=== PATIENT | female | born 1970 | race Caucasian/White ===

== ENCOUNTER 2020-12-07 00:34 | Inpatient (IN) | payer MEDICAID, SELFPAY ==
[2020-12-07] VITALS (12 sets, daily range): BP systolic 140–211; BP diastolic 81–139; PULSE 63–92; RESP 17–20; TEMP 36.1–36.9; O2SAT 90–98; BMI 40.7
--- NOTE | 2020-12-07 00:45 | W.ED.NAVMDI ---
Documented by User: OBED Mendoza 12/07/20 04:15 HPI - Nausea/Vomiting/Diarrhea General: Chief complaint: Nausea/Vomiting/Diarrhea Stated complaint: n/v/constipation Time Seen by Provider: 12/07/20 00:41 History of Present Illness: HPI Narrative: Patient is a 50-year-old female comes to the ED with abdominal pain, nausea/vomiting and constipation. Patient has a past surgical history of total hysterectomy, appendectomy and cholecystectomy. Patient says she has not had a bowel movement in 2 weeks. She started developing centralized abdominal pain that started approximately 1 week ago. She rates her abdominal pain 9 out of 10. She started developing the nausea and vomiting within the last 48 hours. She also reports since the start of her abdominal pain last week she has had poor p.o. intake. Denies any fever, chills, chest pain, shortness of breath, dysuria or hematuria. Patient denies any headache or numbness or tingling to extremities or face. Denies any weakness to the face or extremities. She does endorse having some blurry vision that has worsened in the last 2 to 3 hours. Associated nausea: Yes Associated symtoms: Reports nausea; Denies change in vision, chest pain, dysuria, fatigue, headache(s) or palpitations Review of Systems Const: Reports: change in appetite (decreased intake); Denies: fever(s), chills or fatigue Eyes: Reports: blurry vision; Denies: change in vision or eye discomfort ENMT: Denies: throat pain, odynophagia, nasal discharge or nasal congestion Card: Denies: chest pain, palpitations, edema, swelling of feet/ankles, dyspnea on exertion or orthopnea Resp: Denies: dyspnea, productive cough or non-productive cough GI: Reports: abdominal pain, nausea, vomiting and constipation; Denies: diarrhea or hematochezia : Denies: flank pain, dysuria or hematuria Musc: Denies: neck pain, back pain or extremity swelling Skin/Breast: Denies: rash or new lesions Neuro: Denies: headache(s), numbness in extremities or weakness in extremities [facility] ED PFSH: Medical History (Updated 12/07/20 @ 04:51 by Jennifer Eller MD) Abnormal colonoscopy in 30s 3 poulyps were removed Diabetes HTN (hypertension) Surgical History (Updated 12/07/20 @ 04:51 by Jennifer Eller MD) H/O: hysterectomy History of appendectomy S/P laparoscopic cholecystectomy Family History (Updated 12/07/20 @ 04:52 by Jennifer Eller MD) Grandmother Cancer DIRECTOR INPATIENT HEADACHE PROGRAM CANCER Mother CAD (coronary artery disease) Social History (Updated 12/07/20 @ 04:53 by Jennifer Eller MD) Smoking and tobacco status: current every day smoker cigarettes [ Other cigarette details: 4-6 ciggaretts a day ] Alcohol intake: never Substance/Drug Use: never Household members: family Housing: House Physical Exam Const: COMMON NORMALS: patient oriented x3 and alert GENERAL APPEARANCE: cooperative, in distress and ill appearing HENMT: COMMON NORMALS: normocephalic HEAD & SCALP: normocephalic MOUTH: moist mucous membranes abnormal Details: parched THROAT: posterior oropharynx normal and uvula midline Eye: COMMON NORMALS: Equal, round and reactive pupils present and EOMs intact bilaterally PUPIL: Yes Equal, round and reactive pupils present Neck/C-Spine: COMMON NORMALS: supple GENERAL: Yes normal visual inspection Resp: COMMON NORMALS: normal respiratory effort, No retractions, No use of accessory muscles and clear to auscultation bilaterally AUSCULTATION: clear to auscultation bilaterally Cardio: COMMON NORMALS: regular rate, regular rhythm, S1 normal heart sound present, S2 normal heart sound present, No gallops present (Cardio), No clicks present (Cardio), No murmurs present (Cardio) and Peripheral pulses 2+ throughout RATE: regular rate RHYTHM: regular rhythm HEART SOUNDS: S1 normal heart sound present and S2 normal heart sound present PERIPHERAL PULSES: Peripheral pulses 2+ throughout GI: COMMON NORMALS: Normal to inspection, nondistended, normoactive bowel sounds present, Soft to palpation and no masses PALPATION: Yes Soft to palpation and Yes Tenderness to palpation present (GI) (Centrally located periumbilical tenderness) : COMMON NORMALS: Yes no CVA tenderness BLADDER/KIDNEY EXAM: Yes no CVA tenderness Back/Pelvis: COMMON NORMALS: no CVA tenderness Extremity: COMMON NORMALS: normal to inspection Neuro: COMMON NORMALS: patient oriented x3 and moves all extremities SENSORIUM/ORIENTATION: Yes alert Skin: GENERAL SKIN EXAM: dry skin Course Vital Signs: Vital signs: Vital Signs Temperature 96.9 F L 12/07/20 00:38 Pulse Rate 86 12/07/20 04:06 Respiratory Rate 19 H 12/07/20 04:06 Blood Pressure 186/117 12/07/20 04:06 Pulse Oximetry 97 12/07/20 04:06 MDM - Nausea/Vomiting/Diarrhea MDM Narrative: Medical decision making narrative: Patient is a 50-year-old female comes to the ED with abdominal pain, constipation, nausea and vomiting. Patient says she has had a bowel movement 2 weeks and started developing abdominal pain a week ago. Within the last 48 hours she started developing nausea and vomiting. She has extensive past surgical history and her abdomen of a cholecystectomy, appendectomy and total hysterectomy. Exam shows a patient that appears ill and in some pain. She has some central/periumbilical tenderness upon palpation. Blood pressure elevated at 205/139 but rest of vitals are stable. White blood cell count 13.1, potassium 3.0, sodium 133 and rest of CMP were unremarkable. Lactic was elevated at 2.3. CT of head showed some old chronic infarcts but radiologist did recommend an MRI of head for better evaluation. CT of abdomen pelvis showed partial large bowel obstruction with worry some focal mass concerning for primary colonic malignancy. Patient was given IV potassium, morphine and Zofran and her symptoms improved. I discussed the case with Dr. Galindo and he will be contacting the hospitalist for patient to be admitted. Lab Data: Labs: Lab Results 12/07/20 12/07/20 12/07/20 Range/Units 00:42 00:46 00:46 WBC 13.1 H (4.0-10.0) 10^3/ uL RBC 6.12 H (4.1-5.3) 10^6/u L Hgb 13.0 (11.5-15.3) g/dL Hct 44.1 (37.0-47.0) % MCV 72.1 L (81-99) fL MCH 21.2 L (28.0-34.0) pg MCHC 29.5 L (30.0-36.0) g/dL RDW 18.7 H (12.1-15.1) % Plt Count 410 H (130-400) 10^3/c mm MPV 10.1 (7.4-10.4) fL Neut % (Auto) 82.2 % Lymph % (Auto) 11.1 % Cook % (Auto) 5.8 % Eos % (Auto) 0.1 % Baso % (Auto) 0.3 % Neut # (Auto) 10.77 H (1.8-7.7) 10^3/u L Lymph # (Auto) 1.5 (0.8-4.8) 10^3/u L Cook # (Auto) 0.8 (0.2-0.9) 10^3/u L Eos # (Auto) 0.0 (0.0-0.8) 10^3/u L Baso # (Auto) 0.0 (0.0-0.1) 10^3/u L Nucleated RBC % (a uto) 0 % Nucleated RBCs # 0.0 /100WBC Sodium 133 L (136-145) mmol/L Potassium 3.0 L (3.5-5.1) mmol/L Chloride 92 L (98-107) mmol/L Carbon Dioxide 28 (22-29) mmol/L Anion Gap 16.0 (5-19) BUN 14 (6-20) mg/dL Creatinine 0.9 (0.5-0.9) mg/dL GFR Calculation 65.8 L (90-130) mL/min Glucose 226 H (65-115) mg/dL Calculated Osmolal ity 284 L (285-295) mOsm/k g Lactic Acid 2.3 H (0.5-2.2) mmol/L Calcium 9.7 (8.5-10.5) mg/dL Total Bilirubin 0.6 (0.15-1.2) mg/dL AST 13 (0-32) U/L ALT 10 (0-33) U/L Alkaline Phosphata se 98 (35-105) IU/L Total Protein 7.3 (6.6-8.7) g/dL Albumin 4.1 (3.5-5.2) g/dL Globulin 3.2 (1.3-4.6) g/dL Lipase 38 (13-60) U/L Urine Color (Yellow) Urine Appearance (CLEAR) Urine pH (5-7) Ur Specific Gravit y (1.005-1.030) Urine Protein (Negative) Urine Glucose (UA) (Normal) Urine Ketones (Negative) Urine Blood (Negative) Urine Nitrate (Negative) Urine Bilirubin (Negative) Urine Urobilinogen (Negative) mg/dL Ur Leukocyte Polly ase (Negative) Urine RBC (0-2) /hpf Urine WBC (0-5) /hpf Ur Squamous Epith Cells (0-5) /hpf Amorphous Sediment Urine Bacteria (NONE) /hpf Urine Mucus /hpf 12/07/20 Range/Units 02:10 WBC (4.0-10.0) 10^3/ uL RBC (4.1-5.3) 10^6/u L Hgb (11.5-15.3) g/dL Hct (37.0-47.0) % MCV (81-99) fL MCH (28.0-34.0) pg MCHC (30.0-36.0) g/dL RDW (12.1-15.1) % Plt Count (130-400) 10^3/c mm MPV (7.4-10.4) fL Neut % (Auto) % Lymph % (Auto) % Cook % (Auto) % Eos % (Auto) % Baso % (Auto) % Neut # (Auto) (1.8-7.7) 10^3/u L Lymph # (Auto) (0.8-4.8) 10^3/u L Cook # (Auto) (0.2-0.9) 10^3/u L Eos # (Auto) (0.0-0.8) 10^3/u L Baso # (Auto) (0.0-0.1) 10^3/u L Nucleated RBC % (a uto) % Nucleated RBCs # /100WBC Sodium (136-145) mmol/L Potassium (3.5-5.1) mmol/L Chloride (98-107) mmol/L Carbon Dioxide (22-29) mmol/L Anion Gap (5-19) BUN (6-20) mg/dL Creatinine (0.5-0.9) mg/dL GFR Calculation (90-130) mL/min Glucose (65-115) mg/dL Calculated Osmolal ity (285-295) mOsm/k g Lactic Acid (0.5-2.2) mmol/L Calcium (8.5-10.5) mg/dL Total Bilirubin (0.15-1.2) mg/dL AST (0-32) U/L ALT (0-33) U/L Alkaline Phosphata se (35-105) IU/L Total Protein (6.6-8.7) g/dL Albumin (3.5-5.2) g/dL Globulin (1.3-4.6) g/dL Lipase (13-60) U/L Urine Color Yellow (Yellow) Urine Appearance Sl hazy (CLEAR) Urine pH 6.5 (5-7) Ur Specific Gravit y 1.015 (1.005-1.030) Urine Protein 1+ H (Negative) Urine Glucose (UA) Norm (Normal) Urine Ketones 2+ H (Negative) Urine Blood Neg (Negative) Urine Nitrate Negative (Negative) Urine Bilirubin 1+ H (Negative) Urine Urobilinogen 4 H (Negative) mg/dL Ur Leukocyte Polly ase Negative (Negative) Urine RBC 0-4 H (0-2) /hpf Urine WBC 0-4 H (0-5) /hpf Ur Squamous Epith Cells 55-80 H (0-5) /hpf Amorphous Sediment Not Reportable Urine Bacteria 4+ H (NONE) /hpf Urine Mucus 1+ /hpf Imaging Data^: CT Head: Attestation: I personally reviewed and interpreted this imaging study as follows: Radiologist's impression: [address] [address] [address] Scan Report Signed Patient: Barb Easton Unit #: [id number] : 1970 Age/Sex: 50 / F ADM Date: 12/07/20 Loc: ER Room/Bed: Attending Dr: Ordering Provider/Ordering MD: Emanuel Ramon Date of Service: 12/07/20 Procedure(s): CT head wo con* [id number] Accession Number(s): [id number] Report Number: [id number] PROCEDURE INFORMATION: Exam: CT Head Without Contrast Exam date and time: 12/07/2020 1:11 AM Age: 50 years old Clinical indication: Visual disturbance; Patient HX: HTN w blurred vision; Additional info: Hypertensive urgency and blurry vision TECHNIQUE: Imaging protocol: Computed tomography of the head without contrast. Radiation optimization: All CT scans at this facility use at least one of these dose optimization techniques: automated exposure control; mA and/or kV adjustment per patient size (includes targeted exams where dose is matched to clinical indication); or iterative reconstruction. COMPARISON: No relevant prior studies available. RADIATION DOSE METRICS: Total DLP (mGy-cm): 815.18 FINDINGS: Brain: There is focal hypoattenuation and mild atrophy seen along the medial aspect of the right occipital lobe compatible with area of chronic infarction. Focal hypoattenuation seen within the subependymoma white matter of the right parietal lobe compatible with a chronic lacunar infarction. Cerebral ventricles: No ventriculomegaly. Bones/joints: Unremarkable. No acute fracture. Paranasal sinuses: Fluid and mucosal thickening is seen within the ethmoidal sinuses bilaterally. Mastoid air cells: Visualized mastoid air cells are well aerated. Soft tissues: Unremarkable. CT/CT head wo con* [id number] IMPRESSION: 1. There are no acute intracranial findings. 2. Mild hypoattenuation in atrophy seen within the medial aspect of the right occipital lobe compatible with a chronic infarction. There are no prior imaging studies available for comparison. As such, follow-up evaluation with MRI imaging including diffusion-weighted imaging is suggested. 3. Focal hypoattenuation seen adjacent to the right lateral ventricle compatible with a chronic lacunar infarction. Radiation Dose CTDIVOL = (mGy): DLP = 815.18 (mGy-cm) Dictated By: Prasanth Burnham MD Signed By: Prasanth Burnham MD Signed Date/Time: 12/07/20248 DD/ 7 CT Abd/Pel: Attestation: I personally reviewed and interpreted this imaging study as follows: Radiologist's impression: [address] [address] [address] Scan Report Signed Patient: Barb Easton Unit #: [id number] : 1970 Age/Sex: 50 / F ADM Date: 12/07/20 Loc: ER Room/Bed: Attending Dr: Ordering Provider/Ordering MD: Emanuel Ramon Date of Service: 12/07/20 Procedure(s): CT abdomen pelvis w con* [id number] Accession Number(s): [id number] Report Number: [id number] PROCEDURE INFORMATION: Exam: CT Abdomen And Pelvis With Contrast Exam date and time: 12/07/2020 1:11 AM Age: 50 years old Clinical indication: Abdominal pain; Generalized; Prior surgery; Surgery date: 6+ months; Surgery type: Gb, hyst, appy; Patient HX: C/O abd pain w constipation x 2 weeks; Additional info: Abdominal pain, constipation, n/v TECHNIQUE: Imaging protocol: Computed tomography of the abdomen and pelvis with contrast. Radiation optimization: All CT scans at this facility use at least one of these dose optimization techniques: automated exposure control; mA and/or kV adjustment per patient size (includes targeted exams where dose is matched to clinical indication); or iterative reconstruction. Contrast material: OMNI 300; Contrast volume: 95 ml; Contrast route: INTRAVENOUS (IV); COMPARISON: No relevant prior studies available. RADIATION DOSE METRICS: Total DLP (mGy-cm): 1963.69 FINDINGS: Liver: Normal. No mass. Gallbladder and bile ducts: Status post cholecystectomy. Pancreas: Normal. No ductal dilation. Spleen: Normal. No splenomegaly. Adrenal glands: Normal. No mass. Kidneys and ureters: There is a small benign appearing cystic mass seen in the upper pole of the right kidney measuring 1.2 cm. Stomach and bowel: There are dilated fluid-filled loops of small bowel present extending to the ileocecal bowel and dilated cecum and ascending colon is seen., findings suggesting a proximal colonic obstruction. There is a focal thickening of the colonic bowel wall near the level of the hepatic flexure worrisome for a obstructing colonic mass. (series 2: Image 31, series 602: Image 51 and series 601: Image 66). Status post hysterectomy. Appendix: Status post appendectomy. Intraperitoneal space: Unremarkable. No free air. No significant fluid collection. Vasculature: Unremarkable. No abdominal aortic aneurysm. Lymph nodes: Unremarkable. No enlarged lymph nodes. Urinary bladder: Unremarkable as visualized. Reproductive: See Stomach and bowel finding. Bones/joints: Unremarkable. No acute fracture. Soft tissues: There is a small umbilical hernia containing fat. CT/CT abdomen pelvis w con* [id number] IMPRESSION: 1. Dilated fluid-filled small bowel loops and fluid-filled dilated ascending colon compatible with a partial large bowel obstruction. There is a soft tissue attenuation focal mass seen near the hepatic flexure worrisome for a primary colonic malignancy. Follow-up evaluation with colonoscopy is suggested. 2. Benign right renal cyst measuring 1.2 cm. No further workup needed. COMMENTS: Consistent with the [employer]'s Incidental Findings Committee white paper (J Am Robin Radiol 2018): Any incidental renal lesion less than 1 cm or classified as too small to characterize, or any incidental cystic renal lesion characterized as simple-appearing, is likely benign. No follow-up imaging is recommended for these lesions per consensus recommendations based on imaging criteria. Radiation Dose CTDIVOL = (mGy): DLP = 1963.69 (mGy-cm) Dictated By: Prasanth Burnham MD Signed By: Prasanth Burnham MD Signed Date/Time: 12/07/20254 DD/ 2 EKG Data^: EKG 1: Attestation: I personally reviewed and interpreted this EKG as follows: EKG interpretation date: 12/07/20 Interpretation: Normal sinus rhythm, 78 bpm, no ST segment elevation or depression seen. Some flattening T waves noted. Discharge Plan Discharge Patient Disposition: Admitted As Inpatient Admit Provider: Jennifer Eller Clinical Impression: Large bowel obstruction Condition: Fair Coding Level of Care Code ED Junk Dealer for Chg Fwd Exam Comprehensive Documented by User: Robert Galindo DO 12/07/20 05:02 HPI - Nausea/Vomiting/Diarrhea General: Chief complaint: Nausea/Vomiting/Diarrhea Stated complaint: n/v/constipation Time Seen by Provider: 12/07/20 00:41 PFS ED PFSH: Medical History (Updated 12/07/20 @ 04:51 by Jennifer Eller MD) Abnormal colonoscopy in 30s 3 poulyps were removed Diabetes HTN (hypertension) Surgical History (Updated 12/07/20 @ 04:51 by Jennifer Eller MD) H/O: hysterectomy History of appendectomy S/P laparoscopic cholecystectomy Family History (Updated 12/07/20 @ 04:52 by Jennifer Eller MD) Grandmother Cancer DIRECTOR INPATIENT HEADACHE PROGRAM CANCER Mother CAD (coronary artery disease) Social History (Updated 12/07/20 @ 04:53 by Jennifer Eller MD) Smoking and tobacco status: current every day smoker cigarettes [ Other cigarette details: 4-6 ciggaretts a day ] Alcohol intake: never Substance/Drug Use: never Household members: family Housing: House Course Consultations: Consultation #1: dannie Vital Signs: Vital signs: Vital Signs Temperature 96.9 F L 12/07/20 00:38 Pulse Rate 86 12/07/20 04:06 Respiratory Rate 19 H 12/07/20 04:06 Blood Pressure 186/117 12/07/20 04:06 Pulse Oximetry 97 12/07/20 04:06 MDM - Nausea/Vomiting/Diarrhea MDM Narrative: Medical decision making narrative: 50-year-old lady seen originally by Mr. Yenny PA-C. I agree with his history, evaluation, and management. This lady is found on CT to have a large bowel obstruction at the hepatic flexure with dilated loops of small bowel. She is extremely uncomfortable and distended. NG tube placed in the ER with quite a bit of output even in the first few minutes. She will be admitted to the floor. Lab Data: Labs: Lab Results 12/07/20 12/07/20 12/07/20 Range/Units 00:42 00:46 00:46 WBC 13.1 H (4.0-10.0) 10^3/ uL RBC 6.12 H (4.1-5.3) 10^6/u L Hgb 13.0 (11.5-15.3) g/dL Hct 44.1 (37.0-47.0) % MCV 72.1 L (81-99) fL MCH 21.2 L (28.0-34.0) pg MCHC 29.5 L (30.0-36.0) g/dL RDW 18.7 H (12.1-15.1) % Plt Count 410 H (130-400) 10^3/c mm MPV 10.1 (7.4-10.4) fL Neut % (Auto) 82.2 % Lymph % (Auto) 11.1 % Cook % (Auto) 5.8 % Eos % (Auto) 0.1 % Baso % (Auto) 0.3 % Neut # (Auto) 10.77 H (1.8-7.7) 10^3/u L Lymph # (Auto) 1.5 (0.8-4.8) 10^3/u L Cook # (Auto) 0.8 (0.2-0.9) 10^3/u L Eos # (Auto) 0.0 (0.0-0.8) 10^3/u L Baso # (Auto) 0.0 (0.0-0.1) 10^3/u L Nucleated RBC % (a uto) 0 % Nucleated RBCs # 0.0 /100WBC Sodium 133 L (136-145) mmol/L Potassium 3.0 L (3.5-5.1) mmol/L Chloride 92 L (98-107) mmol/L Carbon Dioxide 28 (22-29) mmol/L Anion Gap 16.0 (5-19) BUN 14 (6-20) mg/dL Creatinine 0.9 (0.5-0.9) mg/dL GFR Calculation 65.8 L (90-130) mL/min Glucose 226 H (65-115) mg/dL Calculated Osmolal ity 284 L (285-295) mOsm/k g Lactic Acid 2.3 H (0.5-2.2) mmol/L Calcium 9.7 (8.5-10.5) mg/dL Total Bilirubin 0.6 (0.15-1.2) mg/dL AST 13 (0-32) U/L ALT 10 (0-33) U/L Alkaline Phosphata se 98 (35-105) IU/L Total Protein 7.3 (6.6-8.7) g/dL Albumin 4.1 (3.5-5.2) g/dL Globulin 3.2 (1.3-4.6) g/dL Lipase 38 (13-60) U/L Urine Color (Yellow) Urine Appearance (CLEAR) Urine pH (5-7) Ur Specific Gravit y (1.005-1.030) Urine Protein (Negative) Urine Glucose (UA) (Normal) Urine Ketones (Negative) Urine Blood (Negative) Urine Nitrate (Negative) Urine Bilirubin (Negative) Urine Urobilinogen (Negative) mg/dL Ur Leukocyte Polly ase (Negative) Urine RBC (0-2) /hpf Urine WBC (0-5) /hpf Ur Squamous Epith Cells (0-5) /hpf Amorphous Sediment Urine Bacteria (NONE) /hpf Urine Mucus /hpf 12/07/20 Range/Units 02:10 WBC (4.0-10.0) 10^3/ uL RBC (4.1-5.3) 10^6/u L Hgb (11.5-15.3) g/dL Hct (37.0-47.0) % MCV (81-99) fL MCH (28.0-34.0) pg MCHC (30.0-36.0) g/dL RDW (12.1-15.1) % Plt Count (130-400) 10^3/c mm MPV (7.4-10.4) fL Neut % (Auto) % Lymph % (Auto) % Cook % (Auto) % Eos % (Auto) % Baso % (Auto) % Neut # (Auto) (1.8-7.7) 10^3/u L Lymph # (Auto) (0.8-4.8) 10^3/u L Cook # (Auto) (0.2-0.9) 10^3/u L Eos # (Auto) (0.0-0.8) 10^3/u L Baso # (Auto) (0.0-0.1) 10^3/u L Nucleated RBC % (a uto) % Nucleated RBCs # /100WBC Sodium (136-145) mmol/L Potassium (3.5-5.1) mmol/L Chloride (98-107) mmol/L Carbon Dioxide (22-29) mmol/L Anion Gap (5-19) BUN (6-20) mg/dL Creatinine (0.5-0.9) mg/dL GFR Calculation (90-130) mL/min Glucose (65-115) mg/dL Calculated Osmolal ity (285-295) mOsm/k g Lactic Acid (0.5-2.2) mmol/L Calcium (8.5-10.5) mg/dL Total Bilirubin (0.15-1.2) mg/dL AST (0-32) U/L ALT (0-33) U/L Alkaline Phosphata se (35-105) IU/L Total Protein (6.6-8.7) g/dL Albumin (3.5-5.2) g/dL Globulin (1.3-4.6) g/dL Lipase (13-60) U/L Urine Color Yellow (Yellow) Urine Appearance Sl hazy (CLEAR) Urine pH 6.5 (5-7) Ur Specific Gravit y 1.015 (1.005-1.030) Urine Protein 1+ H (Negative) Urine Glucose (UA) Norm (Normal) Urine Ketones 2+ H (Negative) Urine Blood Neg (Negative) Urine Nitrate Negative (Negative) Urine Bilirubin 1+ H (Negative) Urine Urobilinogen 4 H (Negative) mg/dL Ur Leukocyte Polly ase Negative (Negative) Urine RBC 0-4 H (0-2) /hpf Urine WBC 0-4 H (0-5) /hpf Ur Squamous Epith Cells 55-80 H (0-5) /hpf Amorphous Sediment Not Reportable Urine Bacteria 4+ H (NONE) /hpf Urine Mucus 1+ /hpf Discharge Plan Discharge Patient Disposition: Admitted As Inpatient Admit Provider: Jennifer Eller Clinical Impression: Large bowel obstruction Condition: Fair Coding Level of Care Code ED Junk Dealer for Chg Fwd Exam Comprehensive
--- NOTE | 2020-12-07 00:53 | CTR_ITS ---
PROCEDURE INFORMATION: Exam: CT Abdomen And Pelvis With Contrast Exam date and time: 12/07/2020 1:11 AM Age: 50 years old Clinical indication: Abdominal pain; Generalized; Prior surgery; Surgery date: 6+ months; Surgery type: Gb, hyst, appy; Patient HX: C/O abd pain w constipation x 2 weeks; Additional info: Abdominal pain, constipation, n/v TECHNIQUE: Imaging protocol: Computed tomography of the abdomen and pelvis with contrast. Radiation optimization: All CT scans at this facility use at least one of these dose optimization techniques: automated exposure control; mA and/or kV adjustment per patient size (includes targeted exams where dose is matched to clinical indication); or iterative reconstruction. Contrast material: OMNI 300; Contrast volume: 95 ml; Contrast route: INTRAVENOUS (IV); COMPARISON: No relevant prior studies available. RADIATION DOSE METRICS: Total DLP (mGy-cm): 1963.69 FINDINGS: Liver: Normal. No mass. Gallbladder and bile ducts: Status post cholecystectomy. Pancreas: Normal. No ductal dilation. Spleen: Normal. No splenomegaly. Adrenal glands: Normal. No mass. Kidneys and ureters: There is a small benign appearing cystic mass seen in the upper pole of the right kidney measuring 1.2 cm. Stomach and bowel: There are dilated fluid-filled loops of small bowel present extending to the ileocecal bowel and dilated cecum and ascending colon is seen., findings suggesting a proximal colonic obstruction. There is a focal thickening of the colonic bowel wall near the level of the hepatic flexure worrisome for a obstructing colonic mass. (series 2: Image 31, series 602: Image 51 and series 601: Image 66). Status post hysterectomy. Appendix: Status post appendectomy. Intraperitoneal space: Unremarkable. No free air. No significant fluid collection. Vasculature: Unremarkable. No abdominal aortic aneurysm. Lymph nodes: Unremarkable. No enlarged lymph nodes. Urinary bladder: Unremarkable as visualized. Reproductive: See Stomach and bowel finding. Bones/joints: Unremarkable. No acute fracture. Soft tissues: There is a small umbilical hernia containing fat. CT/CT abdomen pelvis w con* [id number] IMPRESSION: 1. Dilated fluid-filled small bowel loops and fluid-filled dilated ascending colon compatible with a partial large bowel obstruction. There is a soft tissue attenuation focal mass seen near the hepatic flexure worrisome for a primary colonic malignancy. Follow-up evaluation with colonoscopy is suggested. 2. Benign right renal cyst measuring 1.2 cm. No further workup needed. COMMENTS: Consistent with the [employer]'s Incidental Findings Committee white paper (J Am Robin Radiol 2018): Any incidental renal lesion less than 1 cm or classified as too small to characterize, or any incidental cystic renal lesion characterized as simple-appearing, is likely benign. No follow-up imaging is recommended for these lesions per consensus recommendations based on imaging criteria. Radiation Dose CTDIVOL = (mGy): DLP = 1963.69 (mGy-cm)
--- NOTE | 2020-12-07 00:53 | CTR_ITS ---
PROCEDURE INFORMATION: Exam: CT Head Without Contrast Exam date and time: 12/07/2020 1:11 AM Age: 50 years old Clinical indication: Visual disturbance; Patient HX: HTN w blurred vision; Additional info: Hypertensive urgency and blurry vision TECHNIQUE: Imaging protocol: Computed tomography of the head without contrast. Radiation optimization: All CT scans at this facility use at least one of these dose optimization techniques: automated exposure control; mA and/or kV adjustment per patient size (includes targeted exams where dose is matched to clinical indication); or iterative reconstruction. COMPARISON: No relevant prior studies available. RADIATION DOSE METRICS: Total DLP (mGy-cm): 815.18 FINDINGS: Brain: There is focal hypoattenuation and mild atrophy seen along the medial aspect of the right occipital lobe compatible with area of chronic infarction. Focal hypoattenuation seen within the subependymoma white matter of the right parietal lobe compatible with a chronic lacunar infarction. Cerebral ventricles: No ventriculomegaly. Bones/joints: Unremarkable. No acute fracture. Paranasal sinuses: Fluid and mucosal thickening is seen within the ethmoidal sinuses bilaterally. Mastoid air cells: Visualized mastoid air cells are well aerated. Soft tissues: Unremarkable. CT/CT head wo con* [id number] IMPRESSION: 1. There are no acute intracranial findings. 2. Mild hypoattenuation in atrophy seen within the medial aspect of the right occipital lobe compatible with a chronic infarction. There are no prior imaging studies available for comparison. As such, follow-up evaluation with MRI imaging including diffusion-weighted imaging is suggested. 3. Focal hypoattenuation seen adjacent to the right lateral ventricle compatible with a chronic lacunar infarction. Radiation Dose CTDIVOL = (mGy): DLP = 815.18 (mGy-cm)
[2020-12-07 00:54] LABS: Basophils % 0.3 %; Eosinophils % 0.1 %; Hematocrit 44.1 % (37.0-47.0); Lymphocytes # 1.5 10^3/uL (0.8-4.8); Lymphocytes % 11.1 %; Mean Corpuscular HGB Conc 29.5 g/dL (30.0-36.0); Mean Corpuscular Hemoglobin 21.2 pg (28.0-34.0); Mean Corpuscular Volume 72.1 fL (81-99); Mean Platelet Volume 10.1 fL (7.4-10.4); Monocytes # 0.8 10^3/uL (0.2-0.9); Monocytes % 5.8 %; Neutrophils # 10.77 10^3/uL (1.8-7.7); Neutrophils % 82.2 %; Nucleated Red Blood Cells % 0 %; Platelet Count 410 10^3/cmm (130-400); Red Blood Count 6.12 10^6/uL (4.1-5.3); Red Cell Distribution Width 18.7 % (12.1-15.1); White Blood Count 13.1 10^3/uL (4.0-10.0)
[2020-12-07] MEDS: ondansetron 2 mg/ML SDV 2 mL 4 MG IVP (00:59)
[2020-12-07] MEDS: morphine 4 mg/mL SDV 1 mL IVP (01:00)
--- NOTE | 2020-12-07 01:11 | PC.NURSE ---
Patient placed on 2 liters oxygen via nasal cannula
[2020-12-07 01:34] LABS: Lactic Sepsis W/Reflex 2.3 mmol/L (0.5-2.2)
[2020-12-07 01:35] LABS: Alanine Aminotransferase 10 U/L (0-33); Albumin Level 4.1 g/dL (3.5-5.2); Alkaline Phosphatase 98 IU/L (35-105); Aspartate Amino Transferase 13 U/L (0-32); Blood Urea Nitrogen 14 mg/dL (6-20); Calcium 9.7 mg/dL (8.5-10.5); Carbon Dioxide 28 mmol/L (22-29); Chloride 92 mmol/L (98-107); Creatinine Clr Calc Pharmacy 97.1172; Globulin 3.2 g/dL (1.3-4.6); Glomerular Filtration Rate 65.8 mL/min (90-130); Glucose 226 mg/dL (65-115); Lipase 38 U/L (13-60); Osmolality Calculated 284 mOsm/kg (285-295); Sodium 133 mmol/L (136-145); Total Bilirubin 0.6 mg/dL (0.15-1.2); Total Protein 7.3 g/dL (6.6-8.7)
--- NOTE | 2020-12-07 01:42 | ECG_ITS ---
[facility] Test Date: 2020-12-07 Pat Name: Barb Easton Department: Room: Gender: Female [employer]ified [employer] Farmer: : 1970 Requested By: Emanuel Ramon Order Number: [id number] Hurtado MD: Sumi Grayson M.D. Measurements Intervals [place] Rate: 78 P: 24 [place]: 182 QRS: 19 QRSD: 101 T: 62 QT: 377 QTc: 432 Interpretive Statements SINUS RHYTHM NONSPECIFIC T-WAVE ABNORMALITY Compared to ECG 03/15/2016 00:29:56 T-wave abnormality now present Electronically Signed On 12-08-2020 1:11:18 CDT by Sumi Grayson M.D. [email or web address]/store/[id number]
[2020-12-07] MEDS: iohexol 300 mg/mL 100 mL Btl IV (02:16)
[2020-12-07] MEDS: potassium chloride premix 100 ML 50 MEQ IV (02:25)
[2020-12-07 02:28] LABS: Bilirubin Urine 1+ (Negative); Blood Urine Neg (Negative); Glucose Urine UA Norm (Normal); Ketones Urine 2+ (Negative); Leukocyte Esterase Urine Negative (Negative); Nitrate Urine Negative (Negative); Protein Urine 1+ (Negative); Specific Gravity, Urine 1.015 (1.005-1.030); Urine Appearance SL Hazy (CLEAR); Urine Color Yellow (Yellow); Urobilinogen Urine 4 mg/dL (Negative); pH Urine 6.5 (5-7)
[2020-12-07 02:33] LABS: Add Urine Culture? No; Bacteria Urine 4+ /hpf; Mucus Urine 1+ /hpf; RBC Urine 0-4 /hpf (0-2); Squamous Epithelial Cell Urine 55-80 /hpf (0-5); WBC Urine 0-4 /hpf (0-5)
--- NOTE | 2020-12-07 02:35 | PC.NURSE ---
EKG taken and given to ED provider
[2020-12-07 02:56] LABS: Reflex Lactate Order REFLEX LACTIC ORDERD
[2020-12-07] MEDS: enalaprilat 1.25 mg/mL Inj IVP (03:58)
--- NOTE | 2020-12-07 04:18 | PM.HP ---
Providers/Chief Complaint Chief Complaint: n/v/constipation History of Present Illness Barb Easton is a 50 year old female with past medical history of hypertension or diabetes however does not take any medications for these conditions presented today with chief complaint of 2 weeks of constipation. Patient stating that her last bowel movement was 2 weeks ago since then she has been experiencing abdominal bloating, recurrent episode of vomiting along with nausea. She has had multiple episode of emesis, she is denying fever, weight loss, night sweats, blood in stool, headache, severe abdominal pain. He is stating that in her 30s she underwent colonoscopy which revealed 3 polyps however she is not sure whether they were malignant or not, since her young age she has been experiencing intermittent change in bowel movements. Diagnosis in the ER revealed hypertension, she is afebrile, mild leukocytosis with stable hemoglobin, hemoconcentration, potassium 3, mild lactic acidemia due to dehydration, CT CT abdomen pelvis showed dilated fluid-filled small bowel loops dilated ascending colon with partial large bowel obstruction with a focal mass near hepatic flexure, benign renal cyst, CT head revealed mild hypoattenuation medial aspect of right occipital lobe chronic infarct Review of Systems Const: Reports: body aches, change in appetite, change in weight, fatigue and malaise; Denies: fever(s) or chills Eyes: Denies: change in vision ENMT: Denies: throat pain Card: Denies: chest pain Resp: Denies: dyspnea GI: Reports: abdominal pain, nausea, vomiting, early satiety, constipation and bloating : Denies: flank pain Musc: Denies: neck pain Skin/Breast: Denies: rash Neuro: Denies: headache(s) Psych: Denies: anxiety Endo: Denies: polyuria Osiel/Lymph: Denies: easy bruising All/Imm: Denies: urticaria Medications/Allergies Allergies Allergy/AdvReac Type Severity Reaction Status Date / Time No Known Allergies Allergy Verified 12/07/20 00:38 PFSH Acute PFSH: Medical History Abnormal colonoscopy in 30s 3 poulyps were removed Diabetes HTN (hypertension) Surgical History H/O: hysterectomy History of appendectomy S/P laparoscopic cholecystectomy Family History Grandmother Cancer CHIEF TECHNOLOGY OFFICER CANCER Mother CAD (coronary artery disease) Social History Smoking and tobacco status: current every day smoker cigarettes [ Other cigarette details: 4-6 ciggaretts a day ] Alcohol intake: never Substance/Drug Use: never Household members: family Housing: House Vitals/I&O/Wt Last Vital Signs Temp 96.9 F L 12/07/20 00:38 Pulse 86 12/07/20 04:06 Resp 19 H 12/07/20 04:06 BP 186/117 12/07/20 04:06 Pulse Ox 97 12/07/20 04:06 Weight last 48 hrs Weight 117.934 kg Physical Exam Narrative: EXAM NARRATIVE: Very pleasant female who was sitting comfortably in her room Normal hemodynamics she was saturating well on on room air at the time of my evaluation S1, S2 sinus rhythm no murmur appreciated Clinically looks slightly dehydrated Abdomen distended, bloated, mild tenderness on deep palpation, hyperactive bowel sounds Lower extremity no edema gangrene ulcer Bilateral breath sounds without adventitious rhonchi or crackles Appropriate mood and affect No joint swelling or cellulitis No neurological deficits awake alert oriented x3 GCS 15 Data : 12/07/20 00:46 12/07/20 00:46 A&P Assessment and plan (1) Large bowel obstruction: Large bowel obstruction, CT abdomen pelvis reveals mass in hepatic flexure, partial large bowel obstruction Last bowel movement 2 weeks ago No family history of GI/colon cancer In her 30s she underwent colonoscopy which revealed 3 polyps, however she is not sure about histopathological diagnosis We will keep her n.p.o., Start on D5 normal saline fluid restriction with potassium supplementation General surgery consult in the morning She will need colonoscopy for histopathological diagnosis NG tube to be placed for stomach decompression Status: Acute Additional A&P Information History of diabetes and hypertension: Patient does not take any medication at home Currently hypertensive, will add amlodipine and check A1c level, hyperglycemia noted as well which I am anticipating will improve with fluid resuscitation DVT prophylaxis SCDs avoid anticoagulation in case she would require any urgent intervention, please follow-up after general surgery recommendations N.p.o. Full code Attestations Medical Necessity Statement*: Anticipating stay in the hospital cross more than 2 midnights for histopathological diagnosis indication for hepatic flexure mass and constipation Time Spent in Patient Care: 35mins Coding Level of Care Code Acute Member Certification Manager for Chg Fwd Diagnoses Large bowel obstruction K56.609
[2020-12-07] MEDS: cetacaine Spray 5 gm Can 1 SPRAY TOPICAL (04:57)
[2020-12-07] MEDS: ketorolac 30 mg/mL INJ IVP (05:20)
--- NOTE | 2020-12-07 08:00 | XRR_ITS ---
PROCEDURE INFORMATION: Exam: XR Chest Exam date and time: 12/07/2020 8:05 AM Age: 50 years old Clinical indication: Shortness of breath; Patient HX: N/v, constipation, no chest complaints per patient TECHNIQUE: Imaging protocol: XR of the chest Views: 1 view. COMPARISON: CR Chest 1 [place] [id number] 03/15/2016 1:42 AM FINDINGS: Tubes, catheters and devices: A nasogastric tube is present with the tip projecting on the stomach. Lungs: There is mild linear atelectasis in the lung bases. No pneumonia is seen. Pleural spaces: Unremarkable. No pleural effusion. No pneumothorax. Heart/Mediastinum: Unremarkable. No cardiomegaly. Bones/joints: Unremarkable. XR/XR chest 1V portable [id number] IMPRESSION: 1. Tip of the nasogastric tube projects on the stomach. 2. Mild linear atelectasis in the lung bases.
[2020-12-07 09:17] LABS: Carcinoembryonic Antigen 2.8 ng/mL (0.0-4.7)
--- NOTE | 2020-12-07 09:26 | PM.PN ---
Subjective Subjective: Interval history: was seen and examined this morning, she has N.G tube in place and in suction.She deny any abdominal pain, has not passed any gas or stool.Deny nausea.vomiting. s/p : Fl enema with gastrografin study. Vitals/I&O/Wt Last Vital Signs Temp 97.9 F 12/07/20 08:00 Pulse 72 12/07/20 08:00 Resp 18 12/07/20 08:00 BP 152/85 12/07/20 08:00 Pulse Ox 95 12/07/20 08:00 12/06/20 12/07/20 12/07/20 22:59 06:59 14:59 Intake Total 100 / 100 Balance 100 / 100 Weight last 48 hrs Weight 117.934 kg Physical Exam Const: COMMON NORMALS: patient oriented x3 Chest: CHEST: Yes Symmetrical chest wall rise Resp: COMMON NORMALS: normal respiratory effort, No retractions, No use of accessory muscles and clear to auscultation bilaterally EFFORT & INSPECTION: Yes symmetric chest movement AUSCULTATION: clear to auscultation bilaterally Cardio: COMMON NORMALS: regular rate, regular rhythm, S1 normal heart sound present, S2 normal heart sound present, No gallops present (Cardio), No murmurs present (Cardio), No rub (Cardio) and Peripheral pulses 2+ throughout RATE: regular rate RHYTHM: regular rhythm HEART SOUNDS: S1 normal heart sound present and S2 normal heart sound present PERIPHERAL PULSES: Peripheral pulses 2+ throughout GI: AUSCULTATION: Yes normoactive bowel sounds RECTAL EXAM: deferred OTHER: Obese non distended abdomen, BS + Mild RUQ Tenderness Extremity: COMMON NORMALS: no clubbing, cyanosis or edema and no pedal edema Neuro: COMMON NORMALS: patient oriented x3 Data : 12/07/20 00:46 12/07/20 00:46 A&P Assessment and plan (1) Mass of hepatic flexure of colon: CEA is normal H/O Prior Colonscopy 20 years ago at age 28. Has h/o chronic constipation Deny any weight loss Currently Patient is NPO . s/p : Fl enema with gastrografin study. Surgery on Board.Appreciate Rec Status: Acute (2) Large bowel obstruction: Status: Acute (3) HTN (hypertension): Currently b/p well controlled. Status: Acute (4) Diabetes: LDSSI FSG Status: Acute Attestations Medical Necessity Statement*: Patient needs to be in hospital for the management of near total colonic obstruction Coding Level of Care Code Acute Cryptographic Clerk for Chg Fwd Diagnoses Mass of hepatic flexure of colon K63.89 Large bowel obstruction K56.609 HTN (hypertension) I10 Diabetes E11.9
[2020-12-07 09:30] LABS: Estmated Average Glucose 169; Hemoglobin A1C 7.5 % (4.0-6.0)
[2020-12-07 10:54] LABS: Glucose Point of Care 143 mg/dL (70-110)
[2020-12-07] MEDS: heparin 5,000 unit/mL INJ 1 mL 5000 UNIT SUBCUT (11:43)
[2020-12-07] MEDS: sodium chlor 0.9% + KCl 20 mEq 20 MEQ/1,000 ML BAG 125 MEQ IV ×2 (11:52→21:54)
--- NOTE | 2020-12-07 12:40 | FL_ITS ---
WS: [id number] INDICATION: Hepatic flexure mass. Gastrografin enema TECHNIQUE: Fluoroscopic guided Gastrografin enema FINDINGS: Correlation with recent CT December 07, 2020 Residual contrast in the bladder from recent CT. Tortuous sigmoid colon. Normal filling of the left d escending colon and splenic flexure. Very tortuous splenic flexure with delayed contrast opacificatio n. Contrast eventually traversed the splenic flexure with normal filling of the transverse colon. Abrupt cessation of contrast flow at the hepatic flexure with dense stool. Contrast did not traverse this area of stricture. This presumably corresponds to the area of suspicious narrowing on the recent CT. Patient could not tolerate further imaging. Enteric tube in place. IMPRESSION: 1. Very tortuous sigmoid colon and splenic flexure. 2. Abrupt cessation of contrast at the hepatic flexure with dense stool. This is in the area of mass /stricture seen on the recent CT. Patient could not tolerate further imaging at this point. 3. Tortuous sigmoid colon.
--- NOTE | 2020-12-07 12:42 | PM.CONSULT ---
Providers/Reason For Consult Consulting Physican/Specialty*: General Surgery Andrea Evans MD Reason for Consult*: Colonic obstruction, probable mass at hepatic flexure by CT. Attending Physician: Phillip Lewis MD History of Present Illness History of Present Illness Barb Easton is a 50 year old female who says that she has had bowel trouble all of my life, but has had more issues over the past few months. She has been having episodes where she will get abdominal cramping at her umbilical level and in the lower abdomen. This will happen for 2 or 3 days and then it will break loose and she will have diarrhea. There has not been any obvious evidence of hematochezia. She says about 2 weeks ago she started getting nausea and vomiting with her episodes. She says that she has not had a normal bowel movement in weeks but 2 weeks ago she passed a couple small pieces of hard stool. She has not had any bowel movements since. She says she is not passing flatus; the last time she was clearly aware of any flatus was perhaps 1 to 2 weeks ago. She took a laxative yesterday but it only seemed to make things worse. She came to the hospital and a CAT scan showed evidence of a colon obstruction with a possible lesion at the hepatic flexure. The patient got an NG tube and says she feels better now than she did. She tells me she had a colonoscopy when she was in her 30s to evaluate her bowel trouble, and 3 polyps were removed. She says she was told to have more frequent colonoscopies but never followed up with that. She is unaware of any family history of colon neoplasia, but admits she does not know that much of her family history. She thinks she has been losing weight at home; she actually has not been weighing herself because she does not have a scale at home, but her clothes are getting looser. Of note, the patient has a history of hypertension and diabetes but says she stopped taking her medication because I do not like going to see doctors. Review of Systems General: Reports: 10 or more systems reviewed and unremarkable except in HPI and below Const: Reports: change in weight (Weight loss, not sure how much); Denies: fever(s) GI: Reports: abdominal pain, nausea, vomiting, constipation, bloating, GI cramping and change in bowel habits; Denies: hematochezia Meds/Allergies Home Medications and Allergies Home Medications Medication Instructions Recorded Confirmed Last Taken Type No Known Home Medications 12/07/20 12/07/20 Unknown History Allergies Allergy/AdvReac Type Severity Reaction Status Date / Time No Known Allergies Allergy Verified 12/07/20 00:38 Current Medications Current Medications Generic Name Dose Route Start Last Admin Trade Name Freq PRN Reason Stop Dose Admin Heparin Sodium (Beef Lung) 5,000 unit 12/07/20 08:30 12/07/20 11:43 Heparin 5,000 Unit/Ml Inj 1 Ml SUBCUT 5,000 unit Q12H JENNIFER Administration Potassium Chloride/Sodium Chloride 20 meq in 1,000 mls @ 125 mls/hr 12/07/20 08:00 12/07/20 11:52 Sodium Chlor 0.9% + Kcl 20 Meq IV 125 mls/hr .Q8H JENNIFER Administration Insulin Aspart 0 unit 12/07/20 08:00 12/07/20 10:44 Insulin Aspart 100 Unit/1 Ml SUBCUT Not Given WM&BEDTIME JENNIFER Protocol PFSH Acute PFSH: Medical History (Updated 12/07/20 @ 12:43 by Andrea Evans MD) Abnormal colonoscopy in 30s 3 polyps were removed Colon polyps Diabetes HTN (hypertension) Surgical History (Updated 12/07/20 @ 12:57 by Andrea Evans MD) H/O: hysterectomy / BSO /incidental appendectomy History of carpal tunnel surgery History of tonsillectomy S/P laparoscopic cholecystectomy Right Family History Grandmother Cancer AIRPORT SCREENER CANCER Mother CAD (coronary artery disease) Social History (Updated 12/07/20 @ 12:58 by Andrea Evans MD) Smoking and tobacco status: current every day smoker cigarettes Years cigarettes smoked: 30 [ Other cigarette details: Recently only a few cigarettes a day, but 1 to 2 packs/day in the past ] Alcohol intake: current Alcohol use comment: Rarely Substance/Drug Use: never Household members: family Housing: House Vitals/I&O/Wt Last Vital Signs Temp 97.4 F L 12/07/20 11:08 Pulse 68 12/07/20 11:08 Resp 18 12/07/20 11:08 BP 140/81 12/07/20 11:08 Pulse Ox 90 12/07/20 11:08 12/06/20 12/07/20 12/07/20 22:59 06:59 14:59 Intake Total 100 / 100 Balance 100 / 100 Weight last 48 hrs Weight 260 lb Physical Exam Narrative: EXAM NARRATIVE: The patient was encountered in her hospital room. She does not appear to be in any acute distress. She has a nasogastric tube in place that is draining some brown watery material. The pupils seem equal. No carotid bruits are heard. The lungs are clear anteriorly. The heart is regular. The abdomen is moderately obese but is soft. She has some mild tenderness along the right side of the abdomen. No obvious masses are palpated. The extremities reveal no edema. Neurologically the patient appears to be grossly intact. Data Labs: Other Labs: Laboratory Tests 12/07/20 00:46 Carcinoembryonic A g 2.8 A&P Assessment and plan (1) Mass of hepatic flexure of colon: CT reviewed. I agree with the assessment that there is probably an obstructive lesion at the hepatic flexure. She does have some solid stool distal to this. The patient's CEA level is normal, but I made her aware that the most likely lesion in the colon that would do this would be some type of a carcinoma. She has a history of what sounds to be adenomatous colon polyps, but never followed up with another colonoscopy after the first time these were discovered. The patient has not passed flatus in at least a week; it sounds like she may be completely or nearly completely obstructed. I told her that I would like to try to give her some enemas to clear out the distal colon that so that we could consider endoscopy; surgery in her near future is also likely, and I would like to try to get her bowel prepped as much as we can. Clearing out the distal colon may also help with her being able to pass material through the area where we think the primary problem is, as well. I think the most effective way to do this is going to be with a water-soluble contrast enema so we may get some more indication of what is going on at the hepatic flexure. She is agreeable. Further recommendations/therapeutic interventions will be forthcoming. Status: Acute (2) Large bowel obstruction: As above. Status: Acute Consult Attestations Medical Necessity Statement: See admitting service's notation. Coding Level of Care Code Acute Doors Prefitter for Avisg Fwd Diagnoses Mass of hepatic flexure of colon K63.89 Large bowel obstruction K56.609
[2020-12-07] MEDS: diatrizoate meglumine 120 mL Sol PR (13:49)
--- NOTE | 2020-12-07 16:04 | PC.CHAP ---
Pastoral Care Encounter/Spiritual Assessment Type of Contact [] Declined weld inspector visit [] Patient/Family/Request visit [] Outpatient visit [x] Follow-up visit [] Physician referral [] Code/Alert [] Routine visit [] Staff referral [] Actively dying [] Patient sleeping [] Family support [] [] Out of room [] Palliative care [] [] Receiving care in room [] Pre-surgical visit [] Trauma [] Long length of stay [] ICU visit [] Other: Relational/Emotional Strength [] Patient feels connected with others/family/visitors/staff [] Distress [] Loneliness/isolation [] Abandonment Spirituality of Patient [] Person of Kyung [] Attends Hindu of their Kyung [] Believes in Prayer [] Reads Bible or Buddhism materials [] There are Spiritual issues to be addressed Rice Milling Supervisor Interventions [] Prayer [] Active listening [] Non-anxious presence [] Spiritual/emotional support [] Crisis/trauma care [] Spiritual counseling [] Bereavement support [] Provided bereavement packet [] Provided Bible/devotional materials [] Provided toy/stuffed animal, coloring book to patient or family member [] Provided Communion [] Anointing/[place] [] Salvation [] Completed spiritual assessment [] Other: Impact on Illness or Injury [] Angry [] Fearful [] Anxious [] Often cries [] Exhaustion [] Unable to work [] Unable to attend jain [] Unable to walk/stand [] Unable to read [] Unable to drive [] Unable to eat/drink [] Unable to sleep [] Unable to be with family [] Patient intubated [] Other: Summary Time spent with patient
--- NOTE | 2020-12-07 16:51 | PC.RESP ---
Smoking Cessation information sent to patient.
[2020-12-07 17:14] LABS: Glucose Point of Care 128 mg/dL (70-110)
[2020-12-07 20:45] LABS: Glucose Point of Care 131 mg/dL (70-110)
[2020-12-08] VITALS (11 sets, daily range): BP systolic 157–198; BP diastolic 68–96; PULSE 62–81; RESP 18; TEMP 36.3–37; O2SAT 90–100
[2020-12-08 05:14] LABS: Basophils % 0.5 %; Eosinophils # 0.1 10^3/uL (0.0-0.8); Eosinophils % 0.9 %; Hematocrit 41.7 % (37.0-47.0); Hemoglobin 11.7 g/dL (11.5-15.3); Lymphocytes # 2.5 10^3/uL (0.8-4.8); Lymphocytes % 28.4 %; Mean Corpuscular HGB Conc 28.1 g/dL (30.0-36.0); Mean Corpuscular Hemoglobin 21.3 pg (28.0-34.0); Mean Corpuscular Volume 75.8 fL (81-99); Mean Platelet Volume 10.4 fL (7.4-10.4); Monocytes # 0.7 10^3/uL (0.2-0.9); Neutrophils # 5.47 10^3/uL (1.8-7.7); Neutrophils % 61.7 %; Nucleated Red Blood Cells % 0 %; Platelet Count 358 10^3/cmm (130-400); Red Cell Distribution Width 18.6 % (12.1-15.1); White Blood Count 8.9 10^3/uL (4.0-10.0)
[2020-12-08 05:31] LABS: Anion Gap 10.9 (5-19); Blood Urea Nitrogen 17 mg/dL (6-20); Calcium 8.2 mg/dL (8.5-10.5); Carbon Dioxide 34 mmol/L (22-29); Chloride 96 mmol/L (98-107); Creatinine Clr Calc Pharmacy 97.1172; Glomerular Filtration Rate 65.8 mL/min (90-130); Glucose 107 mg/dL (65-115); Osmolality Calculated 288 mOsm/kg (285-295); Sodium 138 mmol/L (136-145)
[2020-12-08 05:34] LABS: Potassium 2.9 mmol/L (3.5-5.1)
--- NOTE | 2020-12-08 06:39 | P.PN_ITS ---
Subjective Subjective: Interval history: The patient says she did not pass any more stool or flatus last night. She is ready for her colonoscopy this morning. Vitals/I&O/Wt Last Vital Signs Temp 97.5 F L 12/08/20 06:35 Pulse 81 12/08/20 06:35 Resp 18 12/08/20 06:35 BP 198/93 12/08/20 06:35 Pulse Ox 100 12/08/20 06:35 12/07/20 12/07/20 12/08/20 14:59 22:59 06:59 Intake Total 1120 / 1120 Output Total 500 / 1400 900 / 1400 Balance 620 / -280 -900 / -280 Weight last 48 hrs Weight 260 lb Physical Exam Narrative: EXAM NARRATIVE: No significant change on the abdominal exam. Data : 12/08/20 04:21 12/08/20 04:21 A&P Assessment and plan (1) Mass of hepatic flexure of colon: Colonoscopy this morning. Status: Acute (2) Large bowel obstruction: As above. Status: Acute Attestations Medical Necessity Statement*: See admitting service's notation. Coding Level of Care Code Acute Prosthetic Technician for Roosevelt Reid Diagnoses Mass of hepatic flexure of colon K63.89 Large bowel obstruction K56.609
[2020-12-08 06:40] LABS: Glucose Point of Care 107 mg/dL (70-110)
--- NOTE | 2020-12-08 06:40 | ANES.PREANE2 ---
Pre-Anesthetic Assessment Pre-Anesthetic Assessment: Height/Weight: Height 1.7 m Weight 117.934 kg Temp Pulse Resp BP Pulse Ox 97.5 F L 68 18 174/96 95 12/08/20 07:10 12/08/20 07:10 12/08/20 07:10 12/08/20 07:10 12/08/20 07:10 Preop Diagnosis: obstruction Proposed Procedure: Operation Date: 12/08/20 07:00 Proposed Procedures p Colonoscopy(Not Applicable) - Andrea Evans MD Was Beta Kj taken within 24 hours: N/A Was Clonidine taken within 24 hours: N/A Last intake: 12/06/20 Social: Packs per day: 2 Pack years: 40 Exam: Pre-Anes Outpt Exam: alert, oriented x 3, clear to auscultation bilaterally and regular rate & rhythm Airway: Submandibular: WNL Cervical ROM: WNL MP: 2 Dentition: Chipped Additional comments: poor dentition Pulmonary: Pulmonary: None reported CV/HEM: CV/HEM: HTN (uncontrolled; pt noncompliant with meds) : : None reported Hepatic: Comments: mass at hepatic flexure GI: Comments: NGT present Metabolic: Metabolic: DM (uncontrolled ) Musc/skel: Musc/skel: None reported Neuropsych: Neuropsych: None reported Anesthetic Plan: ASA status: 3 Anesthesia: Anesthesia Evaluation and MAC Risk of > 500 ml blood loss (7ml/kg in children): No Meds/Allergies Current Medications: Current Medications Generic Name Dose Route Start Last Admin Trade Name Freq PRN Reason Stop Dose Admin Heparin Sodium (Be ef Lung) 5,000 unit 12/07/20 08:30 12/07/20 22:00 Heparin 5,000 Un it/Ml Inj 1 Ml SUBCUT Not Given Q12H JENNIFER Potassium Chloride /Sodium Chloride 20 meq in 1,000 m ls @ 125 mls/hr 12/07/20 08:00 12/07/20 21:54 Sodium Chlor 0.9 % + Kcl 20 Meq IV 125 mls/hr .Q8H JENNIFER Administration Sodium Chloride 1,000 mls @ 30 ml s/hr 12/08/20 06:30 12/08/20 06:44 Sodium Chloride 0.9% IV 12/09/20 06:29 30 mls/hr .Q24H JENNIFER Administration Insulin Aspart 0 unit 12/07/20 08:00 12/07/20 21:48 Insulin Aspart 1 00 Unit/1 Ml SUBCUT Not Given WM&BEDTIME JENNIFER Protocol PFSH Anesthesia PFSH: Medical History (Updated 12/07/20 @ 14:02 by Phillip Lewis MD) Abnormal colonoscopy in 30s 3 polyps were removed Colon polyps Diabetes HTN (hypertension) Surgical History (Updated 12/07/20 @ 12:57 by Andrea Evans MD) H/O: hysterectomy / BSO /incidental appendectomy History of carpal tunnel surgery History of tonsillectomy S/P laparoscopic cholecystectomy Right Family History Grandmother Cancer GEOLOGY TECHNICIAN CANCER Mother CAD (coronary artery disease) Social History (Updated 12/07/20 @ 12:58 by Andrea Evans MD) Smoking and tobacco status: current every day smoker cigarettes Years cigarettes smoked: 30 [ Other cigarette details: Recently only a few cigarettes a day, but 1 to 2 packs/day in the past ] Alcohol intake: current Alcohol use comment: Rarely Substance/Drug Use: never Household members: family Housing: House Data Anesthesia CBC & Chem 7: 12/08/20 04:21 12/08/20 04:21 Other Labs: Laboratory Results - last 48 hr 12/07/20 12/07/20 12/07/20 00:42 00:46 00:46 WBC 13.1 H RBC 6.12 H Hgb 13.0 Hct 44.1 MCV 72.1 L MCH 21.2 L MCHC 29.5 L RDW 18.7 H Plt Count 410 H MPV 10.1 Neut % (Auto) 82.2 Lymph % (Auto) 11.1 [place] % (Auto) 5.8 Eos % (Auto) 0.1 Baso % (Auto) 0.3 Neut # (Auto) 10.77 H Lymph # (Auto) 1.5 [place] # (Auto) 0.8 Eos # (Auto) 0.0 Baso # (Auto) 0.0 Nucleated RBC % (auto) 0 Nucleated RBCs # 0.0 Sodium 133 L Potassium 3.0 L Chloride 92 L Carbon Dioxide 28 Anion Gap 16.0 BUN 14 Creatinine 0.9 GFR Calculation 65.8 L Glucose 226 H POC Glucose Estimat Average Glucose Hemoglobin A1c Calculated Osmolality 284 L Lactic Acid 2.3 H Lactic Acid (Sepsis) Calcium 9.7 Total Bilirubin 0.6 AST 13 ALT 10 Alkaline Phosphatase 98 Total Protein 7.3 Albumin 4.1 Globulin 3.2 Lipase 38 Carcinoembryonic Ag Urine Color Urine Appearance Urine pH Ur Specific [place] Urine Protein Urine Glucose (UA) Urine Ketones Urine Blood Urine Nitrate Urine Bilirubin Urine Urobilinogen Ur Leukocyte Esterase Urine RBC Urine WBC Ur Squamous Epith Cells Amorphous Sediment Urine Bacteria Urine Mucus 12/07/20 12/07/20 12/07/20 00:46 00:46 02:10 WBC RBC Hgb Hct MCV MCH MCHC RDW Plt Count MPV Neut % (Auto) Lymph % (Auto) [place] % (Auto) Eos % (Auto) Baso % (Auto) Neut # (Auto) Lymph # (Auto) [place] # (Auto) Eos # (Auto) Baso # (Auto) Nucleated RBC % (auto) Nucleated RBCs # Sodium Potassium Chloride Carbon Dioxide Anion Gap BUN Creatinine GFR Calculation Glucose POC Glucose Estimat Average Glucose 169 Hemoglobin A1c 7.5 H Calculated Osmolality Lactic Acid Lactic Acid (Sepsis) Calcium Total Bilirubin AST ALT Alkaline Phosphatase Total Protein Albumin Globulin Lipase Carcinoembryonic Ag 2.8 Urine Color Yellow Urine Appearance Sl hazy Urine pH 6.5 Ur Specific [place] 1.015 Urine Protein 1+ H Urine Glucose (UA) Norm Urine Ketones 2+ H Urine Blood Neg Urine Nitrate Negative Urine Bilirubin 1+ H Urine Urobilinogen 4 H Ur Leukocyte Esterase Negative Urine RBC 0-4 H Urine WBC 0-4 H Ur Squamous Epith Cells 55-80 H Amorphous Sediment Not Reportable Urine Bacteria 4+ H Urine Mucus 1+ 12/07/20 12/07/20 12/07/20 10:32 14:50 16:49 WBC RBC Hgb Hct MCV MCH MCHC RDW Plt Count MPV Neut % (Auto) Lymph % (Auto) [place] % (Auto) Eos % (Auto) Baso % (Auto) Neut # (Auto) Lymph # (Auto) [place] # (Auto) Eos # (Auto) Baso # (Auto) Nucleated RBC % (auto) Nucleated RBCs # Sodium Potassium Chloride Carbon Dioxide Anion Gap BUN Creatinine GFR Calculation Glucose POC Glucose 143 H 128 H Estimat Average Glucose Hemoglobin A1c Calculated Osmolality Lactic Acid Lactic Acid (Sepsis) 1.0 Calcium Total Bilirubin AST ALT Alkaline Phosphatase Total Protein Albumin Globulin Lipase Carcinoembryonic Ag Urine Color Urine Appearance Urine pH Ur Specific [place] Urine Protein Urine Glucose (UA) Urine Ketones Urine Blood Urine Nitrate Urine Bilirubin Urine Urobilinogen Ur Leukocyte Esterase Urine RBC Urine WBC Ur Squamous Epith Cells Amorphous Sediment Urine Bacteria Urine Mucus 12/07/20 12/08/20 12/08/20 20:18 04:21 04:21 WBC 8.9 RBC 5.50 H Hgb 11.7 Hct 41.7 MCV 75.8 L MCH 21.3 L MCHC 28.1 L RDW 18.6 H Plt Count 358 MPV 10.4 Neut % (Auto) 61.7 Lymph % (Auto) 28.4 [place] % (Auto) 8.0 Eos % (Auto) 0.9 Baso % (Auto) 0.5 Neut # (Auto) 5.47 Lymph # (Auto) 2.5 [place] # (Auto) 0.7 Eos # (Auto) 0.1 Baso # (Auto) 0.0 Nucleated RBC % (auto) 0 Nucleated RBCs # 0.0 Sodium 138 Potassium 2.9 L Chloride 96 L Carbon Dioxide 34 H Anion Gap 10.9 BUN 17 Creatinine 0.9 GFR Calculation 65.8 L Glucose 107 POC Glucose 131 H Estimat Average Glucose Hemoglobin A1c Calculated Osmolality 288 Lactic Acid Lactic Acid (Sepsis) Calcium 8.2 L Total Bilirubin AST ALT Alkaline Phosphatase Total Protein Albumin Globulin Lipase Carcinoembryonic Ag Urine Color Urine Appearance Urine pH Ur Specific [place] Urine Protein Urine Glucose (UA) Urine Ketones Urine Blood Urine Nitrate Urine Bilirubin Urine Urobilinogen Ur Leukocyte Esterase Urine RBC Urine WBC Ur Squamous Epith Cells Amorphous Sediment Urine Bacteria Urine Mucus 12/08/20 06:17 WBC RBC Hgb Hct MCV MCH MCHC RDW Plt Count MPV Neut % (Auto) Lymph % (Auto) [place] % (Auto) Eos % (Auto) Baso % (Auto) Neut # (Auto) Lymph # (Auto) [place] # (Auto) Eos # (Auto) Baso # (Auto) Nucleated RBC % (auto) Nucleated RBCs # Sodium Potassium Chloride Carbon Dioxide Anion Gap BUN Creatinine GFR Calculation Glucose POC Glucose 107 Estimat Average Glucose Hemoglobin A1c Calculated Osmolality Lactic Acid Lactic Acid (Sepsis) Calcium Total Bilirubin AST ALT Alkaline Phosphatase Total Protein Albumin Globulin Lipase Carcinoembryonic Ag Urine Color Urine Appearance Urine pH Ur Specific [place] Urine Protein Urine Glucose (UA) Urine Ketones Urine Blood Urine Nitrate Urine Bilirubin Urine Urobilinogen Ur Leukocyte Esterase Urine RBC Urine WBC Ur Squamous Epith Cells Amorphous Sediment Urine Bacteria Urine Mucus Cardiac Studies: No Data to Display
[2020-12-08] MEDS: sodium chloride 0.9% 1,000 ML 30 ML IV (06:44)
[2020-12-08] MEDS: lidocaine 1% 5 ML in potassium chloride premix 100 ML 25 ML IV (08:18)
[2020-12-08] MEDS: sodium chlor 0.9% + KCl 20 mEq 20 MEQ/1,000 ML BAG 125 MEQ IV (08:18)
[2020-12-08] MEDS: heparin 5,000 unit/mL INJ 1 mL 5000 UNIT SUBCUT ×2 (08:19→20:44)
[2020-12-08] MEDS: potassium chloride premix 100 ML 25 MEQ IV (09:15)
[2020-12-08] MEDS: sodium chlor 0.9% + KCl 40 mEq 40 MEQ/1,000 ML BAG 125 MEQ IV ×2 (09:15→22:03)
[2020-12-08 10:54] LABS: Glucose Point of Care 96 mg/dL (70-110)
--- NOTE | 2020-12-08 11:21 | PM.PN ---
Subjective Subjective: Interval history: Patient is passing gas, but no BM.She underwent colonscopy today. Vitals/I&O/Wt Last Vital Signs Temp 98.0 F 12/08/20 11:15 Pulse 75 12/08/20 11:15 Resp 18 12/08/20 11:15 BP 172/92 12/08/20 07:25 Pulse Ox 94 12/08/20 11:15 12/07/20 12/08/20 12/08/20 22:59 06:59 14:59 Intake Total 1120 / 1120 1000 / 2120 150 / 150 Output Total 500 / 500 900 / 1400 Balance 620 / 620 100 / 720 150 / 150 Weight last 48 hrs Weight 117.934 kg Physical Exam Const: COMMON NORMALS: patient oriented x3 Chest: CHEST: Yes Symmetrical chest wall rise Resp: COMMON NORMALS: normal respiratory effort, No retractions, No use of accessory muscles and clear to auscultation bilaterally EFFORT & INSPECTION: Yes symmetric chest movement AUSCULTATION: clear to auscultation bilaterally Cardio: COMMON NORMALS: regular rate, regular rhythm, S1 normal heart sound present, S2 normal heart sound present, No gallops present (Cardio), No murmurs present (Cardio), No rub (Cardio) and Peripheral pulses 2+ throughout RATE: regular rate RHYTHM: regular rhythm HEART SOUNDS: S1 normal heart sound present and S2 normal heart sound present PERIPHERAL PULSES: Peripheral pulses 2+ throughout GI: AUSCULTATION: Yes normoactive bowel sounds RECTAL EXAM: deferred OTHER: Obese non distended abdomen, BS + Mild RUQ Tenderness Extremity: COMMON NORMALS: no clubbing, cyanosis or edema and no pedal edema Neuro: COMMON NORMALS: patient oriented x3 Data : 12/08/20 04:21 12/08/20 04:21 A&P Assessment and plan (1) Mass of hepatic flexure of colon: Large bowel obstruction CEA is normal H/O Prior Colonscopy 20 years ago at age 28. Has h/o chronic constipation Deny any weight loss Currently Patient is NPO . s/p : Fl enema with gastrografin study: Very tortuous sigmoid colon and splenic flexure: Abrupt cessation of contrast at the hepatic flexure with dense stool. s/p : Colonscopy on : too much solid stool to get to her hepatic flexure. Surgery on Board.Appreciate Rec Status: Acute (2) Large bowel obstruction: Status: Acute (3) Hypokalemia: Replace and monitor Status: Acute (4) HTN (hypertension): PRN I.V Hydralazine. Status: Acute (5) Diabetes: LDSSI FSG Status: Acute Additional A&P Information History of diabetes and hypertension: Patient does not take any medication at home Currently hypertensive, will add amlodipine and check A1c level, hyperglycemia noted as well which I am anticipating will improve with fluid resuscitation DVT prophylaxis SCDs avoid anticoagulation in case she would require any urgent intervention, please follow-up after general surgery recommendations N.p.o. Full code Attestations Medical Necessity Statement*: Patient needs to be in hospital for the management of large bowel obstruction and hypokalemia Coding Level of Care Code Acute [place] Miller for Chg Fwd Diagnoses Mass of hepatic flexure of colon K63.89 Large bowel obstruction K56.609 Hypokalemia E87.6 HTN (hypertension) I10 Diabetes E11.9
--- NOTE | 2020-12-08 12:24 | ANE.PACU2 ---
Inpatient post-anesthesia follow up: Airway intact: Yes Vital signs: Temperature 98.0 F Pulse Rate [Monito r] 92 Pulse Rate 75 Respiratory Rate 18 Blood Pressure [Ri ght Arm] 205/139 Blood Pressure 172/92 Pulse Oximetry 94 Oxygen Delivery Me thod Room Air Oxygen Flow Rate 2 Fraction of Inspir ed Oxygen Hydration adequate: Yes Nausea and vomiting: No Pain level: 2 Mental status: Baseline
[2020-12-08 16:27] LABS: Coronavirus Test Green County Not Detected
[2020-12-08 17:05] LABS: Glucose Point of Care 94 mg/dL (70-110)
--- NOTE | 2020-12-08 18:35 | PC.NURSE ---
pt had 900 out of NG tube today. pt reported no pain or nausea. pt tolerated enema well and had large loose stool out. pt tolerated cleansing enema well.
[2020-12-08 20:18] LABS: Glucose Point of Care 98 mg/dL (70-110)
[2020-12-09] VITALS (20 sets, daily range): BP systolic 123–202; BP diastolic 78–107; PULSE 70–105; RESP 16–20; TEMP 36.5–37.1; O2SAT 85–100
--- NOTE | 2020-12-09 00:39 | XRR_ITS ---
PROCEDURE INFORMATION: Exam: XR Chest Exam date and time: 12/09/2020 12:40 AM Age: 50 years old Clinical indication: Device placement; Ng tube; Patient HX: Check for ng placement TECHNIQUE: Imaging protocol: XR of the chest Views: 1 view. COMPARISON: CR XR chest 1V portable [id number] 12/07/2020 8:12 AM FINDINGS: Tubes, catheters and devices: The NG tube terminates in the distal thoracic esophagus. The distal tip is near the GE junction. The distal side hole is within thoracic esophagus. Lungs: Decreased lung volumes. No focal pulmonary consolidation. Pleural spaces: Unremarkable. No pleural effusion. No pneumothorax. Heart/Mediastinum: Unremarkable. No cardiomegaly. Bones/joints: Unremarkable. XR/XR chest 1V portable [id number] IMPRESSION: NG tube within thoracic esophagus. Recommend advancement 15 cm.
--- NOTE | 2020-12-09 00:39 | PC.NURSE ---
NG TUBE: THE PATIENT CALLED THIS NURSE TO BEDSIDE WITH C/O THROAT PAIN AND NASAL PAIN FROM TUBE. UPON INSPECTION THE TUBE WAS NO IN PROPER POSITION. THE TIP COULD BE SEEN AT THE BACK OF THE PATIENT'S THROAT. THE TUBE WAS READVANCED AND THE PLACEMENT WAS AUSCULTATED AND SOUNDED PROPER. NOW, THE PATIENT IS REPORTING A WEIRD SENSATION IN HER CHEST FROM THE TUBE . THIS NURSE CALLED THE HOSPITALIST AND REPORTED THE COMPLAINT AND REQUESTED X-RAY VIEWS TO CONFIRM PLACEMENT. HE AGREED AND IS PUTTING ORDERS TO DO SO.
[2020-12-09 05:36] LABS: Basophils % 0.3 %; Eosinophils # 0.1 10^3/uL (0.0-0.8); Eosinophils % 0.5 %; Hematocrit 39.6 % (37.0-47.0); Hemoglobin 11.1 g/dL (11.5-15.3); Lymphocytes # 1.7 10^3/uL (0.8-4.8); Lymphocytes % 14.1 %; Mean Corpuscular Hemoglobin 21.3 pg (28.0-34.0); Mean Platelet Volume 10.5 fL (7.4-10.4); Monocytes # 0.6 10^3/uL (0.2-0.9); Monocytes % 5.3 %; Neutrophils % 78.9 %; Nucleated Red Blood Cells % 0 %; Platelet Count 341 10^3/cmm (130-400); Red Blood Count 5.21 10^6/uL (4.1-5.3); Red Cell Distribution Width 18.3 % (12.1-15.1); White Blood Count 12.2 10^3/uL (4.0-10.0)
[2020-12-09 06:02] LABS: Anion Gap 11.6 (5-19); Blood Urea Nitrogen 15 mg/dL (6-20); Calcium 8.4 mg/dL (8.5-10.5); Carbon Dioxide 28 mmol/L (22-29); Chloride 101 mmol/L (98-107); Glomerular Filtration Rate 87.9 mL/min (90-130); Glucose 94 mg/dL (65-115); Osmolality Calculated 283 mOsm/kg (285-295); Potassium 4.6 mmol/L (3.5-5.1); Sodium 136 mmol/L (136-145)
[2020-12-09] MEDS: sodium chlor 0.9% + KCl 40 mEq 40 MEQ/1,000 ML BAG 125 MEQ IV (06:17)
[2020-12-09 06:32] LABS: Glucose Point of Care 89 mg/dL (70-110)
[2020-12-09] MEDS: hyDRALAzine 20 mg/mL INJ 1 mL 10 MG IVP ×2 (08:01→22:22)
[2020-12-09] MEDS: morphine 4 mg/mL SDV 1 mL IVP ×3 (08:05→20:55)
[2020-12-09] MEDS: heparin 5,000 unit/mL INJ 1 mL 5000 UNIT SUBCUT ×2 (08:25→20:44)
--- NOTE | 2020-12-09 09:11 | PM.PN ---
Subjective Subjective: Interval history: The patient is ready to have something done. She underwent multiple enemas yesterday to try to prep the colon distal to the hepatic flexure obstruction. She says she passed some stool and a little bit of flatus but her NG output continues to be high. It is starting to irritate her throat and chest. Vitals/I&O/Wt Last Vital Signs Temp 98.7 F 12/09/20 07:42 Pulse 74 12/09/20 07:42 Resp 18 12/09/20 08:05 BP 192/101 12/09/20 07:42 Pulse Ox 94 12/09/20 08:05 12/08/20 12/09/20 12/09/20 22:59 06:59 14:59 Intake Total 2265 / 3415 1000 / 3415 0 / 0 Output Total 1600 / 1600 0 / 1600 Balance 665 / 1815 1000 / 1815 0 / 0 Physical Exam Narrative: EXAM NARRATIVE: The abdomen reveals no significant tenderness. Data : 12/09/20 04:57 12/09/20 04:57 A&P Assessment and plan (1) Mass of hepatic flexure of colon: Colonoscopy yesterday was unsuccessful due to too much remaining stool in the distal colon. She underwent multiple enemas yesterday to further prep the distal colon. I told the patient that we could either reattempt colonoscopy today or just proceed to the operating room, as I am convinced the right hemicolectomy is going to be needed to relieve this ongoing obstruction. A postoperative colonoscopy will probably be needed at some point to clear the remainder of the colon, but no evidence of any other lesions were seen on water-soluble contrast enema. She says she would just prefer to move forward with surgery and get the obstruction taken care of surgically. I am going to make arrangements for an exploratory laparotomy with right hemicolectomy later today. Status: Acute (2) Large bowel obstruction: As above. Suspect colon adenocarcinoma despite the normal CEA level. Status: Acute Attestations Medical Necessity Statement*: See admitting service's notation. 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
--- NOTE | 2020-12-09 10:00 | PC.NURSE ---
Patient blood pressure was 192/101. Hydralazine 10mg given per order. Blood pressure went down to 172/105. Verbally discussed blood pressures with Dr. Lewis. Dr. Lewis stated to follow his orders for Joshua.
[2020-12-09 10:46] LABS: Glucose Point of Care 87 mg/dL (70-110)
--- NOTE | 2020-12-09 12:20 | PC.NURSE ---
Patient to surgery at this time.
--- NOTE | 2020-12-09 12:32 | P.ANESASSM_ITS ---
Pre-Anesthetic Assessment Pre-Anesthetic Assessment: Height/Weight: Height 1.7 m Weight 117.934 kg Temp Pulse Resp BP Pulse Ox 98.3 F 70 18 194/88 98 12/09/20 12:23 12/09/20 12:23 12/09/20 12:23 12/09/20 12:23 12/09/20 12:23 Preop Diagnosis: obstruction Proposed Procedure: Operation Date: 12/08/20 07:00 Proposed Procedures p Colonoscopy(Not Applicable) - Andrea Evans MD Operation Date: 12/09/20 13:15 Proposed Procedures p Exploratory Laparotomy(Not Applicable) - Andrea Evans MD s right Hemicolectomy(Not Applicable) - Andrea Evans MD Familial anesthetic complications: none Was Beta Kj taken within 24 hours: N/A Was Clonidine taken within 24 hours: N/A Last intake: NPO > 8 hrs, NG tube Social: Social History: Tobacco and No alcohol Exam: Pre-Anes Outpt Exam: alert, oriented x 3, clear to auscultation bilaterally and regular rate & rhythm Airway: Cervical ROM: WNL MP: 3 Dentition: Other (chipped and missing) CV/HEM: CV/HEM: HTN Metabolic: Metabolic: DM Anesthetic Plan: ASA status: 3 Anesthesia: General Risk of > 500 ml blood loss (7ml/kg in children): No Meds/Allergies Current Medications: Current Medications Generic Name Dose Route Start Last Admin Trade Name Freq PRN Reason Stop Dose Admin Heparin Sodium (Be ef Lung) 5,000 unit 12/07/20 08:30 12/09/20 08:25 Heparin 5,000 Un it/Ml Inj 1 Ml SUBCUT 5,000 unit Q12H JENNIFER Administration Hydralazine HCl 10 mg 12/08/20 17:05 12/09/20 08:01 Hydralazine 20 M g/Ml Inj 1 Ml IVP 10 mg Q4H PRN Administration HYPERTENSION Potassium Chloride /Sodium Chloride 40 meq in 1,000 m ls @ 125 mls/hr 12/08/20 08:15 12/09/20 06:17 Sodium Chlor 0.9 % + Kcl 40 Meq IV 125 mls/hr .Q8H JENNIFER Administration Insulin Aspart 0 unit 12/07/20 08:00 12/09/20 08:14 Insulin Aspart 1 00 Unit/1 Ml SUBCUT Not Given WM&BEDTIME JENNIFER Protocol Morphine Sulfate 4 mg 12/07/20 08:00 12/09/20 08:05 Morphine 4 Mg/Ml Sdv 1 Ml IVP 4 mg Q4H PRN Administration SEVERE PAIN PFSH Anesthesia PFSH: Medical History (Updated 12/08/20 @ 17:03 by Phillip Lewis MD) Abnormal colonoscopy in 30s 3 polyps were removed Colon polyps Diabetes HTN (hypertension) Surgical History (Updated 12/07/20 @ 12:57 by Andrea Evans MD) H/O: hysterectomy / BSO /incidental appendectomy History of carpal tunnel surgery History of tonsillectomy S/P laparoscopic cholecystectomy Right Family History Grandmother Cancer PORTFOLIO STRATEGIST CANCER Mother CAD (coronary artery disease) Social History (Updated 12/07/20 @ 12:58 by Andrea Evans MD) Smoking and tobacco status: current every day smoker cigarettes Years cigarettes smoked: 30 [ Other cigarette details: Recently only a few cigarettes a day, but 1 to 2 packs/day in the past ] Alcohol intake: current Alcohol use comment: Rarely Substance/Drug Use: never Household members: family Housing: House Data Anesthesia CBC & Chem 7: 12/09/20 04:57 12/09/20 04:57 Other Labs: Laboratory Results - last 48 hr 12/07/20 12/07/20 12/07/20 11:40 14:50 16:49 WBC RBC Hgb Hct MCV MCH MCHC RDW Plt Count MPV Neut % (Auto) Lymph % (Auto) [place] % (Auto) Eos % (Auto) Baso % (Auto) Neut # (Auto) Lymph # (Auto) [place] # (Auto) Eos # (Auto) Baso # (Auto) Nucleated RBC % (auto) Nucleated RBCs # Sodium Potassium Chloride Carbon Dioxide Anion Gap BUN Creatinine GFR Calculation Glucose POC Glucose 128 H Calculated Osmolality Lactic Acid (Sepsis) 1.0 Calcium Nasal/Oral COVID-19 PCR Not detected 12/07/20 12/08/20 12/08/20 20:18 04:21 04:21 WBC 8.9 RBC 5.50 H Hgb 11.7 Hct 41.7 MCV 75.8 L MCH 21.3 L MCHC 28.1 L RDW 18.6 H Plt Count 358 MPV 10.4 Neut % (Auto) 61.7 Lymph % (Auto) 28.4 [place] % (Auto) 8.0 Eos % (Auto) 0.9 Baso % (Auto) 0.5 Neut # (Auto) 5.47 Lymph # (Auto) 2.5 [place] # (Auto) 0.7 Eos # (Auto) 0.1 Baso # (Auto) 0.0 Nucleated RBC % (auto) 0 Nucleated RBCs # 0.0 Sodium 138 Potassium 2.9 L Chloride 96 L Carbon Dioxide 34 H Anion Gap 10.9 BUN 17 Creatinine 0.9 GFR Calculation 65.8 L Glucose 107 POC Glucose 131 H Calculated Osmolality 288 Lactic Acid (Sepsis) Calcium 8.2 L Nasal/Oral COVID-19 PCR 12/08/20 12/08/20 12/08/20 06:17 10:42 16:43 WBC RBC Hgb Hct MCV MCH MCHC RDW Plt Count MPV Neut % (Auto) Lymph % (Auto) [place] % (Auto) Eos % (Auto) Baso % (Auto) Neut # (Auto) Lymph # (Auto) [place] # (Auto) Eos # (Auto) Baso # (Auto) Nucleated RBC % (auto) Nucleated RBCs # Sodium Potassium Chloride Carbon Dioxide Anion Gap BUN Creatinine GFR Calculation Glucose POC Glucose 107 96 94 Calculated Osmolality Lactic Acid (Sepsis) Calcium Nasal/Oral COVID-19 PCR 12/08/20 12/09/20 12/09/20 19:18 04:57 04:57 WBC 12.2 H RBC 5.21 Hgb 11.1 L Hct 39.6 MCV 76.0 L MCH 21.3 L MCHC 28.0 L RDW 18.3 H Plt Count 341 MPV 10.5 H Neut % (Auto) 78.9 Lymph % (Auto) 14.1 [place] % (Auto) 5.3 Eos % (Auto) 0.5 Baso % (Auto) 0.3 Neut # (Auto) 9.60 H Lymph # (Auto) 1.7 [place] # (Auto) 0.6 Eos # (Auto) 0.1 Baso # (Auto) 0.0 Nucleated RBC % (auto) 0 Nucleated RBCs # 0.0 Sodium 136 Potassium 4.6 Chloride 101 Carbon Dioxide 28 Anion Gap 11.6 BUN 15 Creatinine 0.7 GFR Calculation 87.9 L Glucose 94 POC Glucose 98 Calculated Osmolality 283 L Lactic Acid (Sepsis) Calcium 8.4 L Nasal/Oral COVID-19 PCR 12/09/20 12/09/20 06:19 10:21 WBC RBC Hgb Hct MCV MCH MCHC RDW Plt Count MPV Neut % (Auto) Lymph % (Auto) [place] % (Auto) Eos % (Auto) Baso % (Auto) Neut # (Auto) Lymph # (Auto) [place] # (Auto) Eos # (Auto) Baso # (Auto) Nucleated RBC % (auto) Nucleated RBCs # Sodium Potassium Chloride Carbon Dioxide Anion Gap BUN Creatinine GFR Calculation Glucose POC Glucose 89 87 Calculated Osmolality Lactic Acid (Sepsis) Calcium Nasal/Oral COVID-19 PCR Cardiac Studies: No Data to Display
[2020-12-09] MEDS: sodium chloride 0.9% 1,000 ML 30 ML IV (12:43)
[2020-12-09] MEDS: metroNIDAZOLE IV 500 MG/100 ML PREMIX 100 MG IV ×2 (12:44→22:00)
--- NOTE | 2020-12-09 14:39 | PM.OP ---
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 Post-op diagnosis: same Procedure Done: Exploratory laparotomy with right hemicolectomy. Specimens removed/disposition: Right colon. Surgeon: Andrea Evans Anesthesia: General Estimated blood loss (mL): 25 Complications: None. Condition: stable Disposition: PACU Procedure: The patient was brought to the operating room and was placed in a supine position on the operating room table. General endotracheal anesthesia was induced. A Jimenez catheter was inserted. The abdomen was prepped and draped in a sterile fashion. A midline incision was carried out in the midepigastrium to a level below the umbilicus. Cautery was used to divide the subcutaneous tissue and the midline fascia and the peritoneal cavity was entered. The patient had omental adhesions along the anterior abdominal wall, particularly in the right upper quadrant from the previous suspected open cholecystectomy. These were all sequentially taken down using cautery and the Voyant energy device. It was clear that the distal small bowel and ascending colon were dilated. The transverse colon was relatively decompressed along with the more distal colon. Initially, palpation did not reveal any obvious lesion around the hepatic flexure, but the colon was very posterior at that level. The right colon was mobilized by incising the peritoneal reflection laterally up around the hepatic flexure. This allowed the colon to be moved medially. Once the colon was mobilized it became clear that there was a small but palpable circumferential lesion in the proximal transverse colon. The colon was moved further medially and the the duodenum was identified. At a suitable point in the transverse colon the colon was divided using a GALINDO 55 stapler. The terminal ileum was divided using the same. The intervening mesentery was then divided using the Voyant energy device. Larger vessels were also ligated with ties of 2-0 or 0 Vicryl. The specimen was removed. The abdomen was irrigated with saline. The ileum and transverse colon were brought side to side in preparation for the formation of a functional end to end anastomosis. The 2 limbs of bowel were held together with some stay sutures of 3-0 Vicryl. A small enterotomy was made at the end of the staple line of the small intestine using cautery. Some air was present within the lumen but minimal fluid was present. A small colotomy was made in the tenia near the staple line of the colon. A small amount of fairly liquid stool was present in the colon was suctioned out. An arm of a GALINDO 55 stapler was passed down either limb of bowel and was fired, opening the hairston between the 2 limbs of bowel. The staple lines were transposed and the common opening on the end was closed using a TA 60 stapler. Some stay sutures of 3-0 Vicryl were placed at the proximal end of the staple line to take tension off of the anastomosis at that point. The mesenteric window was closed using a running suture of 3-0 Vicryl. The anastomosis was palpably patent and the bowel was viable. The abdomen was irrigated with several liters of saline. No ongoing problems were seen. The nasogastric tube was found to be barely within the stomach; it was advanced by anesthesia until it was in good position within the gastric lumen. The remaining omentum was brought over the bowel and attention was directed towards closure. The midline fascia was closed using a running looped suture of #1 PDS. Some inverted interrupted internal retention sutures of 0 Prolene were also used throughout the closure. The subcutaneous tissue was irrigated and the skin was approximated using skin gideon. A sterile dressing was placed over the wound and the patient was taken to the recovery room in stable condition postoperatively.
[2020-12-09] MEDS: labetalol 5 mg/mL SDV 20mL 10 MG IVP (14:51)
[2020-12-09 14:57] LABS: Glucose Point of Care 113 mg/dL (70-110)
[2020-12-09] MEDS: hyDRALAzine 20 mg/mL INJ 1 mL 5 MG IVP (15:03)
--- NOTE | 2020-12-09 15:39 | PC.NURSE ---
Patient returned to the floor at this time. Patient is A&Ox3. Respirations even and non-labored on room air. Dressing is clean dry and intact.
--- NOTE | 2020-12-09 15:52 | ANE.PACU2 ---
Inpatient post-anesthesia follow up: Airway intact: Yes Vital signs: Temperature 98.4 F Pulse Rate [Monito r] 92 Pulse Rate 85 Respiratory Rate 20 Blood Pressure [Ri ght Arm] 205/139 Blood Pressure 162/94 Pulse Oximetry 94 Oxygen Delivery Me thod [ Room Air Current Rate & Del júnior] Oxygen Delivery Me thod Room Air Oxygen Flow Rate 6 Fraction of Inspir ed Oxygen Hydration adequate: Yes Nausea and vomiting: No Pain level: 3 Mental status: Baseline
[2020-12-09] MEDS: sodium chlor 0.45% +KCl 20 mEq 20 MEQ/1,000 ML BAG 100 MEQ IV (16:24)
[2020-12-09 16:42] LABS: Glucose Point of Care 132 mg/dL (70-110)
[2020-12-09] MEDS: levalbuterol 0.63 mg/3 mL Neb INHALATION ×2 (16:43→19:29)
--- NOTE | 2020-12-09 19:27 | PC.NURSE ---
Report to Jaelyn HAZEL at this time.
[2020-12-09 19:47] LABS: Glucose Point of Care 161 mg/dL (70-110)
--- NOTE | 2020-12-09 20:14 | P.PN_ITS ---
Subjective Subjective: Interval history: Patient was seen and examined this morning. NG tube to continuous suction. Currently has passed flatus, and minimal stool. Denies any abdominal pain. Vitals/I&O/Wt Last Vital Signs Temp 98.6 F 12/09/20 19:08 Pulse 99 12/09/20 19:35 Resp 17 12/09/20 19:29 BP 182/96 12/09/20 19:08 Pulse Ox 98 12/09/20 19:29 12/09/20 12/09/20 12/09/20 06:59 14:59 22:59 Intake Total 1000 / 3415 150 / 150 0 / 150 Output Total 0 / 1600 275 / 275 450 / 725 Balance 1000 / 1815 -125 / -125 -450 / -575 Physical Exam Const: COMMON NORMALS: patient oriented x3 Chest: CHEST: Yes Symmetrical chest wall rise Resp: COMMON NORMALS: normal respiratory effort, No retractions, No use of accessory muscles and clear to auscultation bilaterally EFFORT & INSPECTION: Yes symmetric chest movement AUSCULTATION: clear to auscultation bilaterally Cardio: COMMON NORMALS: regular rate, regular rhythm, S1 normal heart sound present, S2 normal heart sound present, No gallops present (Cardio), No murmurs present (Cardio), No rub (Cardio) and Peripheral pulses 2+ throughout RATE: regular rate RHYTHM: regular rhythm HEART SOUNDS: S1 normal heart sound present and S2 normal heart sound present PERIPHERAL PULSES: Peripheral pulses 2+ throughout GI: AUSCULTATION: Yes normoactive bowel sounds RECTAL EXAM: deferred OTHER: Obese non distended abdomen, BS + Mild RUQ Tenderness Extremity: COMMON NORMALS: no clubbing, cyanosis or edema and no pedal edema Neuro: COMMON NORMALS: patient oriented x3 Urinary Catheter Management^: Jimenez: Cath Placed During This Visit: yes Reason for Continuing Indwelling Catheter: Perioperative Use in Selected Surgeries Urinary Catheter Date of Insertion: 12/09/20 Urinary Catheter Time of Insertion: 12:45 Data : 12/09/20 04:57 12/09/20 04:57 A&P Assessment and plan (1) Mass of hepatic flexure of colon: Large bowel obstruction CEA is normal H/O Prior Colonscopy 20 years ago at age 28. Has h/o chronic constipation Deny any weight loss Currently Patient is NPO . s/p : Fl enema with gastrografin study: Very tortuous sigmoid colon and splenic flexure: Abrupt cessation of contrast at the hepatic flexure with dense stool. s/p : Colonscopy on : too much solid stool to get to her hepatic flexure. S/p: Exploratory laparotomy with right hemicolectomy. On metronidazole 500 mg IV every 8 hours, as well as cefazolin 1 g IV every 8 hours Surgery on Board.Appreciate Rec Status: Acute (2) Large bowel obstruction: Status: Acute (3) Hypokalemia: Replace and monitor Status: Acute (4) HTN (hypertension): PRN I.V Hydralazine. Status: Acute (5) Diabetes: LDSSI FSG Status: Acute Additional A&P Information History of diabetes and hypertension: Patient does not take any medication at home Currently hypertensive, will add amlodipine and check A1c level, hyperglycemia noted as well which I am anticipating will improve with fluid resuscitation DVT prophylaxis SCDs avoid anticoagulation in case she would require any urgent intervention, please follow-up after general surgery recommendations N.p.o. Full code Attestations Medical Necessity Statement*: Patient needs to be in hospital for management of large bowel of obstruction. Coding Level of Care Code Acute Fiction And Nonfiction Writer Prose for Chg Fwd Diagnoses Mass of hepatic flexure of colon K63.89 Large bowel obstruction K56.609 Hypokalemia E87.6 HTN (hypertension) I10 Diabetes E11.9
[2020-12-09] MEDS: famotidine 20 mg/2 mL INJ IVP (20:26)
[2020-12-09] MEDS: ceFAZolin 1,000 MG in sodium chloride 0.9% (plus) 50 ML 100 MG IV (21:04)
[2020-12-10] VITALS (18 sets, daily range): BP systolic 146–179; BP diastolic 87–102; PULSE 98–121; RESP 16–112; TEMP 36.6–37.5; O2SAT 92–96
[2020-12-10] MEDS: morphine 4 mg/mL SDV 1 mL IVP ×3 (04:28→16:43)
[2020-12-10] MEDS: sodium chlor 0.45% +KCl 20 mEq 20 MEQ/1,000 ML BAG 100 MEQ IV (04:30)
[2020-12-10] MEDS: ceFAZolin 1,000 MG in sodium chloride 0.9% (plus) 50 ML 100 MG IV ×2 (04:38→12:33)
[2020-12-10 05:02] LABS: Basophils # 0.1 10^3/uL (0.0-0.1); Basophils % 0.3 %; Hematocrit 38.3 % (37.0-47.0); Hemoglobin 10.9 g/dL (11.5-15.3); Lymphocytes # 1.2 10^3/uL (0.8-4.8); Mean Corpuscular HGB Conc 28.5 g/dL (30.0-36.0); Mean Corpuscular Hemoglobin 21.5 pg (28.0-34.0); Mean Corpuscular Volume 75.5 fL (81-99); Mean Platelet Volume 11.3 fL (7.4-10.4); Monocytes # 1.4 10^3/uL (0.2-0.9); Monocytes % 6.8 %; Neutrophils # 17.46 10^3/uL (1.8-7.7); Nucleated Red Blood Cells % 0 %; Platelet Count 315 10^3/cmm (130-400); Red Blood Count 5.07 10^6/uL (4.1-5.3); Red Cell Distribution Width 18.8 % (12.1-15.1); White Blood Count 20.3 10^3/uL (4.0-10.0)
[2020-12-10 05:16] LABS: Blood Urea Nitrogen 11 mg/dL (6-20); Calcium 8.2 mg/dL (8.5-10.5); Carbon Dioxide 20 mmol/L (22-29); Chloride 103 mmol/L (98-107); Glomerular Filtration Rate 87.9 mL/min (90-130); Glucose 150 mg/dL (65-115); Osmolality Calculated 278 mOsm/kg (285-295); Sodium 133 mmol/L (136-145)
[2020-12-10] MEDS: metroNIDAZOLE IV 500 MG/100 ML PREMIX 100 MG IV ×3 (05:21→20:32)
--- NOTE | 2020-12-10 06:34 | P.PN_ITS ---
Subjective Subjective: Interval history: The patient says she actually feels pretty well this morning. She says she is already been out of her bed and has moved around some. She is not aware of any flatus that she is passing. Vitals/I&O/Wt Last Vital Signs Temp 97.8 F 12/10/20 04:21 Pulse 100 12/10/20 04:21 Resp 19 H 12/10/20 04:28 BP 150/88 12/10/20 04:21 Pulse Ox 96 12/10/20 04:21 12/09/20 12/09/20 12/10/20 14:59 22:59 06:59 Intake Total 150 / 1350 50 / 1350 1150 / 1350 Output Total 275 / 1025 450 / 1025 300 / 1025 Balance -125 / 325 -400 / 325 850 / 325 Physical Exam Narrative: EXAM NARRATIVE: The abdomen is somewhat quiet. The dressing is intact. She has the expected amount of tenderness. Urinary Catheter Management^: Jimenez: Cath Placed During This Visit: yes Reason for Continuing Indwelling Catheter: Perioperative Use in Selected Surgeries Urinary Catheter Date of Insertion: 12/09/20 Urinary Catheter Time of Insertion: 12:45 Data : 12/10/20 04:16 12/10/20 04:16 A&P Assessment and plan (1) Mass of hepatic flexure of colon: Status post exploratory laparotomy with right hemicolectomy for an obstructing lesion in the proximal transverse colon on 12/09/2020. The patient has a reactive leukocytosis following surgery, but actually looks like she is doing quite well. She said she is willing to get up and try to walk through the halls. I will have nursing assist her with this. Status: Acute (2) Large bowel obstruction: As above. Status: Acute Attestations Medical Necessity Statement*: See admitting service's notation. Coding Level of Care Code Acute Cable Installer Repairer Helper for oRosevelt Reid Diagnoses Mass of hepatic flexure of colon K63.89 Large bowel obstruction K56.609
[2020-12-10 06:38] LABS: Glucose Point of Care 157 mg/dL (70-110)
[2020-12-10] MEDS: hyDRALAzine 20 mg/mL INJ 1 mL 10 MG IVP ×3 (07:27→21:53)
[2020-12-10] MEDS: levalbuterol 0.63 mg/3 mL Neb INHALATION ×4 (07:31→20:06)
[2020-12-10] MEDS: famotidine 20 mg/2 mL INJ IVP ×2 (08:39→20:32)
[2020-12-10] MEDS: heparin 5,000 unit/mL INJ 1 mL 5000 UNIT SUBCUT ×2 (08:39→20:32)
[2020-12-10 10:41] LABS: Glucose Point of Care 147 mg/dL (70-110)
[2020-12-10] MEDS: sodium chloride 0.9% 1,000 ML 75 ML IV (12:34)
--- NOTE | 2020-12-10 13:05 | P.PN_ITS ---
Subjective Subjective: Interval history: Patient had a NG tube in place to LIS, Minimal output, Denied flatulence or bm. no new clinical events overnight. No fever or chils. Medications: Reviewed: Yes Vitals/I&O/Wt Last Vital Signs Temp 98.2 F 12/10/20 10:57 Pulse 111 H 12/10/20 11:42 Resp 18 12/10/20 11:37 BP 177/102 12/10/20 10:57 Pulse Ox 92 12/10/20 11:37 12/09/20 12/10/20 12/10/20 22:59 06:59 14:59 Intake Total 50 / 200 1250 / 1450 0 / 0 Output Total 450 / 725 300 / 1025 Balance -400 / -525 950 / 425 0 / 0 Physical Exam Const: COMMON NORMALS: patient oriented x3 Chest: CHEST: Yes Symmetrical chest wall rise Resp: COMMON NORMALS: normal respiratory effort, No retractions, No use of accessory muscles and clear to auscultation bilaterally EFFORT & INSPECTION: Yes symmetric chest movement AUSCULTATION: clear to auscultation bilaterally Cardio: COMMON NORMALS: regular rate, regular rhythm, S1 normal heart sound present, S2 normal heart sound present, No gallops present (Cardio), No murmurs present (Cardio), No rub (Cardio) and Peripheral pulses 2+ throughout RATE: regular rate RHYTHM: regular rhythm HEART SOUNDS: S1 normal heart sound present and S2 normal heart sound present PERIPHERAL PULSES: Peripheral pulses 2+ throughout GI: AUSCULTATION: Yes normoactive bowel sounds RECTAL EXAM: deferred OTHER: Obese non distended abdomen, BS + however hypoactive Mild RUQ Tenderness Extremity: COMMON NORMALS: no clubbing, cyanosis or edema and no pedal edema Neuro: COMMON NORMALS: patient oriented x3 Urinary Catheter Management^: Jimenez: Cath Placed During This Visit: yes Reason for Continuing Indwelling Catheter: Perioperative Use in Selected Surgeries Urinary Catheter Date of Insertion: 12/09/20 Urinary Catheter Time of Insertion: 12:45 Data : 12/10/20 04:16 12/10/20 04:16 A&P Assessment and plan (1) Mass of hepatic flexure of colon: Large bowel obstruction CEA is normal H/O Prior Colonscopy 20 years ago at age 28. Has h/o chronic constipation Deny any weight loss Currently Patient is NPO . s/p : Fl enema with gastrografin study: Very tortuous sigmoid colon and splenic flexure: Abrupt cessation of contrast at the hepatic flexure with dense stool. s/p : Colonscopy on : too much solid stool to get to her hepatic flexure. S/p: Exploratory laparotomy with right hemicolectomy. - Surgery on board and managing. - NG to LIS - NPO - Continue antibiotics including cefazolin 1g IV q8hr, Flagyl 500mg IV q8hr - Repeat labs in am - Pain control Status: Acute (2) Large bowel obstruction: Status: Acute (3) Hypokalemia: - Currently K has improved - D/C IV potassium replacment - Continue NS only at 75cc/hr Status: Acute (4) HTN (hypertension): PRN I.V Hydralazine. Status: Acute (5) Diabetes: LDSSI FSG Status: Acute Additional A&P Information DVT prophylaxis SCDs avoid anticoagulation ( until ok with surgery Attestations Medical Necessity Statement*: Patient will require additional hospitalization for management of post op care and electrylyte monitoring Time Spent in Patient Care: Greater than 35 minutes (>than 50% of time spent in counselling and/or direct pt care on unit) . Coding Level of Care Code Acute Blacktop Paver Operator for Chg Fwd Diagnoses Mass of hepatic flexure of colon K63.89 Large bowel obstruction K56.609 Hypokalemia E87.6 HTN (hypertension) I10 Diabetes E11.9
--- NOTE | 2020-12-10 15:33 | PC.NURSE ---
Patient is up walking in the hallway at this time.
[2020-12-10 16:41] LABS: Glucose Point of Care 135 mg/dL (70-110)
--- NOTE | 2020-12-10 19:31 | PC.NURSE ---
Report to Latoya JENKINS at this time.
[2020-12-10 22:02] LABS: Glucose Point of Care 125 mg/dL (70-110)
[2020-12-11] VITALS (18 sets, daily range): BP systolic 142–163; BP diastolic 75–90; PULSE 89–111; RESP 18–19; TEMP 36.4–37.4; O2SAT 92–97
[2020-12-11] MEDS: ketorolac 30 mg/mL INJ IVP ×2 (00:41→21:21)
[2020-12-11] MEDS: metroNIDAZOLE IV 500 MG/100 ML PREMIX 100 MG IV (05:46)
[2020-12-11 06:23] LABS: Basophils % 0.2 %; Eosinophils % 0.3 %; Hematocrit 33.1 % (37.0-47.0); Hemoglobin 9.6 g/dL (11.5-15.3); Lymphocytes # 1.5 10^3/uL (0.8-4.8); Lymphocytes % 11.2 %; Mean Corpuscular Hemoglobin 21.5 pg (28.0-34.0); Mean Platelet Volume 10.9 fL (7.4-10.4); Monocytes % 7.3 %; Neutrophils # 10.62 10^3/uL (1.8-7.7); Neutrophils % 80.2 %; Nucleated Red Blood Cells % 0 %; Platelet Count 258 10^3/cmm (130-400); Red Blood Count 4.47 10^6/uL (4.1-5.3); Red Cell Distribution Width 18.9 % (12.1-15.1); White Blood Count 13.2 10^3/uL (4.0-10.0)
[2020-12-11 06:44] LABS: Blood Urea Nitrogen 10 mg/dL (6-20); Calcium 7.9 mg/dL (8.5-10.5); Carbon Dioxide 24 mmol/L (22-29); Chloride 104 mmol/L (98-107); Glomerular Filtration Rate 87.9 mL/min (90-130); Glucose 113 mg/dL (65-115); Osmolality Calculated 280 mOsm/kg (285-295); Sodium 135 mmol/L (136-145)
[2020-12-11 06:49] LABS: Glucose Point of Care 101 mg/dL (70-110)
[2020-12-11] MEDS: levalbuterol 0.63 mg/3 mL Neb INHALATION ×4 (08:27→20:30)
[2020-12-11] MEDS: famotidine 20 mg/2 mL INJ IVP ×2 (08:48→21:14)
[2020-12-11] MEDS: hyDRALAzine 20 mg/mL INJ 1 mL 10 MG IVP ×2 (08:56→22:32)
[2020-12-11] MEDS: heparin 5,000 unit/mL INJ 1 mL 5000 UNIT SUBCUT ×2 (09:08→21:16)
--- NOTE | 2020-12-11 09:41 | P.PN_ITS ---
Subjective Subjective: Interval history: The patient says she is doing well but is somewhat frustrated that she has not been passing any flatus yet. She feels her abdomen rumbling at times. She would like her Jimenez catheter removed. She has been up ambulating in the hallways. Vitals/I&O/Wt Last Vital Signs Temp 98.5 F 12/11/20 07:07 Pulse 104 H 12/11/20 08:33 Resp 18 12/11/20 08:27 BP 148/78 12/11/20 08:46 Pulse Ox 94 12/11/20 08:27 12/10/20 12/11/20 12/11/20 22:59 06:59 14:59 Intake Total 1368.333 / 1588.333 100 / 100 Output Total 1800 / 2350 550 / 2350 Balance -431.667 / -761.667 -550 / -761.667 100 / 100 Physical Exam Narrative: EXAM NARRATIVE: Bowel sounds are present but remain hypoactive. The abdominal dressing was removed and the incision looks good. Urinary Catheter Management^: Jimenez: Cath Placed During This Visit: yes Reason for Continuing Indwelling Catheter: Other Urinary Catheter Date of Insertion: 12/09/20 Urinary Catheter Time of Insertion: 12:45 Data : 12/11/20 05:36 12/11/20 05:36 A&P Assessment and plan (1) Mass of hepatic flexure of colon: Status post exploratory laparotomy with right hemicolectomy for an obstructing lesion in the proximal transverse colon on 12/09/2020. White blood cell count is defervescing. Patient is now off of antibiotics. Discontinue Jimenez catheter. Continue nasogastric tube until patient is passing flatus. Continue ambulation. Status: Acute (2) Large bowel obstruction: As above. Awaiting return of bowel function. Status: Acute Attestations Medical Necessity Statement*: See admitting service's notation. Coding Level of Care Code Acute Electrical Project Engineer for Roosevelt Reid Diagnoses Mass of hepatic flexure of colon K63.89 Large bowel obstruction K56.609
[2020-12-11 11:11] LABS: Glucose Point of Care 111 mg/dL (70-110)
[2020-12-11] MEDS: sodium chloride 0.9% 1,000 ML 50 ML IV (11:26)
--- NOTE | 2020-12-11 12:17 | P.PN_ITS ---
Subjective Subjective: Interval history: No flatulence or BP overnight Bp uncontrolled On IV Hydralazine prn Medications: Reviewed: Yes Vitals/I&O/Wt Last Vital Signs Temp 98.2 F 12/11/20 11:21 Pulse 94 12/11/20 11:21 Resp 18 12/11/20 11:21 BP 162/82 12/11/20 11:21 Pulse Ox 92 12/11/20 11:21 12/10/20 12/11/20 12/11/20 22:59 06:59 14:59 Intake Total 1368.333 / 1588.333 761.667 / 761.667 Output Total 1800 / 1800 550 / 2350 100 / 100 Balance -431.667 / -211.667 -550 / -761.667 661.667 / 661.667 Physical Exam Const: COMMON NORMALS: patient oriented x3 Chest: CHEST: Yes Symmetrical chest wall rise Resp: COMMON NORMALS: normal respiratory effort, No retractions, No use of accessory muscles and clear to auscultation bilaterally EFFORT & INSPECTION: Yes symmetric chest movement AUSCULTATION: clear to auscultation bilaterally Cardio: COMMON NORMALS: regular rate, regular rhythm, S1 normal heart sound present, S2 normal heart sound present, No gallops present (Cardio), No murmurs present (Cardio), No rub (Cardio) and Peripheral pulses 2+ throughout RATE: regular rate RHYTHM: regular rhythm HEART SOUNDS: S1 normal heart sound present and S2 normal heart sound present PERIPHERAL PULSES: Peripheral pulses 2+ throughout GI: AUSCULTATION: Yes normoactive bowel sounds RECTAL EXAM: deferred OTHER: Obese non distended abdomen, BS + however hypoactive Mild RUQ Tenderness Extremity: COMMON NORMALS: no clubbing, cyanosis or edema and no pedal edema Neuro: COMMON NORMALS: patient oriented x3 Urinary Catheter Management^: Jimenez: Cath Placed During This Visit: yes, but has since been removed by the nurse Reason for Continuing Indwelling Catheter: Decision to DC Catheter Urinary Catheter Date of Insertion: 12/09/20 Urinary Catheter Time of Insertion: 12:45 Date Urinary Catheter Removed: 12/11/20 Time Urinary Catheter Discontinued: 10:30 Data : 12/11/20 05:36 12/11/20 05:36 A&P Assessment and plan (1) Mass of hepatic flexure of colon: Large bowel obstruction CEA is normal H/O Prior Colonscopy 20 years ago at age 28. Has h/o chronic constipation Deny any weight loss Currently Patient is NPO . s/p : Fl enema with gastrografin study: Very tortuous sigmoid colon and splenic flexure: Abrupt cessation of contrast at the hepatic flexure with dense stool. s/p : Colonscopy on : too much solid stool to get to her hepatic flexure. S/p: Exploratory laparotomy with right hemicolectomy. - Surgery on board and managing. - NG to LIS - 200cc ourput overnight - to remain in place until passing gas - NPO for now - Continue antibiotics including cefazolin 1g IV q8hr, Flagyl 500mg IV q8hr - Repeat labs in am - Pain control - Ambulate as tolerated. Status: Acute (2) Large bowel obstruction: As above. Status: Acute (3) Hypokalemia: - Currently K has improved - D/C IV potassium replacment - Decrease IVF to 50 cc/hr Status: Acute (4) HTN (hypertension): PRN I.V Hydralazine. For SBP > 160 or DBP > 90 Status: Acute (5) Diabetes: LDSSI FSG Status: Acute Additional A&P Information DVT prophylaxis SCDs plus heparin Attestations Medical Necessity Statement*: Will require further hospital until able to tolerate PO intake, NG removed and return of bowel function Time Spent in Patient Care: Greater than 35 minutes (>than 50% of time spent in counselling and/or direct pt care on unit) . Coding Level of Care Code Acute Chemist Enzymes for Chg Fwd Diagnoses Mass of hepatic flexure of colon K63.89 Large bowel obstruction K56.609 Hypokalemia E87.6 HTN (hypertension) I10 Diabetes E11.9
[2020-12-11 17:01] LABS: Glucose Point of Care 110 mg/dL (70-110)
[2020-12-11 20:28] LABS: Glucose Point of Care 99 mg/dL (70-110)
[2020-12-12] VITALS (16 sets, daily range): BP systolic 148–204; BP diastolic 78–110; PULSE 75–88; RESP 16–20; TEMP 36.5–37.1; O2SAT 95–99
[2020-12-12 06:37] LABS: Glucose Point of Care 93 mg/dL (70-110)
--- NOTE | 2020-12-12 06:59 | PM.PN ---
Subjective Subjective: Interval history: The patient says she is doing okay but has not passed flatus yet. She feels rumbling in her lower abdomen but she has not actually passed any air as yet. She is not taking much pain medication. Vitals/I&O/Wt Last Vital Signs Temp 98.1 F 12/12/20 04:00 Pulse 75 12/12/20 04:00 Resp 18 12/12/20 04:00 BP 148/78 12/12/20 04:00 Pulse Ox 95 12/12/20 04:00 12/11/20 12/11/20 12/12/20 14:59 22:59 06:59 Intake Total 761.667 / 761.667 0 / 761.667 Output Total 100 / 935 635 / 935 200 / 935 Balance 661.667 / -173.333 -635 / -173.333 -200 / -173.333 Physical Exam Narrative: EXAM NARRATIVE: Bowel sounds remain hypoactive. The abdomen has the expected amount of tenderness. Urinary Catheter Management^: Jimenez: Cath Placed During This Visit: yes, but has since been removed by the nurse Reason for Continuing Indwelling Catheter: Decision to DC Catheter Urinary Catheter Date of Insertion: 12/09/20 Urinary Catheter Time of Insertion: 12:45 Date Urinary Catheter Removed: 12/11/20 Time Urinary Catheter Discontinued: 10:30 Data : 12/11/20 05:36 12/11/20 05:36 A&P Assessment and plan (1) Mass of hepatic flexure of colon: Status post exploratory laparotomy with right hemicolectomy for an obstructing lesion in the proximal transverse colon on 12/09/2020. Labs above are from yesterday. Continue nasogastric tube until patient is passing flatus. Continue ambulation. Status: Acute (2) Large bowel obstruction: As above. Awaiting return of bowel function. Status: Acute Attestations Medical Necessity Statement*: See admitting service's notation. Coding Level of Care Code Acute Presser All Around for Roosevelt Reid Diagnoses Mass of hepatic flexure of colon K63.89 Large bowel obstruction K56.609
[2020-12-12] MEDS: sodium chloride 0.9% 1,000 ML 50 ML IV (07:00)
[2020-12-12 07:45] LABS: Basophils % 0.4 %; Eosinophils # 0.2 10^3/uL (0.0-0.8); Eosinophils % 2.3 %; Lymphocytes # 1.3 10^3/uL (0.8-4.8); Lymphocytes % 14.3 %; Mean Corpuscular Hemoglobin 21.7 pg (28.0-34.0); Mean Corpuscular Volume 74.9 fL (81-99); Mean Platelet Volume 11.4 fL (7.4-10.4); Monocytes # 0.7 10^3/uL (0.2-0.9); Monocytes % 7.3 %; Neutrophils % 74.5 %; Nucleated Red Blood Cells % 0 %; Platelet Count 250 10^3/cmm (130-400); Red Blood Count 4.14 10^6/uL (4.1-5.3); Red Cell Distribution Width 19.2 % (12.1-15.1); White Blood Count 9.3 10^3/uL (4.0-10.0)
[2020-12-12] MEDS: heparin 5,000 unit/mL INJ 1 mL 5000 UNIT SUBCUT ×2 (07:50→20:32)
[2020-12-12] MEDS: levalbuterol 0.63 mg/3 mL Neb INHALATION ×3 (08:20→15:00)
[2020-12-12 08:22] LABS: Anion Gap 13.8 (5-19); Blood Urea Nitrogen 13 mg/dL (6-20); Calcium 7.6 mg/dL (8.5-10.5); Carbon Dioxide 23 mmol/L (22-29); Chloride 105 mmol/L (98-107); Creatinine Clr Calc Pharmacy 145.6758; Glucose 74 mg/dL (65-115); Osmolality Calculated 285 mOsm/kg (285-295); Potassium 3.8 mmol/L (3.5-5.1); Sodium 138 mmol/L (136-145)
[2020-12-12] MEDS: famotidine 20 mg/2 mL INJ IVP ×2 (09:35→20:32)
[2020-12-12 11:04] LABS: Glucose Point of Care 88 mg/dL (70-110)
--- NOTE | 2020-12-12 14:22 | PM.PN ---
Subjective Subjective: Interval history: No flatulence or bm Bp uncontrolled On IV Hydralazine prn Ambulating No fever or chills. Medications: Reviewed: Yes Vitals/I&O/Wt Last Vital Signs Temp 97.7 F 12/12/20 12:00 Pulse 83 12/12/20 12:00 Resp 18 12/12/20 12:00 BP 163/87 12/12/20 12:00 Pulse Ox 99 12/12/20 12:00 12/11/20 12/12/20 12/12/20 22:59 06:59 14:59 Intake Total 0 / 559.495 3502.333 / 1008.333 Output Total 635 / 735 200 / 935 Balance -635 / 26.667 -200 / -419.705 9947.333 / 1008.333 Physical Exam Const: COMMON NORMALS: patient oriented x3 Chest: CHEST: Yes Symmetrical chest wall rise Resp: COMMON NORMALS: normal respiratory effort, No retractions, No use of accessory muscles and clear to auscultation bilaterally EFFORT & INSPECTION: Yes symmetric chest movement AUSCULTATION: clear to auscultation bilaterally Cardio: COMMON NORMALS: regular rate, regular rhythm, S1 normal heart sound present, S2 normal heart sound present, No gallops present (Cardio), No murmurs present (Cardio), No rub (Cardio) and Peripheral pulses 2+ throughout RATE: regular rate RHYTHM: regular rhythm HEART SOUNDS: S1 normal heart sound present and S2 normal heart sound present PERIPHERAL PULSES: Peripheral pulses 2+ throughout GI: AUSCULTATION: Yes normoactive bowel sounds RECTAL EXAM: deferred OTHER: Obese non distended abdomen, BS + however hypoactive Mild RUQ Tenderness Extremity: COMMON NORMALS: no clubbing, cyanosis or edema and no pedal edema Neuro: COMMON NORMALS: patient oriented x3 Urinary Catheter Management^: Jimenez: Cath Placed During This Visit: yes, but has since been removed by the nurse Reason for Continuing Indwelling Catheter: Decision to DC Catheter Urinary Catheter Date of Insertion: 12/09/20 Urinary Catheter Time of Insertion: 12:45 Date Urinary Catheter Removed: 12/11/20 Time Urinary Catheter Discontinued: 10:30 Data : 12/12/20 05:31 12/12/20 05:31 A&P Assessment and plan (1) Mass of hepatic flexure of colon: Large bowel obstruction CEA is normal H/O Prior Colonscopy 20 years ago at age 28. Has h/o chronic constipation Deny any weight loss Currently Patient is NPO . s/p : Fl enema with gastrografin study: Very tortuous sigmoid colon and splenic flexure: Abrupt cessation of contrast at the hepatic flexure with dense stool. s/p : Colonscopy on : too much solid stool to get to her hepatic flexure. S/p: Exploratory laparotomy with right hemicolectomy. - Surgery on board and managing. - NG to LIS - to remain in place until passing gas - NPO for now - Continue antibiotics including cefazolin 1g IV q8hr, Flagyl 500mg IV q8hr - Repeat labs in am - Pain control - Ambulate as tolerated. - No change in management - Continue PPI Status: Acute (2) Large bowel obstruction: As above. Status: Acute (3) Hypokalemia: - Currently K has improved - D/C IV potassium replacment - Continue IVF to 50 cc/hr -however change to d5 0.45ns Status: Acute (4) HTN (hypertension): PRN I.V Hydralazine. For SBP > 160 or DBP > 90 Status: Acute (5) Diabetes: LDSSI FSG Status: Acute Additional A&P Information DVT prophylaxis SCDs plus heparin Attestations Medical Necessity Statement*: Continue hospital stay for post op care Time Spent in Patient Care: Greater than 35 minutes (>than 50% of time spent in counselling and/or direct pt care on unit). Coding Level of Care Code Acute Circuit Recorder for Chg Fwd Diagnoses Mass of hepatic flexure of colon K63.89 Large bowel obstruction K56.609 Hypokalemia E87.6 HTN (hypertension) I10 Diabetes E11.9
[2020-12-12 16:57] LABS: Glucose Point of Care 134 mg/dL (70-110)
[2020-12-12] MEDS: hyDRALAzine 20 mg/mL INJ 1 mL 10 MG IVP ×2 (19:31→23:40)
[2020-12-12 20:26] LABS: Glucose Point of Care 123 mg/dL (70-110)
[2020-12-13] VITALS (7 sets, daily range): BP systolic 128–192; BP diastolic 61–100; PULSE 77–97; RESP 17–22; TEMP 36.4–37.2; O2SAT 92–96
[2020-12-13] MEDS: labetalol 5 mg/mL SDV 20mL 10 MG IVP (01:06)
[2020-12-13] MEDS: sodium chloride 0.9% 1,000 ML 50 ML IV (03:27)
[2020-12-13] MEDS: hyDRALAzine 20 mg/mL INJ 1 mL 10 MG IVP ×2 (04:46→22:13)
--- NOTE | 2020-12-13 04:48 | PC.NURSE ---
Patient had large liquid stool.
[2020-12-13 06:29] LABS: Glucose Point of Care 122 mg/dL (70-110)
[2020-12-13 06:31] LABS: Basophils % 0.5 %; Eosinophils # 0.2 10^3/uL (0.0-0.8); Eosinophils % 2.9 %; Hematocrit 32.2 % (37.0-47.0); Hemoglobin 9.5 g/dL (11.5-15.3); Lymphocytes # 1.1 10^3/uL (0.8-4.8); Lymphocytes % 12.7 %; Mean Corpuscular HGB Conc 29.5 g/dL (30.0-36.0); Mean Corpuscular Hemoglobin 21.9 pg (28.0-34.0); Mean Corpuscular Volume 74.4 fL (81-99); Mean Platelet Volume 10.3 fL (7.4-10.4); Monocytes # 0.8 10^3/uL (0.2-0.9); Neutrophils # 6.12 10^3/uL (1.8-7.7); Neutrophils % 73.6 %; Nucleated Red Blood Cells % 0 %; Platelet Count 257 10^3/cmm (130-400); Red Blood Count 4.33 10^6/uL (4.1-5.3); Red Cell Distribution Width 19.6 % (12.1-15.1); White Blood Count 8.3 10^3/uL (4.0-10.0)
[2020-12-13 06:52] LABS: Anion Gap 15.2 (5-19); Blood Urea Nitrogen 10 mg/dL (6-20); Calcium 7.6 mg/dL (8.5-10.5); Carbon Dioxide 22 mmol/L (22-29); Chloride 104 mmol/L (98-107); Creatinine Clr Calc Pharmacy 145.6758; Glucose 117 mg/dL (65-115); Osmolality Calculated 286 mOsm/kg (285-295); Potassium 3.2 mmol/L (3.5-5.1); Sodium 138 mmol/L (136-145)
[2020-12-13] MEDS: heparin 5,000 unit/mL INJ 1 mL 5000 UNIT SUBCUT ×2 (07:42→21:39)
--- NOTE | 2020-12-13 07:57 | PM.PN ---
Subjective Subjective: Interval history: The patient began passing stool yesterday. Her nasogastric tube was removed and she was started on a clear liquid diet which she says she has tolerated well. Vitals/I&O/Wt Last Vital Signs Temp 98.5 F 12/13/20 07:14 Pulse 82 12/13/20 07:14 Resp 18 12/13/20 07:14 BP 128/61 12/13/20 07:14 Pulse Ox 92 12/13/20 07:14 12/12/20 12/13/20 12/13/20 22:59 06:59 14:59 Intake Total 1360 / 2368.333 Output Total 1450 / 1850 400 / 1850 Balance -1450 / 518.333 960 / 518.333 Physical Exam Narrative: EXAM NARRATIVE: Bowel sounds are present. The incision looks good. Urinary Catheter Management^: Jimenez: Cath Placed During This Visit: yes, but has since been removed by the nurse Reason for Continuing Indwelling Catheter: Decision to DC Catheter Urinary Catheter Date of Insertion: 12/09/20 Urinary Catheter Time of Insertion: 12:45 Date Urinary Catheter Removed: 12/11/20 Time Urinary Catheter Discontinued: 10:30 Data : 12/13/20 06:15 12/13/20 06:15 A&P Assessment and plan (1) Mass of hepatic flexure of colon: Status post exploratory laparotomy with right hemicolectomy for an obstructing lesion in the proximal transverse colon on 12/09/2020. Pathology pending. Soft mechanical diet. Replace potassium. I anticipate the patient can be discharged tomorrow morning if okay with the hospitalist service. Status: Acute (2) Large bowel obstruction: As above. Awaiting return of bowel function. Status: Acute Attestations Medical Necessity Statement*: See admitting service's notation. Coding Level of Care Code Acute Driver Education Road Instructor for Roosevelt Reid Diagnoses Mass of hepatic flexure of colon K63.89 Large bowel obstruction K56.609
[2020-12-13] MEDS: famotidine 20 mg/2 mL INJ IVP ×2 (09:33→22:06)
[2020-12-13] MEDS: lidocaine 1% 5 ML in potassium chloride premix 100 ML 25 ML IV (09:34)
[2020-12-13 11:04] LABS: Glucose Point of Care 154 mg/dL (70-110)
--- NOTE | 2020-12-13 16:06 | P.PN_ITS ---
Subjective Subjective: Interval history: Patient was feeling better today. Noted to have a bowel movement yesterday after which NG tube was removed. No nausea or vomiting. Abdominal pain under control. Medications: Reviewed: Yes Vitals/I&O/Wt Last Vital Signs Temp 97.5 F L 12/13/20 15:29 Pulse 81 12/13/20 15:29 Resp 18 12/13/20 15:29 BP 170/76 12/13/20 15:29 Pulse Ox 95 12/13/20 15:29 12/13/20 12/13/20 12/13/20 06:59 14:59 22:59 Intake Total 1360 / 2368.333 360 / 360 Output Total 400 / 1850 Balance 960 / 518.333 360 / 360 Physical Exam Const: COMMON NORMALS: patient oriented x3 Chest: CHEST: Yes Symmetrical chest wall rise Resp: COMMON NORMALS: normal respiratory effort, No retractions, No use of accessory muscles and clear to auscultation bilaterally EFFORT & INSPECTION: Yes symmetric chest movement AUSCULTATION: clear to auscultation bilaterally Cardio: COMMON NORMALS: regular rate, regular rhythm, S1 normal heart sound present, S2 normal heart sound present, No gallops present (Cardio), No murmurs present (Cardio), No rub (Cardio) and Peripheral pulses 2+ throughout RATE: regular rate RHYTHM: regular rhythm HEART SOUNDS: S1 normal heart sound present and S2 normal heart sound present PERIPHERAL PULSES: Peripheral pulses 2+ throughout GI: AUSCULTATION: Yes normoactive bowel sounds RECTAL EXAM: deferred OTHER: Obese non distended abdomen, BS + however hypoactive Mild RUQ Tenderness Extremity: COMMON NORMALS: no clubbing, cyanosis or edema and no pedal edema Neuro: COMMON NORMALS: patient oriented x3 Urinary Catheter Management^: Jimenez: Cath Placed During This Visit: yes, but has since been removed by the nurse Reason for Continuing Indwelling Catheter: Decision to DC Catheter Urinary Catheter Date of Insertion: 12/09/20 Urinary Catheter Time of Insertion: 12:45 Date Urinary Catheter Removed: 12/11/20 Time Urinary Catheter Discontinued: 10:30 Data : 12/13/20 06:15 12/13/20 06:15 A&P Assessment and plan (1) Mass of hepatic flexure of colon: Large bowel obstruction CEA is normal H/O Prior Colonscopy 20 years ago at age 28. Has h/o chronic constipation Deny any weight loss Currently Patient is NPO . s/p : Fl enema with gastrografin study: Very tortuous sigmoid colon and splenic flexure: Abrupt cessation of contrast at the hepatic flexure with dense stool. s/p : Colonscopy on : too much solid stool to get to her hepatic flexure. S/p: Exploratory laparotomy with right hemicolectomy. - Surgery on board and managing. - Noted to have return of bowel function - NG removed - ABx per surgery - Started on CLD - F/u on pathology results Status: Acute (2) Large bowel obstruction: As above. Status: Acute (3) Hypokalemia: - Currently K has improved - Replace as needed Status: Acute (4) HTN (hypertension): PRN I.V Hydralazine. For SBP > 160 or DBP > 90 Will resume home antihypertensive meds. Status: Acute (5) Diabetes: LDSSI FSG Status: Acute Additional A&P Information DVT prophylaxis SCDs plus heparin Attestations Medical Necessity Statement*: Require further hospitalization for postop management as per General surgery and blood pressure control Time Spent in Patient Care: Greater than 35 minutes (>than 50% of time spent in counselling and/or direct pt care on unit) . Coding Level of Care Code Acute Crusher Foreman for Chg Fwd Diagnoses Mass of hepatic flexure of colon K63.89 Large bowel obstruction K56.609 Hypokalemia E87.6 HTN (hypertension) I10 Diabetes E11.9
[2020-12-13 17:21] LABS: Glucose Point of Care 98 mg/dL (70-110)
[2020-12-13 21:32] LABS: Glucose Point of Care 150 mg/dL (70-110)
[2020-12-14] VITALS: BP 171/83; PULSE 89; RESP 17; TEMP 37.2; O2SAT 94
[2020-12-14 04:00] VITALS: BP 168/84; PULSE 84; RESP 17; TEMP 37.1; O2SAT 92
[2020-12-14 06:56] LABS: Glucose Point of Care 111 mg/dL (70-110)
[2020-12-14 07:22] LABS: Anion Gap 13.3 (5-19); Blood Urea Nitrogen 7 mg/dL (6-20); Calcium 8.1 mg/dL (8.5-10.5); Carbon Dioxide 25 mmol/L (22-29); Chloride 105 mmol/L (98-107); Glomerular Filtration Rate 129.6 mL/min (90-130); Glucose 99 mg/dL (65-115); Osmolality Calculated 288 mOsm/kg (285-295); Potassium 3.3 mmol/L (3.5-5.1); Sodium 140 mmol/L (136-145)
[2020-12-14 07:50] VITALS: PULSE 83; RESP 18; O2SAT 94
[2020-12-14 08:00] VITALS: BP 167/73; PULSE 86; RESP 18; TEMP 37; O2SAT 93
[2020-12-14] MEDS: heparin 5,000 unit/mL INJ 1 mL 5000 UNIT SUBCUT (08:05)
[2020-12-14] MEDS: famotidine 20 mg/2 mL INJ IVP (08:12)
--- NOTE | 2020-12-14 10:17 | PM.PN ---
Subjective Subjective: Interval history: The patient feels well. She is tolerating a soft diet and continues to pass stool/flatus. She says she is ready to go home. Vitals/I&O/Wt Last Vital Signs Temp 98.6 F 12/14/20 08:00 Pulse 86 12/14/20 08:00 Resp 18 12/14/20 08:00 BP 167/73 12/14/20 08:00 Pulse Ox 93 12/14/20 08:00 12/13/20 12/14/20 12/14/20 22:59 06:59 14:59 Intake Total 465 / 825 220 / 220 Output Total 1000 / 1000 225 / 225 Balance 465 / -175 -1000 / -175 -5 / -5 Physical Exam Narrative: EXAM NARRATIVE: The incision looks good. Approximately two thirds of her skin gideon were removed this morning. I will remove the remainder of these next week. Urinary Catheter Management^: Jimenez: Cath Placed During This Visit: yes, but has since been removed by the nurse Reason for Continuing Indwelling Catheter: Decision to DC Catheter Urinary Catheter Date of Insertion: 12/09/20 Urinary Catheter Time of Insertion: 12:45 Date Urinary Catheter Removed: 12/11/20 Time Urinary Catheter Discontinued: 10:30 Data : 12/13/20 06:15 12/14/20 05:45 A&P Assessment and plan (1) Mass of hepatic flexure of colon: Status post exploratory laparotomy with right hemicolectomy for an obstructing lesion in the proximal transverse colon on 12/09/2020. Pathology is still pending. The patient appears to be doing well from a surgical perspective. I am okay with her being discharged and will make arrangements for her to follow-up in my office as an outpatient early next week. Status: Acute (2) Large bowel obstruction: Resolved. Status: Acute Attestations Medical Necessity Statement*: See admitting service's notation. Coding Level of Care Code Acute Customer Service Sales Consultant for Roosevelt Reid Diagnoses Mass of hepatic flexure of colon K63.89 Large bowel obstruction K56.609
[2020-12-14 11:08] LABS: Glucose Point of Care 174 mg/dL (70-110)
--- NOTE | 2020-12-14 11:25 | P.DS_ITS ---
Discharge Providers Date of Admission: 12/07/20 04:28 Date of Discharge: December 14, 2020 Attending Provider at Admission: Jennifer Eller MD Attending Provider at Discharge: Hira Fox Diagnoses at Discharge Discharge Diagnosis (1) Mass of hepatic flexure of colon: Status: Acute (2) Large bowel obstruction: Status: Acute (3) HTN (hypertension): Status: Acute (4) Diabetes: Status: Acute (5) Hypokalemia: Status: Acute Reason for Visit Reason for Visit: n/v/constipation Hospital Course Hospital Course Pleasant 50-year-old lady with HTN, diabetes, was admitted for assessment management due to nausea, vomiting, no bowel movement for about 2 weeks. She was found to have a hepatic flexure mass on CT. Was assessed by surgery and aft er unsuccessful attempts at colonoscopy underwent exploratory laparotomy and right hemicolectomy. Pathology not back so far. Will need to be followed up at next visit with referral to oncology as appropriate. Due to noted hypertension in the hospital she is started on losartan. Please follow-up renal function, potassium. Required replacement of hypokalemia. She is started on Metformin. Please follow-up diabetes control at next visit. She states also has been quitting smoking, has not smoked in several weeks. Please assist her in maintaining abstinence. Physical Exam Const: COMMON NORMALS: no acute distress, patient oriented x3 and alert GENERAL APPEARANCE: cooperative and comfortable ORIENTATION/CONSCIOUSNESS: Yes awake OTHER: Pleasant, conversant. Denies any discomfort. No trouble eating. No trouble with bowel movements. Feels ready to return home with outpatient follow-up. HENMT: COMMON NORMALS: oropharynx normal Neck/C-Spine: COMMON NORMALS: no JVD Resp: COMMON NORMALS: normal respiratory effort and clear to auscultation bilaterally AUSCULTATION: clear to auscultation bilaterally Cardio: COMMON NORMALS: no JVD, regular rhythm, S1 normal heart sound present, S2 normal heart sound present and No murmurs present (Cardio) RHYTHM: regular rhythm HEART SOUNDS: S1 normal heart sound present and S2 normal heart sound present GI: COMMON NORMALS: Normal to inspection, nondistended, normoactive bowel sounds present, Soft to palpation and non-tender PALPATION: Yes Soft to palpation Extremity: COMMON NORMALS: no joint enlargement and no pedal edema Neuro: COMMON NORMALS: patient oriented x3 and moves all extremities SENSORIUM/ORIENTATION: Yes alert Skin: COMMON NORMALS: no rashes or lesions noted GENERAL SKIN EXAM: no rashes or lesions noted Urinary Catheter Management^: Jimenez: Cath Placed During This Visit: yes, but has since been removed by the nurse Reason for Continuing Indwelling Catheter: Decision to DC Catheter Urinary Catheter Date of Insertion: 12/09/20 Urinary Catheter Time of Insertion: 12:45 Date Urinary Catheter Removed: 12/11/20 Time Urinary Catheter Discontinued: 10:30 Discharge Data Data Completed and Pending: Completed Studies During Hospitalization Category Date Time Status CT abdomen pelvis w con* [id number] Urge nt Cat Scan 12/07/20 00:[address] head wo con* 7 0450 Urgent Cat Scan 12/07/20 00:53 Completed FL enema w gastro grafin [id number] Routi ne Exams 12/07/20 12:40 Completed XR chest 1V iman ble [id number] Routine Exams 12/07/20 08:00 Completed XR chest 1V iman ble [id number] Stat Exams 12/09/20 00:39 Completed Pending at discharge Category Date Time Status Basic Metabolic P tarik AM LABS Lab 12/15/20 04:00 Ordered Pathology: Surgic al [PTH] Routine Pth 12/09/20 13:54 Received Labs from last 24 hours 12/14/20 12/14/20 12/14/20 10:42 06:45 05:45 Sodium 140 Potassium 3.3 L Chloride 105 Carbon Dioxide 25 Anion Gap 13.3 BUN 7 Creatinine 0.5 GFR Calculation 129.6 Glucose 99 POC Glucose 174 H 111 H Calculated Osmolal ity 288 Calcium 8.1 L 12/13/20 12/13/20 21:22 17:14 Sodium Potassium Chloride Carbon Dioxide Anion Gap BUN Creatinine GFR Calculation Glucose POC Glucose 150 H 98 Calculated Osmolal ity Calcium Vitals: Last Vital Signs Temp 98.6 F 12/14/20 08:00 Pulse 86 12/14/20 08:00 Resp 18 12/14/20 08:00 BP 167/73 12/14/20 08:00 Pulse Ox 93 12/14/20 08:00 Discharge Plan Discharge Patient Disposition: Home Condition: Stable Prescriptions: New acetaminophen 325 mg capsule 325 mg PO Q6H PRN (Reason: pain) Qty: 30 RF: 0 losartan 25 mg tablet 25 mg PO DAILY Qty: 30 RF: 0 metformin 500 mg tablet 500 mg PO DAILY Qty: 30 RF: 0 No Action No Known Home Medications RF: 0 Discharge Orders: Discharge Order (Routine); Ordered 12/14/20 Ordered By: Hira Fox Referrals: Andrea Evans MD [Physician] - 7-10 days (Nursing: Please call Dr. Evans's office ([phone]) and make an appointment for the patient to be seen next week.) Barb Clark FNP [Nurse Practitioner] - (You will have a new patient/hospital follow up with Barb Clark on December 23, 2020 at 10:00 am. If you need to cancel or reschedule please call them at [phone].) Discharge Diet: Advance as tolerated, Cardiac and Diabetic Discharge Activity: Limit activity as instructed Patient Instructions: Losartan (By mouth), Metformin (By mouth), Diabetes Mellitus Type 2 in Adults (GEN), Hypertension (GEN), GI Discharge Instructions Activity Restrictions/Additional Instructions: 1. Discharge to home today if okay with hospitalist team. 2. Appointment to see Dr. Evans in 7-10 days as above. 3. Okay to shower at home as discussed. No lifting over 20 pounds, no repetitive bending or twisting, no strenuous pushing / pulling or other heavy activity. Ambulate regularly. May go up and down steps if needed. Please have your primary care doctor follow-up regarding pathology results with regards to colon mass. Please continue to monitor blood pressure at home 3 times daily, write down values to bring to your appointment. Please continue to monitor blood glucose at home. Please work with your primary care doctor to optimize control of both hypertension and diabetes. Please have your primary care doctor recheck your potassium level and renal function in office. Please continue abstinence from smoking. Discharge Attestations Time Spent in Discharge Care*: greater than 30 min Quality Metrics Clinical Quality Measures During this hospital stay, did patient experience: None Coding Level of Care Code Acute Chg FW [place] note Diagnoses Mass of hepatic flexure of colon K63.89 Large bowel obstruction K56.609 HTN (hypertension) I10 Diabetes E11.9 Hypokalemia E87.6
--- NOTE | 2020-12-14 11:39 | PC.CHAP ---
Pastoral Care Encounter/Spiritual Assessment Type of Contact [] Declined ring conductor visit [] Patient/Family/Request visit [] Outpatient visit [] Follow-up visit [] Physician referral [] Code/Alert [x] Routine visit [] Staff referral [] Actively dying [] Patient sleeping [] Family support [] [] Out of room [] Palliative care [] [] Receiving care in room [] Pre-surgical visit [] Trauma [] Long length of stay [] ICU visit [] Other: Relational/Emotional Strength [x] Patient feels connected with others/faxmily/visitors/staff [] Distress [] Loneliness/isolation [] Abandonment Spirituality of Patient [x] Person of Kyung [] Attends Mosque of their Kyung [x] Believes in Prayer [] Reads Bible or Moravian materials [] There are Spiritual issues to be addressed Urogynecology Physician Interventions [x] Prayer [] Active listening [] Non-anxious presence [] Spiritual/emotional support [] Crisis/trauma care [] Spiritual counseling [] Bereavement support [] Provided bereavement packet [] Provided Bible/devotional materials [] Provided toy/stuffed animal, coloring book to patient or family member [] Provided Communion [] Anointing/[place] [] Salvation [] Completed spiritual assessment [] Other: Impact on Illness or Injury [] Angry [] Fearful [] Anxious [] Often cries [] Exhaustion [] Unable to work [x] Unable to attend methodist [x] Unable to walk/stand [] Unable to read [x] Unable to drive [] Unable to eat/drink [] Unable to sleep [] Unable to be with family [] Patient intubated [] Other: patient has demintua Summary Time spent with patient 40 min spent time with daughter
[2020-12-14 12:00] VITALS: BP 171/92; PULSE 81; RESP 18; TEMP 36.8; O2SAT 93
--- NOTE | 2020-12-14 13:01 | PC.NURSE ---
reviewed discharge and post op instructions with the patient in room and daughter via video call. both verbalized understanding of instruction. IV was removed tip intact, bleeding controlled with 2x2 and coban, patient tolerated well. patient was taken by SENIOR ADMINISTRATIVE ASSOCIATE in wheelchair accompanied by son to private vehicle
[2020-12-14 13:26] VITALS: BP 171/92; PULSE 81; RESP 18; TEMP 36.8; O2SAT 93
[2020-12-25 09:52] LABS: Miscellaneous Test See Scanned Lab Rpt
== END 2020-12-14 12:45 | disposition home or self-care (01) | DRG 330 ==
LOC: ER 04:45 → MEDSURG 04:46
PROVIDERS: Hospitalist; Internal Medicine; Physician Assistant; Surgery; Admitting Provider Internal Medicine; Emergency Provider Emergency Medicine; Visit Provider Internal Medicine
PROC: 0DJD8ZZ Inspection of Lower Intestinal Tract, Via Natural or Artificial Opening Endoscopic (ICD-10-PCS; CPT 45330; principal; 2020-12-08 07:00)
PROC: 0DTF0ZZ Resection of Right Large Intestine, Open Approach (ICD-10-PCS; CPT 49000; principal; 2020-12-09 13:15)
PROC: 0DTF0ZZ Resection of Right Large Intestine, Open Approach (ICD-10-PCS; 2020-12-09 13:15)
DX: K56.690 Other partial intestinal obstruction (principal); E87.2 Acidosis; Q61.01 Congenital single renal cyst; K63.89 Other specified diseases of intestine; I10 Essential (primary) hypertension; E11.9 Type 2 diabetes mellitus without complications; K59.09 Other constipation; E86.0 Dehydration; Z87.891 Personal history of nicotine dependence; E87.6 Hypokalemia
CPT/HCPCS: 12345; 36415; 36416; 45330; 51702; 70450; 71045; 74177; 74270; 80048; 80053; 81001; 82378; 82962; 83036; 83605; 83690; 85025; 87635; 88309; 88360; 93005; 94640; 96365; 96366; 96372; 96375; 99285; C9290; J0330; J0360; J0690; J1644; J1815; J1885; J2250; J2270; J2405; J2704; J2710; J3010; J3480; J3490; J7030; J7614; Q9963; Q9967; S0030

== ENCOUNTER → 2020-12-23 11:39 | Outpatient (BNVA) | payer MEDICAID, SELFPAY | PROVIDERS: Visit Provider Nurse Practitioner Family | DX: E11.9 Type 2 diabetes mellitus without complications (principal); K63.89 Other specified diseases of intestine; I10 Essential (primary) hypertension; F17.200 Nicotine dependence, unspecified, uncomplicated; Z68.35 Body mass index [BMI] 35.0-35.9, adult; F17.210 Nicotine dependence, cigarettes, uncomplicated | CPT/HCPCS: 80053; 85025 ==

== ENCOUNTER 2021-01-05 10:00 | Outpatient (CLI) | payer MEDICAID, SELFPAY ==
--- NOTE | 2021-01-05 17:10 | ONC CON_ITS ---
Dr. Briscoe New Patient Note Patient: Barb Easton Unit #: [id number]: 1970 Dicatated By: Heron Briscoe M.D.Date of Visit: January 05, 2021 Onc MED New Patient/Consult Referring Physician: Dr. Andrea Evans M.D. History of Present Illness: Mrs. Barb Easton, is a 50-year-old female with a history of off and on diarrhea alternating with constipation now with progressive abdominal pain and cramping came [place] [facility] and underwent CT scan of abdomen pelvis on December 07, 2020 which showed dilated fluid filled small bowel loops and fluid-filled dilated ascending colon compatible with partial large bowel obstruction. There is a soft tissue attenuation focal mass seen near the hepatic flexure worrisome for primary colon malignancy. Liver was normal no other abnormality seen except benign right renal cyst measuring 1.2 cm, patient underwent water-soluble contrast enema on December 07, 2020 which shows very tortuous sigmoid colon and splenic flexure. Abrupt cessation of contrast at hepatic flexure with dense stool this is in the area of mass/stricture seen on CT scan. Patient was treated with NG tube/conservatively her symptoms improve and eventually underwent exploratory laparotomy with right hemicolectomy on December 09, 2020 final pathology report showed 3.5 cm mass in hepatic flexure, no tumor perforation, moderately differentiated, tumor invades muscularis propria, clear surgical margins, with a positive lymphovascular invasion seen, 12 out of 18 lymph node positive for metastatic disease MSI/MMR was intact, pT2 pN2 B Patient denies any weight loss, denies any history of jaundice, denies any history of melena or hematochezia, denies any history of hemoptysis or hematemesis,. Patient tolerated surgery well now healing well Past Medical History: Ms. Easton's medical history consists of colon polyps, hypertension, and type II diabetes. Past Surgical History: Ms. Sosas surgical/procedural history consists of appendectomy, carpal tunnel release, hysterectomy/bilateral salpingectomy-oophorectomy in 1999, and cholecystectomy in 1989. Medications: Losartan Potassium 1 Tablet (of 50 mg) Oral daily, metFORMIN HCl 1 Tablet (of 500 mg) Oral daily Allergies: No Known Allergies. Social History: Ms. Easton is . She is an occasional smoker who has smoked 1.0 pack/day for 31 years. She drinks occasionally. She has indicated exposure to the following products: cigarettes. Family History: Ms. Easton's mother at age 63: coronary artery disease. Review Of Symptoms: Review of Systems is not available for this patient. Vital Signs: Performed on January 05, 2021 11:11: 0, 0, 35.15 (HIGH), 2.12 sq.m, 67 in, 98 %, 77 /min, 18 /min, 146/88 mm(hg) (HIGH), 98.5 F, and 224.4 lbs (HIGH). Performance Status: 0 - Fully active, able to carry on all predisease activities without restrictions. (ECOG) Physical Examination: ENMT - No mouth sores, no thrush, no jaundice, Respiratory - Lungs are clear to auscultation, Cardiovascular - Regular rate and rhythm of heart, Abdomen - Soft, bowel sounds present, well-healed midline surgical scar, Extremities - No visible edema or rash. Lab/Imaging: Most recent lab results are not available for this patient. 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 Plan: Discussed with patient regarding her disease status and pathology report which showed 12 out of 18 lymph node positive pN2b which will make her stage IIIb, with clear surgical margins and tumor did invade muscularis propria e.g. T2 As per NCCN guidelines,, Being stage IIIb, patient is a candidate for adjuvant chemotherapy with FOLFOX or CAPOX, patient opted for FOLFOX all the side effect possible benefits associated with 5-FU/oxaliplatin were discussed in detail including but not limited to bone marrow suppression, nausea vomiting, mouth sores, peripheral neuropathy, intolerance to cold especially with oxaliplatin, diarrhea, cardiac toxicity especially with 5-FU was mentioned,, further teaching will done by chemotherapy nurse, patient expressed full understanding, will obtain approval from her insurance prior to her treatment so patient will obtain FOLFOX every 2 weeks x12. I will request Dr. Evans to place Port-A-Cath to facilitate adjuvant chemotherapy. Patient will return to clinic 1 week after adjuvant chemotherapy is initiated with CBC CMP Signed By: Heron Briscoe M.D. <<Signature on File>>
== END 2021-01-05 10:01 | disposition home or self-care (01) ==
LOC: ONCMED 10:03
PROVIDERS: Visit Provider Internal Medicine Hematology & Oncology
DX: C18.3 Malignant neoplasm of hepatic flexure (principal); C77.8 Secondary and unspecified malignant neoplasm of lymph nodes of multiple regions; I10 Essential (primary) hypertension; E11.9 Type 2 diabetes mellitus without complications; G56.01 Carpal tunnel syndrome, right upper limb; Z79.899 Other long term (current) drug therapy; Z92.21 Personal history of antineoplastic chemotherapy
CPT/HCPCS: 99205

== ENCOUNTER → 2021-01-29 11:51 | Outpatient (BNVA) | payer MEDICAID, OTHER, SELFPAY | PROVIDERS: PCP Nurse Practitioner Family; Visit Provider Surgery | DX: Z01.812 Encounter for preprocedural laboratory examination (principal); Z20.822 Contact with and (suspected) exposure to COVID-19 | CPT/HCPCS: 87635 ==

== ENCOUNTER 2021-02-04 05:59 | Day surgery (SDC) | payer MEDICAID, SELFPAY ==
[2021-02-03 13:05] VITALS: BMI 35.2
--- NOTE | 2021-02-04 | SCC_ITS ---
Procedure Done: Port-A-Cath placement into the right internal jugular vein with intraoperative fluoroscopy interpretation, utilizing intraoperative ultrasound. 2.1 seconds of fluoroscopic guidance, for a cumulative dose of 0.36 mGy, was provided to Dr. Evans by the radiology department. C-arm images of the chest were saved for the patient's permanent record. GOPAL
[2021-02-04 06:15] VITALS: BP 191/133; PULSE 76; RESP 18; TEMP 36.2; O2SAT 98
--- NOTE | 2021-02-04 06:30 | W.PM.OPSUD ---
Surgery/Procedure H&P Update DATE OF PROCEDURE: February 04, 2021 DATE H&P PERFORMED: 01/26/21 H&P UPDATE INFORMATION: No changes to prior documentation PREOP DIAGNOSIS: Node positive colon cancer. PLANNED PROCEDURE: Operation Date: 02/04/21 07:00 Proposed Procedures p Portacath Placement 57155 C18.9(Not Applicable) - Andrea Evans MD
--- NOTE | 2021-02-04 06:41 | SC_ITS ---
WS: [id number] C-arm fluoroscopy for Port-A-Cath insertion, 02/04/2021 Clinical Data: surgery Comparison: Portable chest, 12/09/2020. Findings: The right Port-A-Cath has been inserted via the right internal jugular vein and is within the superio r vena cava. SC/C-arm FL for CVA [id number] Impression: Satisfactory insertion of right Port-A-Cath.
[2021-02-04] MEDS: sodium chloride 0.9% 1,000 ML 30 ML IV (06:45)
--- NOTE | 2021-02-04 07:01 | ANES.PREANE2 ---
Pre-Anesthetic Assessment Pre-Anesthetic Assessment: Height/Weight: Height 1.7 m Weight 102.058 kg Temp Pulse Resp BP Pulse Ox 97.2 F L 76 18 191/133 98 02/04/21 06:15 02/04/21 06:15 02/04/21 06:15 02/04/21 06:15 02/04/21 06:15 Preop Diagnosis: Node positive colon cancer. Proposed Procedure: Operation Date: 02/04/21 07:00 Proposed Procedures p Portacath Placement 07430 C18.9(Not Applicable) - Andrea Evans MD Was Beta Kj taken within 24 hours: N/A Was Clonidine taken within 24 hours: N/A Last intake: Intake Last Liquid Date 02/03/21 Last Liquid Time 23:50 Last Solid Date 02/03/21 Last Solid Time 22:00 Social: Social History: Tobacco and No alcohol Exam: Pre-Anes Outpt Exam: alert, oriented x 3 and regular rate & rhythm Airway: Submandibular: WNL Cervical ROM: WNL MP: 2 Dentition: Chipped and Loose Additional comments: Poor dentition Pulmonary: Pulmonary: COPD CV/HEM: CV/HEM: HTN Metabolic: Metabolic: DM and Morbid obesity Anesthetic Plan: ASA status: 3 Anesthesia: MAC Risk of > 500 ml blood loss (7ml/kg in children): No Meds/Allergies Current Medications: Current Medications Generic Name Dose Route Start Last Admin Trade Name Freq PRN Reason Stop Dose Admin Sodium Chloride 1,000 mls @ 30 ml s/hr 02/04/21 06:15 02/04/21 06:45 Sodium Chloride 0.9% IV 02/05/21 06:14 30 mls/hr .Q24H JENNIFER Administration PFSH Anesthesia PFSH: Medical History Abnormal colonoscopy in 30s 3 polyps were removed Colon polyps Diabetes HTN (hypertension) Surgical History H/O: hysterectomy / BSO /incidental appendectomy History of carpal tunnel surgery Right History of tonsillectomy S/P laparoscopic cholecystectomy Family History Grandmother Cancer [employer] CANCER Mother CAD (coronary artery disease) Social History Smoking and tobacco status: current every day smoker cigarettes Years cigarettes smoked: 30 [ Other cigarette details: Recently only a few cigarettes a day, but 1 to 2 packs/day in the past ] Second hand smoke exposure: Yes Alcohol intake: never Lives independently: Yes Household members: family Housing: House History of recent travel: No Current gender identity: Female Data Anesthesia Cardiac Studies: No Data to Display
--- NOTE | 2021-02-04 07:31 | XR_ITS ---
WS: [id number] Portable AP upright chest, 02/04/2021 Clinical Data: PORT PLACEMENT Comparison: Portable chest, 12/09/2020. Findings: No nodules, masses or effusions are seen. The heart is normal. The pulmonary vascularity is not increased. No pneumonia or pneumothorax is seen. The right internal jugular venous catheter ends in the superior vena cava. XR/XR chest 1V portable [id number] Impression: Negative chest.
[2021-02-04] MEDS: heparin,porcine 1,000 unit/mL INJ 1 mL 2000 UNIT IRRIGATION (07:32)
--- NOTE | 2021-02-04 07:40 | P.OP_ITS ---
Operative Report Date of procedure: February 04, 2021 Pre-op Diagnosis: Node positive colon cancer. Post-op diagnosis: same Procedure Done: Port-A-Cath placement into the right internal jugular vein with intraoperative fluoroscopy interpretation, utilizing intraoperative ultrasound. Pathology: none sent Surgeon: Andrea Evans Anesthesia: MAC Estimated blood loss (mL): 15 Complications: None. Condition: stable Disposition: PACU Procedure: The patient was brought to the Operating Room and was placed in a supine position on the operating room table. A monitored anesthetic was induced. The shoulders were extended by means of a posterior shoulder roll. The anterior surface of the chest and neck were prepped and draped in a sterile fashion. 1% lidocaine was used to anesthetize a small area underneath the right clavicle. The subclavian vein was accessed with a needle and syringe as evidenced by the return of dark nonpulsatile blood. The J-wire was passed down the needle but the wire met resistance and was pulled back. The needle was repositioned several times, trying to remain within the vein, but despite multiple attempts the past the J-wire resistance was met every time. I went to the left side and anesthetize a small area underneath the left clavicle. After a couple passes and no blood was obtained, the decision was made to approach the internal jugular vein on the right side. Once again, local anesthesia was introduced at the base of the neck and intraoperative ultrasound was used to identify the right internal jugular vein as evidenced by its size and compressibility. The right in ternal jugular vein was accessed with a needle and syringe. The J-wire was passed down the needle and the needle was removed. The C-arm was positioned and showed the wire extending down the vena cava. A site inferiorly on the right chest wall was anesthetized using a combination of 1% lidocaine and 0.5% bupivacaine with 1:200,000 parts of epinephrine. A transverse incision was made and an inferior pocket was created in the subcutaneous layer using cautery in preparation for port placement. The Port-A-Cath tubing was passed from the incision through the subcutaneous layer to the exit point of the J-wire at the base of the neck on the right side. The tubing was attached to the port and was cut to an appropriate length. The introducer and sheath were passed over the J- wire, and the introducer and J-wire were removed. The Port-A-Cath tubing was passed down the sheath, which was torn away. The C-arm was positioned and showed good placement of the Port-A-Cath tubing tip in the superior vena cava/right atrium. The port aspirated easily and flushed well with hep flush solution. The port was sewn in place with some interrupted sutures of 3-0 PDS. The transverse incision was closed at the dermis using a single inverted suture of 3-0 Vicryl and the skin was approximated using a running subcuticular suture of 4-0 Vicryl. The small incision at the base of the neck at the previous insertion site of the J wire was closed using a single inverted suture of 4-0 Vicryl. Benzoin and Steri-Strips were placed over the incisions and a sterile bandage followed. The patient was taken to the recovery area in stable condition postoperatively. INTRAOPERATIVE FLUOROSCOPY FINDINGS: Intraoperative fluoroscopic images of a Port-A-Cath placement were reviewed. An initial image reveals a J-wire entering the right internal jugular vein and extending down the vena cava. Subsequent images reveal a Port-A-Cath on that side of the chest with its tubing tip in good location in the superior vena cava/right atrium. No obvious pneumothorax is identified.
[2021-02-04 07:45] VITALS: BP 190/95; PULSE 95; RESP 18; TEMP 36.4; O2SAT 95
[2021-02-04 07:50] VITALS: BP 191/105; PULSE 96; RESP 17; O2SAT 93
[2021-02-04 08:08] VITALS: BP 186/94; PULSE 82; RESP 18; TEMP 36.3; O2SAT 95
--- NOTE | 2021-02-04 08:49 | ANE.PACU2 ---
Inpatient post-anesthesia follow up: Airway intact: Yes Vital signs: Temperature 97.3 F Pulse Rate 82 Respiratory Rate 18 Blood Pressure 186/94 Pulse Oximetry 95 Oxygen Delivery Me thod Room Air Oxygen Flow Rate Fraction of Inspir ed Oxygen Hydration adequate: Yes Nausea and vomiting: No Pain level: 2 Mental status: Baseline
== END 2021-02-04 08:39 | disposition home or self-care (01) ==
PROVIDERS: Visit Provider Surgery
PROC: (CPT 36561; principal; 2021-02-04 07:00)
DX: C18.9 Malignant neoplasm of colon, unspecified (principal); J44.9 Chronic obstructive pulmonary disease, unspecified; I10 Essential (primary) hypertension; E11.9 Type 2 diabetes mellitus without complications; E66.01 Morbid (severe) obesity due to excess calories; Z68.35 Body mass index [BMI] 35.0-35.9, adult; F17.210 Nicotine dependence, cigarettes, uncomplicated
CPT/HCPCS: 36561; 71045; 76000; 77001; C1788; J0690; J1644; J2704; J3010; J3490; J7030

== ENCOUNTER 2021-02-08 14:45 | Outpatient (CLI) | payer MEDICAID, SELFPAY ==
[2021-02-08 15:52] LABS: Basophils % 0.4 %; Eosinophils # 0.4 10^3/uL (0.0-0.8); Eosinophils % 4.7 %; Hematocrit 34.1 % (37.0-47.0); Lymphocytes # 2.5 10^3/uL (0.8-4.8); Lymphocytes % 27.6 %; Mean Corpuscular HGB Conc 29.3 g/dL (30.0-36.0); Mean Corpuscular Hemoglobin 22.6 pg (28.0-34.0); Mean Corpuscular Volume 77.1 fL (81-99); Mean Platelet Volume 10.6 fL (7.4-10.4); Monocytes # 0.6 10^3/uL (0.2-0.9); Monocytes % 6.4 %; Neutrophils # 5.41 10^3/uL (1.8-7.7); Neutrophils % 60.5 %; Nucleated Red Blood Cells % 0 %; Platelet Count 289 10^3/cmm (130-400); Red Blood Count 4.42 10^6/uL (4.1-5.3); Red Cell Distribution Width 19.7 % (12.1-15.1)
[2021-02-08 16:05] LABS: Alanine Aminotransferase < 5 U/L (0-33); Albumin Level 3.9 g/dL (3.5-5.2); Alkaline Phosphatase 100 IU/L (35-105); Anion Gap 14.3 (5-19); Aspartate Amino Transferase 7 U/L (0-32); Blood Urea Nitrogen 9 mg/dL (6-20); Calcium 8.2 mg/dL (8.5-10.5); Carbon Dioxide 25 mmol/L (22-29); Chloride 103 mmol/L (98-107); Globulin 2.6 g/dL (1.3-4.6); Glomerular Filtration Rate 75.3 mL/min (90-130); Glucose 149 mg/dL (65-115); Osmolality Calculated 289 mOsm/kg (285-295); Potassium 3.3 mmol/L (3.5-5.1); Sodium 139 mmol/L (136-145); Total Bilirubin 0.3 mg/dL (0.15-1.2); Total Protein 6.5 g/dL (6.6-8.7)
== END 2021-02-08 14:46 | disposition home or self-care (01) ==
PROVIDERS: PCP Nurse Practitioner Family; Visit Provider Internal Medicine Hematology & Oncology
DX: C18.3 Malignant neoplasm of hepatic flexure (principal); C77.8 Secondary and unspecified malignant neoplasm of lymph nodes of multiple regions; I10 Essential (primary) hypertension; E11.9 Type 2 diabetes mellitus without complications; Z90.49 Acquired absence of other specified parts of digestive tract; Z79.899 Other long term (current) drug therapy
CPT/HCPCS: 36415; 80053; 85025

== ENCOUNTER → 2021-02-23 12:20 | Outpatient (BNVA) | payer MEDICAID, SELFPAY | PROVIDERS: PCP Nurse Practitioner Family; Visit Provider Internal Medicine Hematology & Oncology | DX: K63.89 Other specified diseases of intestine (principal) | CPT/HCPCS: 80053; 82728; 83550; 85025 ==

== ENCOUNTER 2021-02-26 05:49 | Outpatient (RCR) | payer MEDICAID, SELFPAY ==
[2021-02-10] MEDS: famotidine 20 mg/2 mL INJ IVP (09:48)
[2021-02-10] MEDS: palonosetron 0.25 mg/5 mL SDV IVP (09:50)
[2021-02-10] MEDS: dextrose 5% 250 ML 75 ML IV (09:50)
[2021-02-10 10:14] LABS: Magnesium 2.1 mg/dL (1.7-2.3)
[2021-02-17 13:12] LABS: Basophils % 0.3 %; Eosinophils # 0.2 10^3/uL (0.0-0.8); Eosinophils % 3.8 %; Hematocrit 32.9 % (37.0-47.0); Hemoglobin 9.8 g/dL (11.5-15.3); Lymphocytes # 2.1 10^3/uL (0.8-4.8); Mean Corpuscular HGB Conc 29.8 g/dL (30.0-36.0); Mean Corpuscular Hemoglobin 23.3 pg (28.0-34.0); Mean Corpuscular Volume 78.1 fL (81-99); Mean Platelet Volume 10.3 fL (7.4-10.4); Monocytes # 0.3 10^3/uL (0.2-0.9); Monocytes % 5.2 %; Neutrophils # 3.73 10^3/uL (1.8-7.7); Neutrophils % 58.2 %; Nucleated Red Blood Cells % 0 %; Platelet Count 249 10^3/cmm (130-400); Red Blood Count 4.21 10^6/uL (4.1-5.3); Red Cell Distribution Width 19.1 % (12.1-15.1); White Blood Count 6.4 10^3/uL (4.0-10.0)
[2021-02-17 14:08] LABS: Alanine Aminotransferase 6 U/L (0-33); Albumin Level 3.5 g/dL (3.5-5.2); Alkaline Phosphatase 83 IU/L (35-105); Anion Gap 14.4 (5-19); Aspartate Amino Transferase 8 U/L (0-32); Blood Urea Nitrogen 9 mg/dL (6-20); Calcium 8.3 mg/dL (8.5-10.5); Carbon Dioxide 24 mmol/L (22-29); Chloride 104 mmol/L (98-107); Globulin 2.7 g/dL (1.3-4.6); Glomerular Filtration Rate 75.3 mL/min (90-130); Glucose 147 mg/dL (65-115); Osmolality Calculated 289 mOsm/kg (285-295); Potassium 3.4 mmol/L (3.5-5.1); Sodium 139 mmol/L (136-145); Total Bilirubin 0.2 mg/dL (0.15-1.2); Total Protein 6.2 g/dL (6.6-8.7)
[2021-02-24] MEDS: dextrose 5% 250 ML 75 ML IV (09:45)
[2021-02-24] MEDS: famotidine 20 mg/2 mL INJ IVP (09:45)
[2021-02-24] MEDS: palonosetron 0.25 mg/5 mL SDV IVP (09:47)
--- NOTE | 2021-02-27 13:09 | ONC FU_ITS ---
[facility] Patient Note Patient: Barb Easton Unit #: [id number]: [id number] Dictated By: Sadie ZhaoDate of Visit: Feb 10, 2021 Onc MED Follow-Up/Prog Note Chief Complaint: Colon cancer History of Present Illness: Ms. Easton is a 50-year-old female with recently diagnosed colon cancer. Her tumor was in the hepatic flexure with invasion into the muscularis propria but with clear surgical margins and a positive lymphovascular invasion with 12 out of 18 lymph nodes positive for metastatic disease. She states that she has always had bowel problems . But it had gotten significantly worse over the last few months. She states she had been having episodes where she would get abdominal cramping at her bellybutton and lower abdomen which would last 2 to 3 days. She states that her bowels would move and she would have diarrhea. She states she had not had any blood in the stools. However in early December 2020 she presented to the emergency room with significantly worsening abdominal pain with nausea vomiting and at that time stated she had not had a normal bowel movement in about 2 weeks. She had not been passing any flatus. She states they had been several days since she even passed any flatus. She did take a laxative but that seemed to make things worse. She did have a CT in the ER and was found to have a colon obstruction with possible lesion at the hepatic flexure. She did have an NG tube placed and felt better overall. She was referred to Dr. Evans for further evaluation. She reported to him that she had a colonoscopy when she was in her 30s to evaluate her bowel problems . She had removal of 3 polyps at that time. She was in encouraged to have frequent colonoscopies but never followed up with that. She denies any family history of colon cancer. But states that she really does not know much about her family history either. She states that she thinks she might of been losing some weight at home but she does not been weighing herself as she had no scale at home but felt that her clothing was looser overall. Past medical history: she has a history of hypertension and diabetes but has not been taking her medication regularly. She does not have insurance coverage. She has a history of the abnormal colonoscopy approximately 20 years ago with removal of colon polyps. Mrs. Jones underwent right hemicolectomy on 12/09/2020. There was noted tumor at hepatic flexure with 3.5 cm in greatest diameter. Histological type was identified as adenocarcinoma with grade 2 moderately differentiated. There was tumor invasion into the muscularis propria but all margins are uninvolved by invasive carcinoma. There was 1218 lymph nodes involved. Her MLH1, MSH2, MSH6 and PMS2 reported intact nuclear expression. pTNM staging: [id number] per path report. Mrs. Jones was first seen Dr. Briscoe on January 05, 2021 for recommendations of plan of care. She was felt to be a candidate for adjuvant chemotherapy with FOLFOX or [place] ox but she chose to try FOLFOX. She had a Port-A-Cath placed into the right internal jugular vein on February 04, [address] Evans. She is now ready to proceed with her first cycle of FOLFOX. Mrs. Easton is here today for follow-up. She is due for her first cycle of FOLFOX. She has no new concerns today. She denies any new pain. She has had some nausea and queasiness but states is not been dramatic at all. She denies any diarrhea or constipation. She denies any appetite changes. She states she just is not eating like she normally does but that is not relatively new for her has been going on for several months . She denies any fever or chills. She said no mouth sores, sore throat or difficulty swallowing. She denies any skin rashes or lesions. She states that her teeth do bother her off and on but they seem to be okay for now. She states that she has had poor dental health for years. She denies any skin rashes or lesions. Has had no signs of peripheral neuropathy. Her ECOG is 1. She tries remain very active but tires easily. She states she does keep her 3-month-old granddaughter frequently and needs to feel good to be able to do this . Past Medical History: Colon polyps Hypertension Type II diabetes Past Surgical History: Appendectomy Carpal tunnel release Hysterectomy/bilateral salpingectomy-oophorectomy in 1999 Cholecystectomy in 1989 Allergies: No Known Allergies. Medications: Farxiga 1 Tablet (of 10 mg) Oral daily Losartan Potassium 1 Tablet (of 50 mg) Oral daily Family History: Ms. Easton's mother at age 63: coronary artery disease. Social History: Ms. Easton is legally . She is an occasional smoker who has smoked 1.0 pack/day for 31 years. She drinks occasionally. She has indicated exposure to the following products: cigarettes. Review Of Symptoms: <See Above> Vital Signs: Performed on Feb 10, 2021 08:18 Height - 67.00 in Weight - 230.8 lbs (HIGH) BSA - 2.15 sq.m BMI - 36.15 (HIGH) Temperature - 97.6 F (LOW) Pulse - 71 /min Respiration - 18 /min BP - 156/89 mm(hg) (HIGH) O2 Sat - 99 % Pain - 0,1 - No physically strenuous activity, but ambulatory and able to carry out light or sedentary work (e.g. office work, light house work). (ECOG) Physical Examination: Constitutional Alert, oriented, no acute distress. Skin pink, warm and dry. Head Normocephalic; atraumatic. Eyes Conjunctivae and sclerae are clear and without icterus. Pupils are reactive and equal. ENMT No oral exudates, ulcers, masses, thrush or mucositis. Oropharynx clear. Poor dentation noted. Multiple broken teeth but no active signs of infection. Hematologic/Lymphatic No petechiae or purpura. No tender or palpable lymph nodes in the cervical or supraclavicular areas. Respiratory Lungs are clear to auscultation without rhonchi or wheezing. Cardiovascular Regular rate and rhythm of heart without murmurs,clicks, gallops or rubs. Chest Right chest wall venous access device placement site is unremarkable. It has healed well. Abdomen Non-tender, non-distended, no masses or ascites. Good bowel sounds noted in all quads. No guarding or rebound tenderness. No pulsatile masses. Back/Spine Non-tender to palpation. Extremities No visible deformities, no cyanosis, clubbing or edema. Musculoskeletal No tenderness or swelling, normal range of motion without obvious weakness. Integumentary No rashes or lesions. Neurologic No sensory or motor deficits, normal cerebellar function, normal gait. Psychiatric Alert and oriented times three. Coherent speech. Verbalizes understanding of our discussions today. Laboratory: Test performed on Feb 08, 2021 15:05 Magnesium 2.1 mg/dL Impression: 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 Plan/Problems Addressed at this Visit: 1. Moderately differentiated adenocarcinoma involving hepatic flexure with tumor invades into the muscularis propria and lymphovascular involvement in 12/18 nodes. Her confirmed tumor size was 3.5 cm. She did have a right hemicolectomy on December 09, 2020 and is here today to start adjuvant chemotherapy with FOLFOX regimen. A. Proceed with cycle 1 day 1 of FOLFOX. B. We will have antiemetics called to [facility] pharmacy to be placed on the emergency find for the center. This would include Compazine, Ativan, vitamin and EMLA cream. Her appetite is still slow to recover. C. Labs from February 08, 2021 reviewed in detail and discussed with Mrs. Easton and a copy was given to her. WBC 9.0, hemoglobin is 10.0, platelets 2 99,000, ANC is 5410. Potassium 3.3 creatinine 0.8 LFTs are normal. D. She is inquired about diet as her appetite is declined. Advised there is no diet restrictions at this time. If she needs appetite stimulant will need to help her with that. She has no insurance coverage at this time. E. We will add a magnesium to the blood in the lab. 2. Chemotherapy treatment plan teaching A. The patient was informed of chemotherapy plan and specific drugs were discussed. We also discussed how chemotherapy works and identified common side effects including alopecia; myelosuppression-including neutropenia, anemia, thrombocytopenia; peripheral neuropathy; fatigue; nausea; diarrhea; constipation; bleeding or bruising; skin changes; mouth sores; drug hypersensitivity/allergic reactions or anaphylaxis and extravasation. They have also been informed how to contact the clinic with side effects or symptoms, including but not limited to fever greater than 100.4???, chills, sore throat, bleeding or bruising that is not explained or mouth sores, cough, nasal discharge, diarrhea, constipation, nausea and/or vomiting not relieved with medications on hand at home, as well as any other concern or question they may have. Our hours are 8:00 a.m. to 4:30 p.m. on Monday through and 8-12:00 on Monday. However, someone is rn care transition 24 hours per day and they have been advised to contact the [facility] at if it is after hours. We have also discussed potential long-term side effects of chemotherapy including secondary cancers, infertility, pulmonary complications, cardiac complications, and again peripheral neuropathy. We have discussed that they certainly need to let us know before taking any antioxidants or herbal or further dietary supplements, as we are unsure of how these agents react with chemotherapy and we request that they avoid these products for now. They were informed that it is okay to take multivitamins at normal doses. They verbally state that they understand to take all medications as directed by their healthcare provider unless otherwise indicated. They also verbalized understanding to leave the pressure dressing on the intravenous administration site for at least two hours after treatment. Instructions for oral care with baking soda and salt water rinses as well as a guide for use of [id number] medication were provided with the treatment plan. They have been given a written patient treatment plan, of which a copy is in the chart, as well as specific drug information. They have no questions and verbalized understanding and are willing to proceed with chemotherapy at this time. 3. Follow-up plan A. We will plan to see her back in 1 week for day 8 follow-up. B. She will be due for CBC CMP at that visit. She will need port a cath maintanence with port access. C. Ms. Jones was instructed to contact us in interim should questions or problems arise. Total time spent with Ms. Easton care today and review of diagnosis and answering questions, treatment plan review, discussion and treatment plan for identification of side effects and management of potential side effects. The total care also included post visit documentation and all of those activities together equaled 60 minutes. Signed By: Sadie Zhao-, [facility] Heron Briscoe MD <<Signature on File>>
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
--- NOTE | 2021-03-08 15:54 | ONC FU_ITS ---
[facility] Patient Note Patient: Barb Easton Unit #: [id number]: 1970 Dictated By: Sadie ZhaoDate of Visit: Feb 24, 2021 Onc MED Follow-Up/Prog Note Chief Complaint: Colon cancer History of Present Illness: Ms. Easton is a 50-year-old female with recently diagnosed colon cancer. Her tumor was in the hepatic flexure with invasion into the muscularis propria but with clear surgical margins and a positive lymphovascular invasion with 12 out of 18 lymph nodes positive for metastatic disease. She states that she has always had bowel problems . But it had gotten significantly worse over the last few months. She states she had been having episodes where she would get abdominal cramping at her bellybutton and lower abdomen which would last 2 to 3 days. She states that her bowels would move and she would have diarrhea. She states she had not had any blood in the stools. However in early December 2020 she presented to the emergency room with significantly worsening abdominal pain with nausea vomiting and at that time stated she had not had a normal bowel movement in about 2 weeks. She had not been passing any flatus. She states they had been several days since she even passed any flatus. She did take a laxative but that seemed to make things worse. She did have a CT in the ER and was found to have a colon obstruction with possible lesion at the hepatic flexure. She did have an NG tube placed and felt better overall. She was referred to Dr. Evans for further evaluation. She reported to him that she had a colonoscopy when she was in her 30s to evaluate her bowel problems . She had removal of 3 polyps at that time. She was in encouraged to have frequent colonoscopies but never followed up with that. She denies any family history of colon cancer. But states that she really does not know much about her family history either. She states that she thinks she might of been losing some weight at home but she does not been weighing herself as she had no scale at home but felt that her clothing was looser overall. Past medical history: she has a history of hypertension and diabetes but has not been taking her medication regularly. She does not have insurance coverage. She has a history of the abnormal colonoscopy approximately 20 years ago with removal of colon polyps. Ms. Jones underwent right hemicolectomy on 12/09/[address] Evans at [facility]. There was noted tumor at hepatic flexure with 3.5 cm in greatest diameter. Histological type was identified as adenocarcinoma with grade 2 moderately differentiated. There was tumor invasion into the muscularis propria but all margins are uninvolved by invasive carcinoma. There was 1218 lymph nodes involved. Her MLH1, MSH2, MSH6 and PMS2 reported intact nuclear expression. pTNM staging: [id number] per path report. Ms. Jones was first seen Dr. Briscoe on January 05, 2021 for recommendations of plan of care. She was felt to be a candidate for adjuvant chemotherapy with FOLFOX or [place] ox but she chose to try FOLFOX. She had a Port-A-Cath placed into the right internal jugular vein on February 04, [address] Evans. She began her first cycle of FOLFOX on February 10, 2021. Ms. Jones is here today for day 1 of cycle 2 FOLFOX chemotherapy. She states she is feeling ok . She denies any fever or chills. She denies any mouth sores, sore throat or difficulty swallowing. She is eating some better overall as she has not been restricting her diet. She has not experienced taste changes from the chemotherapy as of yet. She has chronic poor dentition and eating is sometimes difficult. She has not noted any type of sores in her mouth or problems from the poor dentition at this point. She denies any nausea or vomiting. She has had no abdominal pain or cramping. She states her bowels are moving good overall. She did have slight cold-induced neuropathy with cycle 1 oxaliplatin but that resolved by day 8. She denies any residual effects. She denies any skin changes. She has had no skin peeling or fissures. She denies any skin rashes. She remains active helping care for her 3-month-old granddaughter. She states she is having some right hip pain that kind of comes and goes. She did not have PET/CT staging as she has no insurance coverage at this time. She did have the original CT of the abdomen pelvis with contrast on 12/07/2020. There was no indication of any abnormal bone findings at that point. She states that the pain is more of an achy and sharp discomfort at times. She states there is no rhyme or reason sometimes it bothers her with activity and sometimes bothers her at rest. It does not wake her up at night at this time. Her ECOG is 1. Past Medical History: Colon polyps Hypertension Type II diabetes Past Surgical History: Appendectomy Carpal tunnel release Right internal jugular Port-A-Cath per Dr. Evans at [facility] in 2020 Exploratory laparotomy right hemicolectomy per Dr. Evans at [facility] in 2020 Hysterectomy/bilateral salpingectomy-oophorectomy in 1999 Cholecystectomy in 1989 Allergies: No Known Allergies. Medications: Farxiga 1 Tablet (of 10 mg) Oral daily Losartan Potassium 1 Tablet (of 50 mg) Oral daily Family History: Ms. Easton's mother at age 63: coronary artery disease. Social History: Ms. Easton is legally . She is an occasional smoker who has smoked 1.0 pack/day for 31 years. She drinks occasionally. She has indicated exposure to the following products: cigarettes. Review Of Symptoms: <See Above> Vital Signs: Performed on Feb 24, 2021 08:20 Height - 67.00 in Weight - 228.4 lbs (HIGH) BSA - 2.14 sq.m BMI - 35.77 (HIGH) Temperature - 97.8 F (LOW) Pulse - 65 /min Respiration - 18 /min BP - 190/100 mm(hg) (HIGH) O2 Sat - 97 % Pain - 0 Fatigue - 0,1 - No physically strenuous activity, but ambulatory and able to carry out light or sedentary work (e.g. office work, light house work). (ECOG) Physical Examination: Constitutional Alert, oriented, no acute distress. Skin pink, warm and dry. Head Normocephalic; atraumatic. Eyes Conjunctivae and sclerae are clear and without icterus. Pupils are reactive and equal. ENMT No oral exudates, ulcers, masses, thrush or mucositis. Oropharynx clear. Poor dentation noted. Multiple broken teeth but no active signs of infection. Hematologic/Lymphatic No petechiae or purpura. No tender or palpable lymph nodes in the cervical or supraclavicular areas. Respiratory Lungs are clear to auscultation without rhonchi or wheezing. Cardiovascular Regular rate and rhythm of heart without murmurs,clicks, gallops or rubs. Chest Right chest wall venous access device placement site is unremarkable. Abdomen Non-tender, non-distended, no masses or ascites. Good bowel sounds noted in all quads. No guarding or rebound tenderness. No pulsatile masses. Back/Spine Non-tender to palpation. Extremities No visible deformities, no cyanosis, clubbing or edema. Musculoskeletal No tenderness or swelling, normal range of motion without obvious weakness. Integumentary No rashes or lesions. Neurologic No sensory or motor deficits, normal cerebellar function, normal gait. Psychiatric Alert and oriented times three. Coherent speech. Verbalizes understanding of our discussions today. Laboratory:Test performed on Feb 23, 2021 12:20 Ferritin 24 ng/mL % Iron Saturation 5.3 % Glucose 142 mg/dL BUN 12 mg/dL Iron, Total 21 mcg/dL Creatinine 0.7 mg/dL TIBC 393 mcg/dL Cr Clearance (Est) 151.07 mL/min Sodium 139 mmol/L Potassium 4.0 mmol/L Chloride 105 mmol/L CO2 26 mmol/L Calcium 8.4 mg/dL Protein, Total 5.9 g/dL Albumin 3.7 g/dL Globulin 2.2 g/dL Bilirubin, Total 0.2 mg/dL Alkaline Phosphatase 100 IU/L AST (SGOT) 8 IU/L ALT (SGPT) 5 IU/L WBC 5.6 10^9/L RBC 4.35 10^12/L HGB 10.2 g/dL HCT 32.2 % MCV 73.9 fl MCH 23.5 pg MCHC 31.8 g/dL RDW 20.7 % Platelet Count 223 10^9/L MPV 8.0 fL Neutrophils (Gran) 3.4 10^9/L Lymphocytes 1.8 10^9/L Monocytes 0.5 10^9/L Manual Lymphocytes 31.4 % Manual Monocytes 8.3 % Impression: 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 Plan/Problems Addressed at this Visit: 1. Moderately differentiated adenocarcinoma involving hepatic flexure with tumor invades into the muscularis propria and lymphovascular involvement in 12/18 nodes. Her confirmed tumor size was 3.5 cm. She did have a right hemicolectomy on December 09, 2020 and port placement on 02/04/2021. She began adjuvant chemotherapy with FOLFOX on February 10, 2021. A. Proceed with cycle 2 day 1 of FOLFOX. She will remain at full dosing at this time. B. She will continue her current antiemetic premeds as they are working well. She also has received the antiemetics to have on hand at home. C. Labs from February 24, 2021 reviewed in detail and discussed with Mrs. Easton and a copy was given to her. WBC 5.6, hemoglobin 10.2, platelets 223,000 ANC is 3400. In 139, potassium 4.0, random glucose 142, creatinine 0.7 and LFTs are normal. Her iron saturation is noted to be 5.3% ferritin is 24 and iron level is 21. Her TIBC is 393. D. It is noted that she is iron deficient in review of her labs today. We will have her start with oral iron 1 daily and titrate up to 3 times daily as tolerated. If she has intolerance to the oral iron, she would benefit from parenteral iron replacement. Her hemoglobin is some better today at 10.2 without starting oral iron yet. E. I have also recommended that she continue the omeprazole 20 mg twice daily. She does have this on hand now. F. I have also recommended that she have Augmentin on hand in the event that she has dental infection due to chemotherapy induced neutropenia in the future. She states she does have this on hand now. 2. Right hip pain of unknown etiology A. She states she will just monitor it for now. B. If she has persistent problems she will need x-ray of right hip and possibly her low thoracic and lumbar spine. 3. Port-A-Cath placement per Dr. Evans right internal jugular February 04, 2021. A. She require port maintenance/flushing with each access for lab draw/treatment or other intervention requiring port access. 4. Follow-up plan A. We will plan to see her back in 2 week for day 1 of cycle 3 FOLFOX. I did not order interim labs due to transportation concerns and her labs remained stable after cycle 1. She is aware that if any questions or problems arise she is to call us and we could obtain labs at that time. B. She will be due for CBC CMP at her cycle 3 followup visit. C. Ms. Jones was instructed to contact us in interim should questions or problems arise. D. She does not have insurance coverage at present and is attempting to work on her Medicaid application but states she is being required to provide income information from 6 years ago that she does not have readily available. I have referred her to our patient navigator, Jamila for further assistance. Signed By: Sadie Zhao-, AOCNP Heron Briscoe MD <<Signature on File>>
== END 2021-03-03 23:59 | disposition home or self-care (01) ==
LOC: ONCMED 05:49
PROVIDERS: Nurse Practitioner; PCP Nurse Practitioner Family; Visit Provider Internal Medicine Hematology & Oncology
DX: Z51.11 Encounter for antineoplastic chemotherapy (principal); C18.3 Malignant neoplasm of hepatic flexure; C77.8 Secondary and unspecified malignant neoplasm of lymph nodes of multiple regions; E11.9 Type 2 diabetes mellitus without complications; I10 Essential (primary) hypertension; G56.03 Carpal tunnel syndrome, bilateral upper limbs; Z86.010 Personal history of colon polyps; Z79.899 Other long term (current) drug therapy
CPT/HCPCS: 36591; 80053; 83735; 85025; 96367; 96368; 96375; 96411; 96413; 96415; 96416; 96523; 99214; 99215; J0640; J1100; J2469; J3490; J9190; J9263

== ENCOUNTER → 2021-03-09 09:09 | Outpatient (BNVA) | payer MEDICAID, SELFPAY | PROVIDERS: PCP Nurse Practitioner Family; Visit Provider Internal Medicine Hematology & Oncology | DX: K63.89 Other specified diseases of intestine (principal) | CPT/HCPCS: 80053; 85025 ==

== ENCOUNTER → 2021-03-23 09:34 | Outpatient (BNVA) | payer MEDICAID, SELFPAY | PROVIDERS: PCP Nurse Practitioner Family; Visit Provider Internal Medicine Hematology & Oncology | DX: E11.9 Type 2 diabetes mellitus without complications (principal); I10 Essential (primary) hypertension; K63.89 Other specified diseases of intestine | CPT/HCPCS: 80053; 80061; 83036; 85025 ==

== ENCOUNTER → 2021-03-30 12:02 | Outpatient (BNVA) | payer MEDICAID, SELFPAY | PROVIDERS: PCP Nurse Practitioner Family; Visit Provider Internal Medicine Hematology & Oncology | DX: K63.89 Other specified diseases of intestine (principal) | CPT/HCPCS: 80053; 85025 ==

== ENCOUNTER 2021-03-31 05:39 | Outpatient (RCR) | payer MEDICAID, SELFPAY ==
[2021-03-10] MEDS: famotidine 20 mg/2 mL INJ IVP (10:04)
[2021-03-10] MEDS: dextrose 5% 250 ML 75 ML IV (10:04)
[2021-03-10] MEDS: palonosetron 0.25 mg/5 mL SDV IVP (10:06)
--- NOTE | 2021-03-10 17:29 | ONC FU_ITS ---
Dr. Briscoe follow up note Patient: Barb Easton Unit #: [id number]: 1970 Dicatated By: Heron Briscoe M.D.Date of Visit:Mar 10, 2021 Onc Med Follow-up/Prog Note History of Present Illness: Ms. Easton is a 50-year-old female with recently diagnosed colon cancer. Her tumor was in the hepatic flexure with invasion into the muscularis propria but with clear surgical margins and a positive lymphovascular invasion with 12 out of 18 lymph nodes positive for metastatic disease. She states that she has always had bowel problems . But it had gotten significantly worse over the last few months. She states she had been having episodes where she would get abdominal cramping at her bellybutton and lower abdomen which would last 2 to 3 days. She states that her bowels would move and she would have diarrhea. She states she had not had any blood in the stools. However in early December 2020 she presented to the emergency room with significantly worsening abdominal pain with nausea vomiting and at that time stated she had not had a normal bowel movement in about 2 weeks. She had not been passing any flatus. She states they had been several days since she even passed any flatus. She did take a laxative but that seemed to make things worse. She did have a CT in the ER and was found to have a colon obstruction with possible lesion at the hepatic flexure. She did have an NG tube placed and felt better overall. She was referred to Dr. Evans for further evaluation. She reported to him that she had a colonoscopy when she was in her 30s to evaluate her bowel problems . She had removal of 3 polyps at that time. She was in encouraged to have frequent colonoscopies but never followed up with that. She denies any family history of colon cancer. But states that she really does not know much about her family history either. She states that she thinks she might of been losing some weight at home but she does not been weighing herself as she had no scale at home but felt that her clothing was looser overall. Past medical history: she has a history of hypertension and diabetes but has not been taking her medication regularly. She does not have insurance coverage. She has a history of the abnormal colonoscopy approximately 20 years ago with removal of colon polyps. Ms. Jones underwent right hemicolectomy on 12/09/[address] Evans at [facility]. There was noted tumor at hepatic flexure with 3.5 cm in greatest diameter. Histological type was identified as adenocarcinoma with grade 2 moderately differentiated. There was tumor invasion into the muscularis propria but all margins are uninvolved by invasive carcinoma. There was 1218 lymph nodes involved. Her MLH1, MSH2, MSH6 and PMS2 reported intact nuclear expression. pTNM staging: [id number] per path report. Ms. Jones was first seen on January 05, 2021 for recommendations of plan of care. She was felt to be a candidate for adjuvant chemotherapy with FOLFOX or Cape ox but she chose to try FOLFOX. She had a Port-A-Cath placed into the right internal jugular vein on February 04, [address] Evans. She began her first cycle of FOLFOX on February 10, 2021. Came for follow-up, denies any specific complaint except intolerance to cold for 1 week after each chemo cycle but no fever chills, no nausea or vomiting, no diarrhea or constipation, no mouth sores, no hand-foot skin rash, patient has history of carpal tunnel involving right hand for which she underwent surgery in the past now complaining of numbness in the fingertips involving left hand but no issues with the feet., Otherwise tolerating adjuvant therapy with FOLFOX well Medications: Farxiga 1 Tablet (of 10 mg) Oral daily, Losartan Potassium 1 Tablet (of 50 mg) Oral daily Allergies: No Known Allergies. Review of Systems: Review of Systems is not available for this patient. Vital Signs: Performed on Mar 10, 2021 08:30 Height - 67.00 in Weight - 228.8 lbs (HIGH) BSA - 2.14 sq.m BMI - 35.84 (HIGH) Temperature - 97.8 F (LOW) Pulse - 88 /min Respiration - 18 /min BP - 171/92 mm(hg) (HIGH) O2 Sat - 98 % Pain - 0 Fatigue - 3 Performance Status: 0 - Fully active, able to carry on all predisease activities without restrictions. (ECOG) Physical Examination: ENMT - No mouth sores, no thrush, no jaundice, Respiratory - Lungs are clear to auscultation, Cardiovascular - Regular rate and rhythm of heart, Abdomen - Soft, bowel sounds present, Extremities - No visible edema or rash. Lab/Imaging: Test performed on Mar 09, 2021 09:09 Sodium 143 mmol/L Potassium 3.5 mmol/L Chloride 105 mmol/L CO2 25 mmol/L Anion Gap 16.5 BUN 8 mg/dL Creatinine 0.8 mg/dL Cr Clearance (Est) 132.18 mL/min eGFR 75.3 mL/min Glucose 168 mg/dL Osmolality - Calculated 298 mOsm/kg Calcium 8.4 mg/dL Protein, Total 5.9 g/dL Albumin 3.6 g/dL Globulin 2.3 g/dL Bilirubin, Total 0.3 mg/dL ALT (SGPT) 7 Units/L AST (SGOT) 10 Units/L Alkaline Phosphatase 121 IU/L WBC 5.5 10^3/uL RBC 4.42 10^6/uL HGB 10.2 g/dL HCT 35.7 % MCV 80.8 fl MCH 23.1 pg MCHC 28.6 g/dL RDW 19.7 % Platelet Count 179 10^3/uL MPV 10.7 fl Neutrophils 3.06 10^3/uL Lymphocytes 1.7 10^3/uL Monocytes 0.5 10^3/uL Eosinophils 0.2 10^3/uL Basophils 0.0 10^3/uL Neutrophil % 55.3 % Lymphocyte % 30.5 % Monocyte % 9.7 % Eosinophil % 3.8 % Basophils % 0.5 % NRBC 0.0 /100 WBC NRBC % 0 % Test performed on Feb 23, 2021 12:20 Ferritin 24 ng/mL % Iron Saturation 5.3 % Iron, Total 21 mcg/dL TIBC 393 mcg/dL Manual Lymphocytes 31.4 % Manual Monocytes 8.3 % Test performed on Feb 08, 2021 15:05 Magnesium 2.1 mg/dL Impression: Moderately differentiated adenocarcinoma involving hepatic flexure, status post right hemicolectomy done on December 09, 2020, final pathology report confirmed moderately differentiated adenocarcinoma 3.5 cm in size with clear surgical margin, tumor invades muscularis propria, lymphovascular invasion seen,pT2, 12 out of 18 lymph node positive for metastatic disease, pN2b Started on adjuvant chemotherapy with FOLFOX on February 10, 2021 Hypertension, Diabetes Left hand lateral and ring finger numbness probably due to carpal tunnel as she has history of carpal tunnel surgery on her right hand in the past. Plan: Discussed with patient regarding her labs white blood count 5.5 hemoglobin 10.2 hematocrit 35.7 platelets 179,000 CMP within normal limit Clinically, patient doing well with no new signs symptoms, tolerating adjuvant chemotherapy with FOLFOX well but with expected side effect e.g. intolerance to cold icy beverages for 1 week after each cycle, patient was advised to avoid icy beverages. And the in the meantime we will proceed with cycle #3/12 with FOLFOX and then she will return to clinic in 2 weeks with CBC CMP As present iron deficiency anemia is concerned, patient was advised to take oral iron, which she tried but could not continue because of GI intolerance, we will consider parenteral iron Injectafer 750 mg weekly x2, will obtain approval from her insurance. As far as left hand fingertips numbness is concerned probably due to carpal tunnel as patient has no issues with her feet and right hand., If there is a worsening, will consider further investigation. Signed By: Heron Briscoe M.D. <<Signature on File>>
--- NOTE | 2021-04-01 17:05 | ONC FU_ITS ---
Dr. Briscoe follow up note Patient: Barb Easton Unit #: [id number]: 1970 Dicatated By: Heron Briscoe M.D.Date of Visit:Mar 31, 2021 Onc Med Follow-up/Prog Note History of Present Illness: Ms. Easton is a 50-year-old female with recently diagnosed colon cancer. Her tumor was in the hepatic flexure with invasion into the muscularis propria but with clear surgical margins and a positive lymphovascular invasion with 12 out of 18 lymph nodes positive for metastatic disease. She states that she has always had bowel problems . But it had gotten significantly worse over the last few months. She states she had been having episodes where she would get abdominal cramping at her bellybutton and lower abdomen which would last 2 to 3 days. She states that her bowels would move and she would have diarrhea. She states she had not had any blood in the stools. However in early December 2020 she presented to the emergency room with significantly worsening abdominal pain with nausea vomiting and at that time stated she had not had a normal bowel movement in about 2 weeks. She had not been passing any flatus. She states they had been several days since she even passed any flatus. She did take a laxative but that seemed to make things worse. She did have a CT in the ER and was found to have a colon obstruction with possible lesion at the hepatic flexure. She did have an NG tube placed and felt better overall. She was referred to Dr. Evans for further evaluation. She reported to him that she had a colonoscopy when she was in her 30s to evaluate her bowel problems . She had removal of 3 polyps at that time. She was in encouraged to have frequent colonoscopies but never followed up with that. She denies any family history of colon cancer. But states that she really does not know much about her family history either. She states that she thinks she might of been losing some weight at home but she does not been weighing herself as she had no scale at home but felt that her clothing was looser overall. Past medical history: she has a history of hypertension and diabetes but has not been taking her medication regularly. She does not have insurance coverage. She has a history of the abnormal colonoscopy approximately 20 years ago with removal of colon polyps. Ms. Jones underwent right hemicolectomy on 12/09/[address] Evans at [facility]. There was noted tumor at hepatic flexure with 3.5 cm in greatest diameter. Histological type was identified as adenocarcinoma with grade 2 moderately differentiated. There was tumor invasion into the muscularis propria but all margins are uninvolved by invasive carcinoma. There was 1218 lymph nodes involved. Her MLH1, MSH2, MSH6 and PMS2 reported intact nuclear expression. pTNM staging: [id number] per path report. Ms. Jones was first seen on January 05, 2021 for recommendations of plan of care. She was felt to be a candidate for adjuvant chemotherapy with FOLFOX or Cape ox but she chose to try FOLFOX. She had a Port-A-Cath placed into the right internal jugular vein on February 04, [address] Evans. She began her first cycle of FOLFOX on February 10, 2021. Came for follow-up, complaining of cough due to throat irritation, as per patient last week she developed cough and congestion and took Mucinex and ampicillin with that her symptoms improved but still having some cough and throat irritation but is improving. Patient missed her scheduled chemotherapy visit last week due to above-mentioned symptoms. Denies any fever or chills denies any nausea or vomiting denies any diarrhea constipation denies any melena hematochezia denies any peripheral numbness except left hand fingertips numbness which could be due to carpal tunnel. Patient said every time after oxaliplatin infusion she feels her throat is more sensitive and sometimes give her choking sensation especially with cold beverages. Otherwise tolerating FOLFOX well Medications: Farxiga 1 Tablet (of 10 mg) Oral daily, Losartan Potassium 1 Tablet (of 100 mg) Oral daily Allergies: No Known Allergies. Review of Systems: Review of Systems is not available for this patient. Vital Signs: Performed on Mar 31, 2021 08:23 Height - 67.00 in Weight - 227 lbs (LOW) BSA - 2.13 sq.m BMI - 35.55 (HIGH) Temperature - 98.1 F (LOW) Pulse - 69 /min Respiration - 18 /min BP - 179/99 mm(hg) (HIGH) O2 Sat - 97 % Pain - 0 Performance Status: 0 - Fully active, able to carry on all predisease activities without restrictions. (ECOG) Physical Examination: ENMT - No mouth sores, no thrush but mild pharyngeal erythema no cervical lymphadenopathy, Respiratory - Lungs are clear to auscultation, Cardiovascular - Regular rate and rhythm of heart, Abdomen - Soft, bowel sounds present, Extremities - No visible edema. Lab/Imaging: Test performed on Mar 31, 2021 10:16 Sodium 141 mmol/L Potassium 3.7 mmol/L Chloride 101 mmol/L CO2 30 mmol/L Anion Gap 13.7 BUN 5 mg/dL Creatinine 0.7 mg/dL Cr Clearance (Est) 151.07 mL/min eGFR 87.9 mL/min Glucose 123 mg/dL Osmolality - Calculated 291 mOsm/kg Calcium 8.4 mg/dL Protein, Total 6.1 g/dL Albumin 3.6 g/dL Globulin 2.5 g/dL Bilirubin, Total 0.3 mg/dL ALT (SGPT) 7 Units/L AST (SGOT) 11 Units/L Alkaline Phosphatase 101 IU/L WBC 5.3 10^3/uL RBC 4.52 10^6/uL HGB 10.9 g/dL HCT 37.1 % MCV 82.1 fl MCH 24.1 pg MCHC 29.4 g/dL RDW 20.9 % Platelet Count 229 10^3/uL MPV 10.5 fl Neutrophils 2.03 10^3/uL Lymphocytes 2.3 10^3/uL Monocytes 0.6 10^3/uL Eosinophils 0.2 10^3/uL Basophils 0.1 10^3/uL Neutrophil % 38.2 % Lymphocyte % 44.2 % Monocyte % 10.8 % Eosinophil % 3.4 % Basophils % 1.3 % Test performed on Mar 09, 2021 09:09 NRBC 0.0 /100 WBC NRBC % 0 % Test performed on Feb 23, 2021 12:20 Ferritin 24 ng/mL % Iron Saturation 5.3 % Iron, Total 21 mcg/dL TIBC 393 mcg/dL Manual Lymphocytes 31.4 % Manual Monocytes 8.3 % Test performed on Feb 08, 2021 15:05 Magnesium 2.1 mg/dL Impression: Moderately differentiated adenocarcinoma involving hepatic flexure, status post right hemicolectomy done on December 09, 2020, final pathology report confirmed moderately differentiated adenocarcinoma 3.5 cm in size with clear surgical margin, tumor invades muscularis propria, lymphovascular invasion seen,pT2, 12 out of 18 lymph node positive for metastatic disease, pN2b Started on adjuvant chemotherapy with FOLFOX on February 10, 2021 Hypertension, Diabetes Left hand lateral and ring finger numbness probably due to carpal tunnel as she has history of carpal tunnel surgery on her right hand in the past. Plan: Discussed with patient regarding her labs white blood count 5.3 hemoglobin 10.9 hematocrit 37.1 platelets 229,000 CMP within normal limits except glucose 291 Clinically, patient is doing reasonably well, now recovering from flulike symptoms but still having cough with throat itching, patient is somewhat reluctant to take her next cycle of chemotherapy as oxaliplatin sometime make her throat more sensitive, in that case we will wait for another week and she will return to clinic on Monday to resume her next cycle of chemotherapy with FOLFOX. Patient was advised to use nasal irrigation, gargles and Claritin, with that hopefully her symptoms will improve. Patient was also advised to avoid cold beverages on the day of chemotherapy with FOLFOX. Signed By: Heron Briscoe M.D. <<Signature on File>>
== END 2021-04-03 23:59 | disposition home or self-care (01) ==
LOC: ONCMED 05:39
PROVIDERS: PCP Nurse Practitioner Family; Visit Provider Internal Medicine Hematology & Oncology
DX: Z51.11 Encounter for antineoplastic chemotherapy (principal); C18.3 Malignant neoplasm of hepatic flexure; C77.8 Secondary and unspecified malignant neoplasm of lymph nodes of multiple regions; I10 Essential (primary) hypertension; E11.9 Type 2 diabetes mellitus without complications; G56.03 Carpal tunnel syndrome, bilateral upper limbs; Z79.899 Other long term (current) drug therapy
CPT/HCPCS: 96367; 96368; 96375; 96411; 96413; 96415; 96416; 96523; 99214; 99215; J0640; J1100; J2469; J3490; J9190; J9263

== ENCOUNTER 2021-05-03 05:28 | Outpatient (RCR) | payer MEDICAID, SELFPAY ==
[2021-04-05] MEDS: alteplase 1 mg/mL SDV 2 mL 2 MG IV (10:00)
[2021-04-05] MEDS: famotidine 20 mg/2 mL INJ IVP (10:31)
[2021-04-05] MEDS: dextrose 5% 250 ML 75 ML IV (10:31)
[2021-04-05] MEDS: palonosetron 0.25 mg/5 mL SDV IVP (10:33)
[2021-04-19 08:36] LABS: Basophils % 0.2 %; Eosinophils # 0.3 10^3/uL (0.0-0.8); Eosinophils % 5.5 %; Hematocrit 35.3 % (37.0-47.0); Hemoglobin 10.4 g/dL (11.5-15.3); Lymphocytes # 1.7 10^3/uL (0.8-4.8); Lymphocytes % 35.9 %; Mean Corpuscular HGB Conc 29.5 g/dL (30.0-36.0); Mean Corpuscular Hemoglobin 24.6 pg (28.0-34.0); Mean Corpuscular Volume 83.6 fl (81-99); Mean Platelet Volume 11.4 fL (7.4-10.4); Monocytes # 0.4 10^3/uL (0.2-0.9); Monocytes % 7.9 %; Neutrophils # 2.37 10^3/uL (1.8-7.7); Neutrophils % 50.3 %; Nucleated Red Blood Cells % 0 %; Platelet Count 108 10^3/cmm (130-400); Red Blood Count 4.22 10^6/uL (4.1-5.3); Red Cell Distribution Width 20.5 % (12.1-15.1); White Blood Count 4.7 10^3/uL (4.0-10.0)
[2021-04-19 09:04] LABS: Alanine Aminotransferase 7 U/L (0-33); Albumin Level 3.5 g/dL (3.5-5.2); Alkaline Phosphatase 110 IU/L (35-105); Anion Gap 13.6 (5-19); Aspartate Amino Transferase 9 U/L (0-32); Blood Urea Nitrogen 13 mg/dL (6-20); Calcium 8.1 mg/dL (8.5-10.5); Carbon Dioxide 22 mmol/L (22-29); Chloride 106 mmol/L (98-107); Globulin 2.5 g/dL (1.3-4.6); Glomerular Filtration Rate 87.9 mL/min (90-130); Glucose 180 mg/dL (65-115); Osmolality Calculated 291 mOsm/kg (285-295); Potassium 3.6 mmol/L (3.5-5.1); Sodium 138 mmol/L (136-145); Total Bilirubin 0.2 mg/dL (0.15-1.2)
[2021-04-19 09:05] LABS: Slide Review Slide Review Perform
[2021-04-19] MEDS: dextrose 5% 250 ML 75 ML IV (10:33)
[2021-04-19] MEDS: famotidine 20 mg/2 mL INJ IVP (10:33)
[2021-04-19] MEDS: palonosetron 0.25 mg/5 mL SDV IVP (10:35)
[2021-05-03 08:25] LABS: Basophils % 0.2 %; Eosinophils # 0.1 10^3/uL (0.0-0.8); Eosinophils % 2.3 %; Hemoglobin 10.7 g/dL (11.5-15.3); Lymphocytes # 1.8 10^3/uL (0.8-4.8); Lymphocytes % 37.2 %; Mean Corpuscular HGB Conc 30.6 g/dL (30.0-36.0); Mean Corpuscular Hemoglobin 25.4 pg (28.0-34.0); Mean Corpuscular Volume 83.1 fl (81-99); Mean Platelet Volume 10.4 fL (7.4-10.4); Monocytes # 0.5 10^3/uL (0.2-0.9); Monocytes % 10.9 %; Neutrophils # 2.38 10^3/uL (1.8-7.7); Nucleated Red Blood Cells % 0 %; Platelet Count 118 10^3/cmm (130-400); Red Blood Count 4.21 10^6/uL (4.1-5.3); White Blood Count 4.9 10^3/uL (4.0-10.0)
[2021-05-03 08:53] LABS: Alanine Aminotransferase 9 U/L (0-33); Albumin Level 3.5 g/dL (3.5-5.2); Alkaline Phosphatase 94 IU/L (35-105); Anion Gap 12.5 (5-19); Aspartate Amino Transferase 11 U/L (0-32); Blood Urea Nitrogen 10 mg/dL (6-20); Calcium 8.4 mg/dL (8.5-10.5); Carbon Dioxide 25 mmol/L (22-29); Chloride 106 mmol/L (98-107); Globulin 2.8 g/dL (1.3-4.6); Glomerular Filtration Rate 87.9 mL/min (90-130); Glucose 123 mg/dL (65-115); Osmolality Calculated 290 mOsm/kg (285-295); Potassium 3.5 mmol/L (3.5-5.1); Sodium 140 mmol/L (136-145); Total Bilirubin 0.2 mg/dL (0.15-1.2); Total Protein 6.3 g/dL (6.6-8.7)
[2021-05-03] MEDS: dextrose 5% 250 ML 75 ML IV (10:10)
[2021-05-03] MEDS: famotidine 20 mg/2 mL INJ IVP (10:10)
[2021-05-03] MEDS: palonosetron 0.25 mg/5 mL SDV IV (10:12)
--- NOTE | 2021-05-03 15:34 | ONC FU_ITS ---
Dr. Briscoe follow up note Patient: Barb Easton Unit #: [id number]: 1970 Dicatated By: Heron Briscoe M.D.Date of Visit:May 03, 2021 Onc Med Follow-up/Prog Note History of Present Illness: Ms. Easton is a 50-year-old female with recently diagnosed colon cancer. Her tumor was in the hepatic flexure with invasion into the muscularis propria but with clear surgical margins and a positive lymphovascular invasion with 12 out of 18 lymph nodes positive for metastatic disease. She states that she has always had bowel problems . But it had gotten significantly worse over the last few months. She states she had been having episodes where she would get abdominal cramping at her bellybutton and lower abdomen which would last 2 to 3 days. She states that her bowels would move and she would have diarrhea. She states she had not had any blood in the stools. However in early December 2020 she presented to the emergency room with significantly worsening abdominal pain with nausea vomiting and at that time stated she had not had a normal bowel movement in about 2 weeks. She had not been passing any flatus. She states they had been several days since she even passed any flatus. She did take a laxative but that seemed to make things worse. She did have a CT in the ER and was found to have a colon obstruction with possible lesion at the hepatic flexure. She did have an NG tube placed and felt better overall. She was referred to Dr. Evans for further evaluation. She reported to him that she had a colonoscopy when she was in her 30s to evaluate her bowel problems . She had removal of 3 polyps at that time. She was in encouraged to have frequent colonoscopies but never followed up with that. She denies any family history of colon cancer. But states that she really does not know much about her family history either. She states that she thinks she might of been losing some weight at home but she does not been weighing herself as she had no scale at home but felt that her clothing was looser overall. Past medical history: she has a history of hypertension and diabetes but has not been taking her medication regularly. She does not have insurance coverage. She has a history of the abnormal colonoscopy approximately 20 years ago with removal of colon polyps. Ms. Jones underwent right hemicolectomy on 12/09/[address] Evans at [facility]. There was noted tumor at hepatic flexure with 3.5 cm in greatest diameter. Histological type was identified as adenocarcinoma with grade 2 moderately differentiated. There was tumor invasion into the muscularis propria but all margins are uninvolved by invasive carcinoma. There was 1218 lymph nodes involved. Her MLH1, MSH2, MSH6 and PMS2 reported intact nuclear expression. pTNM staging: [id number] per path report. Ms. Jones was first seen on January 05, 2021 for recommendations of plan of care. She was felt to be a candidate for adjuvant chemotherapy with FOLFOX or Cape ox but she chose to try FOLFOX. She had a Port-A-Cath placed into the right internal jugular vein on February 04, [address] Evans. She began her first cycle of FOLFOX on February 10, 2021. Came for follow-up, denies any specific complaint except intolerance to cold and mild peripheral numbness involving fingertips and toes. No mouth sores, no diarrhea, no jaundice, no abdominal pain, tolerating adjuvant therapy with FOLFOX well otherwise Medications: Farxiga 1 Tablet (of 10 mg) Oral daily, Losartan Potassium 1 Tablet (of 100 mg) Oral daily Allergies: No Known Allergies. Review of Systems: Review of Systems is not available for this patient. Vital Signs: Performed on May 03, 2021 08:34 Height - 67.00 in Weight - 225.5 lbs (LOW) BSA - 2.13 sq.m BMI - 35.32 (HIGH) Temperature - 98.2 F (LOW) Pulse - 74 /min Respiration - 18 /min BP - 131/95 mm(hg) O2 Sat - 98 % Pain - 1 Fatigue - 3 Performance Status: 0 - Fully active, able to carry on all predisease activities without restrictions. (ECOG) Physical Examination: ENMT - No mouth sores, no thrush, no jaundice, Respiratory - Lungs are clear to auscultation, Cardiovascular - Regular rate and rhythm of heart, Abdomen - Soft, bowel sounds present, Extremities - No visible edema. Lab/Imaging: Test performed on Mar 31, 2021 10:16 Sodium 141 mmol/L Potassium 3.7 mmol/L Chloride 101 mmol/L CO2 30 mmol/L Anion Gap 13.7 BUN 5 mg/dL Creatinine 0.7 mg/dL Cr Clearance (Est) 151.07 mL/min eGFR 87.9 mL/min Glucose 123 mg/dL Osmolality - Calculated 291 mOsm/kg Calcium 8.4 mg/dL Protein, Total 6.1 g/dL Albumin 3.6 g/dL Globulin 2.5 g/dL Bilirubin, Total 0.3 mg/dL ALT (SGPT) 7 Units/L AST (SGOT) 11 Units/L Alkaline Phosphatase 101 IU/L WBC 5.3 10^3/uL RBC 4.52 10^6/uL HGB 10.9 g/dL HCT 37.1 % MCV 82.1 fl MCH 24.1 pg MCHC 29.4 g/dL RDW 20.9 % Platelet Count 229 10^3/uL MPV 10.5 fl Neutrophils 2.03 10^3/uL Lymphocytes 2.3 10^3/uL Monocytes 0.6 10^3/uL Eosinophils 0.2 10^3/uL Basophils 0.1 10^3/uL Neutrophil % 38.2 % Lymphocyte % 44.2 % Monocyte % 10.8 % Eosinophil % 3.4 % Basophils % 1.3 % Test performed on Mar 09, 2021 09:09 NRBC 0.0 /100 WBC NRBC % 0 % Test performed on Feb 23, 2021 12:20 Ferritin 24 ng/mL % Iron Saturation 5.3 % Iron, Total 21 mcg/dL TIBC 393 mcg/dL Manual Lymphocytes 31.4 % Manual Monocytes 8.3 % Test performed on Feb 08, 2021 15:05 Magnesium 2.1 mg/dL Impression: Moderately differentiated adenocarcinoma involving hepatic flexure, status post right hemicolectomy done on December 09, 2020, final pathology report confirmed moderately differentiated adenocarcinoma 3.5 cm in size with clear surgical margin, tumor invades muscularis propria, lymphovascular invasion seen,pT2, 12 out of 18 lymph node positive for metastatic disease, pN2b Started on adjuvant chemotherapy with FOLFOX on February 10, 2021 Iron deficiency anemia, intolerance to oral iron Hypertension, Diabetes Left hand lateral and ring finger numbness probably due to carpal tunnel as she has history of carpal tunnel surgery on her right hand in the past. Plan: NormalDiscussed with patient regarding her labs white blood count 4.9 hemoglobin 10.7 hematocrit 35 platelets 118,000 CMP limits Clinically, patient doing well, tolerating adjuvant therapy with FOLFOX well we will proceed with cycle #6/12 today and then she will return to clinic in 2 weeks with CBC CMP As far as her iron deficiency anemia is concerned, patient tried oral iron but now stopped taking it because of GI intolerance, will consider parenteral iron Injectafer 750 mg IV weekly x2 and follow her hemoglobin and iron studies. Return to clinic in 2 weeks with CBC CMP Signed By: Heron Briscoe M.D. <<Signature on File>>
== END 2021-05-04 23:59 | disposition home or self-care (01) ==
LOC: ONCMED 05:28
PROVIDERS: PCP Nurse Practitioner Family; Visit Provider Internal Medicine Hematology & Oncology
DX: Z51.11 Encounter for antineoplastic chemotherapy (principal); C18.3 Malignant neoplasm of hepatic flexure; C77.8 Secondary and unspecified malignant neoplasm of lymph nodes of multiple regions; D50.9 Iron deficiency anemia, unspecified; I10 Essential (primary) hypertension; E11.9 Type 2 diabetes mellitus without complications; G56.03 Carpal tunnel syndrome, bilateral upper limbs; Z79.899 Other long term (current) drug therapy
CPT/HCPCS: 36415; 36593; 80053; 85025; 96367; 96368; 96375; 96411; 96413; 96415; 96416; 96523; 99215; J0640; J1100; J2469; J2997; J3490; J9190; J9263

== ENCOUNTER 2021-05-05 06:33 | Outpatient (RCR) | payer MEDICAID, SELFPAY | END 2021-05-11 11:50 | disposition home or self-care (01) | LOC: ONCMED 06:33 | PROVIDERS: PCP Nurse Practitioner Family; Visit Provider Internal Medicine Hematology & Oncology | DX: Z45.2 Encounter for adjustment and management of vascular access device (principal) | CPT/HCPCS: 96523 ==

== ENCOUNTER 2021-05-11 11:54 | Emergency (ER) | payer MEDICAID, SELFPAY ==
--- NOTE | 2021-05-11 | USCV_ITS ---
Barb Easton Age: 50 Gender: F : 1970 Exam Date: 05/11/2021 14:42 Ordering Phys: Moni Haji Technologist: Yessy Woods [place] [facility] [place]: claudication Risk Factors: Previous Vascular Surgery: RIGHT LEFT BP: 145.0 / BP: / 0 Waveform Velocity (cm/s) Velocity (cm/s) Waveform Triphasic 70.3 Iliac Prox Triphasic 82.3 Iliac Mid Triphasic 72.0 Iliac Distal Biphasic SHAKE SAWYER 55.7 Biphasic 30.6 SFA Prox Monophasic 38.9 SFA Mid Monophasic 38.9 SFA Dist Monophasic 32.0 POP Monophasic 33.2 TETRYL DISSOLVER OPERATOR Monophasic 13.4 DPA 0.8 BENNETT FINDINGS ???Art clot with flow around edge? please see all images of mid and distal sfa Hypoechoic area with no Doppler flow signals in the mid and distal superficial femoral artery and popliteal artery on the right side. TETRYL DISSOLVER OPERATOR 110 BENNETT .75 PT IS DM AND SMOKES ON CHEMO AT THIS TIME. CONCLUSIONS 1. Abnormal resting BENNETT of 0.8 on the right side. 2. Possible homogeneous plaque versus thrombus in the mid to distal superficial femoral and popliteal artery on the right side causing partial occlusion. 3. Wale Becerra was informed about this finding. Dr Sumi Grayson MD [facility] (Electronically Signed) Final Date: 11 May 2021 17:19 S
[2021-05-11 12:19] VITALS: BP 161/98; PULSE 105; RESP 17; TEMP 36.9; O2SAT 95; BMI 35.4
--- NOTE | 2021-05-11 14:11 | USCV_ITS ---
Barb Easton Age: 50 Gender: F : 1970 Exam Date: 05/11/2021 14:28 Ordering Phys: Moni Haji Technologist: Yessy Woods Exam Location: [facility] [place] Indication: PAIN AND ROPEY VEINS RT LEG HISTORY: PT has pain and a large ropey superficial vessel ant upper PROCEDURES: Venous duplex imaging was performed in only the right lower extremity. The following venous structures were evaluated: common femoral vein, profunda vein, proximal portion of the greater saphenous vein, superficial femoral vein, and the popliteal vein. In addition, the posterior tibial and peroneal trunk were evaluated. Serial compression, augmentation maneuvers, and spectral Doppler flow evaluation were performed. FINDINGS: No DVT seen in any deep vein examined. RT GSV is compressable. The ropey vessel anterior thigh is clotted with no flow. This is a superficial thrombus. CONCLUSIONS Superifical thrombus in varicosity anterior thigh No evidence of right lower extremity DVT. David Pan MD (Electronically Signed) Final Date: 11 May 2021 17:45 S
[2021-05-11 17:39] LABS: Basophils % 0.5 %; Eosinophils # 0.2 10^3/uL (0.0-0.8); Eosinophils % 2.9 %; Hematocrit 37.8 % (37.0-47.0); Hemoglobin 11.4 g/dL (11.5-15.3); Lymphocytes # 2.7 10^3/uL (0.8-4.8); Mean Corpuscular HGB Conc 30.2 g/dL (30.0-36.0); Mean Corpuscular Hemoglobin 25.6 pg (28.0-34.0); Mean Corpuscular Volume 84.8 fl (81-99); Mean Platelet Volume 10.8 fL (7.4-10.4); Monocytes # 0.4 10^3/uL (0.2-0.9); Monocytes % 6.3 %; Nucleated Red Blood Cells % 0 %; Platelet Count 145 10^3/cmm (130-400); Red Blood Count 4.46 10^6/uL (4.1-5.3); Red Cell Distribution Width 20.7 % (12.1-15.1); White Blood Count 6.3 10^3/uL (4.0-10.0)
[2021-05-11 17:53] LABS: INR 0.99 (0.8-1.2)
[2021-05-11 17:54] LABS: Partial Thromboplastin Time 24.9 SECONDS (23.9-36.7)
[2021-05-11 18:58] LABS: Alanine Aminotransferase 9 U/L (0-33); Albumin Level 3.8 g/dL (3.5-5.2); Alkaline Phosphatase 96 IU/L (35-105); Anion Gap 16.3 (5-19); Aspartate Amino Transferase 13 U/L (0-32); Blood Urea Nitrogen 16 mg/dL (6-20); C Reactive Protein 4.4 mg/L (0.0-4.9); Calcium 8.5 mg/dL (8.5-10.5); Carbon Dioxide 23 mmol/L (22-29); Chloride 104 mmol/L (98-107); Globulin 2.8 g/dL (1.3-4.6); Glomerular Filtration Rate 87.9 mL/min (90-130); Glucose 112 mg/dL (65-115); Osmolality Calculated 290 mOsm/kg (285-295); Potassium 4.3 mmol/L (3.5-5.1); Sodium 139 mmol/L (136-145); Total Bilirubin 0.2 mg/dL (0.15-1.2); Total Protein 6.6 g/dL (6.6-8.7)
--- NOTE | 2021-05-11 19:51 | PC.NURSE ---
care assumed at 194
[2021-05-11 19:52] VITALS: BP 193/89; PULSE 69; PULSE 73; RESP 18; TEMP 36.6; O2SAT 100
--- NOTE | 2021-05-11 20:08 | W.ED.EXTPRO ---
HPI - Extremity Problem General: Chief complaint: Extremity Problem,Nontraumatic Stated complaint: SENT BY PCP:RLE VEIN PROB/HOT,RED,SORE,INC IN AREA Time Seen by Provider: 05/11/21 19:47 History of Present Illness: HPI Narrative: 50 yo f with colon cancer s/p partial colectomy and chemotherapy who reports about 4 days ago she noticed a swelling of one of her right anterior thigh varicose veins. She has been a smoker for about 35 years. She has noted pain in the RLE with ambulation that has been present for months. No diagnosed history of PAD. Associated symptoms: Deny chest pain, fever(s) or rash Review of Systems General: Reports: 10 or more systems reviewed and unremarkable except in HPI and below Const: Denies: fever(s), chills or body aches Eyes: Denies: change in vision ENMT: Denies: throat pain Card: Reports: leg pain with exertion (right); Denies: chest pain, edema or syncope Resp: Denies: dyspnea or productive cough GI: Reports: abdominal pain; Denies: nausea, vomiting, diarrhea, change in bowel habits, rectal pain, change in stool character or hematochezia Musc: Reports: extremity swelling and other (see hpi about clotted variceal vein); Denies: neck pain, back pain or extremity pain Skin/Breast: Reports: other (local erythema around the noted dilated superficial right thigh varicosity); Denies: rash or erythema Neuro: Denies: headache(s), numbness in extremities, weakness in extremities, lack of coordination or difficulty walking [facility] ED PFSH: Medical History Abnormal colonoscopy in 30s 3 polyps were removed Colon polyps Diabetes HTN (hypertension) Surgical History H/O: hysterectomy / BSO /incidental appendectomy History of carpal tunnel surgery Right History of tonsillectomy S/P laparoscopic cholecystectomy Family History Grandmother Cancer [employer] CANC[employer] Mother CAD (coronary artery disease) Social History Smoking and tobacco status: current every day smoker cigarettes Years cigarettes smoked: 30 [ Other cigarette details: Recently only a few cigarettes a day, but 1 to 2 packs/day in the past ] Second hand smoke exposure: Yes Alcohol intake: never Lives independently: Yes Household members: family Housing: House History of recent travel: No Current gender identity: Female Special irvin needs: No Agree to transfusion: Yes Physical Exam Const: COMMON NORMALS: no limitations, alert and well nourished EXAM LIMITATIONS: no altered mental status GENERAL APPEARANCE: cooperative and well developed ORIENTATION/CONSCIOUSNESS: Yes awake; not confused HENMT: COMMON NORMALS: normocephalic, atraumatic, external ears normal and Normal external nose present HEAD & SCALP: normal to inspection, normocephalic and atraumatic FACE & SINUS: face symmetric NOSE: Normal external nose present EXTERNAL EAR: Yes external ears normal MOUTH: lip normal; no muffled voice Eye: COMMON NORMALS: EOMs intact bilaterally and conjunctivae normal GENERAL EYE: appearance normal, both eyes and all related structures CONJUNCTIVA: Yes conjunctivae normal Neck/C-Spine: COMMON NORMALS: no JVD GENERAL: Yes normal visual inspection and Yes trachea midline Resp: COMMON NORMALS: normal respiratory effort, No use of accessory muscles and clear to auscultation bilaterally EFFORT & INSPECTION: Yes able to speak in complete sentences and Yes symmetric chest movement AUSCULTATION: clear to auscultation bilaterally Cardio: COMMON NORMALS: no JVD and regular rhythm RHYTHM: regular rhythm PERIPHERAL PULSES: radial pulses present OTHER: RLE: DP pulse is faint. PT not palpable. Right and left foot both warm. No asymmetric pallor, venous congestion, mottling. I did RLE BENNETT and was 0.89. There is a firm clotted right anterior thigh supervicial clot of a varicose vein with mild tenderness and surrounding erythema. GI: COMMON NORMALS: Soft to palpation INSPECTION: Yes normal to inspection PALPATION: Yes Soft to palpation, No Tenderness to palpation present (GI) and No Guarding due to palpation present (GI) Back/Pelvis: COMMON NORMALS: thoraco-lumbar ROM normal Extremity: COMMON NORMALS: normal to inspection GENERAL: Yes normal exam except as noted Neuro: COMMON NORMALS: moves all extremities, no focal motor deficits and no sensory deficits noted SENSORIUM/ORIENTATION: Yes alert Psych: COMMON NORMALS: mental status grossly normal, Normal thought process present, cooperative, normal affect and speech normal SPEECH: Yes normal speech THOUGHT PROCESS: Normal thought process present Skin: COMMON NORMALS: no rashes or lesions noted, turgor normal and no jaundice GENERAL SKIN EXAM: no rashes or lesions noted and turgor normal Course Vital Signs: Vital signs: Vital Signs Temperature 97.8 F 05/11/21 20:45 Pulse Rate 78 05/11/21 20:45 Respiratory Rate 18 05/11/21 20:45 Blood Pressure 132/98 05/11/21 20:45 Pulse Oximetry 95 05/11/21 20:45 MDM - Extremity (Nontraumatic) MDM Narrative: Medical decision making narrative: 1. Superficial thromboebmolism: patient given option of anticoagulation vs ASA bc of her ongoing RFs (cancer). SHe has chosen aspirin at this time. WIll have her do warm compresses and follow closely with ASA 325mg po bid. 2. Stable RLE claudication--subacute, discussed with Dr Atkins, he has referred to Dr Duran for CTA and intervention. This is not her acute complaint. 3. Smoking--patient is going to stop on her birthday this weekend. Lab Data: Labs: Lab Results 05/11/21 05/11/21 05/11/21 Range/Units 17:30 17:30 17:30 WBC 6.3 (4.0-10.0) 10^3/ uL RBC 4.46 (4.1-5.3) 10^6/u L Hgb 11.4 L (11.5-15.3) g/dL Hct 37.8 (37.0-47.0) % MCV 84.8 (81-99) fl MCH 25.6 L (28.0-34.0) pg MCHC 30.2 (30.0-36.0) g/dL RDW 20.7 H (12.1-15.1) % Plt Count 145 (130-400) 10^3/c mm MPV 10.8 H (7.4-10.4) fL Neut % (Auto) 46.0 % Lymph % (Auto) 43.0 % [place] % (Auto) 6.3 % Eos % (Auto) 2.9 % Baso % (Auto) 0.5 % Neut # (Auto) 2.90 (1.8-7.7) 10^3/u L Lymph # (Auto) 2.7 (0.8-4.8) 10^3/u L [place] # (Auto) 0.4 (0.2-0.9) 10^3/u L Eos # (Auto) 0.2 (0.0-0.8) 10^3/u L Baso # (Auto) 0.0 (0.0-0.1) 10^3/u L Nucleated RBC % (a uto) 0 % Nucleated RBCs # 0.0 /100WBC PT 13.40 (12.1-14.9) SECO NDS INR 0.99 (0.8-1.2) APTT 24.9 (23.9-36.7) SECO NDS Sodium 139 (136-145) mmol/L Potassium 4.3 (3.5-5.1) mmol/L Chloride 104 (98-107) mmol/L Carbon Dioxide 23 (22-29) mmol/L Anion Gap 16.3 (5-19) BUN 16 (6-20) mg/dL Creatinine 0.7 (0.5-0.9) mg/dL GFR Calculation 87.9 L (90-130) mL/min Glucose 112 (65-115) mg/dL Calculated Osmolal ity 290 (285-295) mOsm/k g Calcium 8.5 (8.5-10.5) mg/dL Total Bilirubin 0.2 (0.15-1.2) mg/dL AST 13 (0-32) U/L ALT 9 (0-33) U/L Alkaline Phosphata se 96 (35-105) IU/L C-Reactive Protein 4.4 (0.0-4.9) mg/L Total Protein 6.6 (6.6-8.7) g/dL Albumin 3.8 (3.5-5.2) g/dL Globulin 2.8 (1.3-4.6) g/dL Imaging Data^: US Vascular: Radiologist's impression: RLE Venous: no DVT, + superficial clot RLE ARterial: plaque vs partially occlusive clot mid superficial femoral and popliteal Discharge Plan Discharge Patient Disposition: Home Clinical Impression: Acute superficial venous thrombosis of right lower extremity, Claudication of right lower extremity, Cigarette smoker motivated to quit Condition: Stable Prescriptions: New aspirin 325 mg tablet,delayed release (DR/EC) 325 mg PO BID 30 Days Qty: 60 RF: 0 No Action losartan 100 mg tablet 100 mg PO DAILY Qty: 90 RF: 0 Farxiga 10 mg tablet 10 mg PO QAM Qty: 30 RF: 2 acetaminophen 325 mg capsule 325 mg PO Q6H PRN (Reason: pain) Qty: 30 RF: 0 Hold Instructions: Resume on 02/08/21. Do not take extra acetaminophen with pain medication that was prescribed today. hydrocodone-acetaminophen 5-325 mg tablet 1 - 2 tab PO Q5H PRN (Reason: pain) Qty: 20 RF: 0 Discharge Orders: Discharge ED (Routine); Ordered 05/11/21 Ordered By: Don Palacio Referrals: Kalpesh Duran M.D [Physician] - 4-7 days (PAD with claudication RLE) Barb Clark FNP [Primary Care Provider] - Discharge Diet: Advance as tolerated Discharge Activity: Resume usual activity Patient Instructions: How to Stop Smoking (ED), Peripheral Vascular Disorders (ED), Opioid Safety Activity Restrictions/Additional Instructions: 1. Take aspiring 325mg by mouth twice daily with food. 2. Wear compression stockings that are THIGH HIGH. 3. Apply warm compresses and pressure to your right thigh clot 5x per day for 20 minutes at a time. 4. Return to the ER if you have discoloration of your leg/foot, increased pain, trouble breathing, more clot, or worsening condition. 5. Follow-up with Dr Duran for treatment of femoral artery partial occlusion. Coding Level of Care Code ED Assurance Sourcing Manager for [facility]
[2021-05-11 20:45] VITALS: BP 132/98; PULSE 78; RESP 18; TEMP 36.6; O2SAT 95
== END 2021-05-11 20:47 | disposition home or self-care (01) ==
PROVIDERS: Physician Assistant; Absent Provider Internal Medicine Hematology & Oncology; Emergency Provider Emergency Medicine; PCP Nurse Practitioner Family
DX: I82.811 Embolism and thrombosis of superficial veins of right lower extremity (principal); I87.8 Other specified disorders of veins; F17.210 Nicotine dependence, cigarettes, uncomplicated; E11.9 Type 2 diabetes mellitus without complications; I10 Essential (primary) hypertension
CPT/HCPCS: 80053; 85025; 85610; 85730; 86140; 93926; 93971; 99283

== ENCOUNTER 2021-05-31 06:26 | Outpatient (RCR) | payer MEDICAID, SELFPAY ==
[2021-05-17 08:48] LABS: Basophils % 0.4 %; Eosinophils # 0.1 10^3/uL (0.0-0.8); Eosinophils % 2.8 %; Hematocrit 34.9 % (37.0-47.0); Hemoglobin 10.5 g/dL (11.5-15.3); Lymphocytes # 1.9 10^3/uL (0.8-4.8); Lymphocytes % 40.5 %; Mean Corpuscular HGB Conc 30.1 g/dL (30.0-36.0); Mean Corpuscular Hemoglobin 25.7 pg (28.0-34.0); Mean Corpuscular Volume 85.5 fl (81-99); Mean Platelet Volume 10.9 fL (7.4-10.4); Monocytes # 0.5 10^3/uL (0.2-0.9); Monocytes % 11.3 %; Neutrophils # 2.07 10^3/uL (1.8-7.7); Neutrophils % 44.8 %; Nucleated Red Blood Cells % 0 %; Platelet Count 109 10^3/cmm (130-400); Red Blood Count 4.08 10^6/uL (4.1-5.3); Red Cell Distribution Width 21.9 % (12.1-15.1); White Blood Count 4.6 10^3/uL (4.0-10.0)
[2021-05-17 09:18] LABS: Alanine Aminotransferase 13 U/L (0-33); Albumin Level 3.4 g/dL (3.5-5.2); Alkaline Phosphatase 105 IU/L (35-105); Anion Gap 12.4 (5-19); Aspartate Amino Transferase 14 U/L (0-32); Blood Urea Nitrogen 8 mg/dL (6-20); Calcium 8.2 mg/dL (8.5-10.5); Carbon Dioxide 25 mmol/L (22-29); Chloride 106 mmol/L (98-107); Globulin 2.8 g/dL (1.3-4.6); Glomerular Filtration Rate 87.5 mL/min (90-130); Glucose 145 mg/dL (65-115); Osmolality Calculated 291 mOsm/kg (285-295); Potassium 3.4 mmol/L (3.5-5.1); Sodium 140 mmol/L (136-145); Total Bilirubin 0.2 mg/dL (0.15-1.2); Total Protein 6.2 g/dL (6.6-8.7)
[2021-05-17] MEDS: dextrose 5% 250 ML 35 ML IV (10:55)
[2021-05-17] MEDS: famotidine 20 mg/2 mL INJ IVP (10:56)
[2021-05-17] MEDS: palonosetron 0.25 mg/5 mL SDV IVP (10:58)
--- NOTE | 2021-05-17 14:24 | ONC FU_ITS ---
Dr. Briscoe follow up note Patient: Barb Easton Unit #: [id number]: [id number] Dicatated By: Heron Briscoe M.D.Date of Visit:May 17, 2021 Onc Med Follow-up/Prog Note History of Present Illness: Ms. Easton is a 50-year-old female with recently diagnosed colon cancer. Her tumor was in the hepatic flexure with invasion into the muscularis propria but with clear surgical margins and a positive lymphovascular invasion with 12 out of 18 lymph nodes positive for metastatic disease. She states that she has always had bowel problems . But it had gotten significantly worse over the last few months. She states she had been having episodes where she would get abdominal cramping at her bellybutton and lower abdomen which would last 2 to 3 days. She states that her bowels would move and she would have diarrhea. She states she had not had any blood in the stools. However in early December 2020 she presented to the emergency room with significantly worsening abdominal pain with nausea vomiting and at that time stated she had not had a normal bowel movement in about 2 weeks. She had not been passing any flatus. She states they had been several days since she even passed any flatus. She did take a laxative but that seemed to make things worse. She did have a CT in the ER and was found to have a colon obstruction with possible lesion at the hepatic flexure. She did have an NG tube placed and felt better overall. She was referred to Dr. Evans for further evaluation. She reported to him that she had a colonoscopy when she was in her 30s to evaluate her bowel problems . She had removal of 3 polyps at that time. She was in encouraged to have frequent colonoscopies but never followed up with that. She denies any family history of colon cancer. But states that she really does not know much about her family history either. She states that she thinks she might of been losing some weight at home but she does not been weighing herself as she had no scale at home but felt that her clothing was looser overall. Past medical history: she has a history of hypertension and diabetes but has not been taking her medication regularly. She does not have insurance coverage. She has a history of the abnormal colonoscopy approximately 20 years ago with removal of colon polyps. Ms. Jones underwent right hemicolectomy on 12/09/[address] Evans at [facility]. There was noted tumor at hepatic flexure with 3.5 cm in greatest diameter. Histological type was identified as adenocarcinoma with grade 2 moderately differentiated. There was tumor invasion into the muscularis propria but all margins are uninvolved by invasive carcinoma. There was 1218 lymph nodes involved. Her MLH1, MSH2, MSH6 and PMS2 reported intact nuclear expression. pTNM staging: [id number] per path report. Ms. Jones was first seen on January 05, 2021 for recommendations of plan of care. She was felt to be a candidate for adjuvant chemotherapy with FOLFOX or [place] ox but she chose to try FOLFOX. She had a Port-A-Cath placed into the right internal jugular vein on February 04, [address] Evans. She began her first cycle of FOLFOX on February 10, 2021. Patient went to [facility] on May 11, 2021 with progressive pain and discomfort in right anterior thigh, as per patient she could see a prominent vein under her skin, denies any trauma to her anterior thigh, patient underwent venous Doppler study of right leg which shows no evidence of lower extremity DVT but superficial thrombus in the varicosity right anterior thigh, patient was given aspirin a day, with referral to cardiology for evaluation for peripheral vascular disease Came for follow-up, denies any specific complaints, except numbness and bilateral fingers but not in the toes. Patient has history of carpal tunnel involving both hand and surgery on the right side in the past. And recently went to [facility] with right anterior thigh discomfort and was diagnosed with superficial vein thrombus/phlebitis, no evidence of right leg DVT, full dose aspirin was prescribed, and patient was referred to cardiology for evaluation for peripheral vascular disease. No mouth sores, no thrush, no jaundice, no skin rash, no abdominal pain, no diarrhea, as per patient she had some loose stools for few days but then improved on its own., Tolerating adjuvant therapy with FOLFOX well otherwise Medications: Adult Aspirin EC Low Strength 1 Tablet (of 81 mg) Tablet, enteric coated Oral daily, Farxiga 1 Tablet (of 10 mg) Oral daily, Losartan Potassium 1 Tablet (of 100 mg) Oral daily Allergies: No Known Allergies. Review of Systems: Review of Systems is not available for this patient. Vital Signs: Performed on May 17, 2021 10:27 Height - 67.00 in Weight - 227.8 lbs (HIGH) BSA - 2.14 sq.m BMI - 35.68 (HIGH) Temperature - 97.8 F (LOW) Pulse - 88 /min Respiration - 18 /min BP - 190/98 mm(hg) (HIGH) O2 Sat - 100 % Pain - 4 Fatigue - 6 Performance Status: 0 - Fully active, able to carry on all predisease activities without restrictions. (ECOG) Physical Examination: ENMT - No mouth sores, no thrush, no jaundice, Respiratory - Lungs are clear to auscultation, Cardiovascular - Regular rate and rhythm of heart, Abdomen - Soft, bowel sounds present, Extremities - No visible edema. Lab/Imaging: Test performed on Mar 31, 2021 10:16 Sodium 141 mmol/L Potassium 3.7 mmol/L Chloride 101 mmol/L CO2 30 mmol/L Anion Gap 13.7 BUN 5 mg/dL Creatinine 0.7 mg/dL Cr Clearance (Est) 151.07 mL/min eGFR 87.9 mL/min Glucose 123 mg/dL Osmolality - Calculated 291 mOsm/kg Calcium 8.4 mg/dL Protein, Total 6.1 g/dL Albumin 3.6 g/dL Globulin 2.5 g/dL Bilirubin, Total 0.3 mg/dL ALT (SGPT) 7 Units/L AST (SGOT) 11 Units/L Alkaline Phosphatase 101 IU/L WBC 5.3 10^3/uL RBC 4.52 10^6/uL HGB 10.9 g/dL HCT 37.1 % MCV 82.1 fl MCH 24.1 pg MCHC 29.4 g/dL RDW 20.9 % Platelet Count 229 10^3/uL MPV 10.5 fl Neutrophils 2.03 10^3/uL Lymphocytes 2.3 10^3/uL Monocytes 0.6 10^3/uL Eosinophils 0.2 10^3/uL Basophils 0.1 10^3/uL Neutrophil % 38.2 % Lymphocyte % 44.2 % Monocyte % 10.8 % Eosinophil % 3.4 % Basophils % 1.3 % Test performed on Mar 09, 2021 09:09 NRBC 0.0 /100 WBC NRBC % 0 % Test performed on Feb 23, 2021 12:20 Ferritin 24 ng/mL % Iron Saturation 5.3 % Iron, Total 21 mcg/dL TIBC 393 mcg/dL Manual Lymphocytes 31.4 % Manual Monocytes 8.3 % Test performed on Feb 08, 2021 15:05 Magnesium 2.1 mg/dL Impression: Moderately differentiated adenocarcinoma involving hepatic flexure, status post right hemicolectomy done on December 09, 2020, final pathology report confirmed moderately differentiated adenocarcinoma 3.5 cm in size with clear surgical margin, tumor invades muscularis propria, lymphovascular invasion seen,pT2, 12 out of 18 lymph node positive for metastatic disease, pN2b Started on adjuvant chemotherapy with FOLFOX on February 10, 2021 Iron deficiency anemia, intolerance to oral iron Hypertension, Diabetes Left hand lateral and ring finger numbness probably due to carpal tunnel as she has history of carpal tunnel surgery on her right hand in the past. Right anterior thigh superficial vein thrombophlebitis diagnosed on May 11, 2021 started on aspirin By [facility] physician Plan: Discussed with patient regarding her labs white blood count 4.6 hemoglobin 10.5 hematocrit 34.9 platelets 109,000 CMP within normal limit except potassium 3.4 and glucose 145 Clinically, patient is doing well with no new signs symptom suggestive of recurrence of disease or disease progression, tolerating adjuvant therapy with FOLFOX well but with expected side effect e.g. progressive peripheral neuropathy especially fingers but very mild in the toes, could be multifactorial as patient has history of bilateral carpal tunnel and surgery on the right side. At this point we will proceed with cycle #7/12 with FOLFOX today and then she will return to clinic 2 weeks with CBC CMP As far as progressive bilateral fingers numbness is concerned, will refer her to neurology for evaluation, as patient may have progressive carpal tunnel syndrome involving both hands no exacerbated by oxaliplatin.,, If his bilateral finger numbness is due to oxaliplatin alone then we may consider discontinue oxaliplatin to prevent further peripheral neuropathy on the other hand if bilateral carpal tunnel is causing worsening of peripheral neuropathy especially in the finger, we will refer her to surgery for possible intervention to minimize peripheral neuropathy related symptoms. As far as iron deficiency anemia is concerned, patient was supposed to receive parenteral iron last week but patient went to [facility] for right anterior thigh pain/discomfort where she was diagnosed with superficial thrombophlebitis which was treated with aspirin. As there was no evidence of right leg DVT., Patient is awaiting cardiology evaluation for peripheral vascular disease. As for the mild hypokalemia is concerned, will consider potassium supplement and patient return to clinic in 2 weeks with CBC CMP Signed By: Heron Briscoe M.D. <<Signature on File>>
[2021-05-24] MEDS: ferric carboxy (IVPB) 750 MG in sodium chloride 0.9% (100 ml) 100 ML 460 MG IV (15:04)
[2021-05-31 09:37] LABS: Basophils % 0.6 %; Eosinophils # 0.2 10^3/uL (0.0-0.8); Eosinophils % 3.2 %; Hematocrit 37.1 % (37.0-47.0); Hemoglobin 11.4 g/dL (11.5-15.3); Lymphocytes # 1.7 10^3/uL (0.8-4.8); Lymphocytes % 33.5 %; Mean Corpuscular HGB Conc 30.7 g/dL (30.0-36.0); Mean Corpuscular Hemoglobin 27.7 pg (28.0-34.0); Mean Corpuscular Volume 90.3 fl (81-99); Mean Platelet Volume 10.7 fL (7.4-10.4); Monocytes # 0.7 10^3/uL (0.2-0.9); Monocytes % 13.8 %; Neutrophils # 2.37 10^3/uL (1.8-7.7); Neutrophils % 48.1 %; Nucleated Red Blood Cells % 0 %; Platelet Count 77 10^3/cmm (130-400); Red Blood Count 4.11 10^6/uL (4.1-5.3); Red Cell Distribution Width 24.5 % (12.1-15.1); White Blood Count 4.9 10^3/uL (4.0-10.0)
[2021-05-31 10:10] LABS: Alanine Aminotransferase 13 U/L (0-33); Albumin Level 3.6 g/dL (3.5-5.2); Alkaline Phosphatase 117 IU/L (35-105); Anion Gap 13.5 (5-19); Aspartate Amino Transferase 15 U/L (0-32); Blood Urea Nitrogen 12 mg/dL (6-20); Calcium 8.5 mg/dL (8.5-10.5); Carbon Dioxide 24 mmol/L (22-29); Chloride 103 mmol/L (98-107); Globulin 2.9 g/dL (1.3-4.6); Glomerular Filtration Rate 87.5 mL/min (90-130); Glucose 124 mg/dL (65-115); Osmolality Calculated 285 mOsm/kg (285-295); Potassium 3.5 mmol/L (3.5-5.1); Sodium 137 mmol/L (136-145); Total Bilirubin 0.4 mg/dL (0.15-1.2); Total Protein 6.5 g/dL (6.6-8.7)
--- NOTE | 2021-05-31 10:28 | ONC FU_ITS ---
Dr. Briscoe follow up note Patient: Barb Easton Unit #: [id number]: 1970 Dicatated By: Heron Briscoe M.D.Date of Visit:May 31, 2021 Onc Med Follow-up/Prog Note History of Present Illness: Ms. Easton is a 51-year-old female with recently diagnosed colon cancer. Her tumor was in the hepatic flexure with invasion into the muscularis propria but with clear surgical margins and a positive lymphovascular invasion with 12 out of 18 lymph nodes positive for metastatic disease. She states that she has always had bowel problems . But it had gotten significantly worse over the last few months. She states she had been having episodes where she would get abdominal cramping at her bellybutton and lower abdomen which would last 2 to 3 days. She states that her bowels would move and she would have diarrhea. She states she had not had any blood in the stools. However in early December 2020 she presented to the emergency room with significantly worsening abdominal pain with nausea vomiting and at that time stated she had not had a normal bowel movement in about 2 weeks. She had not been passing any flatus. She states they had been several days since she even passed any flatus. She did take a laxative but that seemed to make things worse. She did have a CT in the ER and was found to have a colon obstruction with possible lesion at the hepatic flexure. She did have an NG tube placed and felt better overall. She was referred to Dr. Evans for further evaluation. She reported to him that she had a colonoscopy when she was in her 30s to evaluate her bowel problems . She had removal of 3 polyps at that time. She was in encouraged to have frequent colonoscopies but never followed up with that. She denies any family history of colon cancer. But states that she really does not know much about her family history either. She states that she thinks she might of been losing some weight at home but she does not been weighing herself as she had no scale at home but felt that her clothing was looser overall. Past medical history: she has a history of hypertension and diabetes but has not been taking her medication regularly. She does not have insurance coverage. She has a history of the abnormal colonoscopy approximately 20 years ago with removal of colon polyps. Ms. Jones underwent right hemicolectomy on 12/09/[address] Evans at [facility]. There was noted tumor at hepatic flexure with 3.5 cm in greatest diameter. Histological type was identified as adenocarcinoma with grade 2 moderately differentiated. There was tumor invasion into the muscularis propria but all margins are uninvolved by invasive carcinoma. There was 1218 lymph nodes involved. Her MLH1, MSH2, MSH6 and PMS2 reported intact nuclear expression. pTNM staging: [id number] per path report. Ms. Jones was first seen on January 05, 2021 for recommendations of plan of care. She was felt to be a candidate for adjuvant chemotherapy with FOLFOX or Cape ox but she chose to try FOLFOX. She had a Port-A-Cath placed into the right internal jugular vein on February 04, [address] Evans. She began her first cycle of FOLFOX on February 10, 2021. Patient went to [facility] on May 11, 2021 with progressive pain and discomfort in right anterior thigh, as per patient she could see a prominent vein under her skin, denies any trauma to her anterior thigh, patient underwent venous Doppler study of right leg which shows no evidence of lower extremity DVT but superficial thrombus in the varicosity right anterior thigh, patient was given aspirin a day, with referral to cardiology for evaluation for peripheral vascular disease Came for follow-up, denies any specific complaints, no fever chills, no nausea or vomiting, no diarrhea, except for 1 day, which was self-limiting or constipation, no jaundice, no abdominal pain, no melena hematochezia, no peripheral numbness but intolerance to icy beverages for 3 to 4 days after the chemotherapy with FOLFOX. Medications: Adult Aspirin EC Low Strength 1 Tablet (of 81 mg) Tablet, enteric coated Oral daily, Farxiga 1 Tablet (of 10 mg) Oral daily, Losartan Potassium 1 Tablet (of 100 mg) Oral daily Allergies: No Known Allergies. Review of Systems: Review of Systems is not available for this patient. Vital Signs: Vitals are not available for this patient. Performance Status: 0 - Fully active, able to carry on all predisease activities without restrictions. (ECOG) Physical Examination: ENMT - No mouth sores, no thrush, no jaundice, Respiratory - Lungs are clear to auscultation, Cardiovascular - Regular rate and rhythm of heart, Abdomen - Soft, bowel sounds present, Extremities - No visible edema. Lab/Imaging: Test performed on Mar 31, 2021 10:16 Sodium 141 mmol/L Potassium 3.7 mmol/L Chloride 101 mmol/L CO2 30 mmol/L Anion Gap 13.7 BUN 5 mg/dL Creatinine 0.7 mg/dL Cr Clearance (Est) 151.07 mL/min eGFR 87.9 mL/min Glucose 123 mg/dL Osmolality - Calculated 291 mOsm/kg Calcium 8.4 mg/dL Protein, Total 6.1 g/dL Albumin 3.6 g/dL Globulin 2.5 g/dL Bilirubin, Total 0.3 mg/dL ALT (SGPT) 7 Units/L AST (SGOT) 11 Units/L Alkaline Phosphatase 101 IU/L WBC 5.3 10^3/uL RBC 4.52 10^6/uL HGB 10.9 g/dL HCT 37.1 % MCV 82.1 fl MCH 24.1 pg MCHC 29.4 g/dL RDW 20.9 % Platelet Count 229 10^3/uL MPV 10.5 fl Neutrophils 2.03 10^3/uL Lymphocytes 2.3 10^3/uL Monocytes 0.6 10^3/uL Eosinophils 0.2 10^3/uL Basophils 0.1 10^3/uL Neutrophil % 38.2 % Lymphocyte % 44.2 % Monocyte % 10.8 % Eosinophil % 3.4 % Basophils % 1.3 % Test performed on Mar 09, 2021 09:09 NRBC 0.0 /100 WBC NRBC % 0 % Test performed on Feb 23, 2021 12:20 Ferritin 24 ng/mL % Iron Saturation 5.3 % Iron, Total 21 mcg/dL TIBC 393 mcg/dL Manual Lymphocytes 31.4 % Manual Monocytes 8.3 % Test performed on Feb 08, 2021 15:05 Magnesium 2.1 mg/dL Impression: Moderately differentiated adenocarcinoma involving hepatic flexure, status post right hemicolectomy done on December 09, 2020, final pathology report confirmed moderately differentiated adenocarcinoma 3.5 cm in size with clear surgical margin, tumor invades muscularis propria, lymphovascular invasion seen,pT2, 12 out of 18 lymph node positive for metastatic disease, pN2b Started on adjuvant chemotherapy with FOLFOX on February 10, 2021 Iron deficiency anemia, intolerance to oral iron Hypertension, Diabetes Left hand lateral and ring finger numbness probably due to carpal tunnel as she has history of carpal tunnel surgery on her right hand in the past. Right anterior thigh superficial vein thrombophlebitis diagnosed on May 11, 2021 started on aspirin By [facility] physician Plan: Discussed with patient regarding her labs white blood count 4.9 hemoglobin 11.4 g compared to 10.5 g prior to Injectafer, platelet count 77,000 compared to 109,000 previously CMP within normal limits Clinically, patient doing well with no new signs symptoms just to have disease progression, tolerating systemic therapy well except now with progressive thrombocytopenia, will hold her chemotherapy for 1 week and then she will return to clinic in a week with CBC if there is resolution of or improvement in mild/moderate thrombocytopenia will consider next cycle of chemotherapy. Patient is refusing Covid vaccine, she was encouraged to consider Covid vaccine. Signed By: Heron Briscoe M.D. <<Signature on File>>
== END 2021-06-03 23:59 | disposition home or self-care (01) ==
LOC: ONCMED 06:26
PROVIDERS: PCP Nurse Practitioner Family; Visit Provider Internal Medicine Hematology & Oncology
DX: Z51.11 Encounter for antineoplastic chemotherapy (principal); C18.3 Malignant neoplasm of hepatic flexure; C77.8 Secondary and unspecified malignant neoplasm of lymph nodes of multiple regions; D50.9 Iron deficiency anemia, unspecified; I10 Essential (primary) hypertension; E11.9 Type 2 diabetes mellitus without complications; G56.01 Carpal tunnel syndrome, right upper limb; I80.291 Phlebitis and thrombophlebitis of other deep vessels of right lower extremity; Z79.82 Long term (current) use of aspirin; Z79.899 Other long term (current) drug therapy
CPT/HCPCS: 80053; 85025; 96365; 96367; 96368; 96375; 96411; 96413; 96415; 96416; 96523; 99214; 99215; J0640; J1100; J1439; J2469; J3490; J9190; J9263

== ENCOUNTER 2021-06-24 06:24 | Outpatient (RCR) | payer MEDICAID, SELFPAY ==
[2021-06-07 09:13] LABS: Basophils # 0.1 10^3/uL (0.0-0.1); Basophils % 1.2 %; Eosinophils # 0.2 10^3/uL (0.0-0.8); Eosinophils % 3.4 %; Hematocrit 40.1 % (37.0-47.0); Hemoglobin 12.3 g/dL (11.5-15.3); Lymphocytes # 2.4 10^3/uL (0.8-4.8); Lymphocytes % 40.2 %; Mean Corpuscular HGB Conc 30.7 g/dL (30.0-36.0); Mean Corpuscular Hemoglobin 28.9 pg (28.0-34.0); Mean Corpuscular Volume 94.4 fl (81-99); Mean Platelet Volume 10.7 fL (7.4-10.4); Monocytes # 0.6 10^3/uL (0.2-0.9); Neutrophils # 2.38 10^3/uL (1.8-7.7); Neutrophils % 40.8 %; Nucleated Red Blood Cells % 0 %; Platelet Count 182 10^3/cmm (130-400); Red Blood Count 4.25 10^6/uL (4.1-5.3); Red Cell Distribution Width 25.7 % (12.1-15.1); White Blood Count 5.8 10^3/uL (4.0-10.0)
[2021-06-07] MEDS: famotidine 20 mg/2 mL INJ IVP (11:12)
[2021-06-07] MEDS: dextrose 5% 250 ML 75 ML IV (11:12)
[2021-06-07] MEDS: palonosetron 0.25 mg/5 mL SDV IV (11:15)
--- NOTE | 2021-06-11 12:52 | ONC FU_ITS ---
Dr. Briscoe follow up note Patient: Barb Easton Unit #: [id number]: [id number] Dicatated By: Heron Briscoe M.D.Date of Visit:Jun 07, 2021 Onc Med Follow-up/Prog Note History of Present Illness: Ms. Easton is a 51-year-old female with recently diagnosed colon cancer. Her tumor was in the hepatic flexure with invasion into the muscularis propria but with clear surgical margins and a positive lymphovascular invasion with 12 out of 18 lymph nodes positive for metastatic disease. She states that she has always had bowel problems . But it had gotten significantly worse over the last few months. She states she had been having episodes where she would get abdominal cramping at her bellybutton and lower abdomen which would last 2 to 3 days. She states that her bowels would move and she would have diarrhea. She states she had not had any blood in the stools. However in early December 2020 she presented to the emergency room with significantly worsening abdominal pain with nausea vomiting and at that time stated she had not had a normal bowel movement in about 2 weeks. She had not been passing any flatus. She states they had been several days since she even passed any flatus. She did take a laxative but that seemed to make things worse. She did have a CT in the ER and was found to have a colon obstruction with possible lesion at the hepatic flexure. She did have an NG tube placed and felt better overall. She was referred to Dr. Evans for further evaluation. She reported to him that she had a colonoscopy when she was in her 30s to evaluate her bowel problems . She had removal of 3 polyps at that time. She was in encouraged to have frequent colonoscopies but never followed up with that. She denies any family history of colon cancer. But states that she really does not know much about her family history either. She states that she thinks she might of been losing some weight at home but she does not been weighing herself as she had no scale at home but felt that her clothing was looser overall. Past medical history: she has a history of hypertension and diabetes but has not been taking her medication regularly. She does not have insurance coverage. She has a history of the abnormal colonoscopy approximately 20 years ago with removal of colon polyps. Ms. Jones underwent right hemicolectomy on 12/09/[address] Evans at [facility]. There was noted tumor at hepatic flexure with 3.5 cm in greatest diameter. Histological type was identified as adenocarcinoma with grade 2 moderately differentiated. There was tumor invasion into the muscularis propria but all margins are uninvolved by invasive carcinoma. There was 1218 lymph nodes involved. Her MLH1, MSH2, MSH6 and PMS2 reported intact nuclear expression. pTNM staging: [id number] per path report. Ms. Jones was first seen on January 05, 2021 for recommendations of plan of care. She was felt to be a candidate for adjuvant chemotherapy with FOLFOX or Cape ox but she chose to try FOLFOX. She had a Port-A-Cath placed into the right internal jugular vein on February 04, [address] Evans. She began her first cycle of FOLFOX on February 10, 2021. Patient went to [facility] on May 11, 2021 with progressive pain and discomfort in right anterior thigh, as per patient she could see a prominent vein under her skin, denies any trauma to her anterior thigh, patient underwent venous Doppler study of right leg which shows no evidence of lower extremity DVT but superficial thrombus in the varicosity right anterior thigh, patient was given aspirin a day, with referral to cardiology for evaluation for peripheral vascular disease Came for follow-up, denies any specific complaints, no fever chills, no nausea or vomiting, no diarrhea constipation, no mouth sores, no jaundice, mild peripheral neuropathy but stable, tolerating FOLFOX well otherwise Medications: Adult Aspirin EC Low Strength 1 Tablet (of 81 mg) Tablet, enteric coated Oral daily, Farxiga 1 Tablet (of 10 mg) Oral daily, Losartan Potassium 1 Tablet (of 100 mg) Oral daily Allergies: No Known Allergies. Review of Systems: Review of Systems is not available for this patient. Vital Signs: Performed on Jun 07, 2021 10:09 Height - 67.00 in Weight - 222.4 lbs (LOW) BSA - 2.12 sq.m BMI - 34.83 (HIGH) Temperature - 97.7 F (LOW) Pulse - 64 /min Respiration - 18 /min BP - 147/87 mm(hg) (HIGH) O2 Sat - 96 % Pain - 0 Fatigue - 0 Performance Status: 0 - Fully active, able to carry on all predisease activities without restrictions. (ECOG) Physical Examination: ENMT - No mouth sores, no thrush, no jaundice, Respiratory - Lungs are clear to auscultation, Cardiovascular - Regular rate and rhythm of heart, Abdomen - Soft, bowel sounds present, Extremities - No visible edema. Lab/Imaging: Test performed on Mar 31, 2021 10:16 Sodium 141 mmol/L Potassium 3.7 mmol/L Chloride 101 mmol/L CO2 30 mmol/L Anion Gap 13.7 BUN 5 mg/dL Creatinine 0.7 mg/dL Cr Clearance (Est) 151.07 mL/min eGFR 87.9 mL/min Glucose 123 mg/dL Osmolality - Calculated 291 mOsm/kg Calcium 8.4 mg/dL Protein, Total 6.1 g/dL Albumin 3.6 g/dL Globulin 2.5 g/dL Bilirubin, Total 0.3 mg/dL ALT (SGPT) 7 Units/L AST (SGOT) 11 Units/L Alkaline Phosphatase 101 IU/L WBC 5.3 10^3/uL RBC 4.52 10^6/uL HGB 10.9 g/dL HCT 37.1 % MCV 82.1 fl MCH 24.1 pg MCHC 29.4 g/dL RDW 20.9 % Platelet Count 229 10^3/uL MPV 10.5 fl Neutrophils 2.03 10^3/uL Lymphocytes 2.3 10^3/uL Monocytes 0.6 10^3/uL Eosinophils 0.2 10^3/uL Basophils 0.1 10^3/uL Neutrophil % 38.2 % Lymphocyte % 44.2 % Monocyte % 10.8 % Eosinophil % 3.4 % Basophils % 1.3 % Test performed on Mar 09, 2021 09:09 NRBC 0.0 /100 WBC NRBC % 0 % Test performed on Feb 23, 2021 12:20 Ferritin 24 ng/mL % Iron Saturation 5.3 % Iron, Total 21 mcg/dL TIBC 393 mcg/dL Manual Lymphocytes 31.4 % Manual Monocytes 8.3 % Test performed on Feb 08, 2021 15:05 Magnesium 2.1 mg/dL Impression: Moderately differentiated adenocarcinoma involving hepatic flexure, status post right hemicolectomy done on December 09, 2020, final pathology report confirmed moderately differentiated adenocarcinoma 3.5 cm in size with clear surgical margin, tumor invades muscularis propria, lymphovascular invasion seen,pT2, 12 out of 18 lymph node positive for metastatic disease, pN2b Started on adjuvant chemotherapy with FOLFOX on February 10, 2021 Iron deficiency anemia, intolerance to oral iron Hypertension, Diabetes Left hand lateral and ring finger numbness probably due to carpal tunnel as she has history of carpal tunnel surgery on her right hand in the past. Right anterior thigh superficial vein thrombophlebitis diagnosed on May 11, 2021 started on aspirin By [facility] physician Plan: Discussed with patient regarding her labs white blood count 5.8 hemoglobin 12.3 hematocrit 40.1 platelets 182,000 compared to 77,000 previously Clinically, patient doing well with no new signs symptom, will proceed with next cycle #8/12 with FOLFOX and then she will return to clinic in 2 weeks with CBC CMP if blood counts reasonable for next cycle of chemotherapy with FOLFOX Signed By: Heron Briscoe M.D. <<Signature on File>>
[2021-06-22 09:15] LABS: Basophils % 0.5 %; Eosinophils # 0.2 10^3/uL (0.0-0.8); Eosinophils % 3.7 %; Hematocrit 39.7 % (37.0-47.0); Hemoglobin 12.5 g/dL (11.5-15.3); Lymphocytes # 1.7 10^3/uL (0.8-4.8); Lymphocytes % 41.6 %; Mean Corpuscular HGB Conc 31.5 g/dL (30.0-36.0); Mean Corpuscular Hemoglobin 30.4 pg (28.0-34.0); Mean Corpuscular Volume 96.6 fl (81-99); Mean Platelet Volume 10.6 fL (7.4-10.4); Monocytes # 0.5 10^3/uL (0.2-0.9); Monocytes % 11.9 %; Neutrophils % 42.1 %; Nucleated Red Blood Cells % 0 %; Platelet Count 125 10^3/cmm (130-400); Red Blood Count 4.11 10^6/uL (4.1-5.3); Red Cell Distribution Width 23.4 % (12.1-15.1)
[2021-06-22 09:52] LABS: Alanine Aminotransferase 11 U/L (0-33); Albumin Level 3.6 g/dL (3.5-5.2); Alkaline Phosphatase 106 IU/L (35-105); Anion Gap 12.9 (5-19); Aspartate Amino Transferase 13 U/L (0-32); Blood Urea Nitrogen 6 mg/dL (6-20); Calcium 8.9 mg/dL (8.5-10.5); Carbon Dioxide 25 mmol/L (22-29); Chloride 107 mmol/L (98-107); Globulin 2.9 g/dL (1.3-4.6); Glucose 121 mg/dL (65-115); Osmolality Calculated 291 mOsm/kg (285-295); Potassium 3.9 mmol/L (3.5-5.1); Sodium 141 mmol/L (136-145); Total Bilirubin 0.3 mg/dL (0.15-1.2); Total Protein 6.5 g/dL (6.6-8.7)
[2021-06-22] MEDS: famotidine 20 mg/2 mL INJ IVP (10:47)
[2021-06-22] MEDS: dextrose 5% 250 ML 75 ML IV (10:47)
[2021-06-22] MEDS: palonosetron 0.25 mg/5 mL SDV IVP (10:48)
--- NOTE | 2021-06-30 01:30 | ONC FU_ITS ---
[facility] Patient Note Patient: Barb Easton Unit #: [id number]: 1970 Dictated By: Sadie ZhaoDate of Visit: Jun 22, 2021 Onc MED Follow-Up/Prog Note Chief Complaint: Colon cancer History of Present Illness: Ms. Easton is a 51-year-old female with recently diagnosed colon cancer. Her tumor was in the hepatic flexure with invasion into the muscularis propria but with clear surgical margins and a positive lymphovascular invasion with 12 out of 18 lymph nodes positive for metastatic disease. She states that she has always had bowel problems . But it had gotten significantly worse over the last few months. She states she had been having episodes where she would get abdominal cramping at her bellybutton and lower abdomen which would last 2 to 3 days. She states that her bowels would move and she would have diarrhea. She states she had not had any blood in the stools. However in early December 2020 she presented to the emergency room with significantly worsening abdominal pain with nausea vomiting and at that time stated she had not had a normal bowel movement in about 2 weeks. She had not been passing any flatus. She states they had been several days since she even passed any flatus. She did take a laxative but that seemed to make things worse. She did have a CT in the ER and was found to have a colon obstruction with possible lesion at the hepatic flexure. She did have an NG tube placed and felt better overall. She was referred to Dr. Evans for further evaluation. She reported to him that she had a colonoscopy when she was in her 30s to evaluate her bowel problems . She had removal of 3 polyps at that time. She was in encouraged to have frequent colonoscopies but never followed up with that. She denies any family history of colon cancer. But states that she really does not know much about her family history either. She states that she thinks she might of been losing some weight at home but she does not been weighing herself as she had no scale at home but felt that her clothing was looser overall. Past medical history: she has a history of hypertension and diabetes but has not been taking her medication regularly. She had not have insurance coverage. She has a history of the abnormal colonoscopy approximately 20 years ago with removal of colon polyps. Ms. Jones underwent right hemicolectomy on 12/09/[address] Evans at [facility]. There was noted tumor at hepatic flexure with 3.5 cm in greatest diameter. Histological type was identified as adenocarcinoma with grade 2 moderately differentiated. There was tumor invasion into the muscularis propria but all margins are uninvolved by invasive carcinoma. There was 1218 lymph nodes involved. Her MLH1, MSH2, MSH6 and PMS2 reported intact nuclear expression. pTNM staging: [id number] per path report. Ms. Jones was first seen on January 05, 2021 for recommendations of plan of care. She was felt to be a candidate for adjuvant chemotherapy with FOLFOX or Cape ox but she chose to try FOLFOX. She had a Port-A-Cath placed into the right internal jugular vein on February 04, [address] Evans. She began her first cycle of FOLFOX on February 10, 2021. She went to [facility] on May 11, 2021 with progressive pain and discomfort in right anterior thigh. As per patient she could see a prominent vein under her skin, denies any trauma to her anterior thigh, patient underwent venous Doppler study of right leg which shows no evidence of lower extremity DVT but superficial thrombus in the varicosity right anterior thigh, patient was given aspirin a day, with referral to cardiology for evaluation for peripheral vascular disease. She has completed 8 cycles of modified FOLFOX with her last cycle on 06/07/2021. Ms. Jones is here today for follow-up and consideration of cycle 9 modified FOLFOX. She states overall she is doing good. However it is noted that she is having worsening of neuropathy. She states that she is having a hard time buttoning buttons and has had neuropathy in her feet. She states typically it kind of goes away after treatment but this time is still there. She states is not as bad as it was but she is still having slight numbness and tingling in her fingertips and toes. She states that she has been caring for her granddaughter and having to button baby buttons and she is finds very difficult to do even snapping them sometimes is a problem. She denies any mouth sores, sore throat or difficulty swallowing. She denies any skin rashes or lesions. She states she has fatigue but she stays busy and does what she needs to anyway. She is sleeping okay at night. She states her appetite is good her taste are off but no worse than what they have been since she started chemotherapy. She denies any trouble swallowing. She states she has occasional diarrhea but that is controlled with [id number] antidiarrheal when she takes them. She states her bladder is normal for her. She is had no lower extremity edema she said no recurrent pain in her thigh. Her ECOG is 0. Past Medical History: Colon polyps Hypertension Type II diabetes Past Surgical History: Appendectomy Carpal tunnel release Right internal jugular Port-A-Cath per Dr. Evans at [facility] in 2020 Exploratory laparotomy right hemicolectomy per Dr. Evans at [facility] in 2020 Hysterectomy/bilateral salpingectomy-oophorectomy in 1999 Cholecystectomy in 1989 Allergies: No Known Allergies. Medications: Adult Aspirin EC Low Strength 1 Tablet (of 81 mg) Tablet, enteric coated Oral daily Farxiga 1 Tablet (of 10 mg) Oral daily Losartan Potassium 1 Tablet (of 100 mg) Oral daily Potassium Chloride Sarah ER 1 Tablet (of 20 meq) Tablet, controlled release Oral daily Family History: Ms. Easton's mother at age 63: coronary artery disease. Social History: Ms. Easton is legally . She is an occasional smoker who has smoked 1.0 pack/day for 31 years. She drinks occasionally. She has indicated exposure to the following products: cigarettes. Review Of Symptoms: <See Above> Vital Signs: Performed on Jun 22, 2021 09:20 Height - 67.00 in Weight - 220.6 lbs (LOW) BSA - 2.11 sq.m BMI - 34.55 (HIGH) Temperature - 96.7 F (LOW) Pulse - 64 /min Respiration - 18 /min BP - 144/82 mm(hg) (HIGH) O2 Sat - 97 % Pain - 3 Fatigue - 2,1 - No physically strenuous activity, but ambulatory and able to carry out light or sedentary work (e.g. office work, light house work). (ECOG) Physical Examination: Constitutional Alert, oriented, no acute distress. Skin pink, warm and dry. Head Normocephalic; atraumatic. Eyes Conjunctivae and sclerae are clear and without icterus. Pupils are reactive and equal. ENMT No oral exudates, ulcers, masses, thrush or mucositis. Oropharynx clear. Poor dentation noted. Multiple broken teeth but no active signs of infection. Hematologic/Lymphatic No petechiae or purpura. No tender or palpable lymph nodes in the cervical or supraclavicular areas. Respiratory Lungs are clear to auscultation without rhonchi or wheezing. Cardiovascular Regular rate and rhythm of heart without murmurs,clicks, gallops or rubs. Chest Right chest wall venous access device placement site is unremarkable. Abdomen Non-tender, non-distended, no masses or ascites. Good bowel sounds noted in all quads. No guarding or rebound tenderness. No pulsatile masses. Back/Spine Non-tender to palpation. Extremities No visible deformities, no cyanosis, clubbing or edema. Musculoskeletal No tenderness or swelling, normal range of motion without obvious weakness. Integumentary No rashes or lesions. Neurologic No sensory or motor deficits, normal cerebellar function, normal gait. Psychiatric Alert and oriented times three. Coherent speech. Verbalizes understanding of our discussions today. Laboratory:Test performed on Jun 22, 2021 08:43 Sodium 141 mmol/L Potassium 3.9 mmol/L Chloride 107 mmol/L CO2 25 mmol/L Anion Gap 12.9 BUN 6 mg/dL Creatinine 0.8 mg/dL Cr Clearance (Est) 130.6800 mL/min eGFR 75.0 mL/min Glucose 121 mg/dL Osmolality - Calculated 291 mOsm/kg Calcium 8.9 mg/dL Protein, Total 6.5 g/dL Albumin 3.6 g/dL Globulin 2.9 g/dL Bilirubin, Total 0.3 mg/dL ALT (SGPT) 11 U/L AST (SGOT) 13 U/L Alkaline Phosphatase 106 IU/L WBC 4.0 10 3/uL RBC 4.11 10 6/uL HGB 12.5 g/dL HCT 39.7 % MCV 96.6 fl MCH 30.4 pg MCHC 31.5 g/dL RDW 23.4 % Platelet Count 125 10 3/cmm MPV 10.6 fL Neutrophils 1.70 10 3/uL Lymphocytes 1.7 10 3/uL Monocytes 0.5 10 3/uL Eosinophils 0.2 10 3/uL Basophils 0.0 10 3/uL Neutrophil % 42.1 % Lymphocyte % 41.6 % Monocyte % 11.9 % Eosinophil % 3.7 % Basophils % 0.5 % NRBC % 0 % Test performed on Mar 09, 2021 09:09 NRBC 0.0 /100 WBC Test performed on Feb 23, 2021 12:20 Ferritin 24 ng/mL % Iron Saturation 5.3 % Iron, Total 21 mcg/dL TIBC 393 mcg/dL Manual Lymphocytes 31.4 % Manual Monocytes 8.3 % Test performed on Feb 08, 2021 15:05 Magnesium 2.1 mg/dL Impression: 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 Plan/Problems Addressed at this Visit: 1. Moderately differentiated adenocarcinoma involving hepatic flexure with tumor invades into the muscularis propria and lymphovascular involvement in 12/18 nodes. Her confirmed tumor size was 3.5 cm. She did have a right hemicolectomy on December 09, 2020 and port placement on 02/04/2021. She began adjuvant chemotherapy with FOLFOX on February 10, 2021. A. Proceed with cycle 9 day 1 of FOLFOX. She will have dose reduction of the oxaliplatin to 65 mg/m2 today due to persistent and worsening peripheral neuropathy. I also held her 5FU bolus due to ANC of 1700 and platelet count of 125,000. B. She will continue her current antiemetic premeds as they are working well. She also has antiemetics on hand at home. C. Today's labs reviewed in detail and discussed with Ms. Easton and a copy was given to her. WBC 4.0, hemoglobin 12.5, platelets 125,000, ANC is 1700. Potassium 3.9 random glucose 121 creatinine 0.8 LFTs are normal alk phos is improved at 106. D. We will plan to see her back in 2 weeks with CBC CMP which time she will be due for cycle 10 of modified FOLFOX. We will reevaluate her neuropathy to see if she needs to remain at the lower dosing of the oxaliplatin and to see if we could resume her 5-FU push if needed. It was limited today due to her neutropenia at 1700 and her platelet count of 125,000. It was 182,000 on day 1 with her last cycle. E. Ms. Jones was instructed to contact us in interim should questions or problems arise. Signed By: Sadie Zhao-, [facility] Heron Briscoe MD <<Signature on File>>
== END 2021-07-04 23:59 | disposition home or self-care (01) ==
LOC: ONCMED 06:24
PROVIDERS: Nurse Practitioner; PCP Nurse Practitioner Family; Visit Provider Internal Medicine Hematology & Oncology
DX: Z51.11 Encounter for antineoplastic chemotherapy (principal); C18.3 Malignant neoplasm of hepatic flexure; C77.8 Secondary and unspecified malignant neoplasm of lymph nodes of multiple regions; I10 Essential (primary) hypertension; E11.9 Type 2 diabetes mellitus without complications; G56.02 Carpal tunnel syndrome, left upper limb; Z79.899 Other long term (current) drug therapy
CPT/HCPCS: 80053; 85025; 96367; 96368; 96372; 96375; 96411; 96413; 96415; 96416; 96523; 99215; J0640; J1100; J2469; J2505; J3490; J9190; J9263

== ENCOUNTER → 2021-07-09 10:29 | Outpatient (BNVA) | payer MEDICAID, SELFPAY | PROVIDERS: PCP Nurse Practitioner Family; Visit Provider Nurse Practitioner Family | DX: E11.65 Type 2 diabetes mellitus with hyperglycemia (principal); C18.9 Malignant neoplasm of colon, unspecified; I10 Essential (primary) hypertension | CPT/HCPCS: 80061; 82043; 83036; 87071; 87880 ==

== ENCOUNTER 2021-08-02 06:32 | Outpatient (RCR) | payer MEDICAID, SELFPAY ==
[2021-07-05 09:04] LABS: Basophils % 0.3 %; Eosinophils # 0.1 10^3/uL (0.0-0.8); Eosinophils % 0.9 %; Hemoglobin 12.6 g/dL (11.5-15.3); Lymphocytes # 2.1 10^3/uL (0.8-4.8); Lymphocytes % 18.3 %; Mean Corpuscular HGB Conc 31.5 g/dL (30.0-36.0); Mean Corpuscular Volume 98.5 fl (81-99); Monocytes # 0.9 10^3/uL (0.2-0.9); Monocytes % 8.1 %; Neutrophils # 7.22 10^3/uL (1.8-7.7); Neutrophils % 62.2 %; Nucleated Red Blood Cells % 0.2 %; Platelet Count 83 10^3/cmm (130-400); Red Blood Count 4.06 10^6/uL (4.1-5.3); Red Cell Distribution Width 21.7 % (12.1-15.1); White Blood Count 11.6 10^3/uL (4.0-10.0)
[2021-07-05 09:29] LABS: Alanine Aminotransferase 9 U/L (0-33); Albumin Level 3.4 g/dL (3.5-5.2); Alkaline Phosphatase 184 IU/L (35-105); Anion Gap 12.5 (5-19); Aspartate Amino Transferase 13 U/L (0-32); Blood Urea Nitrogen 10 mg/dL (6-20); Calcium 8.4 mg/dL (8.5-10.5); Carbon Dioxide 28 mmol/L (22-29); Chloride 104 mmol/L (98-107); Globulin 3.1 g/dL (1.3-4.6); Glucose 120 mg/dL (65-115); Osmolality Calculated 292 mOsm/kg (285-295); Potassium 3.5 mmol/L (3.5-5.1); Sodium 141 mmol/L (136-145); Total Bilirubin 0.3 mg/dL (0.15-1.2); Total Protein 6.5 g/dL (6.6-8.7)
[2021-07-05 09:53] LABS: Slide Review Slide Review Perform
[2021-07-05] MEDS: famotidine 20 mg/2 mL INJ IVP (10:20)
[2021-07-05] MEDS: dextrose 5% 250 ML 75 ML IV (10:25)
[2021-07-05] MEDS: palonosetron 0.25 mg/5 mL SDV IV (10:25)
[2021-07-19 08:53] LABS: Basophils % 0.6 %; Eosinophils # 0.1 10^3/uL (0.0-0.8); Eosinophils % 1.7 %; Hemoglobin 12.2 g/dL (11.5-15.3); Lymphocytes # 1.5 10^3/uL (0.8-4.8); Lymphocytes % 20.8 %; Mean Corpuscular HGB Conc 32.1 g/dL (30.0-36.0); Mean Corpuscular Hemoglobin 32.1 pg (28.0-34.0); Mean Platelet Volume 11.6 fL (7.4-10.4); Monocytes # 0.6 10^3/uL (0.2-0.9); Monocytes % 8.6 %; Neutrophils # 4.59 10^3/uL (1.8-7.7); Neutrophils % 64.9 %; Nucleated Red Blood Cells % 0 %; Platelet Count 162 10^3/cmm (130-400); White Blood Count 7.1 10^3/uL (4.0-10.0)
[2021-07-19 09:13] LABS: Alanine Aminotransferase < 5 U/L (0-33); Albumin Level 3.1 g/dL (3.5-5.2); Alkaline Phosphatase 136 IU/L (35-105); Anion Gap 12.3 (5-19); Aspartate Amino Transferase 8 U/L (0-32); Blood Urea Nitrogen 9 mg/dL (6-20); Calcium 8.2 mg/dL (8.5-10.5); Carbon Dioxide 28 mmol/L (22-29); Chloride 101 mmol/L (98-107); Globulin 3.8 g/dL (1.3-4.6); Glucose 152 mg/dL (65-115); Osmolality Calculated 288 mOsm/kg (285-295); Potassium 3.3 mmol/L (3.5-5.1); Sodium 138 mmol/L (136-145); Total Bilirubin 0.2 mg/dL (0.15-1.2); Total Protein 6.9 g/dL (6.6-8.7)
--- NOTE | 2021-07-19 10:01 | ONC FU_ITS ---
Dr. Briscoe follow up note Patient: Barb Easton Unit #: [id number]: [id number] Dicatated By: Heron Briscoe M.D.Date of Visit:Jul 19, 2021 Onc Med Follow-up/Prog Note History of Present Illness: Ms. Easton is a 51-year-old female with recently diagnosed colon cancer. Her tumor was in the hepatic flexure with invasion into the muscularis propria but with clear surgical margins and a positive lymphovascular invasion with 12 out of 18 lymph nodes positive for metastatic disease. She states that she has always had bowel problems . But it had gotten significantly worse over the last few months. She states she had been having episodes where she would get abdominal cramping at her bellybutton and lower abdomen which would last 2 to 3 days. She states that her bowels would move and she would have diarrhea. She states she had not had any blood in the stools. However in early December 2020 she presented to the emergency room with significantly worsening abdominal pain with nausea vomiting and at that time stated she had not had a normal bowel movement in about 2 weeks. She had not been passing any flatus. She states they had been several days since she even passed any flatus. She did take a laxative but that seemed to make things worse. She did have a CT in the ER and was found to have a colon obstruction with possible lesion at the hepatic flexure. She did have an NG tube placed and felt better overall. She was referred to Dr. Evans for further evaluation. She reported to him that she had a colonoscopy when she was in her 30s to evaluate her bowel problems . She had removal of 3 polyps at that time. She was in encouraged to have frequent colonoscopies but never followed up with that. She denies any family history of colon cancer. But states that she really does not know much about her family history either. She states that she thinks she might of been losing some weight at home but she does not been weighing herself as she had no scale at home but felt that her clothing was looser overall. Past medical history: she has a history of hypertension and diabetes but has not been taking her medication regularly. She had not have insurance coverage. She has a history of the abnormal colonoscopy approximately 20 years ago with removal of colon polyps. Ms. Jones underwent right hemicolectomy on 12/09/[address] Evans at [facility]. There was noted tumor at hepatic flexure with 3.5 cm in greatest diameter. Histological type was identified as adenocarcinoma with grade 2 moderately differentiated. There was tumor invasion into the muscularis propria but all margins are uninvolved by invasive carcinoma. There was 1218 lymph nodes involved. Her MLH1, MSH2, MSH6 and PMS2 reported intact nuclear expression. pTNM staging: [id number] per path report. Ms. Jones was first seen on January 05, 2021 for recommendations of plan of care. She was felt to be a candidate for adjuvant chemotherapy with FOLFOX or Cape ox but she chose to try FOLFOX. She had a Port-A-Cath placed into the right internal jugular vein on February 04, [address] Evans. She began her first cycle of FOLFOX on February 10, 2021. She went to [facility] on May 11, 2021 with progressive pain and discomfort in right anterior thigh. As per patient she could see a prominent vein under her skin, denies any trauma to her anterior thigh, patient underwent venous Doppler study of right leg which shows no evidence of lower extremity DVT but superficial thrombus in the varicosity right anterior thigh, patient was given aspirin a day, with referral to cardiology for evaluation for peripheral vascular disease. Came for follow-up, denies any specific complaints, no fever chills, no nausea or vomiting, no diarrhea constipation, no mouth sores, no jaundice, no abdominal pain, no skin rash. Patient is complaining of numbness in her fingertips more with hands use, no significant numbness in toes. Tolerating adjuvant therapy with FOLFOX well otherwise Medications: Adult Aspirin EC Low Strength 1 Tablet (of 81 mg) Tablet, enteric coated Oral daily, Farxiga 1 Tablet (of 10 mg) Oral daily, Losartan Potassium 1 Tablet (of 100 mg) Oral daily, Potassium Chloride Sarah ER 1 Tablet (of 20 meq) Tablet, controlled release Oral daily Allergies: No Known Allergies. Review of Systems: Review of Systems is not available for this patient. Vital Signs: Vitals are not available for this patient. Performance Status: 0 - Fully active, able to carry on all predisease activities without restrictions. (ECOG) Physical Examination: ENMT - No mouth sores, no thrush, no jaundice, Respiratory - Lungs are clear to auscultation, Cardiovascular - Regular rate and rhythm of heart, Abdomen - Soft, bowel sounds present, Extremities - No visible edema. Lab/Imaging: Test performed on Jun 22, 2021 08:43 Sodium 141 mmol/L Potassium 3.9 mmol/L Chloride 107 mmol/L CO2 25 mmol/L Anion Gap 12.9 BUN 6 mg/dL Creatinine 0.8 mg/dL Cr Clearance (Est) 130.6800 mL/min eGFR 75.0 mL/min Glucose 121 mg/dL Osmolality - Calculated 291 mOsm/kg Calcium 8.9 mg/dL Protein, Total 6.5 g/dL Albumin 3.6 g/dL Globulin 2.9 g/dL Bilirubin, Total 0.3 mg/dL ALT (SGPT) 11 U/L AST (SGOT) 13 U/L Alkaline Phosphatase 106 IU/L WBC 4.0 10 3/uL RBC 4.11 10 6/uL HGB 12.5 g/dL HCT 39.7 % MCV 96.6 fl MCH 30.4 pg MCHC 31.5 g/dL RDW 23.4 % Platelet Count 125 10 3/cmm MPV 10.6 fL Neutrophils 1.70 10 3/uL Lymphocytes 1.7 10 3/uL Monocytes 0.5 10 3/uL Eosinophils 0.2 10 3/uL Basophils 0.0 10 3/uL Neutrophil % 42.1 % Lymphocyte % 41.6 % Monocyte % 11.9 % Eosinophil % 3.7 % Basophils % 0.5 % NRBC % 0 % Test performed on Mar 09, 2021 09:09 NRBC 0.0 /100 WBC Test performed on Feb 23, 2021 12:20 Ferritin 24 ng/mL % Iron Saturation 5.3 % Iron, Total 21 mcg/dL TIBC 393 mcg/dL Manual Lymphocytes 31.4 % Manual Monocytes 8.3 % Test performed on Feb 08, 2021 15:05 Magnesium 2.1 mg/dL Impression: 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 Plan: Discussed with patient regarding her labs white blood count 7.1 hemoglobin 12.2 hematocrit 38 platelets 162,000 CMP within normal limits except potassium 3.3 Clinically, patient is doing well with no new signs symptom suggestive of recurrence of disease, tolerating adjuvant therapy with FOLFOX well, will proceed with cycle #11/12 today and then she will return to clinic in 2 weeks with CBC CMP if reasonable for the final dose of FOLFOX. As far as mild hypokalemia is concerned, will consider supplement and follow Signed By: Heron Briscoe M.D. <<Signature on File>>
[2021-07-19] MEDS: dextrose 5% 250 ML 75 ML IV (10:37)
[2021-07-19] MEDS: famotidine 20 mg/2 mL INJ IVP (10:37)
[2021-07-19] MEDS: potassium chloride ER 10 mEq Tablet 20 MEQ PO (10:39)
[2021-07-19] MEDS: palonosetron 0.25 mg/5 mL SDV IV (10:39)
[2021-07-21] MEDS: pegfilgrastim-bmez 6 mg/0.6 mL SYR SUBCUT (14:10)
[2021-08-02 08:57] LABS: Basophils # 0.1 10^3/uL (0.0-0.1); Basophils % 0.8 %; Eosinophils # 0.2 10^3/uL (0.0-0.8); Eosinophils % 2.3 %; Hematocrit 37.2 % (37.0-47.0); Hemoglobin 12.3 g/dL (11.5-15.3); Lymphocytes # 1.9 10^3/uL (0.8-4.8); Lymphocytes % 29.7 %; Mean Corpuscular HGB Conc 33.1 g/dL (30.0-36.0); Mean Corpuscular Hemoglobin 32.3 pg (28.0-34.0); Mean Corpuscular Volume 97.6 fl (81-99); Mean Platelet Volume 11.7 fL (7.4-10.4); Monocytes # 0.5 10^3/uL (0.2-0.9); Monocytes % 8.4 %; Neutrophils # 3.66 10^3/uL (1.8-7.7); Neutrophils % 56.8 %; Nucleated Red Blood Cells % 0 %; Platelet Count 137 10^3/cmm (130-400); Red Blood Count 3.81 10^6/uL (4.1-5.3); Red Cell Distribution Width 17.8 % (12.1-15.1); White Blood Count 6.4 10^3/uL (4.0-10.0)
[2021-08-02 09:28] LABS: Alanine Aminotransferase 9 U/L (0-33); Albumin Level 3.2 g/dL (3.5-5.2); Alkaline Phosphatase 147 IU/L (35-105); Anion Gap 13.6 (5-19); Aspartate Amino Transferase 12 U/L (0-32); Blood Urea Nitrogen 10 mg/dL (6-20); Calcium 8.4 mg/dL (8.5-10.5); Carbon Dioxide 25 mmol/L (22-29); Chloride 104 mmol/L (98-107); Globulin 3.3 g/dL (1.3-4.6); Glomerular Filtration Rate 65.5 mL/min (90-130); Glucose 173 mg/dL (65-115); Osmolality Calculated 291 mOsm/kg (285-295); Potassium 3.6 mmol/L (3.5-5.1); Sodium 139 mmol/L (136-145); Total Bilirubin 0.2 mg/dL (0.15-1.2); Total Protein 6.5 g/dL (6.6-8.7)
[2021-08-02] MEDS: dextrose 5% 250 ML 75 ML IV (10:00)
[2021-08-02] MEDS: famotidine 20 mg/2 mL INJ IVP (10:00)
[2021-08-02] MEDS: palonosetron 0.25 mg/5 mL SDV IV (10:05)
== END 2021-08-03 23:59 | disposition home or self-care (01) ==
LOC: ONCMED 06:32
PROVIDERS: PCP Nurse Practitioner Family; Visit Provider Internal Medicine Hematology & Oncology
DX: Z51.12 Encounter for antineoplastic immunotherapy (principal); Z51.11 Encounter for antineoplastic chemotherapy; C18.3 Malignant neoplasm of hepatic flexure; C77.8 Secondary and unspecified malignant neoplasm of lymph nodes of multiple regions; I10 Essential (primary) hypertension; E11.9 Type 2 diabetes mellitus without complications; G56.01 Carpal tunnel syndrome, right upper limb; E87.6 Hypokalemia; Z79.899 Other long term (current) drug therapy
CPT/HCPCS: 80053; 85025; 96367; 96368; 96372; 96375; 96413; 96415; 96416; 96523; 99215; J0640; J1100; J2469; J2505; J3490; J9190; J9263; Q5120

== ENCOUNTER → 2021-08-18 12:22 | Outpatient (BNVA) | payer MEDICAID, SELFPAY | PROVIDERS: PCP Nurse Practitioner Family; Referring Provider Internal Medicine Hematology & Oncology; Visit Provider Specialist | DX: G62.9 Polyneuropathy, unspecified (principal); C18.9 Malignant neoplasm of colon, unspecified; F17.210 Nicotine dependence, cigarettes, uncomplicated; Z92.21 Personal history of antineoplastic chemotherapy | CPT/HCPCS: 99204 ==

== ENCOUNTER 2021-08-19 06:17 | Outpatient (RCR) | payer MEDICAID, SELFPAY ==
[2021-08-04] MEDS: pegfilgrastim-bmez 6 mg/0.6 mL SYR SUBCUT (14:09)
[2021-08-19 15:39] LABS: Basophils # 0.1 10^3/uL (0.0-0.1); Basophils % 0.8 %; Eosinophils # 0.2 10^3/uL (0.0-0.8); Eosinophils % 2.4 %; Hematocrit 39.4 % (37.0-47.0); Hemoglobin 12.7 g/dL (11.5-15.3); Lymphocytes % 26.4 %; Mean Corpuscular HGB Conc 32.2 g/dL (30.0-36.0); Mean Corpuscular Hemoglobin 32.2 pg (28.0-34.0); Mean Corpuscular Volume 99.7 fl (81-99); Mean Platelet Volume 10.6 fL (7.4-10.4); Monocytes # 0.7 10^3/uL (0.2-0.9); Monocytes % 8.7 %; Neutrophils % 59.6 %; Nucleated Red Blood Cells % 0 %; Platelet Count 158 10^3/cmm (130-400); Red Blood Count 3.95 10^6/uL (4.1-5.3); Red Cell Distribution Width 15.8 % (12.1-15.1); White Blood Count 7.6 10^3/uL (4.0-10.0)
[2021-08-19 15:43] LABS: Erythrocyte Sedimentation Rate 24 mm/hr (0-15)
[2021-08-19 16:05] LABS: Alanine Aminotransferase 6 U/L (0-33); Albumin Level 3.3 g/dL (3.5-5.2); Alkaline Phosphatase 114 IU/L (35-105); Anion Gap 15.9 (5-19); Aspartate Amino Transferase 10 U/L (0-32); Blood Urea Nitrogen 7 mg/dL (6-20); Calcium 8.1 mg/dL (8.5-10.5); Carbon Dioxide 24 mmol/L (22-29); Chloride 104 mmol/L (98-107); Globulin 3.2 g/dL (1.3-4.6); Glucose 105 mg/dL (65-115); Osmolality Calculated 288 mOsm/kg (285-295); Potassium 3.9 mmol/L (3.5-5.1); Sodium 140 mmol/L (136-145); Total Bilirubin 0.3 mg/dL (0.15-1.2); Total Protein 6.5 g/dL (6.6-8.7)
[2021-08-19 16:11] LABS: Thyroid Stimulating Hormone 1.85 uIU/mL (0.27-4.20); Vitamin B12 1858 pg/mL (232-1245)
[2021-08-19 16:57] LABS: Folate Level 18.6 ng/mL (4.8-37.3)
[2021-08-19 17:14] LABS: C Reactive Protein 4.1 mg/L (0.0-4.9)
--- NOTE | 2021-08-19 17:36 | ONC FU_ITS ---
Dr. Briscoe follow up note Patient: Barb Easton Unit #: [id number]: 1970 Dicatated By: Heron Briscoe M.D.Date of Visit:Aug 19, 2021 Onc Med Follow-up/Prog Note History of Present Illness: Ms. Easton is a 51-year-old female with recently diagnosed colon cancer. Her tumor was in the hepatic flexure with invasion into the muscularis propria but with clear surgical margins and a positive lymphovascular invasion with 12 out of 18 lymph nodes positive for metastatic disease. She states that she has always had bowel problems . But it had gotten significantly worse over the last few months. She states she had been having episodes where she would get abdominal cramping at her bellybutton and lower abdomen which would last 2 to 3 days. She states that her bowels would move and she would have diarrhea. She states she had not had any blood in the stools. However in early December 2020 she presented to the emergency room with significantly worsening abdominal pain with nausea vomiting and at that time stated she had not had a normal bowel movement in about 2 weeks. She had not been passing any flatus. She states they had been several days since she even passed any flatus. She did take a laxative but that seemed to make things worse. She did have a CT in the ER and was found to have a colon obstruction with possible lesion at the hepatic flexure. She did have an NG tube placed and felt better overall. She was referred to Dr. Evans for further evaluation. She reported to him that she had a colonoscopy when she was in her 30s to evaluate her bowel problems . She had removal of 3 polyps at that time. She was in encouraged to have frequent colonoscopies but never followed up with that. She denies any family history of colon cancer. But states that she really does not know much about her family history either. She states that she thinks she might of been losing some weight at home but she does not been weighing herself as she had no scale at home but felt that her clothing was looser overall. Past medical history: she has a history of hypertension and diabetes but has not been taking her medication regularly. She had not have insurance coverage. She has a history of the abnormal colonoscopy approximately 20 years ago with removal of colon polyps. Ms. Jones underwent right hemicolectomy on 12/09/[address] Evans at [facility]. There was noted tumor at hepatic flexure with 3.5 cm in greatest diameter. Histological type was identified as adenocarcinoma with grade 2 moderately differentiated. There was tumor invasion into the muscularis propria but all margins are uninvolved by invasive carcinoma. There was 1218 lymph nodes involved. Her MLH1, MSH2, MSH6 and PMS2 reported intact nuclear expression. pTNM staging: [id number] per path report. Ms. Jones was first seen on January 05, 2021 for recommendations of plan of care. She was felt to be a candidate for adjuvant chemotherapy with FOLFOX or Cape ox but she chose to try FOLFOX. She had a Port-A-Cath placed into the right internal jugular vein on February 04, [address] Evans. She began her first cycle of FOLFOX on February 10, 2021.And completed adjuvant chemotherapy With FOLFOX x12 on August 02, 2021 She went to [facility] on May 11, 2021 with progressive pain and discomfort in right anterior thigh. As per patient she could see a prominent vein under her skin, denies any trauma to her anterior thigh, patient underwent venous Doppler study of right leg which shows no evidence of lower extremity DVT but superficial thrombus in the varicosity right anterior thigh, patient was given aspirin a day, with referral to cardiology for evaluation for peripheral vascular disease. Came for follow-up, denies any specific complaints, no fever chills, no nausea or vomiting, no diarrhea constipation, no abdominal pain, no jaundice, no peripheral numbness Medications: Adult Aspirin EC Low Strength 1 Tablet (of 81 mg) Tablet, enteric coated Oral daily, Farxiga 1 Tablet (of 10 mg) Oral daily, Losartan Potassium 1 Tablet (of 100 mg) Oral daily Allergies: No Known Allergies. Review of Systems: Review of Systems is not available for this patient. Vital Signs: Performed on Aug 19, 2021 16:46 Height - 67.00 in Weight - 218.6 lbs (LOW) BSA - 2.10 sq.m BMI - 34.24 (HIGH) Temperature - 97.0 F (LOW) Pulse - 66 /min Respiration - 18 /min BP - 164/106 mm(hg) (HIGH) O2 Sat - 99 % Pain - 3 Fatigue - 3 Performance Status: 0 - Fully active, able to carry on all predisease activities without restrictions. (ECOG) Physical Examination: Physical Exam-Comments is not available for this patient. Lab/Imaging: Test performed on Jun 22, 2021 08:43 Sodium 141 mmol/L Potassium 3.9 mmol/L Chloride 107 mmol/L CO2 25 mmol/L Anion Gap 12.9 BUN 6 mg/dL Creatinine 0.8 mg/dL Cr Clearance (Est) 130.6800 mL/min eGFR 75.0 mL/min Glucose 121 mg/dL Osmolality - Calculated 291 mOsm/kg Calcium 8.9 mg/dL Protein, Total 6.5 g/dL Albumin 3.6 g/dL Globulin 2.9 g/dL Bilirubin, Total 0.3 mg/dL ALT (SGPT) 11 U/L AST (SGOT) 13 U/L Alkaline Phosphatase 106 IU/L WBC 4.0 10 3/uL RBC 4.11 10 6/uL HGB 12.5 g/dL HCT 39.7 % MCV 96.6 fl MCH 30.4 pg MCHC 31.5 g/dL RDW 23.4 % Platelet Count 125 10 3/cmm MPV 10.6 fL Neutrophils 1.70 10 3/uL Lymphocytes 1.7 10 3/uL Monocytes 0.5 10 3/uL Eosinophils 0.2 10 3/uL Basophils 0.0 10 3/uL Neutrophil % 42.1 % Lymphocyte % 41.6 % Monocyte % 11.9 % Eosinophil % 3.7 % Basophils % 0.5 % NRBC % 0 % Test performed on Mar 09, 2021 09:09 NRBC 0.0 /100 WBC Test performed on Feb 23, 2021 12:20 Ferritin 24 ng/mL % Iron Saturation 5.3 % Iron, Total 21 mcg/dL TIBC 393 mcg/dL Manual Lymphocytes 31.4 % Manual Monocytes 8.3 % Impression: Moderately differentiated adenocarcinoma involving hepatic flexure, status post right hemicolectomy done on December 09, 2020, final pathology report confirmed moderately differentiated adenocarcinoma 3.5 cm in size with clear surgical margin, tumor invades muscularis propria, lymphovascular invasion seen,pT2, 12 out of 18 lymph node positive for metastatic disease, pN2b Status post adjuvant chemotherapy with FOLFOX completed on August 02, 2021 Hypertension, Diabetes Left hand lateral and ring finger numbness probably due to carpal tunnel as she has history of carpal tunnel surgery on her right hand in the past. Plan: Discussed with patient regarding her labs white blood count 7.6 hemoglobin 12.7 hematocrit 39.4 platelets 158,000 CMP within normal limits Clinically, patient doing well with no new signs symptom, she has completed recommended adjuvant chemotherapy with FOLFOX, now recovering well and her follow-up lab work-up is within normal range, so we will see her back in 3 months with CBC CMP and CEA, at that time we will refer her to Dr. Evans for follow-up yearly colonoscopy which is due in December 2020. In the meantime she will continue monthly port maintenance Signed By: Heron Briscoe M.D. <<Signature on File>>
[2021-08-25 19:57] LABS: Methylmalonic Acid 348 nmol/L (87-318)
== END 2021-09-03 23:59 | disposition home or self-care (01) ==
LOC: ONCMED 06:17
PROVIDERS: Specialist; PCP Nurse Practitioner Family; Visit Provider Internal Medicine Hematology & Oncology
DX: Z08 Encounter for follow-up examination after completed treatment for malignant neoplasm (principal); Z85.038 Personal history of other malignant neoplasm of large intestine; I10 Essential (primary) hypertension; E11.9 Type 2 diabetes mellitus without complications; R20.0 Anesthesia of skin; Z87.39 Personal history of other diseases of the musculoskeletal system and connective tissue; Z92.21 Personal history of antineoplastic chemotherapy; Z79.899 Other long term (current) drug therapy
CPT/HCPCS: 36591; 80053; 82607; 82746; 83921; 84443; 85025; 85651; 86140; 86334; 86431; 96372; 96523; 99214; Q5120

== ENCOUNTER 2021-09-20 14:23 | Outpatient (RCR) | payer MEDICAID, SELFPAY | END 2021-10-04 23:59 | disposition home or self-care (01) | LOC: ONCMED 14:23 | PROVIDERS: PCP Nurse Practitioner Family; Visit Provider Internal Medicine Hematology & Oncology | DX: Z45.2 Encounter for adjustment and management of vascular access device (principal) | CPT/HCPCS: 96523 ==

== ENCOUNTER → 2021-10-18 12:39 | Outpatient (BNVA) | payer MEDICAID, SELFPAY | PROVIDERS: PCP Nurse Practitioner Family; Visit Provider Specialist | DX: G56.03 Carpal tunnel syndrome, bilateral upper limbs (principal); G56.23 Lesion of ulnar nerve, bilateral upper limbs; G62.89 Other specified polyneuropathies; F17.210 Nicotine dependence, cigarettes, uncomplicated | CPT/HCPCS: 95913 ==

== ENCOUNTER 2021-10-21 13:08 | Outpatient (RCR) | payer MEDICAID, SELFPAY | END 2021-11-01 23:59 | disposition home or self-care (01) | LOC: ONCMED 13:08 | PROVIDERS: PCP Nurse Practitioner Family; Visit Provider Internal Medicine Hematology & Oncology | DX: Z45.2 Encounter for adjustment and management of vascular access device (principal) | CPT/HCPCS: 96523 ==

== ENCOUNTER 2021-11-17 11:54 | Outpatient (RCR) | payer MEDICAID, SELFPAY ==
[2021-11-17 12:29] LABS: Basophils % 0.7 %; Eosinophils # 0.2 10^3/uL (0.0-0.8); Hematocrit 41.4 % (37.0-47.0); Hemoglobin 13.4 g/dL (11.5-15.3); Lymphocytes # 1.9 10^3/uL (0.8-4.8); Lymphocytes % 32.4 %; Mean Corpuscular HGB Conc 32.4 g/dL (30.0-36.0); Mean Corpuscular Hemoglobin 31.1 pg (28.0-34.0); Mean Corpuscular Volume 96.1 fl (81-99); Mean Platelet Volume 10.2 fL (7.4-10.4); Monocytes # 0.4 10^3/uL (0.2-0.9); Monocytes % 6.2 %; Neutrophils # 3.42 10^3/uL (1.8-7.7); Nucleated Red Blood Cells % 0 %; Platelet Count 187 10^3/cmm (130-400); Red Blood Count 4.31 10^6/uL (4.1-5.3); Red Cell Distribution Width 12.5 % (12.1-15.1)
[2021-11-17 12:59] LABS: Carcinoembryonic Antigen 4.4 ng/mL (0.0-4.7)
[2021-11-17 13:10] LABS: Alanine Aminotransferase 8 U/L (0-33); Albumin Level 3.9 g/dL (3.5-5.2); Alkaline Phosphatase 88 IU/L (35-105); Anion Gap 12.6 (5-19); Aspartate Amino Transferase 10 U/L (0-32); Blood Urea Nitrogen 9 mg/dL (6-20); Carbon Dioxide 26 mmol/L (22-29); Chloride 102 mmol/L (98-107); Globulin 2.7 g/dL (1.3-4.6); Glucose 185 mg/dL (65-115); Osmolality Calculated 287 mOsm/kg (285-295); Potassium 3.6 mmol/L (3.5-5.1); Sodium 137 mmol/L (136-145); Total Bilirubin 0.3 mg/dL (0.15-1.2); Total Protein 6.6 g/dL (6.6-8.7)
--- NOTE | 2021-11-17 17:05 | ONC FU_ITS ---
Dr. Briscoe follow up note Patient: Barb Easton Unit #: [id number]: 1970 Dicatated By: Heron Briscoe M.D.Date of Visit:Nov 17, 2021 Onc Med Follow-up/Prog Note History of Present Illness: Ms. Easton is a 51-year-old female with recently diagnosed colon cancer. Her tumor was in the hepatic flexure with invasion into the muscularis propria but with clear surgical margins and a positive lymphovascular invasion with 12 out of 18 lymph nodes positive for metastatic disease. She states that she has always had bowel problems . But it had gotten significantly worse over the last few months. She states she had been having episodes where she would get abdominal cramping at her bellybutton and lower abdomen which would last 2 to 3 days. She states that her bowels would move and she would have diarrhea. She states she had not had any blood in the stools. However in early December 2020 she presented to the emergency room with significantly worsening abdominal pain with nausea vomiting and at that time stated she had not had a normal bowel movement in about 2 weeks. She had not been passing any flatus. She states they had been several days since she even passed any flatus. She did take a laxative but that seemed to make things worse. She did have a CT in the ER and was found to have a colon obstruction with possible lesion at the hepatic flexure. She did have an NG tube placed and felt better overall. She was referred to Dr. Evans for further evaluation. She reported to him that she had a colonoscopy when she was in her 30s to evaluate her bowel problems . She had removal of 3 polyps at that time. She was in encouraged to have frequent colonoscopies but never followed up with that. She denies any family history of colon cancer. But states that she really does not know much about her family history either. She states that she thinks she might of been losing some weight at home but she does not been weighing herself as she had no scale at home but felt that her clothing was looser overall. Past medical history: she has a history of hypertension and diabetes but has not been taking her medication regularly. She had not have insurance coverage. She has a history of the abnormal colonoscopy approximately 20 years ago with removal of colon polyps. Ms. Jones underwent right hemicolectomy on 12/09/[address] Evans at [facility]. There was noted tumor at hepatic flexure with 3.5 cm in greatest diameter. Histological type was identified as adenocarcinoma with grade 2 moderately differentiated. There was tumor invasion into the muscularis propria but all margins are uninvolved by invasive carcinoma. There was 1218 lymph nodes involved. Her MLH1, MSH2, MSH6 and PMS2 reported intact nuclear expression. pTNM staging: [id number] per path report. Ms. Jones was first seen on January 05, 2021 for recommendations of plan of care. She was felt to be a candidate for adjuvant chemotherapy with FOLFOX or Cape ox but she chose to try FOLFOX. She had a Port-A-Cath placed into the right internal jugular vein on February 04, [address] Evans. She began her first cycle of FOLFOX on February 10, 2021.And completed adjuvant chemotherapy With FOLFOX x12 on August 02, 2021 She went to [facility] on May 11, 2021 with progressive pain and discomfort in right anterior thigh. As per patient she could see a prominent vein under her skin, denies any trauma to her anterior thigh, patient underwent venous Doppler study of right leg which shows no evidence of lower extremity DVT but superficial thrombus in the varicosity right anterior thigh, patient was given aspirin a day, with referral to cardiology for evaluation for peripheral vascular disease. Came for follow-up, denies any specific complaints, no fever chills, no nausea or vomiting, no diarrhea or constipation, patient has persistent peripheral numbness but can Unbutton or button her shirt As per patient she has seen Dr. Wyman and recently underwent nerve conduction study for peripheral neuropathy and awaiting the results. Also has history of chronic back pain which is being managed by PMD. Denies any melena or hematochezia denies any hemoptysis or hematemesis denies any jaundice, Medications: Adult Aspirin EC Low Strength 1 Tablet (of 81 mg) Tablet, enteric coated Oral daily, Farxiga 1 Tablet (of 10 mg) Oral daily, Losartan Potassium 1 Tablet (of 100 mg) Oral daily, Organic CBD Hemp 1 Tablet daily Allergies: No Known Allergies. Review of Systems: Review of Systems is not available for this patient. Vital Signs: Performed on Nov 17, 2021 14:03 Height - 67.00 in BP - 174/105 mm(hg) (HIGH) Performed on Nov 17, 2021 14:02 Height - 67.00 in Weight - 232.0 lbs (HIGH) BSA - 2.15 sq.m BMI - 36.34 (HIGH) Temperature - 98.1 F (LOW) Pulse - 76 /min Respiration - 16 /min BP - 191/109 mm(hg) (HIGH) O2 Sat - 98 % Pain - 4 Fatigue - 4 Performance Status: 0 - Fully active, able to carry on all predisease activities without restrictions. (ECOG) Physical Examination: ENMT - No mouth sores, no thrush, no jaundice, Respiratory - Lungs are clear to auscultation, Cardiovascular - Regular rate and rhythm of heart, Abdomen - Soft, bowel sounds present, Extremities - No visible edema. Lab/Imaging: Test performed on Jun 22, 2021 08:43 Sodium 141 mmol/L Potassium 3.9 mmol/L Chloride 107 mmol/L CO2 25 mmol/L Anion Gap 12.9 BUN 6 mg/dL Creatinine 0.8 mg/dL Cr Clearance (Est) 130.6800 mL/min eGFR 75.0 mL/min Glucose 121 mg/dL Osmolality - Calculated 291 mOsm/kg Calcium 8.9 mg/dL Protein, Total 6.5 g/dL Albumin 3.6 g/dL Globulin 2.9 g/dL Bilirubin, Total 0.3 mg/dL ALT (SGPT) 11 U/L AST (SGOT) 13 U/L Alkaline Phosphatase 106 IU/L WBC 4.0 10 3/uL RBC 4.11 10 6/uL HGB 12.5 g/dL HCT 39.7 % MCV 96.6 fl MCH 30.4 pg MCHC 31.5 g/dL RDW 23.4 % Platelet Count 125 10 3/cmm MPV 10.6 fL Neutrophils 1.70 10 3/uL Lymphocytes 1.7 10 3/uL Monocytes 0.5 10 3/uL Eosinophils 0.2 10 3/uL Basophils 0.0 10 3/uL Neutrophil % 42.1 % Lymphocyte % 41.6 % Monocyte % 11.9 % Eosinophil % 3.7 % Basophils % 0.5 % NRBC % 0 % Impression: Moderately differentiated adenocarcinoma involving hepatic flexure, status post right hemicolectomy done on December 09, 2020, final pathology report confirmed moderately differentiated adenocarcinoma 3.5 cm in size with clear surgical margin, tumor invades muscularis propria, lymphovascular invasion seen,pT2, 12 out of 18 lymph node positive for metastatic disease, pN2b Status post adjuvant chemotherapy with FOLFOX completed on August 02, 2021 Hypertension, Diabetes Left hand lateral and ring finger numbness probably due to carpal tunnel as she has history of carpal tunnel surgery on her right hand in the past. Plan: Discussed with patient regarding her labs white blood count 6 hemoglobin 13.4 hematocrit 41.4 platelets 287,000 CMP within normal limit except glucose 135 CEA is 4.4 Clinically, patient doing well with no new signs suggestive of recurrence of disease her lab work-up including tumor marker CEA is within normal range. We will request Dr. Evans to consider yearly follow-up colonoscopy As far as, peripheral neuropathy is concerned, patient being followed by Dr. Wyman and she is scheduled to see her on November 30, 2021 Return to clinic in 3 months with CBC CMP and CEA and patient wants port removal, she will discuss with Dr. Evans. Signed By: Heron Briscoe M.D. <<Signature on File>>
== END 2021-12-02 23:59 | disposition home or self-care (01) ==
LOC: ONCMED 11:54
PROVIDERS: PCP Nurse Practitioner Family; Visit Provider Internal Medicine Hematology & Oncology
DX: C18.3 Malignant neoplasm of hepatic flexure (principal); C77.8 Secondary and unspecified malignant neoplasm of lymph nodes of multiple regions; I10 Essential (primary) hypertension; E11.9 Type 2 diabetes mellitus without complications; G56.03 Carpal tunnel syndrome, bilateral upper limbs; Z79.899 Other long term (current) drug therapy; Z92.21 Personal history of antineoplastic chemotherapy
CPT/HCPCS: 36591; 80053; 82378; 85025; 99215

== ENCOUNTER → 2021-11-30 11:55 | Outpatient (BNVA) | payer MEDICAID, SELFPAY | PROVIDERS: PCP Nurse Practitioner Family; Visit Provider Specialist | DX: E11.42 Type 2 diabetes mellitus with diabetic polyneuropathy (principal); G56.20 Lesion of ulnar nerve, unspecified upper limb; G56.03 Carpal tunnel syndrome, bilateral upper limbs; G43.711 Chronic migraine without aura, intractable, with status migrainosus; J41.0 Simple chronic bronchitis; F17.210 Nicotine dependence, cigarettes, uncomplicated | CPT/HCPCS: 36415; 83036; 99214; 99215 ==

== ENCOUNTER → 2022-01-24 15:00 | Outpatient (BNVA) | payer MEDICAID, SELFPAY | PROVIDERS: PCP Nurse Practitioner Family; Referring Provider Specialist; Visit Provider Specialist | DX: G56.03 Carpal tunnel syndrome, bilateral upper limbs (principal); Q74.0 Other congenital malformations of upper limb(s), including shoulder girdle | CPT/HCPCS: 73110; 99204 ==

== ENCOUNTER 2022-03-02 13:58 | Outpatient (CLI) | payer MEDICAID, SELFPAY ==
--- NOTE | 2022-03-02 14:30 | MR_ITS ---
WS: [id number] MR OF THE RIGHT HAND WITHOUT AND WITH GADOLINIUM ENHANCEMENT. INDICATION: TECHNIQUE: Axial T1, coronal T1, coronal STIR, sagittal T2, coronal FSPGR, axial T2, axial T1, james l T1, sagittal T1 postgadolinium imaging with fat saturation technique FINDINGS: Marker in the area of palpable concern. T1 hyperintense lobulated soft tissue mass deep to the area of palpable concern along the thenar eminence measuring 6.3 x 3.7 x 2.1 cm no abnormal gadol inium enhancement. This demonstrates signal dropout on the fat saturation images compatible with soft tissue lipoma. Lipoma extends distally and invaginates between the 2nd 3rd metatarsal heads extendin g to the level of the proximal 2nd and 3rd phalanges. Associated localized mass effect. Normal scapho id and lunate. Normal scapholunate interval. Francy subchondral cystic change involving the proximal a nd distal carpal row. MR/MR hand RT wo/w con [id number] IMPRESSION: 1. Deep to the area of palpable concern is a lobulated fat signal lipoma with no significant gadolinium enhancement. This measures approximately 6.3 x 3.7 x 2.1 cm AP by transverse by craniocaudal and invaginates distally to the level o f the 2nd and 3rd MTP joints and proximal 2nd and 3rd phalanges. 2. No other significant findings.
[2022-03-02] MEDS: gadobenate dimeglumine 5 mL vial IV (15:13)
== END 2022-03-02 13:59 | disposition home or self-care (01) ==
LOC: RAD 14:00
PROVIDERS: PCP Nurse Practitioner Family; Visit Provider Specialist
DX: G56.03 Carpal tunnel syndrome, bilateral upper limbs (principal); D17.79 Benign lipomatous neoplasm of other sites
CPT/HCPCS: 73220

== ENCOUNTER → 2022-03-30 10:31 | Outpatient (BNVA) | payer MEDICAID, SELFPAY | PROVIDERS: PCP Nurse Practitioner Family; Visit Provider Specialist | DX: D17.21 Benign lipomatous neoplasm of skin and subcutaneous tissue of right arm (principal); D17.9 Benign lipomatous neoplasm, unspecified | CPT/HCPCS: 99213 ==

== ENCOUNTER 2022-05-03 12:08 | Oncology outpatient (recurring) (ONCR) | payer MEDICAID, SELFPAY ==
[2022-05-03 12:32] LABS: Basophils # 0.1 10^3/uL (0.0-0.1); Basophils % 0.7 %; Eosinophils # 0.3 10^3/uL (0.0-0.8); Eosinophils % 3.6 %; Hematocrit 44.2 % (37.0-47.0); Hemoglobin 14.3 g/dL (11.5-15.3); Lymphocytes # 2.3 10^3/uL (0.8-4.8); Lymphocytes % 30.4 %; Mean Corpuscular HGB Conc 32.4 g/dL (30.0-36.0); Mean Corpuscular Hemoglobin 30.1 pg (28.0-34.0); Mean Corpuscular Volume 93.1 fl (81-99); Mean Platelet Volume 10.3 fL (7.4-10.4); Monocytes # 0.4 10^3/uL (0.2-0.9); Monocytes % 5.2 %; Neutrophils # 4.48 10^3/uL (1.8-7.7); Neutrophils % 59.3 %; Nucleated Red Blood Cells % 0 %; Platelet Count 220 10^3/cmm (130-400); Red Blood Count 4.75 10^6/uL (4.1-5.3); Red Cell Distribution Width 13.3 % (12.1-15.1); White Blood Count 7.5 10^3/uL (4.0-10.0)
[2022-05-03 12:57] LABS: Carcinoembryonic Antigen 5.3 ng/mL (0.0-4.7)
[2022-05-03 13:13] LABS: Alanine Aminotransferase 7 U/L (0-33); Albumin Level 3.5 g/dL (3.5-5.2); Alkaline Phosphatase 88 U/L (35-105); Anion Gap 13.4 (5-19); Aspartate Amino Transferase 9 U/L (0-32); Blood Urea Nitrogen 9 mg/dL (6-20); Calcium 8.9 mg/dL (8.5-10.5); Carbon Dioxide 28 mmol/L (22-29); Chloride 100 mmol/L (98-107); Globulin 2.9 g/dL (1.3-4.6); Glomerular Filtration Rate 65.5 mL/min (90-130); Glucose 222 mg/dL (65-115); Osmolality Calculated 292 mOsm/kg (285-295); Potassium 3.4 mmol/L (3.5-5.1); Sodium 138 mmol/L (136-145); Total Bilirubin 0.3 mg/dL (0.15-1.2); Total Protein 6.4 g/dL (6.6-8.7)
== END 2022-05-04 23:59 | disposition home or self-care (01) ==
PROVIDERS: Nurse Practitioner; PCP Nurse Practitioner Family; Visit Provider Internal Medicine Hematology & Oncology
DX: C18.3 Malignant neoplasm of hepatic flexure (principal); E87.6 Hypokalemia; Z79.899 Other long term (current) drug therapy; F17.210 Nicotine dependence, cigarettes, uncomplicated; Z92.21 Personal history of antineoplastic chemotherapy
CPT/HCPCS: 36415; 80053; 82378; 85025; 99214

== ENCOUNTER 2023-01-03 11:11 | Oncology outpatient (recurring) (ONCR) | payer MEDICAID, SELFPAY ==
[2023-01-03 11:50] LABS: Basophils # 0.1 10^3/uL (0.0-0.1); Basophils % 0.6 %; Eosinophils # 0.3 10^3/uL (0.0-0.8); Eosinophils % 2.8 %; Hematocrit 46.6 % (37.0-47.0); Hemoglobin 15.1 g/dL (11.5-15.3); Lymphocytes # 2.5 10^3/uL (0.8-4.8); Lymphocytes % 25.7 %; Mean Corpuscular HGB Conc 32.4 g/dL (30.0-36.0); Mean Corpuscular Hemoglobin 29.4 pg (28.0-34.0); Mean Corpuscular Volume 90.7 fl (81-99); Mean Platelet Volume 10.3 fL (7.4-10.4); Monocytes # 0.5 10^3/uL (0.2-0.9); Monocytes % 5.2 %; Neutrophils # 6.18 10^3/uL (1.8-7.7); Neutrophils % 64.9 %; Nucleated Red Blood Cells % 0 %; Platelet Count 237 10^3/cmm (130-400); Red Blood Count 5.14 10^6/uL (4.1-5.3); Red Cell Distribution Width 13.6 % (12.1-15.1); White Blood Count 9.5 10^3/uL (4.0-10.0)
[2023-01-03 12:21] LABS: Carcinoembryonic Antigen 4.5 ng/mL (0.0-4.7)
[2023-01-03 12:42] LABS: Alanine Aminotransferase 7 U/L (0-33); Albumin Level 3.8 g/dL (3.5-5.2); Alkaline Phosphatase 123 U/L (35-105); Anion Gap 14.7 (5-19); Aspartate Amino Transferase 9 U/L (0-32); Blood Urea Nitrogen 8 mg/dL (6-20); Calcium 9.2 mg/dL (8.5-10.5); Carbon Dioxide 29 mmol/L (22-29); Chloride 97 mmol/L (98-107); Globulin 3.3 g/dL (1.3-4.6); Glomerular Filtration Rate 74.7 mL/min (90-130); Glucose 196 mg/dL (65-115); Osmolality Calculated 288 mOsm/kg (285-295); Potassium 3.7 mmol/L (3.5-5.1); Sodium 137 mmol/L (136-145); Total Bilirubin 0.3 mg/dL (0.15-1.2); Total Protein 7.1 g/dL (6.6-8.7)
== END 2023-02-01 23:59 | disposition home or self-care (01) ==
PROVIDERS: PCP Nurse Practitioner Family; Visit Provider Internal Medicine Hematology & Oncology
DX: Z08 Encounter for follow-up examination after completed treatment for malignant neoplasm (principal); Z85.038 Personal history of other malignant neoplasm of large intestine; E87.6 Hypokalemia; I10 Essential (primary) hypertension; R32 Unspecified urinary incontinence; Z79.899 Other long term (current) drug therapy; F32.9 Major depressive disorder, single episode, unspecified; Z90.49 Acquired absence of other specified parts of digestive tract; Z92.21 Personal history of antineoplastic chemotherapy; F17.210 Nicotine dependence, cigarettes, uncomplicated
CPT/HCPCS: 36415; 80053; 82378; 85025; 99214

== ENCOUNTER → 2023-01-11 10:01 | Outpatient (BNVA) | payer MEDICAID, SELFPAY | PROVIDERS: PCP Nurse Practitioner Family; Visit Provider Nurse Practitioner Family | DX: E11.65 Type 2 diabetes mellitus with hyperglycemia (principal); D17.20 Benign lipomatous neoplasm of skin and subcutaneous tissue of unspecified limb; I83.93 Asymptomatic varicose veins of bilateral lower extremities | CPT/HCPCS: 80061; 83036; 84443 ==

== ENCOUNTER 2023-01-27 13:04 | Outpatient (CLI) | payer MEDICAID, SELFPAY ==
--- NOTE | 2023-06-19 09:43 | XRR_ITS ---
PROCEDURE INFORMATION: Exam: XR Lumbosacral Spine Exam date and time: 06/19/2023 9:46 AM Age: 53 years old Clinical indication: Injury or trauma; Fall; Blunt trauma (contusions or hematomas); Injury date: 6 months ago; Injury details: Patient fell 6 months and is having lower back pain and left hip pain; Patient HX: HX of colon cancer; Additional info: Vertebrogenic low back pain TECHNIQUE: Imaging protocol: Radiologic exam of the lumbosacral spine. Views: 2 or 3 views. COMPARISON: CT abdomen pelvis w con* [id number] 12/07/2020 2:28 AM FINDINGS: Bones/joints: Lateral neutral, flexion and extension views show no evidence of acute fracture or malalignment. Mild intervertebral disc space narrowing and osteophyte formation at L5-S1. Remaining intervertebral disc spaces are preserved with mild osteophyte formation. Soft tissues: Unremarkable. Vasculature: Aortoiliac atherosclerotic calcification. XR/XR lumbar spine f/e only [id number] IMPRESSION: 1. No acute findings. 2. Mild multilevel lumbar spine degenerative changes greatest at L5-S1. No abnormal translation.
== END 2023-06-19 09:37 | disposition home or self-care (01) ==
LOC: ER 13:14 → LAB 06-19 09:37
PROVIDERS: Emergency Provider Family Medicine; PCP Nurse Practitioner Family; Visit Provider Nurse Practitioner Family
DX: M54.51 Vertebrogenic low back pain (principal); M47.817 Spondylosis without myelopathy or radiculopathy, lumbosacral region
CPT/HCPCS: 72120

== ENCOUNTER → 2023-01-31 09:12 | Outpatient (BNVA) | payer MEDICAID, SELFPAY | PROVIDERS: PCP Nurse Practitioner Family; Visit Provider Nurse Practitioner Family | DX: M25.552 Pain in left hip (principal) | CPT/HCPCS: 73502 ==

== ENCOUNTER 2023-01-31 11:08 | Outpatient (CLI) | payer MEDICAID, SELFPAY ==
--- NOTE | 2023-01-31 11:40 | XR_ITS ---
WS: [id number] Exam: XR ribs BI 3V* [id number] Date/Time of Exam: 01/31/2023 11:56 AM Reason For Exam: M54.9 - Dorsalgia, unspecified No acute rib fracture noted. The lungs are clear and fully inflated. Normal cardiomediastinal silhoue tte. No pleural effusions. XR/XR ribs BI 3V* [id number] IMPRESSION: 1. No sign of acute rib fracture or pneumothorax. No acute cardiopulmonary find ing.
--- NOTE | 2023-01-31 11:40 | XR_ITS ---
WS: [id number] Exam: XR thoracic spine 3V* [id number] Date/Time of Exam: 01/31/2023 11:56 AM Reason For Exam: M54.9 - Dorsalgia, unspecified No acute fracture or dislocation. There is spondylosis. Paraspinal soft tissues are unremarkable. XR/XR thoracic spine 3V* [id number] IMPRESSION: 1. Spondylosis and degenerative changes. No fracture or malalignment.
== END 2023-01-31 11:09 | disposition home or self-care (01) ==
PROVIDERS: PCP Nurse Practitioner Family; Visit Provider Nurse Practitioner Family
DX: M54.9 Dorsalgia, unspecified (principal); M47.814 Spondylosis without myelopathy or radiculopathy, thoracic region
CPT/HCPCS: 71110; 72072

== ENCOUNTER → 2023-02-02 12:49 | Outpatient (BNVA) | payer MEDICAID, SELFPAY | PROVIDERS: PCP Nurse Practitioner Family; Visit Provider Thoracic Surgery (Cardiothoracic Vascular Surgery) | DX: I73.9 Peripheral vascular disease, unspecified (principal); I83.813 Varicose veins of bilateral lower extremities with pain; F17.210 Nicotine dependence, cigarettes, uncomplicated | CPT/HCPCS: 99203 ==

== ENCOUNTER 2023-02-20 09:14 | Outpatient (CLI) | payer MEDICAID, SELFPAY ==
--- NOTE | 2023-02-20 09:30 | USCV_ITS ---
Barb Easton Age: 52 Gender: F : 1970 Exam Date: 02/20/2023 09:52 Ordering Phys: Chuck Pagan MD (Andy) ([email or web address]) Technologist: Pillo Dela Cruz Exam Location: [facility] [place] Indication: HISTORY: PROCEDURES: Bilateral duplex Venous Insufficiency study of the Deep and Superficial systems was carried out according to normal protocol with the patient in supine positon for deep system and dependent position for the superficial system. FINDINGS: All deep veins demonstrated compressibility without evidence of intraluminal thrombus or increased echogenicity. Spectral analysis of Doppler signals demonstrates normal response to compression maneuvers indicating patency without obstruction. Reflux determinations were made with the patient in the dependent position, the weight being on the contralateral leg. Vein measurements and reflux times are listed below were applicable. No notable reflux was seen at this time. CONCLUSIONS No evidence of DVT in the above-mentioned identifiable veins. No significant venous reflux noted either in the deep or superficial veins bilaterally Dr Sumi Grayson MD [facility] (Electronically Signed) Final Date: 02 March 2023 17:18 S
== END 2023-02-20 09:15 | disposition home or self-care (01) ==
PROVIDERS: PCP Nurse Practitioner Family; Visit Provider Thoracic Surgery (Cardiothoracic Vascular Surgery)
DX: I83.813 Varicose veins of bilateral lower extremities with pain (principal)
CPT/HCPCS: 93970

== ENCOUNTER 2023-02-27 08:57 | Outpatient (CLI) | payer MEDICAID, SELFPAY ==
--- NOTE | 2023-02-27 09:15 | USCV_ITS ---
Barb Easton Age: 52 Gender: F : 1970 Exam Date: 02/27/2023 09:24 Ordering Phys: Chuck Pagan MD (Andy) ([email or web address] Technologist: CT Exam Location: [facility] [place] Indication: claudication Risk Factors: Previous Vascular Surgery: RIGHT LEFT BP: 165.0 / 80.00 BP: 166.0/ 78.00 0 0 Waveform Velocity (cm/s) Velocity (cm/s) Waveform Triphasic 80.4 Iliac Prox 89.9 Triphasic Triphasic 74.1 Iliac Mid 74.2 Triphasic Triphasic 67.8 Iliac Distal 83.9 Triphasic Triphasic 72.4 CATTLE BROKER 76.6 Triphasic Biphasic 61.2 SFA Prox 90.8 Triphasic N/A 0.0 SFA Mid 88.0 Triphasic Monophasic 36.6 SFA Dist 101.3 Triphasic Monophasic 30.2 POP 59.5 Triphasic Monophasic 25.4 TOP DYEING M[employer]ER 64.8 Triphasic Monophasic 17.5 DPA 55.4 Triphasic 0.7 BENNETT 1.0 FINDINGS Mild to moderate diffuse plaque in the iliac and femoral artery on the right side No Doppler flow signals in the mid SFA on the right side Low velocity monophasic waveforms in the distal SFA, popliteal and infrapopliteal vessels on the right side Normal Doppler waveforms and velocities on the left side. Resting BENNETT of 0.7 on the right and 1.0 on the left. CONCLUSIONS 1. Possible total occlusion of the mid superficial femoral artery on the right side with an abnormal resting BENNETT of 0.7. Patent popliteal and infrapopliteal vessels 2. Normal resting BENNETT on the left side within normal Doppler flow velocities and waveforms, suggesting no significant arterial obstruction. Compared to the study from 05/11/2021, currently the mid superficial femoral artery appears to be totally occluded. Dr Sumi Grayson MD [facility] (Electronically Signed) Final Date: 03 March 2023 08:59 S
== END 2023-02-27 08:58 | disposition home or self-care (01) ==
PROVIDERS: PCP Nurse Practitioner Family; Visit Provider Thoracic Surgery (Cardiothoracic Vascular Surgery)
DX: I77.1 Stricture of artery (principal); M79.606 Pain in leg, unspecified
CPT/HCPCS: 93925

== ENCOUNTER → 2023-03-01 14:09 | Outpatient (BNVA) | payer MEDICAID, SELFPAY | PROVIDERS: PCP Nurse Practitioner Family; Visit Provider Internal Medicine | DX: R07.9 Chest pain, unspecified (principal); E11.65 Type 2 diabetes mellitus with hyperglycemia; I10 Essential (primary) hypertension; F17.210 Nicotine dependence, cigarettes, uncomplicated; R94.31 Abnormal electrocardiogram [ECG] [EKG] | CPT/HCPCS: 93005; 99204 ==

== ENCOUNTER 2023-03-27 09:36 | Outpatient (CLI) | payer MEDICAID, SELFPAY ==
--- NOTE | 2023-03-27 10:00 | USCV_ITS ---
Barb Easton Age: 52 Gender: F : 1970 Exam Date: 03/27/2023 10:06 Ordering Phys: Kalpesh Duran M.D ([email or web address]) Technologist: Cam Landers Exam Location: [facility] [place] Indication: chest pain BP: 164 / 82 HR: 63 Rhythm: Sinus Technical Quality: Adequate MEASUREMENTS (Male / Female) Normal Values 2D ECHO LVOT Diameter 2.0 cm LV Ejection Fraction MOD 2C 63.0 % LV Ejection Fraction 2C AL 62.9 % LA Diameter 3.2 cm LA Width 3.9 cm LA Height 4.5 cm RA Width 3.0 cm RA Height 4.4 cm Aorta at Sinotubular Diameter 2.1 cm IVC Diameter 1.9 cm M-MODE Aortic Annulus Diameter 2.3 cm LA Ao Ratio MM 1.5 MV E Point Septal Separation 0.7 cm DOPPLER AV Peak Velocity 175.7 cm/s LVOT Peak Velocity 115.0 cm/s AV Area Cont Eq vti 2.4 cm squared AV Area Cont Eq pk 2.1 cm squared MV Peak Velocity 94.0 cm/s MV Area PHT 4.1 cm squared Mitral E to A Ratio 0.9 MV E' Velocity 40.5 cm/s Mitral E to MV E' Ratio 10.7 Mitral E to LV E' Lateral Ratio 10.4 Mitral E to LV E' Septal Ratio 11.0 TR Peak Velocity 474.8 cm/s TR Peak Gradient 90.2 mmHg TR Mean Velocity 420.9 cm/s TR Mean Gradient 69.8 mmHg TR Velocity Time Integral 135.1 cm Right Atrial Pressure 3.0 mmHg Pulmonary Artery Systolic Pressu 93.2 mmHg PV Peak Velocity 116.7 cm/s RV Acceleration Time 0.1 s RV Ejection Time 0.3 s RV AcT/ET 0.3 FINDINGS Left Ventricle Left ventricle is normal in size. LV systolic function is normal with EF of 60 to 65%. No regional wall motion abnormalities are seen. Grade 1 diastolic dysfunction Right Ventricle Normal in size and function Right Atrium Normal in size Left Atrium Normal in size Mitral Valve Structurally normal mitral valve. Trace mitral regurgitation. Aortic Valve Structurally normal aortic valve. No significant stenosis or regurgitation seen.. Trace aortic regurgitation Tricuspid Valve Mild tricuspid regurgitation. Insufficient TR jet to calculate RVSP Pulmonic Valve Not well-visualized Pericardium Normal Aorta Normal in size IVC Appears to be normal CONCLUSIONS LV systolic function is normal with EF of 60 to 65%. Grade 1 diastolic dysfunction. Trace mitral regurgitation. Trace aortic regurgitation Mild tricuspid regurgitation. No comparison studies are available. Kalpesh Duran MD (Electronically Signed) Final Date: 08 April 2023 11:57 S
== END 2023-03-27 09:37 | disposition home or self-care (01) ==
PROVIDERS: PCP Nurse Practitioner Family; Visit Provider Internal Medicine
DX: R07.9 Chest pain, unspecified (principal); I07.1 Rheumatic tricuspid insufficiency
CPT/HCPCS: 93306

== ENCOUNTER 2023-04-05 07:39 | Outpatient (CLI) | payer MEDICAID, SELFPAY ==
--- NOTE | 2023-04-05 08:00 | CTR_ITS ---
PROCEDURE INFORMATION: Exam: CTA Abdominal Aorta and Bilateral Lower Extremities (Run-off) With Contrast Exam date and time: 04/05/2023 8:05 AM Age: 52 years old Clinical indication: Condition or disease; Peripheral vascular disease; Prior surgery; Surgery date: 6+ months; Surgery type: Colon, hyst, gb, appy; Patient HX: HX of colon cancer; Additional info: Pvd TECHNIQUE: Imaging protocol: Computed tomographic angiography of the of the abdominal aorta, pelvis and bilateral lower extremities with contrast. 3D rendering (Not supervised by radiologist): MIP and/or 3D reconstructed images were created by the technologist. Radiation optimization: All CT scans at this facility use at least one of these dose optimization techniques: automated exposure control; mA and/or kV adjustment per patient size (includes targeted exams where dose is matched to clinical indication); or iterative reconstruction. Contrast material: OMNI 350; Contrast volume: 100 ml; Contrast route: INTRAVENOUS (IV); REPORTING DATA: Count of CT and Cardiac NM exams in prior 12 months: This patient has received 0 known CTs and 0 known cardiac nuclear medicine studies in the 12 months prior to the current study. COMPARISON: CT abdomen pelvis w con* [id number] 12/07/2020 2:28 AM RADIATION DOSE METRICS: Total DLP (mGy-cm): 1454.52 FINDINGS: Aorta: No aortic aneurysm. No aortic dissection. Celiac trunk and mesenteric arteries: No occlusion or significant stenosis. Renal arteries: No occlusion or significant stenosis. Right iliac arteries: No occlusion or significant stenosis. Right femoral/popliteal arteries: Severe multifocal stenosis of right distal femoral and popliteal artery. Right infrapopliteal arteries: No occlusion or significant stenosis. Left iliac arteries: No occlusion or significant stenosis. Left femoral/popliteal arteries: Mild multifocal stenosis of left femoral and popliteal artery. Left infrapopliteal arteries: No occlusion or significant stenosis. Other arteries: Mild to moderate multifocal stenosis of right below knee arteries. One-vessel runoff. Mild to moderate multifocal stenosis of left below knee arteries. One-vessel runoff. Liver: No mass. Gallbladder and bile ducts: Unremarkable. No calcified stones. No ductal dilation. Pancreas: Unremarkable. No mass. No ductal dilation. Spleen: Normal. No splenomegaly. Adrenal glands: Normal. No mass. Kidneys and ureters: Normal. No mass. Stomach and bowel: Unremarkable. No obstruction. No mucosal thickening. Appendix: No evidence of appendicitis. Urinary bladder: Unremarkable. No mass. Reproductive: Unremarkable as visualized. Intraperitoneal space: Unremarkable. No free air. No significant fluid collection. Lymph nodes: No lymphadenopathy. Bones/joints: No acute fracture. No dislocation. Soft tissues: Evidence of small paraumbilical hernia containing loop of small bowel. No evidence for obstruction. CT/CT angio abd aorta runof [id number] IMPRESSION: 1. Right: Severe multifocal stenosis of distal right femoral and popliteal artery. Mild to moderate multifocal stenosis of below knee arteries with one-vessel runoff. 2. Left: Mild multifocal stenosis of left femoral and popliteal artery. Mild to moderate multifocal stenosis of left below knee arteries with one-vessel runoff.
[2023-04-05] MEDS: iohexol 350 mg/mL 500 mL Btl (per mL) IV (08:13)
== END 2023-04-05 07:40 | disposition home or self-care (01) ==
PROVIDERS: PCP Nurse Practitioner Family; Visit Provider Thoracic Surgery (Cardiothoracic Vascular Surgery)
DX: I70.203 Unspecified atherosclerosis of native arteries of extremities, bilateral legs (principal)
CPT/HCPCS: 75635; Q9967

== ENCOUNTER 2023-04-07 08:46 | Outpatient (CLI) | payer MEDICAID, SELFPAY ==
[2023-04-07 09:06] VITALS: BMI 38.0
--- NOTE | 2023-04-07 09:22 | ECG_ITS ---
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 Interpretive Statements NAME OF STUDY: LEXISCAN SESTAMIBI STRESS TEST INDICATION: [Chest Pain, ] Procedure: At the baseline, the blood pressure was 124/84 mmHg with a heart rate of 57 bpm. The electrocardiogram showed sinus bradycardia, normal axis with normal ST and T's. The Lexiscan was infused over a period of 20 seconds. A total of 0.4 mg of Lexiscan was infused. The stress phase was continued for a total of 5 minutes. Heart rate was at the end of stress phase was 76 bpm and a blood pressure of 153/88 mmHg. The EKG at the peak infusion revealed normal sinus rhythm with no significant ST-T wave changes. Sestamibi was injected 20 seconds after the Lexiscan infusion. Blood pressure at the end of recovery phase was 138/92 mmHg with a heart rate of 73 bpm. Conclusion: 1. Normal EKG response to Lexiscan infusion 2. No Lexiscan induced chest pain or cardiac arrhythmia. 3. Normal blood pressure and heart rate response. 4. Sestamibi/sestamibi perfusion scan pending; see separate report. Electronically Signed On 04-25-2023 11:04:35 CDT by Kalpesh Duran M.D. [id number]
--- NOTE | 2023-04-07 09:30 | NMCV_ITS ---
NM tien perf SPECT r/s* [id number] Barb Easton Age: 52 Gender: F : 1970 Exam Date: 04/07/2023 09:58 Ordering Phys: Kalpesh Duran M.D ([email or web address]) Technologist: HUSSAIN Iqbal Exam Location: [facility] Indications: CHEST PAIN STRESS TEST Please [facility] IMAGE PROTOCOL Rest/Stress 1 Lexiscan Day Radiopharmaceutical Dose (mCi) Administration Site Administered by Rest: Tc-99m 10.7 IV HUSSAIN Iqbal Sestamibi Stress:Tc-99m 32.7 IV HUSSAIN Coelho Sestamibi Rest: 07-Apr-2023 60 Discovery 630 Stress: 07-Apr-2023 30 Discovery 630 0.4mg Lexiscan. Images obtained in supine and prone position. SPECT RESULTS Technical Quality: Excellent Raw Data Analysis: Normal Image Corrections: No attenuation or motion correction applied Summed Stress Score: 3 Summed Rest Score: 0 Summed Difference Score: 3 PERFUSION FINDINGS There is a small in size mostly reversible perfusion defect seen in lateral wall. This is consistent with small sized prior infarct with giancarlo-infarct ischemia in the left circumflex artery territory. FUNCTIONAL RESULTS (calculated via Gated SPECT) Stress Image LV EF (%): 66 Stress EDV (mL):107 TID: 1.09 Stress ESV (mL):36 FUNCTIONAL FINDINGS: There is normal left ventricular systolic function. IMPRESSIONS 1. Small sized prior infarct with giancarlo-infarct ischemia seen in left circumflex artery territory. 2. LV systolic function is normal. Kalpesh Duran MD (Electronically Signed) Final Date: 09 April 2023 11:50 S
[2023-04-07] MEDS: regadenoson 0.4 Mg/5 ml Syringe IVP (10:33)
[2023-04-07 10:45] VITALS: BP 138/92; PULSE 73
== END 2023-04-07 08:47 | disposition home or self-care (01) ==
LOC: CDL 08:46
PROVIDERS: PCP Nurse Practitioner Family; Visit Provider Internal Medicine
DX: R07.9 Chest pain, unspecified (principal); I25.2 Old myocardial infarction
CPT/HCPCS: 36415; 78452; 93017; 96375; A9500; J2785

== ENCOUNTER 2023-04-24 14:00 | Oncology outpatient (recurring) (ONCR) | payer MEDICAID, SELFPAY ==
[2023-04-06 11:32] VITALS: BP 130/86; PULSE 74; TEMP 36.4; O2SAT 97
[2023-04-06 11:43] LABS: Basophils % 0.5 %; Eosinophils # 0.3 10^3/uL (0.0-0.8); Eosinophils % 3.1 %; Hematocrit 44.9 % (37.0-47.0); Hemoglobin 14.5 g/dL (11.5-15.3); Lymphocytes # 2.5 10^3/uL (0.8-4.8); Lymphocytes % 29.4 %; Mean Corpuscular HGB Conc 32.3 g/dL (30.0-36.0); Mean Corpuscular Hemoglobin 29.9 pg (28.0-34.0); Mean Corpuscular Volume 92.6 fl (81-99); Mean Platelet Volume 10.3 fL (7.4-10.4); Monocytes # 0.5 10^3/uL (0.2-0.9); Monocytes % 6.2 %; Neutrophils # 5.15 10^3/uL (1.8-7.7); Nucleated Red Blood Cells % 0 %; Platelet Count 247 10^3/cmm (130-400); Red Blood Count 4.85 10^6/uL (4.1-5.3); White Blood Count 8.6 10^3/uL (4.0-10.0)
[2023-04-06 12:15] LABS: Carcinoembryonic Antigen 4.1 ng/mL (0.0-4.7)
[2023-04-06 12:26] LABS: Alanine Aminotransferase 8 U/L (0-33); Albumin Level 3.7 g/dL (3.5-5.2); Alkaline Phosphatase 86 U/L (35-105); Anion Gap 13.9 (5-19); Aspartate Amino Transferase 13 U/L (0-32); Blood Urea Nitrogen 10 mg/dL (6-20); Calcium 8.6 mg/dL (8.5-10.5); Carbon Dioxide 25 mmol/L (22-29); Chloride 103 mmol/L (98-107); Globulin 3.1 g/dL (1.3-4.6); Glomerular Filtration Rate 57.8 mL/min (90-130); Glucose 145 mg/dL (65-115); Osmolality Calculated 288 mOsm/kg (285-295); Potassium 3.9 mmol/L (3.5-5.1); Sodium 138 mmol/L (136-145); Total Bilirubin 0.3 mg/dL (0.15-1.2); Total Protein 6.8 g/dL (6.6-8.7)
== END 2023-05-04 23:59 | disposition home or self-care (01) ==
PROVIDERS: Nurse Practitioner Family; PCP Nurse Practitioner Family; Visit Provider Internal Medicine Hematology & Oncology
DX: Z53.9 Procedure and treatment not carried out, unspecified reason (principal)
CPT/HCPCS: 36415; 80053; 82378; 85025; 99214

== ENCOUNTER → 2023-04-26 08:54 | Outpatient (BNVA) | payer MEDICAID, SELFPAY | PROVIDERS: PCP Nurse Practitioner Family; Visit Provider Nurse Practitioner Family | DX: I10 Essential (primary) hypertension (principal); E11.65 Type 2 diabetes mellitus with hyperglycemia | CPT/HCPCS: 80048; 80061; 83036 ==

== ENCOUNTER → 2023-06-08 12:40 | Outpatient (BNVA) | payer MEDICAID, SELFPAY | PROVIDERS: PCP Nurse Practitioner Family; Visit Provider Internal Medicine | DX: E11.51 Type 2 diabetes mellitus with diabetic peripheral angiopathy without gangrene (principal); E11.65 Type 2 diabetes mellitus with hyperglycemia; I10 Essential (primary) hypertension; F17.210 Nicotine dependence, cigarettes, uncomplicated; Z79.84 Long term (current) use of oral hypoglycemic drugs | CPT/HCPCS: 99214 ==

== ENCOUNTER 2023-07-06 11:46 | Oncology outpatient (recurring) (ONCR) | payer MEDICAID, SELFPAY ==
[2023-07-06 12:26] VITALS: BP 139/90; PULSE 75; O2SAT 98
[2023-07-06 12:31] LABS: Basophils % 0.6 %; Eosinophils # 0.3 10^3/uL (0.0-0.8); Eosinophils % 5.3 %; Hematocrit 43.5 % (36-47); Lymphocytes # 1.3 10^3/uL (0.8-4.8); Lymphocytes % 28.1 %; Mean Corpuscular HGB Conc 31.7 g/dL (30-55); Mean Corpuscular Hemoglobin 30.5 pg (27-33); Mean Corpuscular Volume 96.2 fl (85-98); Mean Platelet Volume 9.4 fL (7.4-10.4); Monocytes # 0.5 10^3/uL (0.2-0.9); Neutrophils # 2.58 10^3/uL (1.8-7.7); Neutrophils % 54.4 %; Nucleated Red Blood Cells % 0 %; Platelet Count 219 10^3/cmm (157-399); Red Blood Count 4.52 10^6/uL (3.85-5.65); Red Cell Distribution Width 14.6 % (12.1-15.1); White Blood Count 4.74 10^3/uL (3.29-11.43)
[2023-07-06 12:58] LABS: Estmated Average Glucose 143; Hemoglobin A1C 6.6 % (4.0-6.0)
[2023-07-06 13:04] LABS: Carcinoembryonic Antigen 4.9 ng/mL (0.0-4.7); Thyroid Stimulating Hormone 1.48 uIU/mL (0.27-4.20)
[2023-07-06 13:15] LABS: Alanine Aminotransferase 7 U/L (0-33); Albumin Level 3.7 g/dL (3.5-5.2); Alkaline Phosphatase 88 U/L (35-105); Anion Gap 11.5 (5-19); Aspartate Amino Transferase 9 U/L (0-32); Blood Urea Nitrogen 9 mg/dL (6-20); Calcium 9.2 mg/dL (8.5-10.5); Carbon Dioxide 27 mmol/L (22-29); Chloride 102 mmol/L (98-107); Chol HDL Ratio 4.59 mg/dL (0.0-4.40); Cholesterol 170 mg/dL (0-200); Glomerular Filtration Rate 51.6 mL/min (90-130); Glucose 101 mg/dL (65-115); HDL Cholesterol 37 mg/dL (60-100); LDL Cholesterol Calculated 109 mg/dL (50-129); LDL HDL Ratio 2.95 RATIO (0.00-3.22); Osmolality Calculated 283 mOsm/kg (285-295); Potassium 3.5 mmol/L (3.5-5.1); Sodium 137 mmol/L (136-145); Total Bilirubin 0.2 mg/dL (0.15-1.2); Total Protein 6.7 g/dL (6.6-8.7); Triglycerides 119 mg/dL (0-150)
== END 2023-08-03 23:59 | disposition home or self-care (01) ==
PROVIDERS: Nurse Practitioner Family; PCP Nurse Practitioner Family; Visit Provider Internal Medicine Medical Oncology
DX: Z08 Encounter for follow-up examination after completed treatment for malignant neoplasm (principal); Z85.038 Personal history of other malignant neoplasm of large intestine; E87.6 Hypokalemia; F17.210 Nicotine dependence, cigarettes, uncomplicated; Z79.899 Other long term (current) drug therapy; Z90.49 Acquired absence of other specified parts of digestive tract; Z92.21 Personal history of antineoplastic chemotherapy; I83.813 Varicose veins of bilateral lower extremities with pain; I70.203 Unspecified atherosclerosis of native arteries of extremities, bilateral legs; K06.8 Other specified disorders of gingiva and edentulous alveolar ridge
CPT/HCPCS: 36415; 80053; 80061; 82378; 83036; 84443; 85025; 99214

== ENCOUNTER 2023-08-02 07:51 | Outpatient (CLI) | payer MEDICAID, SELFPAY ==
--- NOTE | 2023-08-02 07:56 | CT_ITS ---
WS: [id number] CT LUMBAR SPINE TECHNIQUE: Noncontrast CT of the lumbar spine with coronal and sagittal reformatted images. CLINICAL INFORMATION: VERTEBROGENIC LOW BACK PAIN COMPARISON: None. DLP: 879.[address] scans at [facility] use at least one of these dose optimization techniques: automated e xposure control; mA and/or kV adjustment per patient size (includes targeted exams where dose is matc hed to clinical indication); or iterative reconstruction. FINDINGS: Mild lumbar curve. No acute compression. No high-grade central canal stenosis. No evidence of bony me tastatic disease. Adrenal glands are normal. L1-L2: Normal. L2-L3: Mild facet arthropathy. Mild annular bulging. Spinal canal and foramen are patent. L3-L4: Mild annular bulging. Moderate facet arthropathy. Spine canal and foramen are patent. L4-L5: Mild annular bulging with slight effacement of the ventral thecal sac. Narrowing of the subart icular recess bilaterally. Mild central canal stenosis. Moderate facet arthropathy. Mild RIGHT forami nal narrowing. L5-S1: Minimal annular bulging. Moderate facet arthropathy worse on the LEFT. Spinal canal and forame n are patent. Visualized pelvic bony structures: Normal. Paravertebral soft tissues: Normal. IMPRESSION: 1. Mild lumbar curve. No acute compression. No high-grade central canal stenosis. 2. Mild central canal stenosis L4-5 with narrowing of the subarticular recess bilaterally. 3. Mild RIGHT L4-5 foraminal narrowing. 4. Moderate facet arthropathy L3-L5.
[2023-08-02] MEDS: iohexol 350 mg/mL 500 mL Btl (per mL) PO (09:27)
[2023-08-02] MEDS: iohexol 350 mg/mL 500 mL Btl (per mL) IV (09:27)
--- NOTE | 2023-08-02 09:30 | CT_ITS ---
WS: [id number] CT CHEST, ABDOMEN, AND PELVIS TECHNIQUE: Contrast-enhanced CT of the chest, abdomen, and pelvis with coronal and sagittal reformatt ed images. CLINICAL INFORMATION: surveillance COMPARISON: CT abdomen pelvis 12/07/2020 and CTA 04/05/2023 DLP: 1402.[address] scans at [facility] use at least one of these dose optimization techniques: automated e xposure control; mA and/or kV adjustment per patient size (includes targeted exams where dose is matc hed to clinical indication); or iterative reconstruction. CT CHEST: Lungs are well aerated. No acute pulmonary infiltrates. No focal pneumonia or pleural fluid. No evide nce of metastatic disease in the chest. No mediastinal or hilar lymphadenopathy. No axillary lymphade nopathy. Normal caliber thoracic aorta. CT ABDOMEN AND PELVIS: Mild hepatomegaly. Diffuse fatty infiltration liver. Normal spleen. Normal GE junction. Normal pancre atic parenchymal enhancement. Normal caliber abdominal aorta. Aortic calcification. Adrenal glands ar e normal. Tiny RIGHT renal cyst. No hydronephrosis in either kidney. Normal caliber abdominal aorta. Small fat-containing umbilical hernia. No abdominal or pelvic lymphad enopathy. No inguinal lymphadenopathy. Normal sigmoid colon. Prior postoperative changes hepatic flexure for colonic mass resection. No evid ence of recurrent mass or lesion visualized. No evidence of small or large bowel obstruction. Prior hysterectomy. IMPRESSION: 1. No evidence of metastatic disease in the chest abdomen or pelvis. 2. Prior postoperative changes hepatic flexure for colonic resection. No evidence of recurrent mass or lesion. 3. Mild hepatomegaly with diffuse fatty infiltration of the liver. 4. No other acute findings.
== END 2023-08-02 07:52 | disposition home or self-care (01) ==
LOC: RAD 07:51
PROVIDERS: PCP Nurse Practitioner Family; Visit Provider Nurse Practitioner
DX: C18.3 Malignant neoplasm of hepatic flexure (principal); M54.51 Vertebrogenic low back pain; M48.061 Spinal stenosis, lumbar region without neurogenic claudication; M47.816 Spondylosis without myelopathy or radiculopathy, lumbar region; Z90.49 Acquired absence of other specified parts of digestive tract; K76.0 Fatty (change of) liver, not elsewhere classified; R16.0 Hepatomegaly, not elsewhere classified
CPT/HCPCS: 71260; 72131; 74177; Q9967

== ENCOUNTER 2023-09-22 07:49 | Outpatient (CLI) | payer MEDICAID, SELFPAY ==
--- NOTE | 2023-09-22 08:02 | US_ITS ---
WS: [id number] RENAL ULTRASOUND HISTORY: STAGE 3A CHRONIC KIDNEY DZ COMPARISON: None available. TECHNIQUE: 2-D and color Doppler imaging of the kidney submitted. Right kidney: 10.7 cm x 4.0 cm x 5.5 cm. Cortex: 1.4 cm Normal echogenicity with no hydronephrosis or mass. Left kidney: 11.8 cm x 5.0 cm x 4.7 cm. Cortex: 1.1 cm Normal echogenicity with no hydronephrosis or mass. Aorta: Normal. Urinary Bladder: Normal distention. IMPRESSION: Normal renal ultrasound.
== END 2023-09-22 07:50 | disposition home or self-care (01) ==
LOC: RAD 07:49
PROVIDERS: PCP Nurse Practitioner Family; Visit Provider Internal Medicine Nephrology
DX: E11.22 Type 2 diabetes mellitus with diabetic chronic kidney disease (principal); I12.9 Hypertensive chronic kidney disease with stage 1 through stage 4 chronic kidney disease, or unspecified chronic kidney disease; N18.31 Chronic kidney disease, stage 3a; F17.200 Nicotine dependence, unspecified, uncomplicated; Z79.84 Long term (current) use of oral hypoglycemic drugs
CPT/HCPCS: 76770

== ENCOUNTER → 2023-10-04 14:41 | Outpatient (BNVA) | payer MEDICAID, SELFPAY | PROVIDERS: PCP Nurse Practitioner Family; Visit Provider Internal Medicine | DX: E11.65 Type 2 diabetes mellitus with hyperglycemia (principal); I10 Essential (primary) hypertension; E11.51 Type 2 diabetes mellitus with diabetic peripheral angiopathy without gangrene; F17.210 Nicotine dependence, cigarettes, uncomplicated; Z79.84 Long term (current) use of oral hypoglycemic drugs | CPT/HCPCS: 99214 ==

== ENCOUNTER 2023-10-05 13:08 | Oncology outpatient (recurring) (ONCR) | payer MEDICAID, SELFPAY ==
[2023-10-05 13:38] LABS: Basophils % 0.3 %; Eosinophils # 0.3 10^3/uL (0.0-0.8); Eosinophils % 3.8 %; Hematocrit 43.7 % (36-47); Lymphocytes # 2.3 10^3/uL (0.8-4.8); Mean Corpuscular HGB Conc 32.7 g/dL (30-55); Mean Corpuscular Volume 94.6 fl (85-98); Mean Platelet Volume 9.8 fL (7.4-10.4); Monocytes # 0.6 10^3/uL (0.2-0.9); Monocytes % 6.4 %; Neutrophils # 5.46 10^3/uL (1.8-7.7); Nucleated Red Blood Cells % 0 %; Platelet Count 202 10^3/cmm (157-399); Red Blood Count 4.62 10^6/uL (3.85-5.65); Red Cell Distribution Width 14.6 % (12.1-15.1); White Blood Count 8.66 10^3/uL (3.29-11.43)
[2023-10-05 14:05] LABS: Carcinoembryonic Antigen 5.6 ng/mL (0.0-4.7)
[2023-10-05 14:20] LABS: Alanine Aminotransferase 10 U/L (0-33); Albumin Level 3.7 g/dL (3.5-5.2); Alkaline Phosphatase 103 U/L (35-105); Anion Gap 13.4 (5-19); Aspartate Amino Transferase 12 U/L (0-32); Blood Urea Nitrogen 7 mg/dL (6-20); Carbon Dioxide 28 mmol/L (22-29); Chloride 102 mmol/L (98-107); Globulin 3.1 g/dL (1.3-4.6); Glomerular Filtration Rate 57.6 mL/min (90-130); Glucose 191 mg/dL (65-115); Osmolality Calculated 293 mOsm/kg (285-295); Potassium 3.4 mmol/L (3.5-5.1); Sodium 140 mmol/L (136-145); Total Bilirubin 0.4 mg/dL (0.15-1.2); Total Protein 6.8 g/dL (6.6-8.7)
== END 2023-11-02 23:59 | disposition home or self-care (01) ==
PROVIDERS: Nurse Practitioner Family; PCP Nurse Practitioner Family; Visit Provider Internal Medicine Medical Oncology
DX: Z08 Encounter for follow-up examination after completed treatment for malignant neoplasm (principal); Z85.038 Personal history of other malignant neoplasm of large intestine; F17.210 Nicotine dependence, cigarettes, uncomplicated; Z79.899 Other long term (current) drug therapy; Z90.49 Acquired absence of other specified parts of digestive tract; Z92.21 Personal history of antineoplastic chemotherapy
CPT/HCPCS: 36415; 80053; 82378; 85025; 99214

== ENCOUNTER 2023-12-21 07:47 | Oncology outpatient (recurring) (ONCR) | payer MEDICAID, SELFPAY ==
--- NOTE | 2023-12-21 09:00 | CT_ITS ---
WS: [id number] CT CHEST, ABDOMEN AND PELVIS WITH CONTRAST HISTORY: Follow-up colon cancer. TECHNIQUE: Contiguous 5 mm axial imaging performed through the chest, abdomen and pelvis with IV cont rast, oral contrast has been provided. Coronal and sagittal reformats chest. Coronal and sagittal ref ormats through the abdomen and pelvis. All CT scans at [facility] use at least one of these d ose optimization techniques: automated exposure control; mA and/or kV adjustment per patient size (in cludes targeted exams where dose is matched to clinical indication); or iterative reconstruction. CONTRAST: Omnipaque 350; 100 mL IV. DLP: 1395.26 mGy.cm COMPARISON: 08/02/[address]: No pulmonary mass or nodule. No pneumonia. Heart is normal size. No pericardial or pleural effusions. No mediastinal or hilar adenopathy. Mild atherosclerosis aorta. There is incomplete fillin g defect in the inferior LEFT pulmonary vein which is typically of no consequence. No pulmonary arter y embolus. Abdomen CT: Mild enlargement of the liver. Normal spleen. No metastatic disease. Normal portal vein. Prior cholecystectomy. No adrenal mass. Normal pancreas. Normal kidneys. No obstruction. Moderate ath erosclerosis aorta. Small amount of calcification extends into the mesenteric arteries. No GI tract obstruction. Surgical anastomotic site at the hepatic flexure is intact. No recurrent mas s. Ventral abdominal wall hernia contains a loop of nondilated small bowel. There is an additional supra umbilical midline hernia containing a very small amount of colon. No adenopathy or ascites. Pelvic CT: No adenopathy or ascites. Prior hysterectomy. Urinary bladder is not distended. No destructive bone lesions. IMPRESSION: 1. No evidence for metastatic disease in the chest, abdomen or pelvis. 2. Stable anastomotic site near the hepatic flexure. No obstructing lesion or recurrent mass. 3. No ascites. 4. Ventral/umbilical abdominal wall hernia contains a nondilated loop of small bowel. There is an ad ditional supraumbilical hernia in the midline containing a very small amount of colon. Nonobstructing .
[2023-12-21] MEDS: iohexol 350 mg/mL 500 mL Btl (per mL) PO (09:12)
[2023-12-21] MEDS: iohexol 350 mg/mL 500 mL Btl (per mL) IV (09:27)
== END 2024-01-02 23:59 | disposition home or self-care (01) ==
LOC: RAD 07:47 → ONCMED 12-29 08:17
PROVIDERS: PCP Nurse Practitioner Family; Visit Provider Internal Medicine Medical Oncology
DX: Z08 Encounter for follow-up examination after completed treatment for malignant neoplasm (principal); Z85.038 Personal history of other malignant neoplasm of large intestine; F17.210 Nicotine dependence, cigarettes, uncomplicated; Z79.899 Other long term (current) drug therapy; Z90.49 Acquired absence of other specified parts of digestive tract; Z92.21 Personal history of antineoplastic chemotherapy; C18.3 Malignant neoplasm of hepatic flexure
CPT/HCPCS: 71260; 74177; Q9967

== ENCOUNTER → 2023-12-27 09:19 | Outpatient (BNVA) | payer MEDICAID, SELFPAY | PROVIDERS: PCP Nurse Practitioner Family; Visit Provider Nurse Practitioner Family | DX: E11.65 Type 2 diabetes mellitus with hyperglycemia (principal); K46.9 Unspecified abdominal hernia without obstruction or gangrene; I10 Essential (primary) hypertension; B35.1 Tinea unguium | CPT/HCPCS: 80053; 80061; 82043; 83036; 85025 ==

== ENCOUNTER 2024-01-23 14:21 | Emergency (ER) | payer MEDICAID, SELFPAY ==
[2024-01-23] VITALS (27 sets, daily range): BP systolic 122–184; BP diastolic 77–96; PULSE 58–70; RESP 14; TEMP 36.6; O2SAT 87–97
--- NOTE | 2024-01-23 14:40 | PC.NURSE ---
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
--- NOTE | 2024-01-23 14:43 | XRR_ITS ---
PROCEDURE INFORMATION: Exam: XR Chest Exam date and time: 01/23/2024 3:08 PM Age: 53 years old Clinical indication: Cough; Patient HX: CVA; PT states i just don't feel right and vision is blurry. states she was this way when he got home from work yesterday at 1500 but he left for work at 3am so did not see her. PT thinks she was feeling this way when she woke yesterday but can't remember. states PT has been confused and forgetful, stumbling and off balance as well. TECHNIQUE: Imaging protocol: Radiologic exam of the chest. Views: 1 view. COMPARISON: CT chest abdpel w/*[id number] 12/21/2023 9:21 AM FINDINGS: Lungs: Unremarkable. No consolidation. Pleural spaces: Unremarkable. No pleural effusion. No pneumothorax. Heart/Mediastinum: Unremarkable. No cardiomegaly. Bones/joints: Mild scoliosis with mild and moderate multilevel spondylosis. XR/XR chest 1V portable [id number] IMPRESSION: No acute disease.
--- NOTE | 2024-01-23 14:44 | CT_ITS ---
WS: [id number] CT HEAD NONCONTRAST HISTORY: Symptoms of acute stroke TECHNIQUE: Contiguous axial imaging performed through the brain in 2.5 mm imaging. Bone and soft tiss ue windows. Sagittal and coronal reformats reviewed. All CT scans at [facility] use at least one of these dose optimization techniques: automated exposure control; mA and/or kV adjustment per pa tient size (includes targeted exams where dose is matched to clinical indication); or iterative recon struction. DLP: 1075.48 mGy COMPARISON: 12/07/2020 No acute intracranial hemorrhage, midline shift or mass effect. Small remote infarct in the medial RIGHT occipital lobe. There is a new area of decreased attenuation in the LEFT occipital lobe. Indeterminate for new area of decreased attenuation in the RIGHT occipit al lobe. There is mild small vessel ischemic disease. Ventricles: Normal size with no hydrocephalus. No inferior displacement of the cerebellar tonsils. Paranasal sinuses: Small air-fluid level in the LEFT maxillary sinus. Moderate mucoperiosteal thicken ing in the ethmoid air cells. Mastoid air cells are clear. Mastoid air cells: Well pneumatized. Calvarium and scalp: Skull is intact with no soft tissue edema or swelling. CT/CT head thrombolytic [id number] IMPRESSION: 1. Subacute area of decreased attenuation in the LEFT occipital lobe. There ma y be progression of low-attenuation surrounding a chronic infarct in the RIGHT occipital lobe. Subacute infarct versus PRES. nonurgent MRI brain with diffusio n imaging would be of benefit. 2. No hemorrhage.
--- NOTE | 2024-01-23 14:44 | ECG_ITS ---
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 Measurements Intervals [place] Rate: 57 P: 3 AR: 187 QRS: 20 QRSD: 92 T: 14 QT: 392 QTc: 384 Interpretive Statements SINUS BRADYCARDIA Compared to ECG 03/01/2023 14:18:08 Sinus rhythm no longer present T-wave abnormality no longer present Electronically Signed On 01-24-2024 0:24:49 CDT by Sumi Grayson M.D. [email or web address] system [email or web address] [id number]
--- NOTE | 2024-01-23 14:49 | ED_ITS ---
HPI - Neuro Symptoms/Deficit 2 General: Chief Complaint: Neuro Symptoms/Deficit Stated Complaint: doesnt feel right/ cant see Time Seen by Provider: 01/23/24 14:34 Source: patient and family Mode of arrival: ambulatory Limitations: no limitations History of Present Illness: This patient comes to the emergency department brought by her spouse. He states that approximately 24 hours ago his started complaining of feeling a little out of sorts and foggy and states her vision did not seem to be normal. He states he thought she was better last evening and he went to bed and then went to work at 3 AM and returned home today and stated that she was still unchanged he says that her gait was generally okay but she seemed to not be walking totally normally and she ascribe that to changes in her vision. She denies any concomitant focal weakness or difficulty with speech. She did have a headache yesterday which she describes as a migraine which she occasionally gets but her states she has not had headaches for quite some time. There is no recent head trauma, falls, fevers or recent illness. She takes antihypertensives. Does smoke cigarettes but does not drink alcohol. Associated symptoms: Deny chest pain, headache(s), nausea or vomiting Review of Systems 2 Const: Denies: fever(s) or chills Eyes: Reports: change in vision and blurry vision ENMT: Denies: odynophagia, nasal discharge or nasal congestion Card: Denies: chest pain, palpitations, irregular heart rhythm or edema Resp: Denies: dyspnea, productive cough or non-productive cough GI: Denies: abdominal pain, nausea, vomiting or hematemesis : Denies: flank pain, difficulty voiding, dysuria or urinary frequency Musc: Denies: neck pain, back pain, extremity pain or extremity swelling Skin/Breast: Denies: rash or pruritus Neuro: Reports: lack of coordination and dizziness; Denies: headache(s), numbness in extremities or weakness in extremities Psych: Denies: anxiety, depression or mood swings PFSH ED 2 PFSH: Medical History Colon polyps Abnormal colonoscopy in 30s 3 polyps were removed Diabetes HTN (hypertension) Surgical History History of carpal tunnel surgery Right History of tonsillectomy H/O: hysterectomy / BSO /incidental appendectomy S/P laparoscopic cholecystectomy Family History Grandmother Cancer CONTROLLED ATMOSPHERIC FURNACE BRAZER CANCER Mother CAD (coronary artery disease) Social History Smoking and tobacco/nicotine status: current every day tobacco/nicotine user cigarettes Years cigarettes smoked: 30 [ Other cigarette details: Recently only a few cigarettes a day, but 1 to 2 packs/day in the past] Second hand smoke exposure: Yes Alcohol intake: never Substance/Drug Use: never Caregiver/support person: Yes Lives independently: Yes Household members: family Housing: House service: No Current occupational status: disabled Current gender identity: Female Special irvin needs: No Agree to transfusion: Yes NIH stroke score 2 NIHSS: Level Of Consciousness - 1a: 0 Level Of Consciousness Questions - 1b: Both Correct Level Of Consciousness Commands - 1c: Both Correct Best Gaze - 2: Normal Visual Mims - 3: Bilateral (Right temporal left nasal) Facial Palsy - 4: Normal Motor Arm Right - 5: No Drift Motor Arm Left - 5: No Drift Motor Leg Right - 6: No Drift Motor Leg Left - 6: No Drift L imb Ataxia - 7: Absent Sensory - 8: Normal Best Language - 9: No Aphasia Dysarthia - 10: Normal Extinction And Inattention - 11: 0 Score: Total Score: 3 Physical Exam 2 Narrative: EXAM NARRATIVE: She is alert and answers questions appropriately. Const: COMMON NORMALS: patient oriented x3 and no limitations GENERAL APPEARANCE: cooperative NUTRITIONAL APPEARANCE: overweight HENMT: COMMON NORMALS: normocephalic, EAC's normal, Normal nasal mucous membranes and turbinates present, moist oral mucous membranes and oropharynx normal HEAD & SCALP: normocephalic FACE & SINUS: normal facial exam and face symmetric NOSE: Normal nasal mucous membranes and turbinates present EXTERNAL AUDITORY CANAL: EAC's normal Eye: COMMON NORMALS: Equal, round and reactive pupils present, EOMs intact bilaterally and conjunctivae normal VISUAL MIMS: Yes left visual field cut Right visual field cut by laterality: right and Yes right visual field cut Left visual field cut by laterality: right CONJUNCTIVA: Yes conjunctivae normal PUPIL: Yes Equal, round and reactive pupils present Neck/C-Spine: COMMON NORMALS: full ROM, no lymphadenopathy, supple and No carotid bruits Chest: COMMONS NORMALS: normal inspection of the chest Resp: COMMON NORMALS: normal respiratory effort, No retractions and clear to auscultation bilaterally EFFORT & INSPECTION: Yes able to speak in complete sentences AUSCULTATION: clear to auscultation bilaterally Cardio: COMMON NORMALS: regular rate, regular rhythm, No clicks present (Cardio), No murmurs present (Cardio) and Peripheral pulses 2+ throughout R ATE: regular rate RHYTHM: regular rhythm PERIPHERAL PULSES: Peripheral pulses 2+ throughout GI: COMMON NORMALS: Normal to inspection, nondistended, normoactive bowel sounds present, Soft to palpation and non-tender PALPATION: Yes Soft to palpation : COMMON NORMALS: Yes no CVA tenderness BLADDER/KIDNEY EXAM: Yes no CVA tenderness Back/Pelvis: COMMON NORMALS: no CVA tenderness, thoracic and lumbar spine normal to inspection, no thoracic nor lumbar tenderness, thoraco-lumbar ROM normal and straight leg raise negative bilaterally Extremity: COMMON NORMALS: normal to inspection, full ROM, capillary refill normal, no calf tenderness and no pedal edema Neuro: COMMON NORMALS: patient oriented x3, moves all extremities, no focal motor deficits and no sensory deficits noted CRANIAL NERVES: Yes CN normal except as noted COORDINATION/BALANCE: [id number] test normal and etdx-ax-[id number] test normal SPEECH: speech normal GAIT: Yes Normal gait present MOTOR EXAM: 5/5 motor strength present throughout COORDINATION: f hvngl-sp-spud test normal and etqp-pr-fpvy test normal Psych: COMMON NORMALS: mental status grossly normal Skin: COMMON NORMALS: no rashes or lesions noted and turgor normal GENERAL SKIN EXAM: no rashes or lesions noted and turgor normal Course 2 Reevaluation(s): Reevaluation #1: Patient was reevaluated vital signs are stable. She was allowed to ambulate unaided about the emergency department which she did without any difficulty other than the fact that she has not adapted to her visual field cuts and so she has some directional issues but she has no truncal or gait ataxia whatsoever. I did spend some time discussing current findings and their implications with both she and her spouse. Time: 16:02 Reevaluation #2: Patient continues to remain stable. Reviewed all current findings and plans for care and continued outpatient workup. All questions were answered. We again reviewed her medication changes and specifically discussed the need to immediately stop smoking. Time: 16:58 Consultations: Consultation #1: Called Dr. Wyman on-call for neurology today and discussed current findings. 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 We discussed outpatient versus inpatient management and we will reevaluate her and then make that final determination. Time: 15:37 Vital Signs: Vital signs: Vital Signs Temperature 97.8 F 01/23/24 14:23 Pulse Rate 58 L 01/23/24 16:10 Respiratory Rate 14 01/23/24 14:23 Blood Pressure 162/96 01/23/24 16:10 Pulse Oximetry 96 01/23/24 16:10 Oxygen Delivery Me thod Room Air 01/23/24 14:23 MDM - Neuro Symptoms/Deficit Medical Decision Making This patient presented to the emergency department brought by spouse by private vehicle with over 24 hours of symptoms of blurry vision foggy headedness and some discoordinated gait per spouse. There was a headache associated with symptoms approximately 24 hours ago. No other focal neurologic symptoms. 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 No other focal neurologic findings to include no evidence of extraocular motion dysfunction etc. Workup was initiated for possible CVA. Initial noncontrast CT suggested cerebellar changes particular on the left and may be subacute. A CTA was also obtained which did not reveal any enhancement because of the concern about possible metastatic disease given her colon cancer nor did it reveal any large vessel occlusion that might be indicative of further aggressive therap being indicated. Consultation with the neurologist was obtained and she agreed that was suggestive of posterior stroke but no evidence that acute intervention such as clot retrieval, thrombolytics or etc. were indicated at this case because of duration of time from onset of symptoms as well as a lack of further indication at this time. Patient was reassessed and she had intact gait stability but did have visual field cuts which caused the majority of her symptoms. She had a recent echocardiogram which was reassuring. It is felt that at this point no acute intervention needed to be can carried out and that she would be appropriately discharged on dual antiplatelet to antiplatelet therapy as well as statin. She was admonished on her smoking and the need to discontinue it which she acknowledged. Outpatient MRI and neurology follow-up will be continued. She is stable at this time and discussed return precautions in detail with the patient. She voiced understanding. Medical Records I reviewed the patient's medical records. Patient had an echocardiogram performed 723 which was essentially normal with preserved LV function with no evidence of significant valvular disease. Lab Data I reviewed the patient's lab results. 01/23/24 14:55 01/23/24 14:55 Radiology Impressions Chest X-Ray 01/23/24 14:43 IMPRESSION: No acute disease. Head CT 01/23/24 14:44 IMPRESSION: 1. Subacute area of decreased attenuation in the LEFT occipital lobe. There may be progression of low-attenuation surrounding a chronic infarct in the RIGHT occipital lobe. Subacute infarct versus PRES. nonurgent MRI brain with diffusion imaging would be of benefit. 2. No hemorrhage. Head/Neck CTA 01/23/24 14:50 IMPRESSION: 1. No cervical carotid artery stenosis or occlusion. 2. Increasing plaque through the intracranial carotid cavernous arteries through the supraclinoid carotid artery. Stenosis near 50% but no occlusion. 3. No thrombus or stenosis within the [place] of [place]. Posterior cerebral arteries are normal. Laboratory Results WBC 8.36 10^3/uL (3.29-11.43) 01/23/24 14:55 RBC 4.91 10^6/uL (3.85-5.65) 01/23/24 14:55 Hgb 15.40 g/dL (11.27-16.99) 01/23/24 14:55 Hct 46.9 % (36-47) 01/23/24 14:55 MCV 95.5 fl (85-98) 01/23/24 14:55 MCH 31.4 pg (27-33) 01/23/24 14:55 MCHC 32.8 g/dL (30-55) 01/23/24 14:55 RDW 13.3 % (12.1-15.1) 01/23/24 14:55 Plt Count 212 10^3/cmm (157-399) 01/23/24 14:55 MPV 10.2 fL (7.4-10.4) 01/23/24 14:55 Neut % (Auto) 73.6 % 01/23/24 14:55 Lymph % (Auto) 18.2 % 01/23/24 14:55 [place] % (Auto) 4.8 % 01/23/24 14:55 Eos % (Auto) 2.2 % 01/23/24 14:55 Baso % (Auto) 0.5 % 01/23/24 14:55 Neut # (Auto) 6.16 10^3/uL (1.8-7.7) 01/23/24 14:55 Lymph # (Auto) 1.5 10^3/uL (0.8-4.8) 01/23/24 14:55 [place] # (Auto) 0.4 10^3/uL (0.2-0.9) 01/23/24 14:55 Eos # (Auto) 0.2 10^3/uL (0.0-0.8) 01/23/24 14:55 Baso # (Auto) 0.0 10^3/uL (0.0-0.1) 01/23/24 14:55 Nucleated RBC % (auto) 0 % 01/23/24 14:55 Nucleated RBCs # 0.0 /100WBC 01/23/24 14:55 PT 12.90 SECONDS (12.1-14.9) 01/23/24 14:55 INR 0.94 (0.8-1.2) 01/23/24 14:55 APTT 26.1 SECONDS (23.9-36.7) 01/23/24 14:55 Sodium 137 mmol/L (136-145) 01/23/24 14:55 Potassium 4.2 mmol/L (3.5-5.1) 01/23/24 14:55 Chloride 101 mmol/L (98-107) 01/23/24 14:55 Carbon Dioxide 26 mmol/L (22-29) 01/23/24 14:55 Anion Gap 14.2 (5-19) 01/23/24 14:55 BUN 10 mg/dL (6-20) 01/23/24 14:55 Creatinine 1.1 mg/dL (0.5-0.9) H 01/23/24 14:55 GFR Calculation 51.6 mL/min (90-130) L 01/23/24 14:55 Glucose 149 mg/dL (65-115) H 01/23/24 14:55 Calculated Osmolality 286 mOsm/kg (285-295) 01/23/24 14:55 Calcium 8.7 mg/dL (8.5-10.5) 01/23/24 14:55 Total Bilirubin 0.5 mg/dL (0.15-1.2) 01/23/24 14:55 AST 8 U/L (0-32) 01/23/24 14:55 ALT 7 U/L (0-33) 01/23/24 14:55 Alkaline Phosphatase 104 U/L (35-105) 01/23/24 14:55 Total Protein 7.3 g/dL (6.6-8.7) 01/23/24 14:55 Albumin 3.9 g/dL (3.5-5.2) 01/23/24 14:55 Globulin 3.4 g/dL (1.3-4.6) 01/23/24 14:55 Urine Color Yellow (Yellow) 01/23/24 15:56 Urine Appearance Clear (CLEAR) 01/23/24 15:56 Urine pH 5 (5-7) 01/23/24 15:56 Ur Specific [place] 1.010 (1.005-1.030) 01/23/24 15:56 Urine Protein Neg (Negative) 01/23/24 15:56 Urine Glucose (UA) 4+ (Normal) H 01/23/24 15:56 Urine Ketones Negative (Negative) 01/23/24 15:56 Urine Blood Neg (Negative) 01/23/24 15:56 Urine Nitrate Negative (Negative) 01/23/24 15:56 Urine Bilirubin Neg (Negative) 01/23/24 15:56 Urine Urobilinogen Norm mg/dL (Negative) 01/23/24 15:56 Ur Leukocyte Esterase Negative (Negative) 01/23/24 15:56 All radiology interpretation(s) finalized by discharge EKG Data EKG 1: I personally reviewed and interpreted this EKG as follows: Interpretation: Contemporaneous review of EKG reveals a ventricular rate of 57 bpm. Normal VT interval, QRS duration, corrected QT interval. Normal axis. No acute ST-T wave changes noted. Discharge Plan Discharge Patient Disposition: Home Clinical Impression: Tobacco dependence Cerebrovascular accident Qualifiers: CVA mechanism: unspecified Qualified Code(s): I63.9 - Cerebral infarction, unspecified Hypertension Qualifiers: Hypertension type: unspecified Qualified Code(s): I10 - Essential (primary) hypertension Condition: Stable Prescriptions: New clopidogrel [Plavix] 75 mg tablet 75 mg PO DAILY Qty: 30 0RF atorvastatin 40 mg tablet 40 mg PO DAILY Qty: 30 1RF No Action aspirin 81 mg tablet,delayed release (DR/EC) 81 mg PO DAILY valsartan 320 mg tablet 320 mg PO DAILY Qty: 90 1RF metoprolol succinate 25 mg tablet extended release 24 hr 25 mg PO DAILY Qty: 90 1RF amlodipine 5 mg tablet 5 mg PO DAILY Qty: 30 0RF terbinafine HCl 250 mg tablet 250 mg PO DAILY Qty: 30 0RF Farxiga 10 mg tablet 10 mg PO DAILY Qty: 90 1RF Discharge Orders: Discharge ED (Routine); Ordered 01/23/24 Ordered By: Julio Maria Referrals: Juli Wyman MD [Physician] - (ED follow-up for posterior stroke) Barb Clark FNP [Primary Care Provider] - Discharge Diet: Usual diet and Low Salt Discharge Activity: Increase activity as tolerated Patient Instructions: Opioid Safety, Pain Management Activity Restrictions/Additional Instructions: As we discussed you have suffered a stroke in the part of your brain that controls part of your vision. We have provided some medication changes to help reduce your risk of worsening or reoccurring stroke. This includes your baby aspirin 81 mg daily in addition to the Plavix and the cholesterol-lowering medicine atorvastatin. We have also made arrangements for you to have an MRI completed in the next few days as well as a follow-up appointment with Dr. Wyman. You will be contacted regarding those appointments and follow-up. As we discussed it is imperative that you immediately stop smoking cigarettes this is one of your biggest risk factors for stroke. If you develop any new or worsening symptoms you should return to the emergency department immediately Coding Level of Care Code ED Statistics Tutor for [employer] Reid
--- NOTE | 2024-01-23 14:50 | CT_ITS ---
WS: [id number] CT ANGIOGRAM CEREBRAL AND CAROTID ARTERIES HISTORY: Homon Hemianopia right TECHNIQUE: CT angiogram is performed of the carotid and cerebral arteries. During arterial injection imaging is obtained from the skull vertex to the aortic arch in 1.25 mm imaging. Coronal and sagittal reformats are submitted. Additional multi planar reformats of the carotid and cerebral arteries are submitted, MIP imaging also reviewed. NASCET criteria utilized. [facility] CT [facility] at least one of these dose optimization techniques: automated exposure control; mA and/or kV adjust ment per patient size (includes targeted exams where dose is matched to clinical indication); or iter ative reconstruction. CONTRAST: Omnipaque 350; 100 mL IV. DLP: 538.93 mGy.cm COMPARISON: CT 01/23/2024 Carotid Angiogram: Right carotid: Common carotid artery: Arises normally from the innominate artery. No significant plaque or stenosis. Internal carotid artery: No plaque or stenosis. External carotid artery: Patent. Left carotid: Common carotid artery: Small amount of plaque at the origin from the arch. No high-grade stenosis. Internal carotid artery: Small amount of calcified plaque and intimal thickening. External carotid artery: Patent. Right vertebral artery: Unremarkable. Left vertebral artery: Unremarkable. Arises normally from the subclavian artery. Subclavian arteries: No stenosis or significant abnormality. Upper thorax: Emphysema. Subpleural 2 mm nodules LEFT upper lobe. No change since 12/21/2023 Thyroid gland: Normal. Osseous structures: Unremarkable. CEREBRAL ANGIOGRAM: Intracranial vertebral arteries: Normal with no significant atherosclerosis. Basilar artery: No significant stenosis or occlusion. No aneurysm. Intracranial Internal carotid arteries: Increasing plaque through the intracranial carotid arteries t hrough the cavernous portion into the supraclinoid portions. Stenosis near 50%. No occlusion or throm bus. No aneurysm. Middle cerebral arteries: Normal. Anterior cerebral arteries and ACOM: Normal. Posterior cerebral arteries and PCOM's: Normal. Dural venous sinuses are normally enhancing. Mastoid air cells: Normal. Paranasal sinuses: Air-fluid level LEFT maxillary sinus. Ethmoid air cell disease. Calvarium: Normal. CT/CT angio headneck* [id number] IMPRESSION: 1. No cervical carotid artery stenosis or occlusion. 2. Increasing plaque through the intracranial carotid cavernous arteries throu gh the supraclinoid carotid artery. Stenosis near 50% but no occlusion. 3. No thrombus or stenosis within the [place] of [place]. Posterior cerebral art eries are normal.
[2024-01-23] MEDS: iohexol 350 mg/mL 500 mL Btl (per mL) IV (15:03)
[2024-01-23 15:07] LABS: Basophils % 0.5 %; Eosinophils # 0.2 10^3/uL (0.0-0.8); Eosinophils % 2.2 %; Hematocrit 46.9 % (36-47); Lymphocytes # 1.5 10^3/uL (0.8-4.8); Lymphocytes % 18.2 %; Mean Corpuscular HGB Conc 32.8 g/dL (30-55); Mean Corpuscular Hemoglobin 31.4 pg (27-33); Mean Corpuscular Volume 95.5 fl (85-98); Mean Platelet Volume 10.2 fL (7.4-10.4); Monocytes # 0.4 10^3/uL (0.2-0.9); Monocytes % 4.8 %; Neutrophils # 6.16 10^3/uL (1.8-7.7); Neutrophils % 73.6 %; Nucleated Red Blood Cells % 0 %; Platelet Count 212 10^3/cmm (157-399); Red Blood Count 4.91 10^6/uL (3.85-5.65); Red Cell Distribution Width 13.3 % (12.1-15.1); White Blood Count 8.36 10^3/uL (3.29-11.43)
[2024-01-23 15:22] LABS: Alanine Aminotransferase 7 U/L (0-33); Albumin Level 3.9 g/dL (3.5-5.2); Alkaline Phosphatase 104 U/L (35-105); Anion Gap 14.2 (5-19); Aspartate Amino Transferase 8 U/L (0-32); Blood Urea Nitrogen 10 mg/dL (6-20); Calcium 8.7 mg/dL (8.5-10.5); Carbon Dioxide 26 mmol/L (22-29); Chloride 101 mmol/L (98-107); Creatinine Clr Calc Pharmacy 71.4542; Globulin 3.4 g/dL (1.3-4.6); Glomerular Filtration Rate 51.6 mL/min (90-130); Glucose 149 mg/dL (65-115); Osmolality Calculated 286 mOsm/kg (285-295); Potassium 4.2 mmol/L (3.5-5.1); Sodium 137 mmol/L (136-145); Total Bilirubin 0.5 mg/dL (0.15-1.2); Total Protein 7.3 g/dL (6.6-8.7)
[2024-01-23 15:28] LABS: INR 0.94 (0.8-1.2); Partial Thromboplastin Time 26.1 SECONDS (23.9-36.7)
[2024-01-23 16:28] LABS: Add Urine Microscopic? NO; Charge for UA Resulting for Rev
[2024-01-23 16:33] LABS: Protein Urine Neg (Negative); Urine Appearance Clear (CLEAR); Urine Color Yellow (Yellow); pH Urine 5 (5-7)
[2024-01-23 16:34] LABS: Bilirubin Urine Neg (Negative); Blood Urine Neg (Negative); Glucose Urine UA 4+ (Normal); Ketones Urine Negative (Negative); Leukocyte Esterase Urine Negative (Negative); Nitrate Urine Negative (Negative); Urobilinogen Urine Norm (Negative)
[2024-01-23] MEDS: aspirin 81 mg EC Tablet PO (16:55)
[2024-01-23] MEDS: clopidogrel 300 mg Tablet PO (16:55)
--- NOTE | 2024-01-24 08:25 | DCPLANNER ---
Out patient order sent to centralized scheduling for MRI-
== END 2024-01-23 17:20 | disposition home or self-care (01) ==
PROVIDERS: Emergency Provider Emergency Medicine; PCP Nurse Practitioner Family
DX: I63.9 Cerebral infarction, unspecified (principal); I10 Essential (primary) hypertension; F17.210 Nicotine dependence, cigarettes, uncomplicated
CPT/HCPCS: 70450; 70496; 70498; 71045; 80053; 81003; 85025; 85610; 85730; 93005; 99285; Q9967

== ENCOUNTER 2024-03-04 13:17 | Oncology outpatient (recurring) (ONCR) | payer MEDICAID, SELFPAY ==
[2024-03-04 13:36] LABS: Basophils % 0.4 %; Eosinophils # 0.2 10^3/uL (0.0-0.8); Eosinophils % 2.9 %; Hematocrit 43.7 % (36-47); Lymphocytes # 2.2 10^3/uL (0.8-4.8); Mean Corpuscular HGB Conc 32.3 g/dL (30-55); Mean Corpuscular Hemoglobin 30.7 pg (27-33); Mean Platelet Volume 10.2 fL (7.4-10.4); Monocytes # 0.4 10^3/uL (0.2-0.9); Monocytes % 5.4 %; Neutrophils # 5.21 10^3/uL (1.8-7.7); Neutrophils % 63.8 %; Nucleated Red Blood Cells % 0 %; Platelet Count 211 10^3/cmm (157-399); Red Cell Distribution Width 13.2 % (12.1-15.1); White Blood Count 8.16 10^3/uL (3.29-11.43)
[2024-03-04 14:08] LABS: Carcinoembryonic Antigen 3.5 ng/mL (0.0-4.7)
[2024-03-04 14:19] LABS: Alanine Aminotransferase < 5 U/L (0-33); Albumin Level 3.5 g/dL (3.5-5.2); Alkaline Phosphatase 113 U/L (35-105); Anion Gap 12.9 (5-19); Aspartate Amino Transferase 8 U/L (0-32); Blood Urea Nitrogen 6 mg/dL (6-20); Calcium 8.7 mg/dL (8.5-10.5); Carbon Dioxide 28 mmol/L (22-29); Chloride 100 mmol/L (98-107); Globulin 3.5 g/dL (1.3-4.6); Glomerular Filtration Rate 57.6 mL/min (90-130); Glucose 155 mg/dL (65-115); Osmolality Calculated 285 mOsm/kg (285-295); Potassium 3.9 mmol/L (3.5-5.1); Sodium 137 mmol/L (136-145); Total Bilirubin 0.4 mg/dL (0.15-1.2)
== END 2024-04-03 23:59 | disposition home or self-care (01) ==
PROVIDERS: Nurse Practitioner Family; PCP Nurse Practitioner Family; Visit Provider Internal Medicine Medical Oncology
DX: C18.3 Malignant neoplasm of hepatic flexure (principal)
CPT/HCPCS: 36415; 80053; 82378; 85025; 99213

== ENCOUNTER 2024-03-06 07:33 | Outpatient (CLI) | payer MEDICAID, SELFPAY ==
--- NOTE | 2024-03-06 07:38 | MR_ITS ---
WS: [id number] MRI HEAD WITHOUT CONTRAST TECHNIQUE: Sagittal T1, T2 axial, T2 axial FLAIR, axial and coronal T1 images, axial susceptibility w eighted imaging, axial diffusion weighted images, and coronal T2 images were obtained. CLINICAL INFORMATION: CVA COMPARISON: CT 01/23/2024 FINDINGS: Chronic infarcts in the parasagittal occipital lobes bilaterally with encephalomalacia and gliosis co rresponding to the prior CT findings. LEFT occipital infarct has a more late subacute appearance. Partially restricted small lacunar infarcts in the LEFT periventricular white matter and LEFT basal g anglia with a subacute appearance. No significant mass effect. No hemorrhage. No significant hemoside rin. Moderate small vessel changes. Mild parenchymal volume loss. Mild mucosal thickening in the paranasal sinuses. Mastoid air cells are well aerated. Normal posterior fossa. Normal vascular flow voids at t he skull base. No extra-axial fluid collections. Tiny chronic lacunar infarct RIGHT caudate. MR/MR head wo con* [id number] IMPRESSION: 1. Subacute to chronic infarcts in the parasagittal occipital lobes LEFT great er than RIGHT as seen on the prior CT. 2. Subacute small infarcts with partially restricted diffusion in the LEFT bas al ganglia and LEFT periventricular white matter. 3. Tiny chronic lacunar infarct RIGHT caudate. 4. Moderate small vessel changes with mild parenchymal volume loss. 5. No significant hemosiderin.
== END 2024-03-06 07:34 | disposition home or self-care (01) ==
LOC: RAD 07:33
PROVIDERS: PCP Nurse Practitioner Family; Visit Provider Specialist
DX: I63.9 Cerebral infarction, unspecified (principal); I67.82 Cerebral ischemia
CPT/HCPCS: 70551

== ENCOUNTER 2024-05-22 10:45 | Oncology outpatient (recurring) (ONCR) | payer MEDICAID, SELFPAY ==
--- NOTE | 2024-05-22 11:00 | CT_ITS ---
WS: [id number] CT CHEST, ABDOMEN AND PELVIS WITH CONTRAST HISTORY: Restaging colon cancer. TECHNIQUE: Contiguous 5 mm axial imaging performed through the chest, abdomen and pelvis with IV cont rast, oral contrast has been provided. Coronal and sagittal reformats chest. Coronal and sagittal ref ormats through the abdomen and pelvis. All CT scans at [facility] use at least one of these d ose optimization techniques: automated exposure control; mA and/or kV adjustment per patient size (in cludes targeted exams where dose is matched to clinical indication); or iterative reconstruction. CONTRAST: Omnipaque 350; 100 mL IV. DLP: 1381.74 mGy.cm COMPARISON: 12/21/2023, 08/02/[address]: No new pulmonary mass or nodule. There are a few very tiny subpleural nodules in the LEFT l ower lobe which measure only 2 to 3 mm and have been noted on prior studies. No pneumonia. Very mild atherosclerosis normal size aorta. Normal size pulmonary artery. No cardiomegaly. No pericardial or p leural effusions. No mediastinal or hilar adenopathy. No chest wall abnormality. Small hiatal hernia. Small amount of debris in the distal esophagus. Abdomen CT: Liver is mildly enlarged. No metastatic disease identified. Prior cholecystectomy. Normal spleen. Mild pancreatic atrophy. No adrenal mass. No renal obstruction or mass. Too small to charact erize cortical hypodensity in the superior pole RIGHT kidney. Prior cholecystectomy. No ascites. Mild atherosclerosis aorta. No thrombus in the mesenteric arteries. Stomach is well distended. No small bowel obstruction. Ventral abdominal wall hernia contains fat and a loop of nondilated or obstructed small bowel. Surgical anastomosis near the hepatic flexure is sta ble. No recurrent mass or obstruction. Mild constipation in the distal colon. Pelvic CT: No free fluid. No adenopathy. Minimally distended urinary bladder. Area of increasing sclerosis involving S1. No additional sclerotic or lytic changes are appreciated. CT/CT chest abdpel w/*[id number] IMPRESSION: 1. No evidence for metastatic disease in the chest, abdomen or pelvis. No allie opathy. 2. Increasing sclerosis noted in the S1 vertebral body. Recommend follow-up susanne ne scan imaging. Metastatic osseous disease should be considered. 3. Surgical anastomosis near the hepatic flexure is intact with no recurrent m ass or obstruction.
[2024-05-22] MEDS: iohexol 350 mg/mL 500 mL Btl (per mL) PO (11:54)
[2024-05-22] MEDS: iohexol 350 mg/mL 500 mL Btl (per mL) IV (12:06)
== END 2024-06-03 23:59 | disposition home or self-care (01) ==
PROVIDERS: PCP Nurse Practitioner Family; Visit Provider Internal Medicine Medical Oncology
DX: C18.3 Malignant neoplasm of hepatic flexure (principal); Z08 Encounter for follow-up examination after completed treatment for malignant neoplasm; Z85.038 Personal history of other malignant neoplasm of large intestine; F17.210 Nicotine dependence, cigarettes, uncomplicated; Z79.899 Other long term (current) drug therapy; Z90.49 Acquired absence of other specified parts of digestive tract; Z92.21 Personal history of antineoplastic chemotherapy
CPT/HCPCS: 71260; 74177

== ENCOUNTER 2024-06-13 12:14 | Oncology outpatient (recurring) (ONCR) | payer MEDICAID, SELFPAY ==
[2024-06-13 12:40] LABS: Basophils % 0.5 %; Eosinophils # 0.3 10^3/uL (0.0-0.8); Eosinophils % 3.3 %; Hematocrit 43.7 % (36-47); Lymphocytes # 2.5 10^3/uL (0.8-4.8); Lymphocytes % 28.6 %; Mean Corpuscular HGB Conc 31.8 g/dL (30-55); Mean Corpuscular Hemoglobin 30.3 pg (27-33); Mean Corpuscular Volume 95.2 fl (85-98); Mean Platelet Volume 10.2 fL (7.4-10.4); Monocytes # 0.5 10^3/uL (0.2-0.9); Monocytes % 5.3 %; Neutrophils # 5.41 10^3/uL (1.8-7.7); Neutrophils % 62.1 %; Nucleated Red Blood Cells % 0 %; Platelet Count 197 10^3/cmm (157-399); Red Blood Count 4.59 10^6/uL (3.85-5.65); Red Cell Distribution Width 14.3 % (12.1-15.1); White Blood Count 8.71 10^3/uL (3.29-11.43)
[2024-06-13 13:09] LABS: Carcinoembryonic Antigen 6.2 ng/mL (0.0-4.7)
[2024-06-13 13:20] LABS: Alanine Aminotransferase 6 U/L (0-33); Albumin Level 3.7 g/dL (3.5-5.2); Alkaline Phosphatase 124 U/L (35-105); Aspartate Amino Transferase 9 U/L (0-32); Blood Urea Nitrogen 11 mg/dL (6-20); Calcium 8.5 mg/dL (8.5-10.5); Carbon Dioxide 26 mmol/L (22-29); Chloride 104 mmol/L (98-107); Globulin 3.3 g/dL (1.3-4.6); Glomerular Filtration Rate 51.4 mL/min (90-130); Glucose 178 mg/dL (65-115); Osmolality Calculated 290 mOsm/kg (285-295); Sodium 138 mmol/L (136-145); Total Bilirubin 0.4 mg/dL (0.15-1.2)
[2024-06-13 13:22] LABS: Creatinine Clr Calc Pharmacy 71.5951
== END 2024-07-04 23:59 | disposition home or self-care (01) ==
PROVIDERS: Internal Medicine; PCP Nurse Practitioner Family; Visit Provider Internal Medicine Medical Oncology
DX: C18.3 Malignant neoplasm of hepatic flexure (principal); Z85.038 Personal history of other malignant neoplasm of large intestine; F17.210 Nicotine dependence, cigarettes, uncomplicated; Z79.899 Other long term (current) drug therapy; Z90.49 Acquired absence of other specified parts of digestive tract; Z92.21 Personal history of antineoplastic chemotherapy
CPT/HCPCS: 36415; 80053; 82378; 85025

== ENCOUNTER 2024-06-26 08:45 | Outpatient (CLI) | payer MEDICAID, SELFPAY ==
--- NOTE | 2024-06-26 08:45 | NM_ITS ---
WS: [id number] NUCLEAR MEDICINE WHOLE BODY BONE SCAN HISTORY: abnormal imaging sclerosis, evaluate increasing sclerosis at S1. History of colon cancer. COMPARISON: CT 05/22/2024 TECHNIQUE: The patient was injected with 19.8 mCi of Technetium 99m MDP and serial whole-body scinti grams have been performed with anterior and posterior images. There is no focal increased uptake involving the S1 segment to suggest metastatic involvement. Normal uptake throughout the remaining vertebral bodies. Very slight increased uptake at the SI joints but no focal abnormality. Ribs are negative also. Moderate bilateral and symmetric osteoarthritic changes involving the knees and AC joints. Mild SC joint atherosclerosis. No activity in the skull. Normal soft tissue and renal uptake. NM/NM bone scan whole body* [id number] IMPRESSION: 1. No metastatic disease within S1 vertebral body. 2. No osseous metastatic disease. 3. Advanced degenerative osteoarthritis at each knee.
== END 2024-06-26 08:46 | disposition home or self-care (01) ==
PROVIDERS: PCP Nurse Practitioner Family; Visit Provider Internal Medicine Medical Oncology
DX: M17.0 Bilateral primary osteoarthritis of knee (principal); Z78.0 Asymptomatic menopausal state
CPT/HCPCS: 78306; A9561

== ENCOUNTER 2024-08-16 09:08 | Outpatient (CLI) | payer MEDICAID, SELFPAY ==
[2024-08-16 10:24] LABS: Basophils % 0.5 %; Eosinophils # 0.3 10^3/uL (0.0-0.8); Eosinophils % 3.4 %; Hematocrit 45.3 % (36-47); Lymphocytes # 2.1 10^3/uL (0.8-4.8); Lymphocytes % 24.7 %; Mean Corpuscular HGB Conc 32.2 g/dL (30-55); Mean Corpuscular Hemoglobin 30.2 pg (27-33); Mean Corpuscular Volume 93.6 fl (85-98); Mean Platelet Volume 10.6 fL (7.4-10.4); Monocytes # 0.6 10^3/uL (0.2-0.9); Monocytes % 6.7 %; Neutrophils # 5.42 10^3/uL (1.8-7.7); Neutrophils % 64.3 %; Nucleated Red Blood Cells % 0 %; Platelet Count 235 10^3/cmm (157-399); Red Blood Count 4.84 10^6/uL (3.85-5.65); Red Cell Distribution Width 13.6 % (12.1-15.1); White Blood Count 8.42 10^3/uL (3.29-11.43)
[2024-08-16 10:54] LABS: Carcinoembryonic Antigen 5.2 ng/mL (0.0-4.7)
[2024-08-16 11:07] LABS: Alanine Aminotransferase 7 U/L (0-33); Albumin Level 3.6 g/dL (3.5-5.2); Alkaline Phosphatase 112 U/L (35-105); Anion Gap 11.5 (5-19); Aspartate Amino Transferase 13 U/L (0-32); Blood Urea Nitrogen 8 mg/dL (6-20); Carbon Dioxide 30 mmol/L (22-29); Chloride 101 mmol/L (98-107); Globulin 3.5 g/dL (1.3-4.6); Glomerular Filtration Rate 51.4 mL/min (90-130); Glucose 196 mg/dL (65-115); Osmolality Calculated 292 mOsm/kg (285-295); Potassium 3.5 mmol/L (3.5-5.1); Sodium 139 mmol/L (136-145); Total Bilirubin 0.7 mg/dL (0.15-1.2); Total Protein 7.1 g/dL (6.6-8.7)
== END 2024-08-16 09:09 | disposition home or self-care (01) ==
LOC: LAB 09:13
PROVIDERS: PCP Nurse Practitioner Family; Visit Provider Nurse Practitioner Family
DX: C18.3 Malignant neoplasm of hepatic flexure (principal)
CPT/HCPCS: 80053; 82378; 85025

== ENCOUNTER 2024-10-02 09:45 | Oncology outpatient (recurring) (ONCR) | payer MEDICAID, SELFPAY ==
[2024-10-02 09:49] LABS: Basophils # 0.1 10^3/uL (0.0-0.1); Basophils % 0.7 %; Eosinophils # 0.4 10^3/uL (0.0-0.8); Hematocrit 43.2 % (36-47); Lymphocytes # 1.9 10^3/uL (0.8-4.8); Lymphocytes % 25.8 %; Mean Corpuscular HGB Conc 32.6 g/dL (30-55); Mean Corpuscular Hemoglobin 30.8 pg (27-33); Mean Corpuscular Volume 94.3 fl (85-98); Monocytes # 0.6 10^3/uL (0.2-0.9); Monocytes % 7.5 %; Neutrophils % 60.2 %; Nucleated Red Blood Cells % 0 %; Platelet Count 211 10^3/cmm (157-399); Red Blood Count 4.58 10^6/uL (3.85-5.65); Red Cell Distribution Width 14.2 % (12.1-15.1); White Blood Count 7.47 10^3/uL (3.29-11.43)
[2024-10-02 10:14] LABS: Carcinoembryonic Antigen 6.7 ng/mL (0.0-4.7)
[2024-10-02 10:25] LABS: Alanine Aminotransferase 6 U/L (0-33); Albumin Level 3.7 g/dL (3.5-5.2); Alkaline Phosphatase 131 U/L (35-105); Anion Gap 12.3 (5-19); Aspartate Amino Transferase 8 U/L (0-32); Blood Urea Nitrogen 9 mg/dL (6-20); Calcium 8.8 mg/dL (8.5-10.5); Carbon Dioxide 29 mmol/L (22-29); Chloride 99 mmol/L (98-107); Creatinine Clr Calc Pharmacy 73.7212; Globulin 2.8 g/dL (1.3-4.6); Glomerular Filtration Rate 51.4 mL/min (90-130); Glucose 288 mg/dL (65-115); Osmolality Calculated 293 mOsm/kg (285-295); Potassium 3.3 mmol/L (3.5-5.1); Sodium 137 mmol/L (136-145); Total Bilirubin 0.4 mg/dL (0.15-1.2); Total Protein 6.5 g/dL (6.6-8.7)
== END 2024-10-04 23:59 | disposition home or self-care (01) ==
PROVIDERS: PCP Nurse Practitioner Family; Visit Provider Internal Medicine
DX: C18.3 Malignant neoplasm of hepatic flexure; Z53.9 Procedure and treatment not carried out, unspecified reason
CPT/HCPCS: 36415; 80053; 82378; 85025

== ENCOUNTER 2025-02-18 10:19 | Outpatient (CLI) | payer MEDICAID, SELFPAY ==
[2025-02-18 11:53] LABS: Basophils # 0.1 10^3/uL (0.0-0.1); Basophils % 0.6 %; Eosinophils # 0.3 10^3/uL (0.0-0.8); Hematocrit 43.9 % (36-47); Mean Corpuscular HGB Conc 32.8 g/dL (30-55); Mean Corpuscular Hemoglobin 30.4 pg (27-33); Mean Corpuscular Volume 92.6 fl (85-98); Mean Platelet Volume 10.6 fL (7.4-10.4); Monocytes # 0.4 10^3/uL (0.2-0.9); Monocytes % 5.1 %; Neutrophils # 4.94 10^3/uL (1.8-7.7); Neutrophils % 63.7 %; Nucleated Red Blood Cells % 0 %; Platelet Count 226 10^3/cmm (157-399); Red Blood Count 4.74 10^6/uL (3.85-5.65); Red Cell Distribution Width 14.8 % (12.1-15.1); White Blood Count 7.77 10^3/uL (3.29-11.43)
[2025-02-18 12:10] LABS: Albumin Level 3.7 g/dL (3.5-5.2); Anion Gap 13.1 (5-19); Blood Urea Nitrogen 6 mg/dL (6-20); Calcium 8.7 mg/dL (8.5-10.5); Calcium 8.9 mg/dL (8.5-10.5); Carbon Dioxide 27 mmol/L (22-29); Chloride 102 mmol/L (98-107); Glomerular Filtration Rate 64.8 mL/min (90-130); Glucose 205 mg/dL (65-115); Phosphorus 2.6 mg/dL (2.5-4.5); Potassium 3.1 mmol/L (3.5-5.1); Sodium 139 mmol/L (136-145)
[2025-02-18 12:15] LABS: Parathyroid Hormone 69.2 pg/mL (15-65)
[2025-02-18 12:25] LABS: 25 Hydroxy Vitamin D 18 ng/mL (30-100)
[2025-02-18 12:35] LABS: Creatinine Urine, Random 41 mg/dL (28-217); Microalbum Creatinine Ratio Ur 24 mg/dL (0-20); Microalbumin Random Urine 1 ug/dL (0-20)
== END 2025-02-18 10:20 | disposition home or self-care (01) ==
PROVIDERS: PCP Nurse Practitioner Family; Visit Provider Registered Nurse
DX: N18.31 Chronic kidney disease, stage 3a (principal); E55.9 Vitamin D deficiency, unspecified
CPT/HCPCS: 36415; 80069; 82044; 82306; 82310; 83970; 85025

== ENCOUNTER 2025-07-23 08:45 | Oncology outpatient (recurring) (ONCR) | payer MEDICAID, SELFPAY ==
[2025-07-23 09:24] LABS: Hematocrit 43.0 % (36-47); Hemoglobin 14.10 g/dL (11.27-16.99); Mean Corpuscular HGB Conc 32.8 g/dL (30-55); Mean Corpuscular Hemoglobin 31.3 pg (27-33); Mean Corpuscular Volume 95.6 fl (85-98); Nucleated Red Blood Cells % 0 %; Platelet Count 250 10^3/cmm (157-399); Red Blood Count 4.50 10^6/uL (3.85-5.65); White Blood Count 9.41 10^3/uL (3.29-11.43)
[2025-07-23 09:55] LABS: Carcinoembryonic Antigen 5.5 ng/mL (0.0-4.7)
[2025-07-23 10:06] LABS: Alanine Aminotransferase < 5 U/L (0-33); Albumin Level 3.7 g/dL (3.5-5.2); Alkaline Phosphatase 118 U/L (35-105); Anion Gap 11.7 (5-19); Aspartate Amino Transferase 9 U/L (0-32); Blood Urea Nitrogen 10 mg/dL (6-20); Calcium 8.7 mg/dL (8.5-10.5); Carbon Dioxide 31 mmol/L (22-29); Chloride 99 mmol/L (98-107); Globulin 2.8 g/dL (1.3-4.6); Glucose 187 mg/dL (65-115); Osmolality Calculated 290 mOsm/kg (285-295); Potassium 3.7 mmol/L (3.5-5.1); Sodium 138 mmol/L (136-145); Total Protein 6.5 g/dL (6.6-8.7)
== END 2025-08-03 23:59 | disposition home or self-care (01) ==
LOC: ONCMED 08:45
PROVIDERS: PCP Nurse Practitioner Family; Visit Provider Internal Medicine
DX: C18.3 Malignant neoplasm of hepatic flexure (principal)
CPT/HCPCS: 36415; 80053; 82378; 85025

== ENCOUNTER 2025-08-13 07:46 | Outpatient (CLI) | payer MEDICAID, SELFPAY ==
--- NOTE | 2025-08-13 08:00 | CTR_ITS ---
PROCEDURE INFORMATION: Exam: CT Chest With Contrast; Diagnostic Exam date and time: 08/13/2025 8:59 AM Age: 55 years old Clinical indication: Condition or disease; Other: Colon cancer TECHNIQUE: Imaging protocol: Diagnostic computed tomography of the chest with contrast. Radiation optimization: All CT scans at this facility use at least one of these dose optimization techniques: automated exposure control; mA and/or kV adjustment per patient size (includes targeted exams where dose is matched to clinical indication); or iterative reconstruction. Contrast material: OMNI 350; Contrast volume: 100 ml; Contrast route: INTRAVENOUS (IV); COMPARISON: 1. CT chest abdpel w/*[id number] 05/22/2024 12:[address] chest abdpel w/*[id number] 12/21/2023 9:21 AM 3. NM bone scan whole body* 40100 06/26/2024 8:45 AM RADIATION DOSE METRICS: Total DLP (mGy-cm): 1524.61 FINDINGS: Lungs: Few tiny scattered bilateral lower lobe peripheral noncalcified pulmonary nodules measuring up to about 2 mm and unchanged for greater than 2 years. These are considered benign. No new pulmonary nodules. No consolidation. Pleural spaces: Unremarkable. No pneumothorax. No pleural effusion. Heart: Unremarkable. No cardiomegaly. No pericardial effusion. Coronary arteries: No coronary artery calcifications. Lymph nodes: Unremarkable. No enlarged lymph nodes. Vasculature: Aortic atherosclerotic disease is seen without evidence of aneurysm. Bones/joints: Unremarkable. No acute fracture. Soft tissues: Unremarkable. PROCEDURE INFORMATION: Exam: CT Abdomen And Pelvis With Contrast Exam date and time: 08/13/2025 8:59 AM Age: 55 years old Clinical indication: Condition or disease; Other: Colon cancer TECHNIQUE: Imaging protocol: Computed tomography of the abdomen and pelvis with contrast. Radiation optimization: All CT scans at this facility use at least one of these dose optimization techniques: automated exposure control; mA and/or kV adjustment per patient size (includes targeted exams where dose is matched to clinical indication); or iterative reconstruction. Contrast material: OMNI 350; Contrast volume: 100 ml; Contrast route: INTRAVENOUS (IV); COMPARISON: CT chest abdpel w/*[id number] 05/22/2024 12:00 PM RADIATION DOSE METRICS: Total DLP (mGy-cm): 1524.61 FINDINGS: Liver: Normal. No mass. Gallbladder and biliary ducts: Status post cholecystectomy. No evidence of significant biliary obstruction. Pancreas: Normal. No ductal dilation. Spleen: Normal. No splenomegaly. Adrenal glands: Normal. No mass. Kidneys and ureters: Stable 9 mm hypoattenuating cortical lesion in the upper pole of the right kidney, too small to characterize. No hydronephrosis. Stomach and bowel: Stable segmental colon resection near the hepatic flexure. Bowel has normal caliber. Appendix: No evidence of appendicitis. Intraperitoneal space: Unremarkable. No free air. No significant fluid collection. Vasculature: Aortoiliac atherosclerotic disease is seen without evidence of aneurysm. Lymph nodes: Unremarkable. No enlarged lymph nodes. Urinary bladder: Unremarkable as visualized. Reproductive: Uterus is surgically absent. No evidence of adnexal mass. Bones/joints: Unremarkable. No acute fracture. Soft tissues: Small supraumbilical ventral hernia again noted containing loop of nonobstructed small bowel and mesenteric fat. CT/CT chest abdpel w/*[id number] IMPRESSION: No evidence of metastatic disease to the chest. IMPRESSION: 1. No evidence of new or progressive malignancy in the abdomen or pelvis. 2. Small supraumbilical ventral hernia again noted containing loop of nonobstructed small bowel and mesenteric fat.
[2025-08-13] MEDS: iohexol 350 mg/mL 500 mL Btl (per mL) PO (09:10)
[2025-08-13] MEDS: iohexol 350 mg/mL 500 mL Btl (per mL) IV (09:10)
== END 2025-08-13 07:47 | disposition home or self-care (01) ==
LOC: RAD 07:46
PROVIDERS: PCP Nurse Practitioner Family; Visit Provider Internal Medicine
DX: C18.3 Malignant neoplasm of hepatic flexure (principal); C18.9 Malignant neoplasm of colon, unspecified; Z90.49 Acquired absence of other specified parts of digestive tract; R93.421 Abnormal radiologic findings on diagnostic imaging of right kidney; I70.0 Atherosclerosis of aorta; K43.9 Ventral hernia without obstruction or gangrene
CPT/HCPCS: 71260; 74177

== ENCOUNTER 2025-09-02 09:49 | Day surgery (SDC) | payer MEDICAID, SELFPAY ==
[2025-09-02 10:09] VITALS: BP 173/98; PULSE 74; RESP 18; TEMP 36.3; O2SAT 97; BMI 37.5
--- NOTE | 2025-09-02 10:34 | ANES.PREANE2 ---
Pre-Anesthetic Assessment Height/Weight: Height 1.7 m Weight 108.862 kg Temp Pulse Resp BP Pulse Ox O2 Del Method 97.3 F L 74 18 173/98 97 Room Air 09/02/25 10:09 09/02/25 10:09 09/02/25 10:09 09/02/25 10:09 09/02/25 10:09 09/02/25 10:09 Preop Diagnosis: screening Operation Date: 09/02/25 11:55 Proposed Procedures p Colonoscopy 19225 G0105 Z12.11(Not Applicable) - Gumaro Flynn MD Familial anesthetic complications: none Was Beta Kj taken within 24 hours: N/A Was Clonidine taken within 24 hours: N/A Last intake: Intake Last Liquid Date 09/01/25 Last Liquid Time 23:00 Last Solid Date 08/31/25 Last Solid Time 22:00 Social Tobacco and No alcohol Exam alert, oriented x 3 and clear to auscultation bilaterally Airway Mallampati: Class II Dentition: partials History/ROS No significant history except as noted Pulmonary None reported CV/HEM Deep Vein Thrombosis and Hypertension Chronic Renal Failure Hepatic None reported GI None reported Metabolic Diabetes Mellitus [facility] [place] None reported Neuropsych Cerebrovascular Accident (only residual SE is memory impairment ) Anesthetic Plan ASA status: 3 Anesthesia: Anesthesia Evaluation and MAC Risk of > 500 ml blood loss (7ml/kg in children): Yes, adequate IV access and fluids planned Medications/Allergies Home Medications ?Medication ?Instructions ?Recorded ?Confirmed ?Last Taken ?Type aspirin 81 mg tablet,delayed 81 mg PO DAILY 02/02/23 08/25/25 08/29/25 History release Allergies Allergy/AdvReac Type Severity Reaction Status Date / Time Opioids - Morphine Analogues Allergy Severe ADR-Headach Verified 08/25/25 09:59 e Current Medications Generic Name Dose Route Start Last Admin Trade Name Freq PRN Reason Stop Dose Admin Sodium Chloride 1,000 mls @ 15 mls/hr 09/02/25 09:57 09/02/25 10:28 Sodium Chloride 0.9% IV 09/03/25 09:56 15 mls/hr .Q24H PRN Administration COLONOSCOPY FLUIDS PFSH Anesthesia Medical History Colon polyps Abnormal colonoscopy in 30s 3 polyps were removed Diabetes HTN (hypertension) Surgical History History of carpal tunnel surgery Right History of tonsillectomy H/O: hysterectomy / BSO /incidental appendectomy S/P laparoscopic cholecystectomy Family History Grandmother Cancer [employer]GER CANCER Mother CAD (coronary artery disease) Social History Smoking and tobacco/nicotine status: current every day tobacco/nicotine user cigarettes Years cigarettes smoked: 30 [ Other cigarette details: Recently only a few cigarettes a day, but 1 to 2 packs/day in the past] Second hand smoke exposure: Yes Alcohol intake: never Substance/Drug Use: never Caregiver/support person: Yes Lives independently: Yes Household members: family Housing: House service: No Current occupational status: disabled Current gender identity: Female Special irvin needs: No Agree to transfusion: Yes Data Anesthesia Cardiac Studies: Echocardiogram 03/27/23 Sestamibi Stress Test (Cardiology) 04/07/23
--- NOTE | 2025-09-02 10:56 | P.HP_ITS ---
Same Day Surgery H&P Indication for Procedure/HPI DATE OF PROCEDURE: September 02, 2025 CHIEF COMPLAINT/INDICATIONFOR SURGICAL PROCEDURE: history of colon cancer PREOP DIAGNOSIS: screening PLANNED PROCEDURE: Operation Date: 09/02/25 11:55 Proposed Procedures p Colonoscopy 14911 G0105 Z12.11(Not Applicable) - Gumaro Flynn MD Medications/Allergies* Home Medications ?Medication ?Instructions ?Recorded ?Confirmed ?Type aspirin 81 mg tablet,delayed 81 mg PO DAILY 02/02/23 1 10/26/24 History release Allergies/Adverse Reactions Allergy/AdvReac Type Severity Reaction Status Date / Time Opioids - Morphine Analogues Allergy Severe ADR-Headach Verified 08/25/25 09:59 e Current Medications: Generic Name Dose Route Start Last Admin Trade Name Freq PRN Reason Stop Dose Admin Sodium Chloride 1,000 mls @ 15 mls/hr 09/02/25 09:57 09/02/25 10:28 Sodium Chloride 0.9% IV 09/03/25 09:56 15 mls/hr .Q24H PRN Administration COLONOSCOPY FLUIDS Pertinent History/Comorbid Conditions* Medical History (Updated 11/29/24 @ 10:44 by Moni Meza NP) Colon polyps Abnormal colonoscopy in 30s 3 polyps were removed Diabetes HTN (hypertension) Surgical History (Updated 12/22/20 @ 10:53 by Andrea Evans MD) History of carpal tunnel surgery Right History of tonsillectomy H/O: hysterectomy / BSO /incidental appendectomy S/P laparoscopic cholecystectomy Family History (Updated 12/07/20 @ 04:52 by Jennifer Eller MD) CAD (coronary artery disease) Mother Cancer Grandmother [employer] CANCER Social History Smoking and tobacco/nicotine status: current every day tobacco/nicotine user cigarettes Years cigarettes smoked: 30 [ Other cigarette details: Recently only a few cigarettes a day, but 1 to 2 packs/day in the past] Second hand smoke exposure: Yes Alcohol intake: never Substance/Drug Use: never Caregiver/support person: Yes Lives independently: Yes Household members: family Housing: House service: No Current occupational status: disabled Current gender identity: Female Special irvin needs: No Agree to transfusion: Yes Pertinent Exam Findings alert, oriented x 3, clear to auscultation bilaterally and regular rate & rhythm Recommendations Surgery/Procedure today Coding Level of Care Code Acute Code for Chg Fwd
[2025-09-02 11:17] VITALS: BP 179/82; PULSE 67; RESP 18; TEMP 36.6; O2SAT 98
[2025-09-02 11:50] VITALS: BP 195/115; PULSE 64; RESP 16; O2SAT 99
[2025-09-02 11:57] VITALS: BP 192/103
--- NOTE | 2025-09-02 11:57 | PC.NURSE ---
This RN made anesthesia aware fo blood pressure readings prior to discharge. Sharon suggested to keep patient and see if blood pressure comes down in a few minutes. will retake bp in 15 minutes. Pt asked this RN why I would not let her leave, this RN educated that this blood pressure is stroke level and although normal to her this is not a normal bp and educated on all risks. pt agitated stating she needs to get the hell out of here. This RN educated that as soon as her blood pressure came within 20points of preop bp then pt would be dc, but this RN was not comfortable ith dc at this time and was following anesthesia orders.
[2025-09-02 12:01] VITALS: BP 196/111
--- NOTE | 2025-09-02 12:03 | PC.NURSE ---
readjusted bp cuff and next reading still 196/111. readjusted again. will report back to anesthesia following next reading.
[2025-09-02 12:10] VITALS: BP 184/88
--- NOTE | 2025-09-02 12:10 | ANE.PACU2 ---
Inpatient post-anesthesia follow up: Airway intact: Yes Vital signs: Temperature 97.9 F Pulse Rate 64 Respiratory Rate 16 Blood Pressure 184/88 Pulse Oximetry 99 Oxygen Delivery Me thod Room Air Oxygen Flow Rate Fraction of Inspir ed Oxygen Hydration adequate: Yes Nausea and vomiting: No Pain level: 1 Mental status: Baseline
--- NOTE | 2025-09-02 12:17 | PC.NURSE ---
see ;ast charted bp. within 20 points of preop bp. pt dc
== END 2025-09-02 12:10 | disposition home or self-care (01) ==
PROVIDERS: Family Provider Internal Medicine; PCP Nurse Practitioner Family; Visit Provider Surgery
PROC: 0DJD8ZZ Inspection of Lower Intestinal Tract, Via Natural or Artificial Opening Endoscopic (ICD-10-PCS; CPT 45378; principal; 2025-09-02 11:55)
DX: Z85.038 Personal history of other malignant neoplasm of large intestine (principal); D12.0 Benign neoplasm of cecum; D12.4 Benign neoplasm of descending colon; D12.5 Benign neoplasm of sigmoid colon; D12.8 Benign neoplasm of rectum; Z79.82 Long term (current) use of aspirin; F17.210 Nicotine dependence, cigarettes, uncomplicated; Z86.718 Personal history of other venous thrombosis and embolism; E11.22 Type 2 diabetes mellitus with diabetic chronic kidney disease; I12.9 Hypertensive chronic kidney disease with stage 1 through stage 4 chronic kidney disease, or unspecified chronic kidney disease; N18.9 Chronic kidney disease, unspecified; Z86.73 Personal history of transient ischemic attack (TIA), and cerebral infarction without residual deficits; Z86.0100 Personal history of colon polyps, unspecified
CPT/HCPCS: 36416; 45380; 45385; 82962; 88305; J2704; J3490; J7030; J9999